=== PATIENT | female | born 1945 | race Caucasian/White ===

== ENCOUNTER → 2022-11-12 12:03 | Outpatient (BNVA) | payer MEDICARE, SELFPAY | PROVIDERS: Family Provider Urology; PCP Family Medicine; Visit Provider Family Medicine | DX: R32 Unspecified urinary incontinence (principal); Z13.6 Encounter for screening for cardiovascular disorders; R41.89 Other symptoms and signs involving cognitive functions and awareness; F41.1 Generalized anxiety disorder | CPT/HCPCS: 80053; 80061; 82607; 84443; 85025 ==

== ENCOUNTER → 2022-11-13 12:03 | Outpatient (BNVA) | payer MEDICARE, SELFPAY | PROVIDERS: Family Provider Urology; PCP Family Medicine; Visit Provider Family Medicine | DX: R32 Unspecified urinary incontinence (principal); Z13.6 Encounter for screening for cardiovascular disorders; R41.89 Other symptoms and signs involving cognitive functions and awareness; F41.1 Generalized anxiety disorder | CPT/HCPCS: 82310; 83970 ==

== ENCOUNTER → 2022-12-18 14:42 | Outpatient (BNVA) | payer MEDICARE, SELFPAY | PROVIDERS: Family Provider Urology; PCP Family Medicine; Referring Provider Family Medicine; Visit Provider Internal Medicine | DX: E21.0 Primary hyperparathyroidism (principal); E55.9 Vitamin D deficiency, unspecified; R41.89 Other symptoms and signs involving cognitive functions and awareness; Z87.442 Personal history of urinary calculi | CPT/HCPCS: 99204 ==

== ENCOUNTER 2022-12-21 10:20 | Outpatient (CLI) | payer MEDICARE, SELFPAY ==
--- NOTE | 2022-12-21 15:00 | XR_ITS ---
WS: [id number] SCREENING DEXA SCAN [employer] CLINICAL INFORMATION: Primary Hyperparathyroidism COMPARISON: None. FINDINGS: The L1-L4 bone mineral density measures 0.953 g/cm2. This corresponds to a T score score of -1.9 and Z score of -1.2. Left femoral neck bone mineral density measures 0.758 g/cm2. This corresponds to a T score of -2.0 an d Z score of -1.5. Right femoral neck bone mineral density measures 0.738 g/cm2. This corresponds to a T score -2.1of an d Z score of -1.6. Mean femoral neck bone mineral density measures 0.748 g/cm2. This corresponds to a T score of -2.1 an d Z score of -1.5. XR/XR DEXA axial skeleton* [id number] IMPRESSION: Osteopenia lumbar spine. Osteopenia femoral necks. Patient's FRAX c alculated 10 year probability for major osteoporotic fracture is 6.0 % and oste oporotic hip fracture is 1.5%.
== END 2022-12-21 10:21 | disposition home or self-care (01) ==
LOC: RAD 10:26
PROVIDERS: PCP Family Medicine; Visit Provider Internal Medicine
DX: E21.3 Hyperparathyroidism, unspecified (principal); M85.88 Other specified disorders of bone density and structure, other site
CPT/HCPCS: 77080

== ENCOUNTER 2023-01-07 08:59 | Outpatient (CLI) | payer MEDICARE, SELFPAY ==
--- NOTE | 2023-01-07 09:08 | NM_ITS ---
WS: [id number] EXAMINATION: NM parathyroid [id number] ORDER DATE: 01/07/2023 9:08 AM HISTORY: hyperparathyroidism TECHNIQUE: Parathyroid scintigraphy with 18.5 of technetium 99m administered. AP and oblique views obtained with and without chin and suprasternal notch markers. Initial and 2 hour delayed imagi ng acquired. FINDINGS: Normal salivary gland uptake. Intense uptake in the thyroid gland bilaterally. Persistent retained ac tivity in a focal nodule adjacent to the LEFT inferior thyroid lobe suspicious for adenoma. 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
== END 2023-01-07 09:00 | disposition home or self-care (01) ==
PROVIDERS: PCP Family Medicine; Visit Provider Internal Medicine
DX: E21.3 Hyperparathyroidism, unspecified (principal)
CPT/HCPCS: 78070; A9500

== ENCOUNTER 2023-01-24 13:21 | Outpatient (CLI) | payer MEDICARE, SELFPAY ==
--- NOTE | 2023-01-24 13:30 | CT_ITS ---
WS: [id number] CT HEAD TECHNIQUE: Noncontrast and contrast-enhanced CT of the head. CLINICAL INFORMATION: R41.89 - Other symptoms and signs involving cognitive fun... COMPARISON: None. DLP: 2059.[address] scans at [facility] use at least one of these dose optimization techniques: automated e xposure control; mA and/or kV adjustment per patient size (includes targeted exams where dose is matc hed to clinical indication); or iterative reconstruction. FINDINGS: No evidence of intracranial hemorrhage or mass effect. Ventricular system and basal cisterns are hamm nt. Vascular calcification. Mastoid air cells well aerated. Normal posterior nasopharynx. Tiny amount of fluid in the RIGHT maxillary sinus. Mild mucosal thickening ethmoid air cells. Normal lyon-white differentiation. No extra-axial fluid collections. Small focus of chronic ischemia LEFT anterior limb internal capsule. No abnormal intracranial enhancement. No other suspicious findin gs. CT/CT head wo/w con [id number] IMPRESSION: 1. No evidence of intracranial hemorrhage or mass effect. 2. No abnormal intracranial enhancement. 3. Mild small vessel changes with moderate parenchymal volume loss. 4. Vascular calcification. 5. Small focus of chronic ischemia along the anterior limb LEFT internal capsu le. 6. No other suspicious findings.
[2023-01-24] MEDS: iohexol 350 mg/mL 500 mL Btl (per mL) IV (13:57)
[2023-01-24 14:17] LABS: Blood Urea Nitrogen 16 mg/dL (8-23)
== END 2023-01-24 13:22 | disposition home or self-care (01) ==
PROVIDERS: PCP Family Medicine; Visit Provider Family Medicine
DX: R41.89 Other symptoms and signs involving cognitive functions and awareness (principal); N28.9 Disorder of kidney and ureter, unspecified; Z87.442 Personal history of urinary calculi
CPT/HCPCS: 70470; 82565; 84520; Q9967

== ENCOUNTER 2023-02-18 15:28 | Outpatient (CLI) | payer MEDICARE, SELFPAY ==
--- NOTE | 2023-02-18 15:40 | CT_ITS ---
WS: [id number] CT NECK TECHNIQUE: Contrast-enhanced CT of the neck with coronal and sagittal reformatted images. CLINICAL INFORMATION: OTHER HYPERPARATHYROIDISM COMPARISON: . There June 11, 2036 23 DLP: 130.[address] scans at [facility] use at least one of these dose optimization techniques: automated e xposure control; mA and/or kV adjustment per patient size (includes targeted exams where dose is matc hed to clinical indication); or iterative reconstruction. FINDINGS: Ovoid shaped elongated nodule adjacent to the inferior pole LEFT thyroid posteriorly measuring 8.2 x 1.5 x 2.1 mm most compatible with parathyroid adenoma given prior parathyroid scintigraphy. Multinodular thyroid with dominant nodules involving the isthmus measuring 1.3 x 2.0 x 1.7 cm and LEF T lower thyroid measuring 1.1 x 1.0 x 1.0 cm AP by transverse by craniocaudal. Smaller subcentimeter nodules in the RIGHT thyroid lobe. Mastoid air cells are well aerated. Mild mucosal thickening in the RIGHT greater than LEFT maxillary sinuses. Mild mucosal thickening in the ethmoid air cells. Normal posterior nasopharynx. Normal parap haryngeal fat. Lung apices are well aerated. Moderate RIGHT and mild LEFT carotid bulb calcification. No cervical lymphadenopathy. Moderate spondylitic changes cervical spine. Mild central canal stenosis C3-C4 C4-C5 C5-C6 C6-C7 CT/CT neck w con* [id number] IMPRESSION: 1. Enhancing ovoid nodule inferior and posterior to the LEFT thyroid lobe desc ribed above compatible with parathyroid adenoma as seen on the prior parathyroi d scintigraphy. 2. A few thyroid nodules described above. This can be followed up with ultraso und. 3. No cervical lymphadenopathy. 4. Normal salivary glands. 5. No evidence of supraglottic or glottic mass. 6. Moderate spondylitic changes cervical spine.
[2023-02-18] MEDS: iohexol 350 mg/mL 500 mL Btl (per mL) IV (15:56)
== END 2023-02-18 15:29 | disposition home or self-care (01) ==
PROVIDERS: PCP Family Medicine; Visit Provider Specialist
DX: E21.2 Other hyperparathyroidism (principal); E04.2 Nontoxic multinodular goiter
CPT/HCPCS: 70491; Q9967

== ENCOUNTER → 2023-02-28 13:11 | Outpatient (BNVA) | payer MEDICARE, SELFPAY | PROVIDERS: PCP Family Medicine; Visit Provider Internal Medicine | DX: E21.0 Primary hyperparathyroidism (principal); E55.9 Vitamin D deficiency, unspecified; R41.89 Other symptoms and signs involving cognitive functions and awareness; D35.1 Benign neoplasm of parathyroid gland; Z87.442 Personal history of urinary calculi | CPT/HCPCS: 36415; 80053; 82306; 82310; 83970; 99214 ==

== ENCOUNTER 2023-04-17 16:49 | Observation (INO) | payer MEDICARE, SELFPAY ==
[2023-04-15 13:11] VITALS: BMI 28.1
[2023-04-15 13:49] LABS: Basophils % 0.6 %; Eosinophils # 0.1 10^3/uL (0.0-0.8); Eosinophils % 1.9 %; Hematocrit 43.1 % (37.0-47.0); Hemoglobin 13.8 g/dL (11.5-15.3); Lymphocytes # 2.1 10^3/uL (0.8-4.8); Lymphocytes % 28.9 %; Mean Corpuscular Hemoglobin 30.2 pg (28.0-34.0); Mean Corpuscular Volume 94.3 fl (81-99); Mean Platelet Volume 10.6 fL (7.4-10.4); Monocytes # 0.6 10^3/uL (0.2-0.9); Monocytes % 7.8 %; Neutrophils # 4.35 10^3/uL (1.8-7.7); Neutrophils % 60.5 %; Nucleated Red Blood Cells % 0 %; Platelet Count 205 10^3/cmm (130-400); Red Blood Count 4.57 10^6/uL (4.1-5.3); Red Cell Distribution Width 12.7 % (12.1-15.1); White Blood Count 7.2 10^3/uL (4.0-10.0)
--- NOTE | 2023-04-15 14:07 | P.ANESASSM_ITS ---
Pre-Anesthetic Assessment Height/Weight: Height 1.7 m Weight 81.647 kg Operation Date: 04/17/23 07:00 Proposed Procedures p Total vaginal hysterectomy 07301,N81.3(Not Applicable) - Ariel Mendes MD s ,bilateral salpingo-oophorectomy 10850(Bilateral) - Ariel Mendes MD s Colporrhaphy Anterior 21280(Not Applicable) - Ariel Mendes MD s Posterior Repair Posterior Colporrhaphy(Not Applicable) - Ariel Mendes MD s Sling Single Incision Sling 13882(Not Applicable) - Ariel Mendes MD s Sacrospinous fixation 27120(Not Applicable) - Ariel Mendes MD Familial anesthetic complications: none Was Beta Pilo taken within 24 hours: N/A Was Clonidine taken within 24 hours: N/A Social No alcohol and No tobacco Exam alert, oriented x 3, clear to auscultation bilaterally and regular rate & rhythm Airway Submandibular: within normal limits Cervical ROM: within normal limits Mallampati: Class II Dentition: partials Musc/skel Osteoarthritis/DJD Neuropsych Anxiety Anesthetic Plan ASA status: 2 Anesthesia: General Medications/Allergies Home Medications Medication Instructions Recorded Confirmed Last Taken Type citalopram 40 mg tablet 40 mg PO DAILY #90 tabs 02/20/23 04/15/23 04/15/23 Rx aspirin 81 mg tablet,delayed 81 mg PO DAILY 03/05/23 04/15/23 04/15/23 History release meloxicam 15 mg tablet 15 mg PO DAILY 04/15/23 04/15/23 04/15/23 History Allergies Allergy/AdvReac Type Severity Reaction Status Date / Time No Known Allergies Allergy Verified 04/15/23 13:09 FOR[facility] Anesthesia Medical History History of kidney stones Urinary incontinence Family History Denies family history of Colon cancer Ovarian cancer Diabetes Heart disease Hypercholesteremia Breast cancer Hypertension Uterine cancer Thyroid disease Stroke Data Anesthesia 04/15/23 13:19 04/15/23 13:19 Short CBC 04/15/23 Range/Units 13:19 WBC 7.2 (4.0-10.0) 10^3/uL Hgb 13.8 (11.5-15.3) g/dL Hct 43.1 (37.0-47.0) % MCV 94.3 (81-99) fl Plt Count 205 (130-400) 10^3/cmm Neut % (Auto) 60.5 % Neut # (Auto) 4.35 (1.8-7.7) 10^3/uL Cardiac Studies: No Data to Display
[2023-04-15 14:08] LABS: Alanine Aminotransferase 20 U/L (0-33); Albumin Level 4.2 g/dL (3.5-5.2); Alkaline Phosphatase 93 U/L (35-105); Anion Gap 9.9 (5-19); Aspartate Amino Transferase 25 U/L (0-32); Blood Urea Nitrogen 15 mg/dL (8-23); Calcium 10.3 mg/dL (8.5-10.5); Carbon Dioxide 25 mmol/L (22-29); Chloride 106 mmol/L (98-107); Glucose 105 mg/dL (65-115); Osmolality Calculated 285 mOsm/kg (285-295); Potassium 3.9 mmol/L (3.5-5.1); Sodium 137 mmol/L (136-145); Total Bilirubin 0.4 mg/dL (0.15-1.2); Total Protein 7.2 g/dL (6.6-8.7)
[2023-04-15 14:12] LABS: Add Urine Culture? Yes; Add Urine Microscopic? YES; Bacteria Urine 4+ /hpf; Bilirubin Urine Neg (Negative); Blood Urine Neg (Negative); Glucose Urine UA Norm (Normal); Ketones Urine Negative (Negative); Leukocyte Esterase Urine 1+ (Negative); Nitrate Urine Positive (Negative); Protein Urine Neg (Negative); RBC Urine 0-4 /hpf (0-2); Squamous Epithelial Cell Urine 0-4 /hpf (0-5); Urine Appearance Cloudy (CLEAR); Urine Color Yellow (Yellow); Urobilinogen Urine Norm (Negative); WBC Urine 40-55 /hpf (0-5); pH Urine 6 (5-7)
[2023-04-17] VITALS (19 sets, daily range): BP systolic 98–157; BP diastolic 62–95; PULSE 64–90; RESP 14–20; TEMP 36.3–36.7; O2SAT 95–100
[2023-04-17] MEDS: enoxaparin 40 mg/0.4 mL Syringe SUBCUT (11:33)
[2023-04-17] MEDS: scopolamine 1.5 Patch 1 PATCH TRANSDERMA (11:33)
[2023-04-17] MEDS: sodium chloride 0.9% 1,000 ML 30 ML IV (11:35)
--- NOTE | 2023-04-17 12:10 | P.HPUD_ITS ---
Surgery/Procedure H&P Update DATE OF PROCEDURE: April 17, 2023 DATE H&P PERFORMED: 04/15/23 H&P UPDATE INFORMATION: I have reviewed H&P completed within last 30 days, I have examined patient prior to procedure and No changes to prior documentation PREOP DIAGNOSIS: cystocele uterine prolapse stage 3 PLANNED PROCEDURE: Operation Date: 04/17/23 12:20 Proposed Procedures p Total vaginal hysterectomy 13625,N81.3(Not Applicable) - Ariel Mendes MD s ,bilateral salpingo-oophorectomy 26738(Bilateral) - MD alysha Guy Colporrhaphy Anterior 77824(Not Applicable) - MD alysha Guy Posterior Repair Posterior Colporrhaphy(Not Applicable) - MD alysha Guy Sling Single Incision Sling 29643(Not Applicable) - MD alysha Guy Sacrospinous fixation 34252(Not Applicable) - Ariel Mendes MD
--- NOTE | 2023-04-17 12:10 | W.PM.OPSUD ---
Surgery/Procedure H&P Update DATE OF PROCEDURE: April 17, 2023 DATE H&P PERFORMED: 04/15/23 H&P UPDATE INFORMATION: I have reviewed H&P completed within last 30 days, I have examined patient prior to procedure and No changes to prior documentation PREOP DIAGNOSIS: cystocele uterine prolapse stage 3 PLANNED PROCEDURE: Operation Date: 04/17/23 12:20 Proposed Procedures p Total vaginal hysterectomy 62837,N81.3(Not Applicable) - Ariel Mendes MD s ,bilateral salpingo-oophorectomy 88735(Bilateral) - MD alysha Guy Colporrhaphy Anterior 11028(Not Applicable) - MD alysha Guy Posterior Repair Posterior Colporrhaphy(Not Applicable) - MD alysha Guy Sling Single Incision Sling 99603(Not Applicable) - MD alysha Guy Sacrospinous fixation 44843(Not Applicable) - Ariel Mendes MD
[2023-04-17] MEDS: ceFOXitin 2,000 MG in sodium chloride 0.9% (plus) 50 ML 100 MG IV (12:42)
--- NOTE | 2023-04-17 13:58 | P.ANESUD_ITS ---
Pre-Anesthetic Update Pre-Anesthetic Assessment: Date of Surgery/Procedure: 04/17/23 Preop Allie gnosis: cystocele uterine prolapse stage 3 Proposed Procedure: Operation Date: 04/17/23 12:20 Proposed Procedures p Total vaginal hysterectomy 37342,N81.3(Not Applicable) - Ariel Mendes MD s ,bilateral salpingo-oophorectomy 47705(Bilateral) - Ariel Mendes MD s Colporrhaphy Anterior 23907(Not Applicable) - Ariel Mendes MD s Posterior Repair Posterior Colporrhaphy(Not Applicable) - Ariel Mendes MD s Sling Single Incision Sling 06482(Not Applicable) - Ariel Mendes MD s Sacrospinous fixation 42390(Not Applicable) - Ariel Mendes MD Any changes to Pre-Anesthetic Assessment?: No Last Intake: Intake Last Liquid Date 04/16/23 Last Liquid Time 19:00 Last Solid Date 04/16/23 Last Solid Time 19:00 Labs Last 48hrs: BMP 04/15/23 13:19 Sodium 137 Potassium 3.9 Chloride 106 Carbon Dioxide 25 BUN 15 Creatinine 0.6 Glucose 105 Calcium 10.3 Liver Function 04/15/23 Range/Units 13:19 Total Bilirubin 0.4 (0.15-1.2) mg/dL AST 25 (0-32) U/L ALT 20 (0-33) U/L Alkaline Phosphata se 93 (35-105) U/L Albumin 4.2 (3.5-5.2) g/dL Urine 04/15/23 Range/Units 13:20 Urine Color Yellow (Yellow) Urine Appearance Cloudy A (CLEAR) Urine pH 6 (5-7) Ur Specific Gravit y 1.020 (1.005-1.030) Urine Protein Neg (Negative) Urine Glucose (UA) Norm (Normal) Urine Ketones Negative (Negative) Urine Nitrate Positive H (Negative) Urine Bilirubin Neg (Negative) Ur Leukocyte Danisha ase 1+ H (Negative) Urine RBC 0-4 H (0-2) /hpf Urine WBC 40-55 H (0-5) /hpf Blood Bank 04/15/23 13:20 Blood Type O Positive Rho(D) Type Positive Antibody Screen Negative Vitals: Temperature 97.4 F L 04/17/23 10:56 Temperature Source Temporal Artery S can 04/17/23 10:56 Pulse Rate 66 04/17/23 10:56 Respiratory Rate 18 04/17/23 10:56 Blood Pressure 157/95 04/17/23 10:56 Blood Pressure Esme n 115 04/17/23 10:56 Pulse Oximetry 100 04/17/23 10:56 Oxygen Delivery Me thod Room Air 04/17/23 11:36 Exam: Pre-Anes Outpt Exam: alert, oriented x 3, clear to auscultation bilaterally and regular rate & rhythm Cardiac Studies: No Data to Display
[2023-04-17] MEDS: estrogens Conjugated Cream 30 gm 1 APPLIC VAGINAL (15:23)
[2023-04-17] MEDS: lidocaine-epi 2% 20 mL INJ 10 ML INJECTION (15:24)
[2023-04-17] MEDS: lidocaine-epi 2% 20 mL INJ INJECTION (15:24)
--- NOTE | 2023-04-17 16:36 | P.OP_ITS ---
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 Anterior colporrhaphy augmented with allograft. Single incision mid urethral sling. Posterior colporrhaphy. Sacrospinous fixation. Cystoscopy Specimens removed/disposition: Uterus Left and right fallopian tube and ovaries Surgeon: Ariel Mendes MD Estimated blood loss (mL): 300 IV fluids (mL): 1,600 Urine output (mL): 400 Complications: Bleeding Findings: Mrs. Dia 78-year-old female with a history of uterine prolapse for years. Complete uterine prolapse. Extensive pelvic reconstruction. Procedure: After informed consent and risks, benefits, indications and alternatives reviewed with the patient was taken to the operating room. The patient was placed in dorsal lithotomy position prepped, and draped in the usual sterile fashion. The pre-procedure timeout verifying the correct patient, procedure, site and side, could not requirements was performed and acknowledge by the OR team. A Wall catheter was placed. A Bookwalter vaginal retractor was placed into the vagina in usual manner visualize the cervix. Cervix was grasped with a single tooth tenaculum and circumferentially infiltrated with 2% lidocaine with epinephrine. Then cervix was circumferentially incised with bovie and the bladder was dissected off the pubovesical cervical fascia anteriorly with a sponge stick and Metzenbaum scissors. The anterior peritoneal reflection was identified and the anterior cul-de-sac was entered sharply with Metzenbaum scissors. The same procedure was performed posteriorly and a posterior colpotomy was made through the posterior cul-de-sac space without difficulty and the posterior blade of the Bookwalter vaginal retractor was advanced posteriorly into the cul-de-sac. At this time, the left and right uterosacral ligaments were isolated and ligated with 0 Vicryl. The Enseal device was placed over the uterosacral ligaments on either side and was then used in a serial fashion up through the cardinal ligaments bilaterally cross-clamped, cut, and sealed with the Enseal device. Finally, the uterine arteries were cross-clamped, cut, sealed and ligated with the Enseal device. Hemostasis was assured. The broad ligaments were then serially clamped, sealed and cut with the Enseal device on both sides. Excellent hemostasis was visualized. Both cornua were clamped, sealed and cut with the Enseal device. Then the pedicles were then suture ligated with excellent hemostasis. The uterus was excised and submitted for pathologic evaluation. No other abnormalities were noted in the pelvic cavity. Then the right side Infundibular ligament was identified. The ureter was confirmed along the pelvic side wall and peristalsis was noted. The Enseal device was then used to clamp, sealed and transcepted at middistance, again being sure to be clear of the ureter and the fallopian tube and ovary were removed. The same process was then repeated on the left side. Good hemostasis was assure on both sides. The peritoneum was then closed in a pursestring fashion with 0 Vicryl suture. The vaginal cuff angles were closed with [id number] #0 Vicryl suture on both sides and transfixed with the ipsilateral cardinal and uterosacral ligaments. The remainder of the vaginal cuff was closed with #0 Vicryl in a running locked fashion. The posterior vaginal mucosa is opened in the routine fashion as described previously in Posterior Repair. A finger is inserted through the incision in the posterior vaginal mucosa, dissecting out the rectovaginal space (RVS). The right rectal pillar (RRP) is identified. The rectal pillar can be bluntly perforated either with the finger and with the tip of a long Thalia clamp. A Verónica- Ankit retractor is used for exposing the rectovaginal space in order to enter the pararectal space with retraction of the cardinal ligament, vagina, and rectum. Displacing the rectum to the left and the cardinal ligament and ureter anteriorly. A sponge dissector is used to bluntly dissect the sacrospinous ligament removing areolar tissue. The ischial spine was palpated directly, and a area approximately 2 cm medial to the spine was selected for insertion of the Anchorsure transvaginal sacrospinous fixation system. One end of the suture of Anchoresure system inserted through the sacrospinous ligament is placed through the muscular layer of the vagina. In a similar manner, the second suture is placed. The opposite end of the suture in the sacrospinous ligament is left free and held on a small hemostat. Then traction on this suture will draw the vaginal vault directly to the ligament, where a square knot affixes it to the sacrospinous ligament. After the skyla stich is tied the second safety stich is tied. Then the colporrhaphy/vaginal repair is carried out in routine fashion. A dilute 2% lidocaine with epinephrine solution was infiltrated under the posterior vaginal mucosa midline and into the perineal body. An transverse incision was cut in the perineum. The posterior vaginal wall was opened vertically and midline up to the apex of the rectocele. The cut edges were held and splayed laterally with a series of Allis clamps. The open vaginal mucosa was then dissected laterally with a combination of sharp and blunt dissection, exposing the perirectal fascia. The perirectal fascia was then reapproximated with interrupted #2-0 Vicryl sutures to draw the lateral folds together and tuck the rectocele back. Deep interrupted sutures of #0 Vicryl were used to reapproximate the fibers of the levator ani muscles. The excess vaginal mucosa was trimmed. The posterior vaginal wall was closed with a running locked #0 Vicryl to the hymenal tags. The superficial perineal muscles were closed with running unlocked #0 Vicryl and the perineal skin was closed with running subcuticular #2-0 Vicryl. The anterior vaginal mucosa beneath the midurethra was infiltrated with 0.5% Marcaine with epinephrine. A vertical midline incision was made beneath the midurethra, nearly 1.5 cm length. Careful submucosal dissection was performed bilaterally up to the interior portion of the inferior pubic ramus. The insertion of adductor longus tendon on the patient?s pubic ramus was identified as reference land sussy. Palpated the notch along the internal edge of ischiopubic ramus where the adductor longus tendon and the inferior pubic ramus meet. The Altis single incision sling (SIS) was selected. Then the needle of the SIS inserted aiming at the location of this notch. One of the integrated self- fixating tips place onto the needle by sliding it over the end of the needle. The needle/sling assembly was inserted toward the location of identified reference notch making sure that the flat of the handle is perpendicular to the desired path. The needle was tracked along the posterior surface of the ischiopubic ramus until the midline sussy on the mesh is approximately at the midline position under the urethra. The needle was removed and the same was repeated on the contralateral side until the appropriate sling tension under the urethra was achieved ensuring that the mesh lays flat. The needle was removed and vaginal incision was closed in a running interlocking fashion with 2-0 Vicryl. At this time, instruments were removed from the vagina at hemostasis assured. The vaginal mucosa was then injected in the midline with normal saline. The vaginal mucosa was scored in the midline with the Bovie approximately 1 cm medial to the urethral meatus to 1 cm distal to the vaginal cuff. This vaginal mucosa was then undermined and then incised in the midline with the Metzenbaum scissors. The lateral aspects of the vaginal mucosa were then grasped with the Allis clamps and the vaginal mucosa was then dissected off the underlying fascia with the Metzenbaum scissors. Again, there was noted to be quite a bit of oozing at the incision, which was controlled with cautery. After adequate dissection was performed, bilaterally. The Coloplast allograft was modified at time of application to fit spacea, 4 x 4 cm piece . The allograft was placed in front of cystocele ready to be implanted facing the vagina mucosa. Suture is placed at distal end of graft and placed towards vaginal cuff. Final suture is placed on proximal portion of the graft to complete the placement overlying the bladder. Then Interrupted vertical mattress sutures of 0 Vicryl were used to elevate the cystocele superiorly. The excessive vaginal mucosa was then trimmed with the Metzenbaum scissors and the vaginal mucosa was then reapproximated in the running interlocking fashion with 2-0 Vicryl. Then the Wall catheter was removed and cystoscope was inserted. The bladder was filled with sterile water. Complete evaluation of the bladder mucosa was performed noting no lacerations, dimpling, tears, bleeding of the mucosa or muscular layers. Both ureteral orifices were identified. Prompt excretion of urine from both ureteral orifices was noted. Cystoscope was withdrawn. Wall catheter was then placed yielding clear nico urine. A vaginal packing with Premarin cream was placed and the patient was taken out of dorsal lithotomy position and awakened from the general anesthesia. The patient tolerated the procedure well and was taken to the PACU recovery room in a stable condition. Sponge, lap, needle and instruments counts were correct x3.
--- NOTE | 2023-04-17 17:19 | ANE.PACU2 ---
Inpatient post-anesthesia follow up: Airway intact: Yes Vital signs: Temperature 97.4 F Pulse Rate 83 Respiratory Rate 20 Blood Pressure 116/83 Pulse Oximetry 97 Oxygen Delivery Me thod Room Air Oxygen Flow Rate 6 Fraction of Inspir ed Oxygen Hydration adequate: Yes Nausea and vomiting: No Pain level: 3 Mental status: Baseline
[2023-04-17] MEDS: docusate sodium 100 mg Capsule PO (18:14)
[2023-04-17] MEDS: ketorolac 30 mg/mL INJ IVP (19:44)
[2023-04-17] MEDS: simethicone 80 mg Chew PO (22:38)
[2023-04-17] MEDS: sodium chloride 0.9% 500 ML 999 ML IV (22:38)
[2023-04-17] MEDS: HYDROcodone-acetaminophen 5-325 mg Tablet PO (23:11)
[2023-04-18] MEDS: ketorolac 30 mg/mL INJ IVP ×2 (02:23→10:03)
[2023-04-18] MEDS: dextrose 5%-lactated ringers 1,000 ML 125 ML IV (02:26)
[2023-04-18 04:00] VITALS: BP 117/76; PULSE 75; RESP 18; TEMP 36.6; O2SAT 98
[2023-04-18] MEDS: sodium chloride 0.9% 500 ML 999 ML IV (04:36)
[2023-04-18] MEDS: simethicone 80 mg Chew PO (04:37)
[2023-04-18 05:18] LABS: Hematocrit 30.8 % (37.0-47.0); Hemoglobin 9.6 g/dL (11.5-15.3); Mean Corpuscular HGB Conc 31.2 g/dL (30.0-36.0); Mean Corpuscular Hemoglobin 30.1 pg (28.0-34.0); Mean Corpuscular Volume 96.6 fl (81-99); Mean Platelet Volume 11.1 fL (7.4-10.4); Platelet Count 146 10^3/cmm (130-400); Red Blood Count 3.19 10^6/uL (4.1-5.3); White Blood Count 11.1 10^3/uL (4.0-10.0)
[2023-04-18] MEDS: aspirin 81 mg EC Tablet PO (10:02)
[2023-04-18] MEDS: docusate sodium 100 mg Capsule PO (10:02)
[2023-04-18] MEDS: citalopram 20 mg Tablet 40 MG PO (10:03)
[2023-04-18] MEDS: donepezil 5 MG Tablet PO (10:03)
[2023-04-18 10:09] VITALS: BP 110/69; PULSE 79; RESP 17; TEMP 36.6
--- NOTE | 2023-04-18 11:02 | PM.OBGYDC ---
Discharge Providers ELECTRICAL APPLIANCE MECHANIC Date of Admission: 04/17/23 16:49 Date of Discharge: 04/18/23 Attending Provider at Admission: Ariel Mendes MD Attending Provider at Discharge: Ariel Mendes MD Primary ELECTRICAL APPLIANCE MECHANIC: Ariel Mendes MD Primary Care Provider: Renata Hyde DO Reason for Visit Reason for Visit: N81.3 Hospital Course Hospital Course Mrs. Cabrera 78-year-old female with a history of complete uterine prolapse for years. Admitted for total vaginal hysterectomy with bilateral salpingo-oophorectomy, anterior colporrhaphy augmented with allograft, single incision mid urethral sling, posterior colporrhaphy and sacrospinous fixation. The procedures were performed without complications, other than bleeding more than usual due to the extensive reconstruction. She is afebrile hemodynamically stable postoperative day 1. Tolerating diet well. Pain under control. Ambulating without difficulty. Patient counseled regarding weight lifting limitations and for restrictions. She was also counseled regarding pelvic rest for 6 weeks (no sex, no tampons, no vaginal douches). Return to the emergency room if any fever, increased bleeding or pain.. Physical Exam Narrative: GA: Alert and oriented ?3. HEENT: WNL. Heart: Regular rate and rhythm. Lungs: Clear to auscultation bilaterally. Abdomen: Bowel sounds present, minimal tenderness. OIL WELL GUN PERFORATOR OPERATOR: Spotting bleeding. Extremities: No edema, no cyanosis, no calves pain. Urinary Catheter Management: Wall: Cath Placed During This Visit: yes Reason for Continuing Indwelling Catheter: Acute Urinary Retention or Obstruction Urinary Catheter Date of Insertion: 04/17/23 Urinary Catheter Time of Insertion: 13:10 History History History 2 Term 2 0 Miscarriages/Ectopic 0 Living Children 2 Discharge Data Studies Completed and Pending Pending at discharge Category Date Time Status Urine Culture Routine Lab 04/15/23 13:20 Results Pathology: Surgical [PTH] Routine Pth 04/17/23 14:32 Received Laboratory Results WBC 11.1 10^3/uL (4.0-10.0) H 04/18/23 04:45 RBC 3.19 10^6/uL (4.1-5.3) L 04/18/23 04:45 Hgb 9.6 g/dL (11.5-15.3) L 04/18/23 04:45 Hct 30.8 % (37.0-47.0) L 04/18/23 04:45 MCV 96.6 fl (81-99) 04/18/23 04:45 MCH 30.1 pg (28.0-34.0) 04/18/23 04:45 MCHC 31.2 g/dL (30.0-36.0) 04/18/23 04:45 RDW 13.0 % (12.1-15.1) 04/18/23 04:45 Plt Count 146 10^3/cmm (130-400) 04/18/23 04:45 MPV 11.1 fL (7.4-10.4) H 04/18/23 04:45 Neut % (Auto) 60.5 % 04/15/23 13:19 Lymph % (Auto) 28.9 % 04/15/23 13:19 Anson % (Auto) 7.8 % 04/15/23 13:19 Eos % (Auto) 1.9 % 04/15/23 13:19 Baso % (Auto) 0.6 % 04/15/23 13:19 Neut # (Auto) 4.35 10^3/uL (1.8-7.7) 04/15/23 13:19 Lymph # (Auto) 2.1 10^3/uL (0.8-4.8) 04/15/23 13:19 Anson # (Auto) 0.6 10^3/uL (0.2-0.9) 04/15/23 13:19 Eos # (Auto) 0.1 10^3/uL (0.0-0.8) 04/15/23 13:19 Baso # (Auto) 0.0 10^3/uL (0.0-0.1) 04/15/23 13:19 Nucleated RBC % (auto) 0 % 04/15/23 13:19 Nucleated RBCs # 0.0 /100WBC 04/15/23 13:19 Sodium 137 mmol/L (136-145) 04/15/23 13:19 Potassium 3.9 mmol/L (3.5-5.1) 04/15/23 13:19 Chloride 106 mmol/L (98-107) 04/15/23 13:19 Carbon Dioxide 25 mmol/L (22-29) 04/15/23 13:19 Anion Gap 9.9 (5-19) 04/15/23 13:19 BUN 15 mg/dL (8-23) 04/15/23 13:19 Creatinine 0.6 mg/dL (0.5-0.9) 04/15/23 13:19 GFR Calculation Not Reportable 04/15/23 13:19 Glucose 105 mg/dL (65-115) 04/15/23 13:19 Calculated Osmolality 285 mOsm/kg (285-295) 04/15/23 13:19 Calcium 10.3 mg/dL (8.5-10.5) 04/15/23 13:19 Total Bilirubin 0.4 mg/dL (0.15-1.2) 04/15/23 13:19 AST 25 U/L (0-32) 04/15/23 13:19 ALT 20 U/L (0-33) 04/15/23 13:19 Alkaline Phosphatase 93 U/L (35-105) 04/15/23 13:19 Total Protein 7.2 g/dL (6.6-8.7) 04/15/23 13:19 Albumin 4.2 g/dL (3.5-5.2) 04/15/23 13:19 Globulin 3.0 g/dL (1.3-4.6) 04/15/23 13:19 Urine Color Yellow (Yellow) 04/15/23 13:20 Urine Appearance Cloudy (CLEAR) A 04/15/23 13:20 Urine pH 6 (5-7) 04/15/23 13:20 Ur Specific Thurman 1.020 (1.005-1.030) 04/15/23 13:20 Urine Protein Neg (Negative) 04/15/23 13:20 Urine Glucose (UA) Norm (Normal) 04/15/23 13:20 Urine Ketones Negative (Negative) 04/15/23 13:20 Urine Blood Neg (Negative) 04/15/23 13:20 Urine Nitrate Positive (Negative) H 04/15/23 13:20 Urine Bilirubin Neg (Negative) 04/15/23 13:20 Urine Urobilinogen Norm mg/dL (Negative) 04/15/23 13:20 Ur Leukocyte Esterase 1+ (Negative) H 04/15/23 13:20 Urine RBC 0-4 /hpf (0-2) H 04/15/23 13:20 Urine WBC 40-55 /hpf (0-5) H 04/15/23 13:20 Ur Squamous Epith Cells 0-4 /hpf (0-5) H 04/15/23 13:20 Amorphous Sediment Not Reportable 04/15/23 13:20 Urine Bacteria 4+ /hpf (NONE) H 04/15/23 13:20 Blood Type O Positive 04/15/23 13:20 Rho(D) Type Positive 04/15/23 13:20 Antibody Screen Negative 04/15/23 13:20 Vitals Last Vital Signs Temp 97.9 F 04/18/23 10:09 Pulse 79 04/18/23 10:09 Resp 17 04/18/23 10:09 BP 110/69 04/18/23 10:09 Pulse Ox 98 04/18/23 04:00 O2 Del Method Room Air 04/18/23 04:00 O2 Flow Rate 6 04/17/23 16:46 Discharge Plan Discharge Patient Disposition: Home Condition: Stable Prescriptions: New hydrocodone-acetaminophen 5-325 mg tablet 1 tab PO Q4H PRN (Reason: pain) Qty: 10 0RF acetaminophen 325 mg capsule 325 mg PO Q4H PRN (Reason: fever or postoperative pain) Qty: 60 0RF docusate sodium [Colace] 100 mg capsule 100 mg PO BID Qty: 60 0RF Continued aspirin 81 mg tablet,delayed release (DR/EC) 81 mg PO DAILY donepezil [Aricept] 5 mg tablet 5 mg PO DAILY Qty: 30 0RF citalopram 40 mg tablet 40 mg PO DAILY Qty: 90 1RF meloxicam 15 mg tablet 15 mg PO DAILY Rx Instructions: TAKE 1 TABLET BY MOUTH EVERY DAY Discharge Orders: Discharge Order (Routine); Ordered 04/18/23 Ordered By: Ariel Mendes Referrals: Ariel Mendes MD [Physician] - 2 weeks Discharge Diet: Usual diet Discharge Activity: Limit activity as instructed Patient Instructions: Opioid Safety, Anterior Vaginal Repair (GEN), Posterior Vaginal Repair (GEN), Bladder Sling for Women (GEN), Vaginal Hysterectomy (GEN), Salpingo-Oophorectomy (GEN), Hysterectomy (GEN) Activity Restrictions/Additional Instructions: 1. Please call [facility] on next working day to make your post-operative appointment in 2 weeks or Saturday if PVR greater than 150 ml. 2. Please stay home until you come back to the clinic on first post-hospatilization check up. 3. Please follow instructions on your medications CAREFULLY. 4. If you have abdominal incision, do not cover it unless dressing is necessary because of drainage. OK to shower, but avoid bath. Leave steri-strips until they fall off. If they are still on one week after surgery, you may remove them. 5. If you had vaginal surgery or vaginal repair, Dr. Mendes may instruct you to take SITZ bath. 6. Yellow, blood tinged odorous vaginal discharge is usually normal after hysterectomy or vaginal surgeries. 7. No SEXUAL INTERCOURSE, tampons, or douches until you are completely released from the post-operative care. 8. Avoid constipation by eating right and maybe using some Metamucil or Milk of Magnesia. 9. All prescription refills are given during the working hours. Please do no wait till it runs out. Call the clinic at [phone] before your medication runs out. The clinic will get in touch with your doctor to prescribe medications if necessary. 10. Please remain within 40 mile radius from our hospital because emergencies do happen now and then during the post-operative period. 11. If you have stairs at home, take one step at a time slowly and minimize the number of trips. It helps to stay in one floor for the next few days. No lifting except what you can lift by one hand until you are released from the post-operative care. 12. Driving is discouraged until you are well healed. It may be 3-4 weeks before you feel strong enough to drive. You should be able to turn and look through the rear window without pain and you should be able to push the brake pedal very hard without pain before you drive. No fast rules, but SAFETY should be your primary concern. DO NOT drive if you are on sedating medications such as narcotics. 13. Call the clinic (during working hours) to make urgent appointment or go to the Emergency room, if any of the following occurs: i. Vaginal bleeding becomes heavy, more than a period. ii. Incision becomes red and sore, or drains pus. iii. Your TEMPERATURE is over 100.4F or you have chill. iv. IV site becomes red and swollen (a little ``knot?? is usually OK) v. Persistent nausea and vomiting vi. Persistent constipation or diarrhea vii. Rash or allergic reaction to medications. Discharge Attestations ELECTRICAL APPLIANCE MECHANIC Time Spent in Discharge Care*: greater than 30 min Coding Level of Care Code Acute Code for Chg Fwd Diagnoses
[2023-04-18 14:48] VITALS: BP 167/93; PULSE 72; RESP 17; TEMP 36.9; O2SAT 99
[2023-04-18 15:00] VITALS: BP 167/93; PULSE 72; RESP 17; TEMP 36.9; O2SAT 99
== END 2023-04-18 15:00 | disposition home or self-care (01) ==
LOC: OBGYN 16:49
PROVIDERS: Admitting Provider Obstetrics & Gynecology; PCP Family Medicine; Visit Provider Obstetrics & Gynecology
PROC: (CPT 57240; principal; 2023-04-17 12:10)
PROC: (CPT 58720; 2023-04-17 12:10)
PROC: 0JQC0ZZ Repair Pelvic Region Subcutaneous Tissue and Fascia, Open Approach (ICD-10-PCS; CPT 57240; 2023-04-17 12:10)
PROC: (CPT 57250; 2023-04-17 12:10)
PROC: (CPT 57288; 2023-04-17 12:10)
PROC: (CPT 57282; 2023-04-17 12:10)
PROC: 0TJB8ZZ Inspection of Bladder, Via Natural or Artificial Opening Endoscopic (ICD-10-PCS; CPT 52000; 2023-04-17 12:10)
DX: N81.3 Complete uterovaginal prolapse (principal); Z79.82 Long term (current) use of aspirin
CPT/HCPCS: 57240; 57282; 57288; 58262; 36415; 51702; 51798; 80053; 81001; 85025; 85027; 86850; 86900; 87077; 87086; 87186; 88305; 88307; 96374; 96376; C1713; C1762; G0378; J0131; J0360; J0694; J1100; J1650; J1885; J2370; J2405; J2704; J2710; J3010; J3490; J7030; J7040; J7121; Q9968

== ENCOUNTER 2023-05-14 13:41 | Outpatient (CLI) | payer MEDICARE, SELFPAY ==
--- NOTE | 2023-05-14 13:53 | XRR_ITS ---
PROCEDURE INFORMATION: Exam: XR Left Knee Exam date and time: 05/14/2023 1:55 PM Age: 78 years old Clinical indication: Pain; Knee; Left; Additional info: Left knee pain TECHNIQUE: Imaging protocol: Radiologic exam of the left knee. Views: 3 views. COMPARISON: No relevant prior studies available. FINDINGS: Bones/joints: Moderate degenerative changes of the medial compartment with hypertrophic spurring and joint space narrowing. Degenerative calcifications in the menisci. Mild degenerative changes in the patellofemoral and lateral knee compartments. No knee effusion. No fracture. Soft tissues: Normal. XR/XR knee LT 3V* [id number] IMPRESSION: 1. No acute findings. 2. 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
--- NOTE | 2023-05-14 13:53 | XRR_ITS ---
PROCEDURE INFORMATION: Exam: XR Right Knee Exam date and time: 05/14/2023 1:55 PM Age: 78 years old Clinical indication: Pain; Knee; Right; Additional info: Right knee pain TECHNIQUE: Imaging protocol: Radiologic exam of the right knee. Views: 3 views. COMPARISON: No relevant prior studies available. FINDINGS: Bones/joints: Moderate degenerative changes of the 3 knee compartments. Degenerative calcification of the menisci. No visible knee effusion. No fracture. Soft tissues: Normal. Vasculature: Arterial calcifications. XR/XR knee RT 3V* [id number] IMPRESSION: 1. No acute findings. 2. Moderate osteoarthritis.
== END 2023-05-14 13:42 | disposition home or self-care (01) ==
PROVIDERS: PCP Family Medicine; Visit Provider Family Medicine
DX: M17.0 Bilateral primary osteoarthritis of knee (principal)
CPT/HCPCS: 73562

== ENCOUNTER → 2023-06-13 10:56 | Outpatient (BNVA) | payer MEDICARE, SELFPAY | PROVIDERS: PCP Family Medicine; Referring Provider Family Medicine; Visit Provider Student in an Organized Health Care Education/Training Program | DX: M17.0 Bilateral primary osteoarthritis of knee | CPT/HCPCS: 20610; 99204; J3301 ==

== ENCOUNTER → 2023-07-01 11:00 | Outpatient (BNVA) | payer MEDICARE, SELFPAY | PROVIDERS: PCP Family Medicine; Visit Provider Internal Medicine | DX: E21.0 Primary hyperparathyroidism (principal); R41.89 Other symptoms and signs involving cognitive functions and awareness; Z87.442 Personal history of urinary calculi | CPT/HCPCS: 36415; 82306; 82310; 83970; 99214 ==

== ENCOUNTER → 2023-08-20 13:38 | Outpatient (BNVA) | payer MEDICARE, SELFPAY | PROVIDERS: PCP Family Medicine; Visit Provider Nurse Practitioner Family | DX: M17.11 Unilateral primary osteoarthritis, right knee (principal); M25.561 Pain in right knee | CPT/HCPCS: 73562 ==

== ENCOUNTER 2023-09-17 14:24 | Inpatient (IN) | payer MEDICARE, SELFPAY ==
--- NOTE | 2023-09-06 10:48 | ECG_ITS ---
[facility] Test Date: 2023-09-06 Pat Name: Tressa Mcgill Department: Room: Gender: Female Cardiograph Operator: : 1945 Requested By: Barbara Rodrigues Order Number: [id number] Steve MD: Percy George M.D. Measurements Intervals [place] Rate: 56 P: 5 NH: 124 QRS: -7 QRSD: 92 T: -6 QT: 397 QTc: 386 Interpretive Statements SINUS BRADYCARDIA MINIMAL VOLTAGE CRITERIA FOR LVH, CONSIDER NORMAL VARIANT [MEETS CRITERIA IN ONE OF: R(aVL), S(V1), R(V5), R(V5/V6)+S(V1)] INFERIOR MYOCARDIAL INFARCTION , PROBABLY OLD [40+ ms Q WAVE AND/OR ST/T ABNORMALITY IN II/aVF] No previous ECG available for comparison Electronically Signed On 09-06-2023 12:31:36 CDT by Percy George M.D. [id number]
--- NOTE | 2023-09-06 10:54 | ANES.PREANE2 ---
Pre-Anesthetic Assessment Height/Weight: Height 1.7 m Operation Date: 09/17/23 09:15 Proposed Procedures p Sacrospinous fixation 67256, N99.3(Not Applicable) - Ariel Mendes MD Familial anesthetic complications: None Social No alcohol and No tobacco Exam alert, oriented x 3, clear to auscultation bilaterally and regular rate & rhythm Airway Mallampati: Class II Dentition: false Pulmonary None reported CV/HEM None reported kidney stones Metabolic primary hyperparathyroidism Neuropsych Dementia Anesthetic Plan ASA status: 3 Anesthesia: General Risk of > 500 ml blood loss (7ml/kg in children): No Medications/Allergies Home Medications Medication Instructions Recorded Confirmed Last Taken Type citalopram 40 mg tablet 40 mg PO DAILY #90 tabs 02/20/23 09/06/23 04/16/23 Rx acetaminophen 325 mg capsule 325 mg PO Q4H PRN fever or 04/18/23 09/06/23 Unknown Rx postoperative pain #60 caps docusate sodium 100 mg capsule 100 mg PO BID Constipation #60 caps 04/18/23 09/06/23 Unknown Rx (Colace) donepezil 10 mg tablet 10 mg PO DAILY #90 tabs 07/19/23 09/06/23 Unknown Rx meloxicam 15 mg tablet 15 mg PO DAILY #90 tabs 09/03/23 09/06/23 Unknown Rx tramadol 50 mg tablet 50 mg PO BID PRN pain #14 tabs 09/03/23 09/06/23 Unknown Rx Allergies Allergy/AdvReac Type Severity Reaction Status Date / Time No Known Allergies Allergy Verified 08/20/23 13:17 PFS Anesthesia Medical History History of kidney stones Urinary incontinence Family History Denies family history of Colon cancer Ovarian cancer Diabetes Heart disease Hypercholesteremia Breast cancer Hypertension Uterine cancer Thyroid disease Stroke Social History Smoking and tobacco/nicotine status: never used tobacco/nicotine Alcohol intake: current Alcohol intake frequency: few times a month Data Anesthesia Cardiac Studies: No Data to Display
[2023-09-17] VITALS (19 sets, daily range): BP systolic 138–198; BP diastolic 77–104; PULSE 53–86; RESP 14–17; TEMP 36.1–36.8; O2SAT 95–100; BMI 27.3
[2023-09-17] MEDS: sodium chloride 0.9% 1,000 ML 30 ML IV (07:35)
[2023-09-17] MEDS: enoxaparin 30 mg/0.3 mL Syringe SUBCUT (07:37)
[2023-09-17] MEDS: scopolamine 1.5 Patch 1 PATCH TRANSDERMA (07:37)
--- NOTE | 2023-09-17 07:41 | P.ANESUD_ITS ---
Pre-Anesthetic Update Pre-Anesthetic Assessment: Date of Surgery/Procedure: 09/17/23 Preop Allie gnosis: Vaginal vault prolapse Proposed Procedure: Operation Date: 09/17/23 08:50 Proposed Procedures p Sacrospinous fixation 24346, N99.3(Not Applicable) - Ariel Mendes MD Any changes to Pre-Anesthetic Assessment?: No Last Intake: Intake Last Liquid Date 09/16/23 Last Liquid Time 19:00 Last Solid Date 09/16/23 Last Solid Time 19:00 Vitals: Temperature 97.7 F 09/17/23 07:25 Temperature Source Temporal Artery S can 09/17/23 07:25 Pulse Rate 67 09/17/23 07:25 Respiratory Rate 16 09/17/23 07:25 Blood Pressure 152/101 09/17/23 07:25 Blood Pressure Esme n 118 09/17/23 07:25 Pulse Oximetry 100 09/17/23 07:25 Oxygen Delivery Me thod Room Air 09/17/23 07:25 Exam: Pre-Anes Outpt Exam: alert, oriented x 3, clear to auscultation bilaterally and regular rate & rhythm Cardiac Studies: No Data to Display
[2023-09-17 08:02] LABS: Basophils % 0.6 %; Eosinophils # 0.2 10^3/uL (0.0-0.8); Eosinophils % 4.2 %; Hematocrit 41.5 % (36-47); Lymphocytes % 39.9 %; Mean Corpuscular Hemoglobin 29.5 pg (27-33); Mean Platelet Volume 10.9 fL (7.4-10.4); Monocytes # 0.6 10^3/uL (0.2-0.9); Monocytes % 12.4 %; Neutrophils # 2.13 10^3/uL (1.8-7.7); Neutrophils % 42.7 %; Nucleated Red Blood Cells % 0 %; Platelet Count 195 10^3/cmm (157-399); Red Blood Count 4.51 10^6/uL (3.85-5.65); White Blood Count 4.99 10^3/uL (3.29-11.43)
[2023-09-17 08:13] LABS: Alanine Aminotransferase 16 U/L (0-33); Alkaline Phosphatase 91 U/L (35-105); Blood Urea Nitrogen 19 mg/dL (8-23); Calcium 10.8 mg/dL (8.5-10.5); Carbon Dioxide 23 mmol/L (22-29); Chloride 109 mmol/L (98-107); Globulin 3.1 g/dL (1.3-4.6); Glucose 104 mg/dL (65-115); Osmolality Calculated 295 mOsm/kg (285-295); Sodium 141 mmol/L (136-145); Total Bilirubin 0.6 mg/dL (0.15-1.2); Total Protein 7.1 g/dL (6.6-8.7)
[2023-09-17 08:17] LABS: Anion Gap 13.2 (5-19); Potassium 4.2 mmol/L (3.5-5.1)
[2023-09-17 08:18] LABS: Aspartate Amino Transferase 25 U/L (0-32)
--- NOTE | 2023-09-17 08:45 | W.PM.OPSUD ---
Surgery/Procedure H&P Update DATE OF PROCEDURE: September 17, 2023 DATE H&P PERFORMED: 09/09/23 H&P UPDATE INFORMATION: I have reviewed H&P completed within last 30 days, I have examined patient prior to procedure and No changes to prior documentation PREOP DIAGNOSIS: Vaginal vault prolapse PLANNED PROCEDURE: Operation Date: 09/17/23 08:50 Proposed Procedures p Sacrospinous fixation 14275, N99.3(Not Applicable) - Ariel Mendes MD
[2023-09-17 09:16] LABS: Bilirubin Urine Neg (Negative); Blood Urine Trace (Negative); Glucose Urine UA Norm (Normal); Ketones Urine Negative (Negative); Nitrate Urine Positive (Negative); Protein Urine Neg (Negative); Specific Gravity, Urine 1.015 (1.005-1.030); Urine Appearance Cloudy (CLEAR); Urine Color Yellow (Yellow); pH Urine 6.5 (5-7)
[2023-09-17 09:17] LABS: Add Urine Microscopic? YES; Leukocyte Esterase Urine 2+ (Negative); Urobilinogen Urine Neg (Negative)
[2023-09-17 09:18] LABS: Add Urine Culture? Yes; Bacteria Urine 3+ /hpf; RBC Urine 0-4 /hpf (0-2); WBC Urine 15-25 /hpf (0-5)
[2023-09-17] MEDS: ceFAZolin 2,000 MG in sodium chloride 0.9% (plus) 50 ML 100 MG IV (09:55)
[2023-09-17] MEDS: lidocaine-epi 1% 20 mL INJ INJECTION (10:37)
[2023-09-17] MEDS: estrogens Conjugated Cream 30 gm 29 APPLIC VAGINAL (12:00)
--- NOTE | 2023-09-17 12:19 | PM.OP ---
Operative Report Date of procedure: September 17, 2023 Pre-op diagnosis: Vaginal vault prolapse Post-op diagnosis: same Procedure done: Anterior colporrhaphy augmentted with allograft. Posterior colporrhaphy Scrospinous fixation Cystoscopy Surgeon: Airel Mendes MD Estimated blood loss (mL): 25 IV fluids (mL): 500 Urine output (mL): 200 Complications: none Procedure: After obtaining informed consent, the patient was taken to the operating room and placed in the supine position, given general anesthesia, and prepped and draped in sterile fashion. The abdomen, vulva and vagina were prepped and draped in a sterile manner. A time out procedure was performed. The vaginal mucosa was then injected in the midline with normal saline. The vaginal mucosa was scored in the midline with the Bovie approximately 1 cm medial to the urethral meatus to 1 cm distal to the vaginal cuff. This vaginal mucosa was then undermined and then incised in the midline with the Metzenbaum scissors. The lateral aspects of the vaginal mucosa were then grasped with the Allis clamps and the vaginal mucosa was then dissected off the underlying fascia with the Metzenbaum scissors. Again, there was noted to be quite a bit of oozing at the incision, which was controlled with cautery. After adequate dissection was performed, bilaterally. A Coloplast dermis allograft was modified at time of application to fit spacea, 3 x 4 cm piece . The Coloplast allograft placed in front of cystocele ready to be implanted facing the vagina mucosa. Suture is placed at distal end of graft and placed towards vaginal cuff. Final suture is placed on proximal portion of the graft to complete the placement overlying the bladder. Then Interrupted vertical mattress sutures of 0 Vicryl were used to elevate the cystocele superiorly. The excessive vaginal mucosa was then trimmed with the Metzenbaum scissors and the vaginal mucosa was then reapproximated in the running interlocking fashion with 2-0 Vicryl. The posterior vaginal mucosa is opened in the routine fashion as described previously in Posterior Repair. A finger is inserted through the incision in the posterior vaginal mucosa, dissecting out the rectovaginal space (RVS). The right rectal pillar (RRP) is identified. The rectal pillar can be bluntly perforated either with the finger and with the tip of a long Thalia clamp. A thin malleable retractor retractor is used for exposing the rectovaginal space in order to enter the pararectal space with retraction of the cardinal ligament, vagina, and rectum. Displacing the rectum to the left and the cardinal ligament and ureter anteriorly. A sponge dissector is used to bluntly dissect the sacrospinous ligament removing areolar tissue. The ischial spine was palpated directly, and a area approximately 2 cm medial to the spine was selected for insertion of the Anchorsure transvaginal sacrospinous fixation system. One end of the suture of Anchoresure system inserted through the sacrospinous ligament is placed through the muscular layer of the vagina. In a similar manner, the second suture is placed. The opposite end of the suture in the sacrospinous ligament is left free and held on a small hemostat. Then traction on this suture will draw the vaginal vault directly to the ligament, where a square knot affixes it to the sacrospinous ligament. After the skyla stich is tied the second safety stich is tied. Then the colporrhaphy/vaginal repair was carried out in routine fashion. At this point, the rectum was from the posterior vaginal mucosa using sharp and blunt dissection, and the rectal bulge imbricated in the midline with interrupted sutures of 2-0 vicryl suture. Levator ani muscles on either side were approximated in the midline with interrupted 0 Vicryl sutures. Excess posterior vaginal mucosa was excised, and the vaginal episiotomy was repaired by approximating the posterior vaginal mucosa with a suture of Vicryl #0. Then the Wall catheter was removed and cystoscope was inserted. The bladder was filled with sterile water. Complete evaluation of the bladder mucosa was performed noting no lacerations, dimpling, tears, bleeding of the mucosa or muscular layers. Both ureteral orifices were identified. Prompt excretion of urine from both ureteral orifices was noted. Cystoscope was withdrawn. The Wall catheter was replaced. Excellent hemostasis was obtained. A vaginal pack is placed overnight as postoperative support for the vaginal tissues after graft placement and closure of vaginal incisions. Sponge, lap, needle, and instrument counts were correct times three. The patient was taken to the recovery room, awake and in stable condition.
[2023-09-17] MEDS: hyDRALAzine 20 mg/mL INJ 1 mL 10 MG IVP ×2 (14:49→18:27)
[2023-09-17] MEDS: dextrose 5%-lactated ringers 1,000 ML 125 ML IV (16:23)
[2023-09-17] MEDS: ketorolac 30 mg/mL INJ IVP ×2 (16:24→21:42)
--- NOTE | 2023-09-17 16:27 | ANE.PACU2 ---
Inpatient post-anesthesia follow up: Airway intact: Yes Vital signs: Temperature 97 F Pulse Rate 53 Respiratory Rate 16 Blood Pressure 166/88 Pulse Oximetry 97 Oxygen Delivery Me thod Room Air Oxygen Flow Rate Fraction of Inspir ed Oxygen Hydration adequate: Yes Nausea and vomiting: No Pain level: 1 Mental status: Baseline
[2023-09-17] MEDS: docusate sodium 100 mg Capsule PO (18:26)
--- NOTE | 2023-09-17 19:19 | PC.NURSE ---
This nurse called Dr. Mendes at 1817 on 09/17/23 to update him that pt had two severe blood pressures in a row. He gave orders to give 10mg IV push of hydralazine.
--- NOTE | 2023-09-17 23:07 | PC.NURSE ---
This nurse assisted patient up to walk in rebollar. Patient tolerated well. Denied any pain with ambulation. Patient up to chair after approximately 2 laps around the unit. Minimal vaginal bleeding noted to dayanara pad when back to patient room.
[2023-09-18] VITALS: BP 159/87; PULSE 60; RESP 14; TEMP 36.1; O2SAT 100
[2023-09-18] MEDS: dextrose 5%-lactated ringers 1,000 ML 125 ML IV (01:10)
[2023-09-18] MEDS: ketorolac 30 mg/mL INJ IVP (03:31)
--- NOTE | 2023-09-18 05:56 | PC.NURSE ---
At this time this nurse removed the patient's little catheter and vaginal packing. Patient tolerated well. Shira care also provided at this time. Hemagram drawn
[2023-09-18 06:00] VITALS: BMI 27.3
[2023-09-18 06:02] LABS: Hematocrit 39.4 % (36-47); Mean Corpuscular Hemoglobin 29.6 pg (27-33); Mean Corpuscular Volume 92.5 fl (85-98); Mean Platelet Volume 11.3 fL (7.4-10.4); Platelet Count 196 10^3/cmm (157-399); Red Blood Count 4.26 10^6/uL (3.85-5.65); Red Cell Distribution Width 13.9 % (12.1-15.1); White Blood Count 10.29 10^3/uL (3.29-11.43)
--- NOTE | 2023-09-18 06:05 | PC.NURSE ---
0544- Dr. Mendes called and notified of patient having elevated blood pressures this morning.This nurse stated that it was observed that the patient was experiencing anxiety from some confusion involving where her may be. Telephone read back orders of Hydralazine 10 mg IVP x1 dose to be given, along with home medication Citalopram 40 mg PO QD to be given now.
[2023-09-18] MEDS: hyDRALAzine 20 mg/mL INJ 1 mL 10 MG IVP (06:32)
[2023-09-18] MEDS: citalopram 20 mg Tablet 40 MG PO (06:32)
--- NOTE | 2023-09-18 08:23 | PM.OBGYDC ---
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 She was admitted for an anterior colporrhaphy, posterior colporrhaphy and sacrospinous fixation. The procedure was performed without complication. Overnight observation on eventful for elevated blood pressure treated with hydralazine. Patient had an anxiety event was also treated with home medication. She is afebrile and hemodynamically stable for opening of the day 1. Ambulating without difficulty. Tolerating diet well. She was counseled regarding weight lifting limitations to nothing greater than 10 pounds, and no bending to do gardening work. She was also counseled regarding pelvic rest for 6 weeks (no sex, no tampons, no vaginal douches). Return to the emergency room if any fever, increased bleeding or pain. Physical Exam Narrative: GA: Alert and oriented ?3. HEENT: WNL. Heart: Regular rate and rhythm. Lungs: Clear to auscultation bilaterally. Abdomen: Bowel sounds present, nontender. SAP BASIS CONSULTANT: Spotting bleeding. Extremities: No edema, no cyanosis, no calves pain. Urinary Catheter Management: Wall: Cath Placed During This Visit: yes, but has since been removed by the nurse Reason for Continuing Indwelling Catheter: Perioperative Use in Selected Surgeries Urinary Catheter Date of Insertion: 09/17/23 Urinary Catheter Time of Insertion: 10:19 Date Urinary Catheter Removed: 09/18/23 Time Urinary Catheter Discontinued: 05:30 History History History 2 Term 2 0 Miscarriages/Ectopic 0 Living Children 2 Discharge Data Studies Completed and Pending Pending at discharge Category Date Time Status Urine Culture Routine Lab 09/17/23 08:40 Received Laboratory Results WBC 10.29 10^3/uL (3.29-11.43) 09/18/23 05:00 RBC 4.26 10^6/uL (3.85-5.65) 09/18/23 05:00 Hgb 12.60 g/dL (11.27-16.99) 09/18/23 05:00 Hct 39.4 % (36-47) 09/18/23 05:00 MCV 92.5 fl (85-98) 09/18/23 05:00 MCH 29.6 pg (27-33) 09/18/23 05:00 MCHC 32.0 g/dL (30-55) 09/18/23 05:00 RDW 13.9 % (12.1-15.1) 09/18/23 05:00 Plt Count 196 10^3/cmm (157-399) 09/18/23 05:00 MPV 11.3 fL (7.4-10.4) H 09/18/23 05:00 Neut % (Auto) 42.7 % 09/17/23 07:32 Lymph % (Auto) 39.9 % 09/17/23 07:32 [place] % (Auto) 12.4 % 09/17/23 07:32 Eos % (Auto) 4.2 % 09/17/23 07:32 Baso % (Auto) 0.6 % 09/17/23 07:32 Neut # (Auto) 2.13 10^3/uL (1.8-7.7) 09/17/23 07:32 Lymph # (Auto) 2.0 10^3/uL (0.8-4.8) 09/17/23 07:32 [place] # (Auto) 0.6 10^3/uL (0.2-0.9) 09/17/23 07:32 Eos # (Auto) 0.2 10^3/uL (0.0-0.8) 09/17/23 07:32 Baso # (Auto) 0.0 10^3/uL (0.0-0.1) 09/17/23 07:32 Nucleated RBC % (auto) 0 % 09/17/23 07:32 Nucleated RBCs # 0.0 /100WBC 09/17/23 07:32 Sodium 141 mmol/L (136-145) 09/17/23 07:32 Potassium 4.2 mmol/L (3.5-5.1) 09/17/23 07:32 Chloride 109 mmol/L (98-107) H 09/17/23 07:32 Carbon Dioxide 23 mmol/L (22-29) 09/17/23 07:32 Anion Gap 13.2 (5-19) 09/17/23 07:32 BUN 19 mg/dL (8-23) 09/17/23 07:32 Creatinine 0.6 mg/dL (0.5-0.9) 09/17/23 07:32 GFR Calculation Not Reportable 09/17/23 07:32 Glucose 104 mg/dL (65-115) 09/17/23 07:32 Calculated Osmolality 295 mOsm/kg (285-295) 09/17/23 07:32 Calcium 10.8 mg/dL (8.5-10.5) H 09/17/23 07:32 Total Bilirubin 0.6 mg/dL (0.15-1.2) 09/17/23 07:32 AST 25 U/L (0-32) 09/17/23 07:32 ALT 16 U/L (0-33) 09/17/23 07:32 Alkaline Phosphatase 91 U/L (35-105) 09/17/23 07:32 Total Protein 7.1 g/dL (6.6-8.7) 09/17/23 07:32 Albumin 4.0 g/dL (3.5-5.2) 09/17/23 07:32 Globulin 3.1 g/dL (1.3-4.6) 09/17/23 07:32 Urine Color Yellow (Yellow) 09/17/23 08:40 Urine Appearance Cloudy (CLEAR) A 09/17/23 08:40 Urine pH 6.5 (5-7) 09/17/23 08:40 Ur Specific [place] 1.015 (1.005-1.030) 09/17/23 08:40 Urine Protein Neg (Negative) 09/17/23 08:40 Urine Glucose (UA) Norm (Normal) 09/17/23 08:40 Urine Ketones Negative (Negative) 09/17/23 08:40 Urine Blood Trace (Negative) H 09/17/23 08:40 Urine Nitrate Positive (Negative) H 09/17/23 08:40 Urine Bilirubin Neg (Negative) 09/17/23 08:40 Urine Urobilinogen Neg mg/dL (Negative) 09/17/23 08:40 Ur Leukocyte Esterase 2+ (Negative) H 09/17/23 08:40 Urine RBC 0-4 /hpf (0-2) H 09/17/23 08:40 Urine WBC 15-25 /hpf (0-5) H 09/17/23 08:40 Ur Squamous Epith Cells 5-10 /hpf (0-5) H 09/17/23 08:40 Amorphous Sediment Not Reportable 09/17/23 08:40 Urine Bacteria 3+ /hpf (NONE) H 09/17/23 08:40 Blood Type O Positive 09/17/23 07:32 Rho(D) Type Rh positive 09/17/23 07:32 Antibody Screen Negative 09/17/23 07:32 Vitals Last Vital Signs Temp 97.0 F L 09/18/23 00:00 Pulse 60 09/18/23 00:00 Resp 14 09/18/23 00:00 BP 159/87 09/18/23 00:00 Pulse Ox 100 09/18/23 00:00 O2 Del Method Room Air 09/18/23 00:00 Results Labs OB ([facility]): Blood Type O Positive 09/17/23 Antibody Screen Negative 09/17/23 Hct 39.4 % (36-47) 09/18/23 Hgb 12.60 g/dL (11.27-16.99) 09/18/23 Rho(D) Type Rh positive 09/17/23 Plt Count 196 10^3/cmm (157-399) 09/18/23 TSH 1.30 uIU/mL (0.27-4.20) 11/12/22 Micro Urine Specimen 09/17/23 Discharge Plan Discharge Patient Disposition: Home Condition: Stable Prescriptions: New hydrocodone-acetaminophen 5-325 mg tablet 1 tab PO Q4H PRN (Reason: pain) Qty: 10 0RF acetaminophen 325 mg capsule 325 mg PO Q4H PRN (Reason: fever or postoperative pain) Qty: 60 0RF Continued citalopram 40 mg tablet 40 mg PO DAILY Qty: 90 1RF donepezil 10 mg tablet 10 mg PO DAILY Qty: 90 0RF meloxicam 15 mg tablet 15 mg PO DAILY Qty: 90 0RF Rx Instructions: TAKE 1 TABLET BY MOUTH EVERY DAY acetaminophen 325 mg capsule 325 mg PO Q4H PRN (Reason: fever or postoperative pain) Qty: 60 0RF docusate sodium [Colace] 100 mg capsule 100 mg PO BID Qty: 60 0RF Discharge Orders: Discharge Order (Routine); Ordered 11/15/23 Ordered By: Ariel Mendes Discharge Diet: Usual diet Discharge Activity: Limit activity as instructed Patient Instructions: Anterior Vaginal Repair (GEN), Posterior Vaginal Repair (GEN), Opioid Safety Activity Restrictions/Additional Instructions: 1. Please call [facility] on next working day to make your post-operative appointment in 2 weeks. 2. Please stay home until you come back to the clinic on first post-hospatilization check up. 3. Please follow instructions on your medications CAREFULLY. 4. If you have abdominal incision, do not cover it unless dressing is necessary because of drainage. OK to shower, but avoid bath. Leave steri-strips until they fall off. If they are still on one week after surgery, you may remove them. 5. If you had vaginal surgery or vaginal repair, Dr. Mendes may instruct you to take SITZ bath. 6. Yellow, blood tinged odorous vaginal discharge is usually normal after hysterectomy or vaginal surgeries. 7. No SEXUAL INTERCOURSE, tampons, or douches until you are completely released from the post-operative care. 8. Avoid constipation by eating right and maybe using some Metamucil or Milk of Magnesia. 9. All prescription refills are given during the working hours. Please do no wait till it runs out. Call the clinic at [phone] before your medication runs out. The clinic will get in touch with your doctor to prescribe medications if necessary. 10. Please remain within 40 mile radius from our hospital because emergencies do happen now and then during the post-operative period. 11. If you have stairs at home, take one step at a time slowly and minimize the number of trips. It helps to stay in one floor for the next few days. No lifting except what you can lift by one hand until you are released from the post-operative care. 12. Driving is discouraged until you are well healed. It may be 3-4 weeks before you feel strong enough to drive. You should be able to turn and look through the rear window without pain and you should be able to push the brake pedal very hard without pain before you drive. No fast rules, but SAFETY should be your primary concern. DO NOT drive if you are on sedating medications such as narcotics. 13. Call the clinic (during working hours) to make urgent appointment or go to the Emergency room, if any of the following occurs: i. Vaginal bleeding becomes heavy, more than a period. ii. Incision becomes red and sore, or drains pus. iii. Your TEMPERATURE is over 100.4F or you have chill. iv. IV site becomes red and swollen (a little ``knot?? is usually OK) v. Persistent nausea and vomiting vi. Persistent constipation or diarrhea vii. Rash or allergic reaction to medications. 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
[2023-09-18 12:15] VITALS: BP 145/82; PULSE 60; RESP 15; TEMP 36.8; O2SAT 97
== END 2023-09-18 12:25 | disposition home or self-care (01) | DRG 748 ==
LOC: OBGYN 21:45
PROVIDERS: Admitting Provider Obstetrics & Gynecology; PCP Family Medicine; Visit Provider Obstetrics & Gynecology
PROC: 0JUC0KZ Supplement of Pelvic Region Subcutaneous Tissue and Fascia with Nonautologous Tissue Substitute, Open Approach (ICD-10-PCS; CPT 57282; principal; 2023-09-17 08:40)
DX: N99.3 Prolapse of vaginal vault after hysterectomy (principal); F41.9 Anxiety disorder, unspecified
CPT/HCPCS: 36415; 80053; 81001; 85025; 85027; 86850; 86900; 87077; 87086; 87186; 96374; 96376; C1762; G0378; J0360; J0690; J1100; J1650; J1885; J2405; J2704; J3010; J3490; J7030; J7121

== ENCOUNTER → 2023-10-08 13:55 | Outpatient (BNVA) | payer MEDICARE, SELFPAY | PROVIDERS: PCP Family Medicine; Visit Provider Student in an Organized Health Care Education/Training Program | DX: M17.0 Bilateral primary osteoarthritis of knee (principal) | CPT/HCPCS: 99214 ==

== ENCOUNTER → 2023-10-11 10:58 | Outpatient (BNVA) | payer MEDICARE, SELFPAY | PROVIDERS: PCP Family Medicine; Visit Provider Internal Medicine | DX: E21.0 Primary hyperparathyroidism (principal); R41.89 Other symptoms and signs involving cognitive functions and awareness; Z87.442 Personal history of urinary calculi | CPT/HCPCS: 99214 ==

== ENCOUNTER 2023-10-17 13:17 | Outpatient (CLI) | payer MEDICARE, SELFPAY ==
--- NOTE | 2023-10-17 13:30 | CT_ITS ---
WS: [id number] CT RIGHT KNEE, NONCONTRAST [place] TECHNIQUE: Noncontrast CT of the RIGHT knee to include the RIGHT hip and ankle. CLINICAL INFORMATION: RIGHT TOTAL KNEE ARTHROPLASTY COMPARISON: None. DLP: 927.[address] scans at [facility] use at least one of these dose optimization techniques: automated e xposure control; mA and/or kV adjustment per patient size (includes targeted exams where dose is matc hed to clinical indication); or iterative reconstruction. FINDINGS: Advanced tricompartmental arthritis RIGHT knee. Chondrocalcinosis. Vascular calcification. Hypertroph ic changes along the joint line. No significant joint effusion. Hypertrophic patella. Vascular calcif ication. Small popliteal cyst. Degenerative arthritis sacroiliac joints. Sigmoid diverticulosis. IMPRESSION: Images obtained for preoperative purposes.
== END 2023-10-17 13:18 | disposition home or self-care (01) ==
LOC: RAD 13:17
PROVIDERS: PCP Family Medicine; Visit Provider Student in an Organized Health Care Education/Training Program
DX: M17.0 Bilateral primary osteoarthritis of knee (principal)
CPT/HCPCS: 73700

== ENCOUNTER → 2023-11-06 12:26 | Outpatient (BNVA) | payer MEDICARE, SELFPAY | PROVIDERS: PCP Family Medicine; Visit Provider Family Medicine | DX: Z01.818 Encounter for other preprocedural examination (principal); K59.00 Constipation, unspecified | CPT/HCPCS: 80053; 81003; 85025 ==

== ENCOUNTER → 2023-11-12 13:10 | Outpatient (BNVA) | payer MEDICARE, SELFPAY | PROVIDERS: PCP Family Medicine; Visit Provider Student in an Organized Health Care Education/Training Program | DX: M17.0 Bilateral primary osteoarthritis of knee | CPT/HCPCS: 99214 ==

== ENCOUNTER → 2023-12-04 11:15 | Outpatient (BNVA) | payer MEDICARE, SELFPAY | PROVIDERS: PCP Family Medicine; Visit Provider Internal Medicine | DX: E21.0 Primary hyperparathyroidism (principal); R41.89 Other symptoms and signs involving cognitive functions and awareness; Z87.442 Personal history of urinary calculi; D35.1 Benign neoplasm of parathyroid gland | CPT/HCPCS: 36415; 80048; 82310; 83970; 99214 ==

== ENCOUNTER 2023-12-09 09:20 | Observation (INO) | payer MEDICARE, SELFPAY ==
[2023-12-09] VITALS (21 sets, daily range): BP systolic 131–185; BP diastolic 78–116; PULSE 48–64; RESP 15–107; TEMP 36.2–36.8; O2SAT 94–99; BMI 25.8
[2023-12-09] MEDS: ketorolac 30 mg/mL INJ IVP (06:27)
[2023-12-09] MEDS: acetaminophen 1,000 MG/100 ML PIGGYBACK 400 MG IV ×3 (06:27→18:29)
[2023-12-09] MEDS: scopolamine 1.5 Patch 1 PATCH TRANSDERMA (06:27)
[2023-12-09] MEDS: sodium chloride 0.9% 1,000 ML 30 ML IV (06:28)
[2023-12-09] MEDS: lactated ringers 500 ML IV (06:28)
[2023-12-09 06:39] LABS: Basophils # 0.1 10^3/uL (0.0-0.1); Basophils % 1.1 %; Eosinophils # 0.2 10^3/uL (0.0-0.8); Eosinophils % 2.5 %; Hematocrit 42.6 % (36-47); Lymphocytes # 2.1 10^3/uL (0.8-4.8); Lymphocytes % 32.8 %; Mean Corpuscular HGB Conc 33.1 g/dL (30-55); Mean Corpuscular Hemoglobin 30.5 pg (27-33); Mean Corpuscular Volume 92.2 fl (85-98); Mean Platelet Volume 10.6 fL (7.4-10.4); Monocytes # 0.6 10^3/uL (0.2-0.9); Monocytes % 9.3 %; Neutrophils # 3.51 10^3/uL (1.8-7.7); Neutrophils % 54.1 %; Nucleated Red Blood Cells % 0 %; Platelet Count 210 10^3/cmm (157-399); Red Blood Count 4.62 10^6/uL (3.85-5.65); Red Cell Distribution Width 13.2 % (12.1-15.1); White Blood Count 6.47 10^3/uL (3.29-11.43)
[2023-12-09 06:46] LABS: Add Urine Microscopic? NO; Charge for UA Resulting for Rev
--- NOTE | 2023-12-09 06:54 | W.PM.OPSUD ---
Surgery/Procedure H&P Update DATE OF PROCEDURE: December 09, 2023 DATE H&P PERFORMED: 11/12/23 H&P UPDATE INFORMATION: I have reviewed H&P completed within last 30 days, I have examined patient prior to procedure and No changes to prior documentation CHANGES TO PREVIOUS DOCUMENTATION: none PREOP DIAGNOSIS: Right KNee DJD PRIMARY INDICATION FOR PROCEDURE: right knee djd PLANNED PROCEDURE: Operation Date: 12/09/23 07:00 Proposed Procedures p Fortunato Robot Total Knee Arthroplasty(Right) - Carrillo Talbert DO
[2023-12-09 06:55] LABS: Anion Gap 12.9 (5-19); Blood Urea Nitrogen 12 mg/dL (8-23); Calcium 10.8 mg/dL (8.5-10.5); Carbon Dioxide 24 mmol/L (22-29); Chloride 108 mmol/L (98-107); Creatinine Clr Calc Pharmacy 65.3408; Glucose 91 mg/dL (65-115); Osmolality Calculated 291 mOsm/kg (285-295); Potassium 3.9 mmol/L (3.5-5.1); Sodium 141 mmol/L (136-145)
--- NOTE | 2023-12-09 07:00 | P.ANESASSM_ITS ---
Pre-Anesthetic Assessment Height/Weight: Height 1.73 m Weight 77.111 kg Temp Pulse Resp BP Pulse Ox O2 Del Method 98.2 F 57 L 16 185/105 99 Room Air 12/09/23 06:03 12/09/23 06:03 12/09/23 06:03 12/09/23 06:03 12/09/23 06:03 12/09/23 06:31 Preop Diagnosis: Right KNee DJD Operation Date: 12/09/23 07:00 Proposed Procedures p Fortunato Robot Total Knee Arthroplasty(Right) - Carrillo Talbert DO Last intake: Intake Last Liquid Date 12/08/23 Last Liquid Time 18:00 Last Solid Date 12/08/23 Last Solid Time 16:00 Social No alcohol and No tobacco Airway Submandibular: within normal limits Cervical ROM: within normal limits Mallampati: Class I GI None reported Metabolic None reported Anesthetic Plan Anesthesia: Eval. for regional block (spinal with adductor canal block) Risk of > 500 ml blood loss (7ml/kg in children): Yes, adequate IV access and fluids planned Medications/Allergies Home Medications Medication Instructions Recorded Confirmed Last Taken Type meloxicam 15 mg tablet 15 mg PO DAILY #90 tabs 09/03/23 12/06/23 12/06/23 Rx acetaminophen 325 mg capsule 325 mg PO Q4H PRN fever or 09/18/23 12/06/23 Unknown Rx postoperative pain #60 caps donepezil 10 mg tablet 10 mg PO DAILY #90 tabs 10/30/23 12/09/23 12/08/23 Rx docusate sodium 100 mg capsule 100 mg PO BID PRN Constipation 11/06/23 12/06/23 Unknown History (Colace) citalopram 40 mg tablet 40 mg PO DAILY 12/06/23 12/09/23 12/08/23 History Allergies Allergy/AdvReac Type Severity Reaction Status Date / Time No Known Allergies Allergy Verified 12/06/23 11:46 Current Medications Generic Name Dose Route Start Last Admin Trade Name Freq PRN Reason Stop Dose Admin Sodium Chloride 1,000 mls @ 30 mls/hr 12/09/23 06:00 12/09/23 06:28 Sodium Chloride 0.9% IV 12/10/23 05:59 30 mls/hr .Q24H SARINA Administration PFSH Anesthesia Medical History History of kidney stones Urinary incontinence Surgical History History of anterior colporrhaphy (~09/17/23) Anterior colporrhapy augmented with allograft, posterior colporrhapy, sacrospinous fixation, cystoscopy performed by Vaughn Family History Denies family history of Colon cancer Ovarian cancer Diabetes Heart disease Hypercholesteremia Breast cancer Hypertension Uterine cancer Thyroid disease Stroke Social History Smoking and tobacco/nicotine status: never used tobacco/nicotine Alcohol intake: current Alcohol intake frequency: few times a month Data Anesthesia 12/09/23 06:18 12/09/23 06:18 Short CBC 12/09/23 Range/Units 06:18 WBC 6.47 (3.29-11.43) 10^3/uL Hgb 14.10 (11.27-16.99) g/dL Hct 42.6 (36-47) % MCV 92.2 (85-98) fl Plt Count 210 (157-399) 10^3/cmm Neut % (Auto) 54.1 % Neut # (Auto) 3.51 (1.8-7.7) 10^3/uL BMP 12/09/23 06:18 Sodium 141 Potassium 3.9 Chloride 108 H Carbon Dioxide 24 BUN 12 Creatinine 0.7 Glucose 91 Calcium 10.8 H Cardiac Studies: 2 No Data to Display
--- NOTE | 2023-12-09 07:02 | P.ANESASSM_ITS ---
Pre-Anesthetic Assessment Height/Weight: Height 1.73 m Weight 77.111 kg Temp Pulse Resp BP Pulse Ox O2 Del Method 98.2 F 57 L 16 185/105 99 Room Air 12/09/23 06:03 12/09/23 06:03 12/09/23 06:03 12/09/23 06:03 12/09/23 06:03 12/09/23 06:31 Preop Diagnosis: Right KNee DJD Operation Date: 12/09/23 07:00 Proposed Procedures p Fortunato Robot Total Knee Arthroplasty(Right) - Carrillo Talbert DO Last intake: Intake Last Liquid Date 12/08/23 Last Liquid Time 18:00 Last Solid Date 12/08/23 Last Solid Time 16:00 Exam alert, oriented x 3, clear to auscultation bilaterally and regular rate & rhythm Airway Submandibular: within normal limits Cervical ROM: within normal limits Mallampati: Class I Pulmonary None reported CV/HEM None reported Anesthetic Plan ASA status: 2 Anesthesia: Eval. for regional block Other: spinal with adductor canal block Medications/Allergies Home Medications Medication Instructions Recorded Confirmed Last Taken Type meloxicam 15 mg tablet 15 mg PO DAILY #90 tabs 09/03/23 12/06/23 12/06/23 Rx acetaminophen 325 mg capsule 325 mg PO Q4H PRN fever or 09/18/23 12/06/23 Unknown Rx postoperative pain #60 caps donepezil 10 mg tablet 10 mg PO DAILY #90 tabs 10/30/23 12/09/23 12/08/23 Rx docusate sodium 100 mg capsule 100 mg PO BID PRN Constipation 11/06/23 12/06/23 Unknown History (Colace) citalopram 40 mg tablet 40 mg PO DAILY 12/06/23 12/09/23 12/08/23 History Allergies Allergy/AdvReac Type Severity Reaction Status Date / Time No Known Allergies Allergy Verified 12/06/23 11:46 Current Medications Generic Name Dose Route Start Last Admin Trade Name Freq PRN Reason Stop Dose Admin Sodium Chloride 1,000 mls @ 30 mls/hr 12/09/23 06:00 12/09/23 06:28 Sodium Chloride 0.9% IV 12/10/23 05:59 30 mls/hr .Q24H SARINA Administration PFSH Anesthesia Medical History History of kidney stones Urinary incontinence Surgical History History of anterior colporrhaphy (~09/17/23) Anterior colporrhapy augmented with allograft, posterior colporrhapy, sacrospinous fixation, cystoscopy performed by Vaughn Family History Denies family history of Colon cancer Ovarian cancer Diabetes Heart disease Hypercholesteremia Breast cancer Hypertension Uterine cancer Thyroid disease Stroke Social History Smoking and tobacco/nicotine status: never used tobacco/nicotine Alcohol intake: current Alcohol intake frequency: few times a month Data Anesthesia 12/09/23 06:18 12/09/23 06:18 Short CBC 12/09/23 Range/Units 06:18 WBC 6.47 (3.29-11.43) 10^3/uL Hgb 14.10 (11.27-16.99) g/dL Hct 42.6 (36-47) % MCV 92.2 (85-98) fl Plt Count 210 (157-399) 10^3/cmm Neut % (Auto) 54.1 % Neut # (Auto) 3.51 (1.8-7.7) 10^3/uL BMP 12/09/23 06:18 Sodium 141 Potassium 3.9 Chloride 108 H Carbon Dioxide 24 BUN 12 Creatinine 0.7 Glucose 91 Calcium 10.8 H Cardiac Studies: 2 No Data to Display
[2023-12-09 07:07] LABS: Bilirubin Urine Neg (Negative); Blood Urine Neg (Negative); Glucose Urine UA Norm (Normal); Ketones Urine Negative (Negative); Leukocyte Esterase Urine Negative (Negative); Nitrate Urine Negative (Negative); Protein Urine Neg (Negative); Urine Appearance Clear (CLEAR); Urine Color Yellow (Yellow); Urobilinogen Urine Neg (Negative); pH Urine 6 (5-7)
[2023-12-09] MEDS: ceFAZolin 2,000 MG in sodium chloride 0.9% (plus) 50 ML 100 MG IV ×3 (07:13→22:48)
[2023-12-09] MEDS: tranexamic acid 1,000 mg/10mL SDV 1000 MG IV (07:50)
[2023-12-09] MEDS: EPINEPHrine 1 mg/mL INJ XX (08:16)
[2023-12-09] MEDS: ROPivacaine 0.2% Premix 100 mL 200 MG INTRA-ARTI (08:16)
[2023-12-09] MEDS: ketorolac 30 mg/mL INJ XX (08:16)
[2023-12-09] MEDS: tranexamic acid 1,000 mg/10mL SDV 1000 MG XX (08:16)
--- NOTE | 2023-12-09 09:24 | P.BOP_ITS ---
Date of Procedure: 12/09/2023 Surgeon: Carrillo Talbert DO [place] Clerk(s): SHAILESH Newton Procedure(s) performed: Right total knee arthroplasty?Fortunato robotic assisted Findings of the procedure(s): Patient found to have severe right knee degenerative joint disease valgus deformity underwent procedure as planned without complications or issues Estimated blood loss: 20 mL Specimen(s) removed: Tibia femur and patellar bone cuts removed Post-operative diagnosis: Right knee degenerative joint disease
--- NOTE | 2023-12-09 09:25 | P.OP_ITS ---
Operative Report Date of procedure: December 09, 2023 Surgeon: Carrillo Talbert DO Home Care Consultant: Nickolas Talbert PA-C: PA was necessary for assistance in this case with leg positioning retraction and protection of neurovascular structures as well as assistance in implantation wound closure and dressing application. Procedure: Preoperative diagnosis: Right knee degenerative joint disease post-op diagnosis: Same Procedure done: Right total knee arthroplasty, cemented?robotic assisted Fortunato Implants: Rodrick triathlon size 4 femur CR cemented?right Rodrick triathlon size? 3 tibia universal baseplate cemented [place] triathlon symmetric patella size 31mm Rodrick triathlon polyethylene 10mm Surgeon: Carrillo Talbert DO Estimated blood loss: 20mL Tourniquet 57minutes IV fluids: 1000 mL Urine output: 500mL Complications: None Condition: stable Disposition: floor Brief History: Patient is a 78-year-old female with with chronic?right knee degenerative joint disease.? Patient has been worked up in the outpatient setting in the orthopedic office at this point time through shared decision making given his [id number] arthritis as well as failed conservative treatment, and pt would like to proceed with a?right total knee arthroplasty.? Through shared decision making elected to proceed with surgical intervention for?right total knee arthroplasty.? We talked about continued conservative treatment and surgical intervention as far as the?risk benefits complications alternatives surgical and nonsurgical treatment options.? At this point time understanding patient?risks with surgery patient agrees to proceed with surgical intervention.? Once again??risk with surgery include but are not limited to make it better make it worse blood clot, heart attack, stroke, on the table, infection, injury to nerves or vessels, persistent pain, arthrofibrosis, implant failure.? Understanding these?risks patient agrees to proceed with surgical intervention consent was obtained in the office.? All questions answered. Procedure: Patient was seen and evaluated in the preoperative holding area.? Consent was?reviewed and signed with patient with plan for?right total knee arthroplasty.? All questions answered.? Correct extremity marked.? Patient seen and evaluated by the anesthesia department and once cleared for surgery was taken back to the operative suite.? Patient was placed into a supine position on the OR table.? All bony prominences were well-padded.? Patient was appropriately secured to the bed.? Patient underwent anesthesia per the anesthesia department.? Patient?received spinal anesthesia and? Wall catheter was placed.? A nonsterile tourniquet was applied to the?right thigh.? At this point in time a final timeout performed.? Patient?received appropriate preoperative antibiotics and TXA. Next the?right lower extremity was then prepped and draped in standard orthopedic fashion. Esmarch tourniquet was used exsanguinate the?right lower extremity.? Tourniquet was insufflated to 300 mmHg. A standard anterior incision was made over midline of the knee.? Sharp scalpel excision through skin and subcutaneous tissue full-thickness skin flaps were made.? Fascia was elevated off of the extensor?retinaculum was stable with medial parapatellar arthrotomy was then made.? The performed standard sequential?releases..? Immediately on entry into the joint patient was found to have severe eburnated bone and tricompartmental arthritic changes noted.? With significant osteophyte formation.? Next the the patella was then stuffed and the knee was then flexed.?? Roger was placed superiorly around the anterior aspect of the femur this was freed of synovium and I subsequently then placed by 2 femur pins to establish my femur arrays for the [employer] [facility]?robot.? These were then placed bicortically and? femur array was then appropriately secured with appropriate visualization.? Next attention was turned towards the tibial?rays.? These were then drilled sequentially bicortically in parallel fashion and intraincisional.? I then placed my guide as well as my tibial array on in place.? This was appropriately secured and had excellent visualization with the Fortunato?robot.? Next the tibial checkpoint as well as femur checkpoint were then placed.? At this point time I then subsequently established my head center as well as my medial lateral malleoli as well as my checkpoints.? Next utilizing standard Fortunato technology I then mapped out the appropriate points and confirmation points around the femur as well as the tibia in standard fashion.? Once this was then done I then?removed all osteophytes in preparation for dynamic testing.? All osteophytes were?removed as well as I?removed the ACL and the PCL was excised due to its significant tearing and degeneration noted.? At this point time the knee was brought into full extension and we performed our standard evaluation of our gap balancing stressing his ligaments and extension as well as flexion appropriate adjustments were made to have appropriate gap balancing in both flexion and extension.? ? We get a preoperative plan evaluating our implants which was a size 4 femur and a size 3 tibia.? Next we brought in the [facility]?robot and sequentially made our femur cuts.? All excess bony cuts were then?removed.? Finally we made our tibial cut.? Once this was done a standard PCL?retractor was then placed into this position I excised the medial and lateral meniscus.? The tibial cut was then subsequently?removed all excess bony debris was?removed.? I then utilized a lamina supervisor drying and softening and?remove the posterior osteophytes.? At this point time sized the tibia and confirmed this was a size 3.? I utilized our blunt probe to establish?rotation of tibial implant.? Once this was done I then placed my tibia size 3 trial in appropriate position and then subsequently placed tibial pins to hold this into place placed a size 10 mm poly as well as a size 4 femur which was appropriately impacted in place knee was then subsequently brought into extension. Trials were then assessed, 10 mm poly and this was stable with varus valgus stress in extension as well as had symmetrical translation when brought into flexion demonstrating symmetrical gaps. I had excellent balance gaps in flexion and extension with varus and valgus stresses.? At this point I was satisfied with these implants these were then verified and opened on the back table size 3 tibia, size4 femur,? size 10 mm polythickness.? We did confirm appropriate gap balancing and stresses as well as alignment utilizing? Fortunato and were satisfied with this plan.? ?At this point time with my trials in place I then towel clip the patella everted this made appropriate measurements subsequently utilizing freehand technique performed by patellar?resurfacing this was confirmed to be appropriate?resection and subsequently sized to be a 31 mm symmetric.? My drill peg guides were then clamped and appropriate position and appropriate position in the patella for appropriate tracking and parallel with the joint.? Pegs were drilled trial implant was placed and the knee was then subsequently?ranged and found to have excellent patellar tracking.? Femur pegs were then drilled.? Satisfied with our tibial placement?rotation I then utilized the keel punch and prepped the tibia.? At this point time all of our trial implants were?removed.? All checkpoints as well as guidepins and arrays were?removed and appropriate counts made.? The wound bed? was thoroughly irrigated and dried and prepped for cementation.? Cement was mixed on the back table.? Once cement was?ready this was then covered onto the tibia and the tibial baseplate was then impacted and all excess cement was?removed.? Next the polyethylene was then impacted into place on the tibial baseplate.? Next cement was placed onto the femur as well as under the femur implants and impacted in to place and all excess cement was extruded and?removed.? Knee was taken into full extension? to clear all excess cement was?removed.? Warm saline was placed over the joint.? I then towel clip patella and dried for cementation. cemented the patella into place.? This was all clamped and the cement was allowed to cure.? Thorough irrigation performed with pulse lavage.? I then placed my periarticular injection while the cement was curing.? Once cured the knee was taken through?range of motion and had excellent stability and gaps were balanced in flexion and extension.? Tourniquet was then deflated. hemostasis satisfactory with electrocautery.? Next I then subsequently closed the capsule with Ethibond suture as well as a?running strata fix suture.? Knee was then taken through?range of motion 30 times.? Next the skin was then closed in layered fashion of?running stratifix sutures of deep and subcutenous tissue and skin.? ?closed in flexion and Prineo glue was then placed over the incision this allowed to cure.? Incision was covered with Silverlon, with ABDs soft?roll and Jc wrap.? Patient was then awakened from anesthesia and taken to PACU in stable condition. Disposition: Patient taken to PACU in stable condition will be admitted to the floor for pain control PT/OT weight-bear as tolerated?right lower extremity dressing changes as needed, DVT prophylaxis. Pain control. Patient will?receive appropriate postoperative antibiotics. patient will be seen today by the [facility] medicine team for medical management.? Patient will follow up with the office in 2 weeks.? Patient understands agrees with current plan.? All questions answered.
--- NOTE | 2023-12-09 09:33 | XR_ITS ---
WS: [id number] XR knee RT 1-2V [id number] REASON FOR EXAM: s/p R TKA FINDINGS: Total right knee arthroplasty. Components of the right knee arthroplasty are intact and in proper position and alignment. No focal bone abnormality. IMPRESSION: Total right knee arthroplasty without abnormality.
--- NOTE | 2023-12-09 09:42 | PM.PACU ---
PACU note Narrative: Patient is a 78-year-old female just underwent a right total knee arthroplasty. Pt transferred to PACU in stable condition. Dressing is dry. pt is awake and alert. Distal pulses are palpable toes are warm and well-perfused. Cap refill is normal and under 2 seconds. unable to perform further motor and sensory assessment due to residual spinal anesthetic. Pain is controlled. Exam: awake Disposition: admitted
--- NOTE | 2023-12-09 10:41 | PC.NURSE ---
Notified , Molina, that pt is alert, awake, and in room via phone call.
--- NOTE | 2023-12-09 11:22 | ANE.PACU2 ---
Inpatient post-anesthesia follow up: Vital signs: Temperature 97.6 F Pulse Rate 53 Respiratory Rate 17 Blood Pressure 131/93 Pulse Oximetry 94 Oxygen Delivery Me thod Room Air Oxygen Flow Rate Fraction of Inspir ed Oxygen Hydration adequate: Yes Nausea and vomiting: No Pain level: 1 Mental status: Baseline Additional Comments: no apparent anesthetic complications noted.
[2023-12-09] MEDS: lactated ringers 1,000 ML 100 ML IV (12:42)
[2023-12-09] MEDS: chlorhexidine gluconate 0.12% Btl 473 mL 30 ML MUCOUS MEM ×3 (12:43→22:48)
[2023-12-09] MEDS: tranexamic acid 1,000 MG/100 ML PREMIX 600 MG IV (12:43)
[2023-12-09] MEDS: oxyCODONE 5 mg IR Tab/Cap PO ×2 (15:11→22:49)
[2023-12-09] MEDS: HYDROmorphone 1 mg/mL INJ 1 mL 0.5 MG IVP (15:12)
[2023-12-09] MEDS: calcium carb-vit d 600mg/400unit 1 Tablet 1 EACH PO (17:39)
[2023-12-09] MEDS: iron polysaccharide complex 150 mg Capsule PO (17:39)
[2023-12-09] MEDS: mupirocin oint 22 gm 1 APPLIC NASAL (17:39)
[2023-12-09] MEDS: docusate sodium 100 mg Capsule PO (17:40)
--- NOTE | 2023-12-09 18:27 | PC.NURSE ---
Pt BP elevated. Notified Dr. Talbert. states that he will consult hospitalist. No other orders at this time.
--- NOTE | 2023-12-09 18:49 | P.CONIM_ITS ---
Providers/Reason For Consult 2 Consulting Physician/Specialty*: Hospitalist Reason for Consult*: Hypertension. Attending Physician: Carrillo Talbert DO Primary Care Provider: Renata Hyde DO History of Present Illness History of Present Illness Tressa Mcgill is a 78 year old female postop day 0 hospital service was consulted for management of hypertension. Patient is stating that she is not in active pain, she is very comfortable at rest Has not taken her medications for her hypertension in quite some time, she has history of hyperparathyroidism status post parathyroidectomy never had any issues with her thyroid gland, no active chest pain or shortness of breath, Review of Systems 2 Const: Denies: fever(s) Eyes: Denies: change in vision ENMT: Denies: throat pain Card: Denies: chest pain Resp: Denies: dyspnea GI: Denies: abdominal pain : Denies: flank pain Medications/Allergies Home Medications Medication Instructions Recorded Confirmed Last Taken Type meloxicam 15 mg tablet 15 mg PO DAILY #90 tabs 09/03/23 12/06/23 12/06/23 Rx acetaminophen 325 mg capsule 325 mg PO Q4H PRN fever or 09/18/23 12/06/23 Unknown Rx postoperative pain #60 caps donepezil 10 mg tablet 10 mg PO DAILY #90 tabs 10/30/23 12/09/23 12/08/23 Rx docusate sodium 100 mg capsule 100 mg PO BID PRN Constipation 11/06/23 12/06/23 Unknown History (Colace) citalopram 40 mg tablet 40 mg PO DAILY 12/06/23 12/09/23 12/08/23 History Allergies Allergy/AdvReac Type Severity Reaction Status Date / Time No Known Allergies Allergy Verified 12/06/23 11:46 Current Medications Generic Name Dose Route Start Last Admin Trade Name Freq PRN Reason Stop Dose Admin Calcium Carbonate 1 each 12/09/23 18:00 12/09/23 17:39 Calcium Carb-Vit D 600mg/400unit 1 Tablet PO 1 each BID SARINA Administration Chlorhexidine Gluconate 30 ml 12/09/23 13:00 12/09/23 17:47 Chlorhexidine Gluconate 0.12% Btl 473 Ml MUCOUS MEM 30 ml QID SARINA Administration Docusate Sodium 100 mg 12/09/23 18:00 12/09/23 17:40 Docusate Sodium 100 Mg Capsule PO 100 mg BID SARINA Administration Hydromorphone HCl 0.5 mg 12/09/23 10:43 12/09/23 15:12 Hydromorphone 1 Mg/Ml Inj 1 Ml IVP 0.5 mg Q4H PRN Administration BREAKTHROUGH PAIN Lactated Ringer's 1,000 mls @ 100 mls/hr 12/09/23 10:43 12/09/23 12:42 Lactated Ringers IV 100 mls/hr .Q10H SARINA Administration Acetaminophen 1,000 mg in 100 mls @ 400 mls/hr 12/09/23 10:43 12/09/23 18:29 Acetaminophen IV 12/10/23 02:57 400 mls/hr Q8H SARINA Administration Cefazolin Sodium 2,000 mg/ 50 mls @ 100 mls/hr 12/09/23 15:00 12/09/23 18:15 Sodium Chloride IV 12/10/23 07:29 Infused Q8H SARINA Infusion Protocol Mupirocin 1 applic 12/09/23 18:00 12/09/23 17:39 Mupirocin Oint 22 Gm NASAL 12/14/23 17:59 1 applic BID SARINA Administration Protocol Oxycodone HCl 5 mg 12/09/23 10:43 12/09/23 15:11 Oxycodone 5 Mg Ir Tab/Cap PO 5 mg Q4H PRN Administration MODERATE PAIN Polysaccharide Iron Complex 150 mg 12/09/23 18:00 12/09/23 17:39 Iron Polysaccharide Complex 150 Mg Capsule PO 150 mg BIDWM SARINA Administration PFSH Acute 2 PFSH: Medical History History of kidney stones Urinary incontinence Surgical History History of anterior colporrhaphy (~09/17/23) Anterior colporrhapy augmented with allograft, posterior colporrhapy, sacrospinous fixation, cystoscopy performed by [facility] Family History Denies family history of Colon cancer Ovarian cancer Diabetes Heart disease Hypercholesteremia Breast cancer Hypertension Uterine cancer Thyroid disease Stroke Social History Smoking and tobacco/nicotine status: never used tobacco/nicotine Alcohol intake: current Alcohol intake frequency: few times a month Vitals/I&O/Wt Last Vital Signs Temp 97.8 F 12/09/23 17:15 Pulse 64 12/09/23 17:15 Resp 18 12/09/23 17:15 BP 181/97 12/09/23 17:15 Pulse Ox 99 12/09/23 17:15 O2 Del Method Room Air 12/09/23 17:15 12/09/23 12/09/23 12/09/23 06:59 14:59 22:59 Intake Total 500 / 500 1880 / 1880 530 / 2410 Output Total 520 / 520 Balance 500 / 500 1360 / 1360 530 / 1890 Weight last 48 hrs Weight 77.111 kg Weight 77.111 kg Physical Exam 2 Narrative: Pleasant cooperative GCS 15 -Maced[place] Laying flat No active chest pain or shortness breath No sign of fluid overload After pain Hemodynamic stable Hypertensive Currently on room air Urinary Catheter Management: Wall: Cath Placed During This Visit: yes Reason for Continuing Indwelling Catheter: Required Immobilization for Trauma or Surgery or Anesthesia Urinary Catheter Date of Insertion: 12/09/23 Urinary Catheter Time of Insertion: 07:45 Data 12/09/23 06:18 12/09/23 06:18 A&P Assessment and plan (1) Primary hyperparathyroidism: (2) SOLOMON (generalized anxiety disorder): (3) Hypercalcemia: (4) Hypertension: (5) Dementia: Qualifiers: Dementia type: Alzheimer's Alzheimer's disease onset: other onset D ementia severity: moderate Dementia behavioral or psychological symptom: with agitation Qualified Code(s): G30.8 - Other Alzheimer's disease; F02.B11 - Dementia in other diseases classified elsewhere, moderate, with agitation Plan As per the they have not taken antihypertensive regimen for quite some time she was taking antihypertensive regimen in the past couple of years ago I will check TSH, start her on amlodipine and lisinopril, TSH is 4.5 will check free T4 Patient has history of hyperparathyroidism status post parathyroidectomy Check free T4 Not in active pain Most likely will add lisinopril along amlodipine at the time of discharge Diagnoses Primary hyperparathyroidism E21.0 SOLOMON (generalized anxiety disorder) F41.1 Hypercalcemia E83.52 Hypertension I10 Moderate Alzheimer's dementia of other onset with agitation G30.8; F02.B11 Dementia type: Alzheimer's Alzheimer's disease onset: other onset Dementia severity: moderate Dementia behavioral or psychological symptom: with agitation
[2023-12-09 19:34] LABS: Thyroid Stimulating Hormone 4.55 uIU/mL (0.27-4.20)
[2023-12-09] MEDS: lisinopril 5 mg Tablet PO (19:48)
[2023-12-09] MEDS: amlodipine 10 mg Tablet PO (19:48)
[2023-12-09 21:11] LABS: Free T4 Free Thyroxine 1.02 ng/dL (0.82-1.77)
--- NOTE | 2023-12-09 21:25 | XRR_ITS ---
PROCEDURE INFORMATION: Exam: XR Right Knee Exam date and time: 12/09/2023 9:39 PM Age: 78 years old Clinical indication: Injury or trauma; Fall; Blunt trauma; Knee; Right; Prior surgery; Surgery date: Post-operative (0-2 days); Surgery type: RT tkr this am; Additional info: Patient fall TECHNIQUE: Imaging protocol: Radiologic exam of the right knee. Views: 3 views. COMPARISON: CR XR knee RT 1-2V [id number] 12/09/2023 9:48 AM FINDINGS: Bones/joints: There is demineralization of the visualized bones. Surgical changes of total knee arthroplasty with anatomic alignment and no hardware complications. There is moderate knee joint effusion. Soft tissues: There is soft tissue emphysema, postop. Vasculature: There are vascular calcifications. XR/XR knee RT 3V* [id number] IMPRESSION: No posttraumatic changes. Post total knee arthroplasty with no complications.
[2023-12-10] VITALS (9 sets, daily range): BP systolic 133–180; BP diastolic 73–113; PULSE 61–81; RESP 16–18; TEMP 36.6–37.1; O2SAT 95–100; BMI 29.5
[2023-12-10] MEDS: ketorolac 30 mg/mL INJ 15 MG IVP ×2 (01:05→15:32)
[2023-12-10] MEDS: hyDRALAzine 20 mg/mL INJ 1 mL 10 MG IVP ×2 (01:29→19:57)
[2023-12-10] MEDS: lactated ringers 1,000 ML 100 ML IV ×3 (01:31→20:01)
[2023-12-10] MEDS: acetaminophen 1,000 MG/100 ML PIGGYBACK 400 MG IV (01:33)
--- NOTE | 2023-12-10 01:54 | PC.NURSE ---
At 2109, patient found on floor. Patient woke up and did not know where she was at and tried to get out of bed and fell. Physician notified and XRay of knee performed. XRay showed no changes.
--- NOTE | 2023-12-10 01:56 | PC.NURSE ---
Patient in constant pain. Crying out in pain, but refusing pain medications. Patient educated on pain sensation after surgery and the need for pain medications following surgery. Patient still refused medications stating they do not work.
[2023-12-10] MEDS: HYDROmorphone 1 mg/mL INJ 1 mL 0.5 MG IVP ×2 (03:05→10:59)
[2023-12-10] MEDS: ceFAZolin 2,000 MG in sodium chloride 0.9% (plus) 50 ML 100 MG IV (06:00)
[2023-12-10 06:16] LABS: Basophils % 0.5 %; Eosinophils % 0.5 %; Hematocrit 34.2 % (36-47); Lymphocytes % 12.8 %; Mean Corpuscular HGB Conc 32.5 g/dL (30-55); Mean Corpuscular Hemoglobin 30.7 pg (27-33); Mean Corpuscular Volume 94.5 fl (85-98); Mean Platelet Volume 11.1 fL (7.4-10.4); Monocytes # 0.8 10^3/uL (0.2-0.9); Monocytes % 9.9 %; Nucleated Red Blood Cells % 0 %; Platelet Count 173 10^3/cmm (157-399); Red Blood Count 3.62 10^6/uL (3.85-5.65); White Blood Count 7.64 10^3/uL (3.29-11.43)
[2023-12-10 06:40] LABS: Anion Gap 12.7 (5-19); Blood Urea Nitrogen 12 mg/dL (8-23); Calcium 10.2 mg/dL (8.5-10.5); Carbon Dioxide 23 mmol/L (22-29); Chloride 104 mmol/L (98-107); Glucose 135 mg/dL (65-115); Osmolality Calculated 284 mOsm/kg (285-295); Potassium 3.7 mmol/L (3.5-5.1); Sodium 136 mmol/L (136-145)
[2023-12-10] MEDS: docusate sodium 100 mg Capsule PO ×2 (08:19→17:19)
[2023-12-10] MEDS: metoprolol tartrate 25 mg Tablet PO ×2 (08:19→20:01)
[2023-12-10] MEDS: iron polysaccharide complex 150 mg Capsule PO ×2 (08:19→17:19)
[2023-12-10] MEDS: amlodipine 10 mg Tablet PO (08:19)
[2023-12-10] MEDS: apixaban 5 mg Tablet 2.5 MG PO ×2 (08:19→17:19)
[2023-12-10] MEDS: lisinopril 10 mg Tablet PO (08:19)
[2023-12-10] MEDS: multivitamin therapeutic Tablet 1 TAB PO (08:19)
[2023-12-10] MEDS: calcium carb-vit d 600mg/400unit 1 Tablet 1 EACH PO ×2 (08:19→17:19)
[2023-12-10] MEDS: chlorhexidine gluconate 0.12% Btl 473 mL 30 ML MUCOUS MEM ×2 (08:21→14:33)
[2023-12-10] MEDS: mupirocin oint 22 gm 1 APPLIC NASAL ×2 (08:21→17:25)
--- NOTE | 2023-12-10 08:27 | P.PN_ITS ---
Subjective 2 Subjective: Patient seen and examined this morning. She had a bout of some confusion last night and got up and allegedly had fallen on her near her right knee. X-rays demonstrate stable prosthesis no evidence of periprosthetic fracture. Today she is complaining of some pain which would be normal postoperatively. Swing over the bedside and she is able to go from 90 degrees and perform knee extension. At this point in time would recommend we see how she progresses with therapy today and we will see her at lunchtime for dressing changes to make sure her incision looks good. Patient understands and agrees with current plan. Questions answered. Vitals/I&O/Wt Last Vital Signs Temp 98.0 F 12/10/23 07:56 Pulse 81 12/10/23 07:56 Resp 17 12/10/23 07:56 BP 143/74 12/10/23 07:56 Pulse Ox 95 12/10/23 07:56 O2 Del Method Room Air 12/10/23 07:56 12/09/23 12/10/23 12/10/23 22:59 06:59 14:59 Intake Total 1696.667 / 3576.667 353.333 / 3930.000 Output Total 1000 / 1520 950 / 2470 Balance 696.667 / 2056.667 -596.667 / 1460.000 Weight last 48 hrs Weight 194 lb Weight 170 lb Weight 170 lb Physical Exam 2 Narrative: Dressing on in place to the right lower extremity. Patient can wiggle toes plantarflex and dorsiflex ankle sensation intact light touch distally. Distal pulses are palpable. Compartment soft compressible. Dressings clean dry and intact. Patient has pain with doing a straight leg raise at bedside she is able to swing her legs over the bedside and go from 80 degrees of knee flexion and perform knee extension against gravity to hold a straight leg raise there is some pain with this. Const: COMMON NORMALS: no acute distress, healthy appearing and alert HENMT: COMMON NORMALS: normocephalic and atraumatic HEAD & SCALP: n ormocephalic and atraumatic Resp: COMMON NORMALS: normal respiratory effort and No retractions Cardio: COMMON NORMALS: Peripheral pulses 2+ throughout PERIPHERAL PULSES: Peripheral pulses 2+ throughout Neuro: SENSORIUM/ORIENTATION: Yes alert Urinary Catheter Management: Wall: Cath Placed During This Visit: yes Reason for Continuing Indwelling Catheter: Required Immobilization for Trauma or Surgery or Anesthesia Urinary Catheter Date of Insertion: 12/09/23 Urinary Catheter Time of Insertion: 07:45 Data 12/10/23 05:26 12/10/23 05:26 Xray Ortho: My impression: X-rays reviewed from PACU as well as overnight and stable right total knee arthroplasty is noted no evidence periprosthetic fracture dislocation or loosening. A&P Assessment and plan (1) S/P total knee arthroplasty: Plan Patient received appropriate pain medication, postoperative antibiotics, DVT prophylaxis starting today. Work with therapy. Will see how she does this morning and will reevaluate patient at lunchtime possible discharge today versus tomorrow given she did have a fall last night. X-rays are stable no evidence of fracture. Will see how she progresses today. We will perform a dressing takedown and evaluation of her incision to make sure there is no wound dehiscence given her fall. Patient understands agrees current plan. Questions answered. Attestations 2 Medical Necessity Statement*: Status post right total knee arthroplasty ongoing care Coding Level of Care Code Acute Code for Chg Fwd Diagnoses S/P total knee arthroplasty Z96.659
--- NOTE | 2023-12-10 09:41 | PC.CHAP ---
Pastoral Care Encounter/Spiritual Assessment Type of Contact [] Declined sketcher visit [] Patient/Family/Request visit [] Outpatient visit [] Follow-up visit [] Physician referral [] Code/Alert [x] Routine visit [] Staff referral [] Actively dying [] Patient sleeping [] Family support [] [] Out of room [] Palliative care [] [] Receiving care in room [] Pre-surgical visit [] Trauma [] Long length of stay [] ICU visit [] Other: Relational/Emotional Strength [] Patient feels connected with others/family/visitors/staff [] Distress [] Loneliness/isolation [] Abandonment Spirituality of Patient [x] Person of [place] [] Attends Voodoo of their [place] [x] Believes in Prayer [] Reads Bible or Rastafarian materials [] There are Spiritual issues to be addressed Clerk General Interventions [x] Prayer [x] Active listening [] Non-anxious presence [x] Spiritual/emotional support [] Crisis/trauma care [] Spiritual counseling [] Bereavement support [] Provided bereavement packet [] Provided Bible/devotional materials [] Provided toy/stuffed animal, coloring book to patient or family member [] Provided Communion [] Anointing/[place] [] Salvation [x] Completed spiritual assessment [] Other: Impact on Illness or Injury [] Angry [] Fearful [] Anxious [] Often cries [] Exhaustion [] Unable to work [] Unable to attend presybeterian [] Unable to walk/stand [] Unable to read [] Unable to drive [] Unable to eat/drink [] Unable to sleep [] Unable to be with family [] Patient intubated [] Other: Summary Time spent with patient 5 min
[2023-12-10] MEDS: oxyCODONE 5 mg IR Tab/Cap PO ×3 (11:26→19:58)
--- NOTE | 2023-12-10 16:18 | PC.NURSE ---
Pt has had a considerable increase in confusion since being admitted p surgery. She does have a dx of Dementia, and is poor at following directions. She is trying to make phonecalls with call light, rambling, and is unaware of surroundings. Pleasantly confused and easily redirected . states that she is not this way at home on a routine, but it does seem to be an exacerbation of her dementia to him. VS stable. MD aware of confusion.
[2023-12-10] MEDS: haloperidol inj 5 mg/mL INJ 1 mL 2 MG IVP (22:09)
[2023-12-11] VITALS (10 sets, daily range): BP systolic 122–178; BP diastolic 75–98; PULSE 70–81; RESP 16–18; TEMP 36.4–37.3; O2SAT 92–98
[2023-12-11] MEDS: HYDROmorphone 1 mg/mL INJ 1 mL 0.5 MG IVP ×3 (00:30→15:43)
[2023-12-11] MEDS: hyDRALAzine 20 mg/mL INJ 1 mL 10 MG IVP (00:36)
[2023-12-11] MEDS: lactated ringers 1,000 ML 100 ML IV ×2 (05:39→15:44)
[2023-12-11 06:11] LABS: Basophils % 0.4 %; Eosinophils % 0.1 %; Hematocrit 34.1 % (36-47); Lymphocytes # 1.3 10^3/uL (0.8-4.8); Lymphocytes % 16.2 %; Mean Corpuscular HGB Conc 32.6 g/dL (30-55); Mean Corpuscular Volume 95.3 fl (85-98); Mean Platelet Volume 11.4 fL (7.4-10.4); Monocytes # 1.1 10^3/uL (0.2-0.9); Monocytes % 13.1 %; Neutrophils # 5.79 10^3/uL (1.8-7.7); Neutrophils % 69.8 %; Nucleated Red Blood Cells % 0 %; Platelet Count 174 10^3/cmm (157-399); Red Blood Count 3.58 10^6/uL (3.85-5.65); Red Cell Distribution Width 13.2 % (12.1-15.1); White Blood Count 8.29 10^3/uL (3.29-11.43)
[2023-12-11 06:27] LABS: Blood Urea Nitrogen 11 mg/dL (8-23); Calcium 10.3 mg/dL (8.5-10.5); Carbon Dioxide 23 mmol/L (22-29); Chloride 99 mmol/L (98-107); Glucose 134 mg/dL (65-115); Osmolality Calculated 279 mOsm/kg (285-295); Sodium 134 mmol/L (136-145)
[2023-12-11] MEDS: docusate sodium 100 mg Capsule PO ×2 (08:48→17:44)
[2023-12-11] MEDS: multivitamin therapeutic Tablet 1 TAB PO (08:49)
[2023-12-11] MEDS: ketorolac 30 mg/mL INJ 15 MG IVP (08:49)
[2023-12-11] MEDS: amlodipine 10 mg Tablet PO (08:49)
[2023-12-11] MEDS: metoprolol tartrate 25 mg Tablet PO ×2 (08:49→20:08)
[2023-12-11] MEDS: iron polysaccharide complex 150 mg Capsule PO ×2 (08:49→17:44)
[2023-12-11] MEDS: calcium carb-vit d 600mg/400unit 1 Tablet 1 EACH PO ×2 (08:49→17:44)
[2023-12-11] MEDS: lisinopril 10 mg Tablet PO (08:49)
[2023-12-11] MEDS: apixaban 5 mg Tablet 2.5 MG PO ×2 (08:50→17:43)
[2023-12-11] MEDS: TRAMadol 50 mg Tablet PO ×3 (08:50→17:44)
[2023-12-11] MEDS: chlorhexidine gluconate 0.12% Btl 473 mL 30 ML MUCOUS MEM ×4 (08:57→20:08)
[2023-12-11] MEDS: mupirocin oint 22 gm 1 APPLIC NASAL ×2 (08:57→17:47)
--- NOTE | 2023-12-11 09:44 | P.CONIM_ITS ---
Providers/Reason For Consult 2 Consulting Physician/Specialty*: Dr. Zak Gilmore Reason for Consult*: hypertension Requesting Physician: Dr. Talbert Attending Physician: Carrillo Talbert DO Primary Care Provider: Renata Hyde DO History of Present Illness History of Present Illness Tressa Mcgill is a 78 year old female POD #1 has been seen by Ortho this AM working with PT pt has overt dementia and is confused on what is going on. She states she is comfortable and in no pain. has taken her medication. BP well controlled Medications/Allergies Home Medications Medication Instructions Recorded Confirmed Last Taken Type meloxicam 15 mg tablet 15 mg PO DAILY #90 tabs 09/03/23 12/06/23 12/06/23 Rx acetaminophen 325 mg capsule 325 mg PO Q4H PRN fever or 09/18/23 12/06/23 Unknown Rx postoperative pain #60 caps donepezil 10 mg tablet 10 mg PO DAILY #90 tabs 10/30/23 12/09/23 12/08/23 Rx docusate sodium 100 mg capsule 100 mg PO BID PRN Constipation 11/06/23 12/06/23 Unknown History (Colace) citalopram 40 mg tablet 40 mg PO DAILY 12/06/23 12/09/23 12/08/23 History Allergies Allergy/AdvReac Type Severity Reaction Status Date / Time No Known Allergies Allergy Verified 12/06/23 11:46 Current Medications Generic Name Dose Route Start Last Admin Trade Name Freq PRN Reason Stop Dose Admin Amlodipine Besylate 10 mg 12/09/23 18:50 12/11/23 08:49 Amlodipine 10 Mg Tablet PO 10 mg DAILY SARINA Administration Apixaban 2.5 mg 12/10/23 09:00 12/11/23 08:50 Apixaban 5 Mg Tablet PO 2.5 mg BID SARINA Administration Calcium Carbonate 1 each 12/09/23 18:00 12/11/23 08:49 Calcium Carb-Vit D 600mg/400unit 1 Tablet PO 1 each BID SARINA Administration Chlorhexidine Gluconate 30 ml 12/09/23 13:00 12/11/23 08:57 Chlorhexidine Gluconate 0.12% Btl 473 Ml MUCOUS MEM 30 ml QID SARINA Administration Docusate Sodium 100 mg 12/09/23 18:00 12/11/23 08:48 Docusate Sodium 100 Mg Capsule PO 100 mg BID SARINA Administration Haloperidol Lactate 2 mg 12/10/23 21:26 12/10/23 22:09 Haloperidol Inj 5 Mg/Ml Inj 1 Ml IVP 2 mg Q4H PRN Administration AGITATION Hydralazine HCl 10 mg 12/09/23 18:49 12/11/23 00:36 Hydralazine 20 Mg/Ml Inj 1 Ml IVP 10 mg Q4H PRN Administration bp>180/90mmhg Hydromorphone HCl 0.5 mg 12/09/23 10:43 12/11/23 05:46 Hydromorphone 1 Mg/Ml Inj 1 Ml IVP 0.5 mg Q4H PRN Administration BREAKTHROUGH PAIN Lactated Ringer's 1,000 mls @ 100 mls/hr 12/09/23 10:43 12/11/23 05:39 Lactated Ringers IV 100 mls/hr .Q10H SARINA Administration Ketorolac Tromethamine 15 mg 12/09/23 10:43 12/11/23 08:49 Ketorolac 30 Mg/Ml Inj IVP 15 mg Q6H PRN Administration MODERATE TO SEVERE PAIN Lisinopril 10 mg 12/10/23 09:00 12/11/23 08:49 Lisinopril 10 Mg Tablet PO 10 mg DAILY [facility] Administration Metoprolol Tartrate 25 mg 12/09/23 21:00 12/11/23 08:49 Metoprolol Tartrate 25 Mg Tablet PO 25 mg BID@0900,2100 [facility] Administration Multivitamins Therapeutic 1 tab 12/10/23 09:00 12/11/23 08:49 Multivitamin Therapeutic Tablet PO 1 tab DAILY [facility] Administration Mupirocin 1 applic 12/09/23 18:00 12/11/23 08:57 Mupirocin Oint 22 Gm NASAL 12/14/23 17:59 1 applic BID [facility] Administration Protocol Oxycodone HCl 5 mg 12/09/23 10:43 12/10/23 19:58 Oxycodone 5 Mg Ir Tab/Cap PO 5 mg Q4H PRN Administration MODERATE PAIN Polysaccharide Iron Complex 150 mg 12/09/23 18:00 12/11/23 08:49 Iron Polysaccharide Complex 150 Mg Capsule PO 150 mg BIDWM [facility] Administration Tramadol HCl 50 mg 12/09/23 10:43 12/11/23 08:50 Tramadol 50 Mg Tablet PO 50 mg Q4H PRN Administration MILD TO MODERATE PAIN PFSH Acute 2 PFSH: Medical History History of kidney stones Urinary incontinence Surgical History History of anterior colporrhaphy (~09/17/23) Anterior colporrhapy augmented with allograft, posterior colporrhapy, sacrospinous fixation, cystoscopy performed by Vaughn Family History Denies family history of Colon cancer Ovarian cancer Diabetes Heart disease Hypercholesteremia Breast cancer Hypertension Uterine cancer Thyroid disease Stroke Social History Smoking and tobacco/nicotine status: never used tobacco/nicotine Alcohol intake: current Alcohol intake frequency: few times a month Vitals/I&O/Wt Last Vital Signs Temp 98.3 F 12/11/23 08:00 Pulse 75 12/11/23 08:00 Resp 16 12/11/23 08:00 BP 122/81 12/11/23 08:00 Pulse Ox 97 12/11/23 08:00 O2 Del Method Room Air 12/10/23 15:44 12/10/23 12/11/23 12/11/23 22:59 06:59 14:59 Intake Total 855 / 2095 963.333 / 3058.333 240 / 240 Balance 855 / 1345 963.333 / 2308.333 240 / 240 Weight last 48 hrs Weight 178 lb 12.8 oz Weight 194 lb Weight 170 lb Physical Exam 2 Narrative: Pleasant cooperative GCS 15 sitting in chair No active chest pain or shortness breath No sign of fluid overload After pain Hemodynamic stable Hypertensive Currently on room air Urinary Catheter Management: Wall: Cath Placed During This Visit: yes, but has since been removed by the nurse Reason for Continuing Indwelling Catheter: Decision to DC Catheter Urinary Catheter Date of Insertion: 12/09/23 Urinary Catheter Time of Insertion: 07:45 Date Urinary Catheter Removed: 12/10/23 Time Urinary Catheter Discontinued: 10:30 Data 12/11/23 05:16 12/11/23 05:16 A&P Assessment and plan (1) Primary hyperparathyroidism: (2) SOLOMON (generalized anxiety disorder): (3) Hypercalcemia: (4) Hypertension: (5) Dementia: Qualifiers: Alzheimer's disease onset: other onset Dementia behavioral or psychological symptom: with agitation Dementia severity: moderate Dementia type: Alzheimer's Qualified Code(s): G30.8 - Other Alzheimer's disease; F02.B11 - Dementia in other diseases classified elsewhere, moderate, with agitation Plan dementia subacute hypothyroidism. will not treat tolerating lisinopril 10mg, norvasc 10mg, and Lopressor 25mg BID very well. BP stable has not used PRN hydralazine Patient has history of hyperparathyroidism status post parathyroidectomy Most likely will add lisinopril along amlodipine at the time of discharge Coding Level of Care Code 72622 Diagnoses Primary hyperparathyroidism E21.0 SOLOMON (generalized anxiety disorder) F41.1 Hypercalcemia E83.52 Hypertension I10 Moderate Alzheimer's dementia of other onset with agitation G30.8; F02.B11 Alzheimer's disease onset: other onset Dementia behavioral or psychological symptom: with agitation Dementia severity: moderate Dementia type: Alzheimer's
--- NOTE | 2023-12-11 16:54 | P.PN_ITS ---
<Statement entered by Carrillo Talbert DO - 12/11/23 17:09> Agree with PAs assessment and plan. Patient has made some minor improvements with some therapy as well as her dementia but at this point in time I think from a safety standpoint as well as closer monitoring she would do it develop and improve postoperatively with closer monitoring in a shelter facility this is been recommended by therapy we will continue to see how she does with therapy we will see her again tomorrow. Patient understands and agrees with current plan. Questions answered. Carrillo Hirsch DO Subjective 2 Subjective: Patient seen and examined this afternoon. No acute event overnight. Pt is alert and answering questions accordingly today. She got up with therapy today. Questions answered. Vitals/I&O/Wt Last Vital Signs Temp 97.7 F 12/11/23 15:49 Pulse 77 12/11/23 15:49 Resp 16 12/11/23 15:49 BP 128/77 12/11/23 15:49 Pulse Ox 95 12/11/23 15:49 O2 Del Method Room Air 12/10/23 15:44 12/11/23 12/11/23 12/11/23 06:59 14:59 22:59 Intake Total 963.333 / 3058.333 240 / 240 1000 / 1240 Balance 963.333 / 2308.333 240 / 240 1000 / 1240 Weight last 48 hrs Weight 178 lb 12.8 oz Weight 194 lb Physical Exam 2 Narrative: Dressing on in place to the right lower extremity. Patient can wiggle toes plantarflex and dorsiflex ankle sensation intact light touch distally. Distal pulses are palpable. Compartment soft compressible. Dressings clean dry and intact. Patient is able to perform straight leg raise. Const: COMMON NORMALS: no acute distress, healthy appearing and alert HENMT: COMMON NORMALS: normocephalic and atraumatic HEAD & SCALP: n ormocephalic and atraumatic Resp: COMMON NORMALS: normal respiratory effort and No retractions Cardio: COMMON NORMALS: Peripheral pulses 2+ throughout PERIPHERAL PULSES: Peripheral pulses 2+ throughout Neuro: SENSORIUM/ORIENTATION: Yes alert Urinary Catheter Management: Wall: Cath Placed During This Visit: yes, but has since been removed by the nurse Reason for Continuing Indwelling Catheter: Decision to DC Catheter Urinary Catheter Date of Insertion: 12/09/23 Urinary Catheter Time of Insertion: 07:45 Date Urinary Catheter Removed: 12/10/23 Time Urinary Catheter Discontinued: 10:30 Data 12/11/23 05:16 12/11/23 05:16 A&P Assessment and plan (1) S/P total knee arthroplasty: Plan Plan: -Hospitalist on board for medical management -Labs and imaging reviewed -PT -Weight-bear as tolerated -DVT prophylaxis -Keep dressing dry and intact Patient seems to be doing better today and her dementia has improved. Orthopedic pink she has been stable and progressing with therapy. We will check on pt tomorrow. she will likely be discharged to [facility] facility tomorrow if labs look good and patient is doing well. Attestations 2 Medical Necessity Statement*: Ongoing care for right total knee arthroplasty Coding Level of Care Code Acute Code for Chg Fwd Diagnoses S/P total knee arthroplasty Z96.659
[2023-12-12] VITALS (10 sets, daily range): BP systolic 117–149; BP diastolic 63–92; PULSE 70–93; RESP 14–18; TEMP 36.7–37.2; O2SAT 93–97
[2023-12-12] MEDS: oxyCODONE 5 mg IR Tab/Cap PO ×3 (04:16→20:08)
[2023-12-12] MEDS: lactated ringers 1,000 ML 100 ML IV ×2 (04:57→15:29)
[2023-12-12 06:16] LABS: Basophils % 0.4 %; Eosinophils % 0.4 %; Hematocrit 30.1 % (36-47); Lymphocytes # 1.3 10^3/uL (0.8-4.8); Lymphocytes % 14.8 %; Mean Corpuscular HGB Conc 32.2 g/dL (30-55); Mean Corpuscular Hemoglobin 30.7 pg (27-33); Mean Corpuscular Volume 95.3 fl (85-98); Mean Platelet Volume 11.5 fL (7.4-10.4); Monocytes # 1.2 10^3/uL (0.2-0.9); Monocytes % 13.5 %; Neutrophils # 6.28 10^3/uL (1.8-7.7); Neutrophils % 70.6 %; Nucleated Red Blood Cells % 0 %; Platelet Count 170 10^3/cmm (157-399); Red Blood Count 3.16 10^6/uL (3.85-5.65); Red Cell Distribution Width 13.1 % (12.1-15.1); White Blood Count 8.91 10^3/uL (3.29-11.43)
[2023-12-12 06:37] LABS: Anion Gap 15.8 (5-19); Blood Urea Nitrogen 10 mg/dL (8-23); Carbon Dioxide 24 mmol/L (22-29); Chloride 102 mmol/L (98-107); Glucose 121 mg/dL (65-115); Osmolality Calculated 286 mOsm/kg (285-295); Potassium 3.8 mmol/L (3.5-5.1); Sodium 138 mmol/L (136-145)
[2023-12-12] MEDS: amlodipine 10 mg Tablet PO (08:40)
[2023-12-12] MEDS: apixaban 5 mg Tablet 2.5 MG PO ×2 (08:41→18:04)
[2023-12-12] MEDS: iron polysaccharide complex 150 mg Capsule PO ×2 (08:41→18:04)
[2023-12-12] MEDS: docusate sodium 100 mg Capsule PO ×2 (08:41→18:04)
[2023-12-12] MEDS: calcium carb-vit d 600mg/400unit 1 Tablet 1 EACH PO ×2 (08:41→18:04)
[2023-12-12] MEDS: lisinopril 10 mg Tablet PO (08:41)
[2023-12-12] MEDS: multivitamin therapeutic Tablet 1 TAB PO (08:41)
[2023-12-12] MEDS: chlorhexidine gluconate 0.12% Btl 473 mL 30 ML MUCOUS MEM ×3 (08:42→20:09)
[2023-12-12] MEDS: metoprolol tartrate 25 mg Tablet PO ×2 (08:43→20:08)
--- NOTE | 2023-12-12 09:58 | P.PN_ITS ---
Subjective 2 Subjective: Patient seen and examined this morning. Patient still has some mild confusion. Given slow to progress with therapy and at this point in time I think to discharge home and talked about this with . Plan will be for rehab facility as she is requiring much more help with therapy and mobilizing. Vitals/I&O/Wt Last Vital Signs Temp 98.0 F 12/12/23 07:57 Pulse 86 12/12/23 07:57 Resp 17 12/12/23 07:57 BP 148/92 12/12/23 07:57 Pulse Ox 97 12/12/23 07:57 O2 Del Method Room Air 12/12/23 04:00 12/11/23 12/12/23 12/12/23 22:59 06:59 14:59 Intake Total 1060 / 1300 1000 / 2300 240 / 240 Output Total 130 / 130 150 / 280 Balance 930 / 1170 850 / 2020 240 / 240 Weight last 48 hrs Weight 185 lb Weight 178 lb 12.8 oz Physical Exam 2 Narrative: Dressing on in place to the right lower extremity. Patient can wiggle toes plantarflex and dorsiflex ankle sensation intact light touch distally. Dressing subsequently taken down and incision is clean dry and intact no signs of infection normal postoperative swelling noted. There is no signs of wound dehiscence Prineo dressing on in place. Distal pulses are palpable. Compartment soft compressible. Dressings clean dry and intact. Patient is able to perform straight leg raise. Const: COMMON NORMALS: no acute distress, healthy appearing and alert HENMT: COMMON NORMALS: normocephalic and atraumatic HEAD & SCALP: n ormocephalic and atraumatic Resp: COMMON NORMALS: normal respiratory effort and No retractions Cardio: COMMON NORMALS: Peripheral pulses 2+ throughout PERIPHERAL PULSES: Peripheral pulses 2+ throughout Neuro: SENSORIUM/ORIENTATION: Yes alert Urinary Catheter Management: Wall: Cath Placed During This Visit: yes, but has since been removed by the nurse Reason for Continuing Indwelling Catheter: Decision to DC Catheter Urinary Catheter Date of Insertion: 12/09/23 Urinary Catheter Time of Insertion: 07:45 Date Urinary Catheter Removed: 12/10/23 Time Urinary Catheter Discontinued: 10:30 Data 12/12/23 05:42 12/12/23 05:42 Xray Ortho: My impression: Postoperative x-rays as well as status post her fall postoperative day 10 once again reviewed and demonstrate no acute fracture dislocation or hardware failure or loosening A&P Assessment and plan (1) S/P total knee arthroplasty: Plan Plan: -Hospitalist on board for medical management -Labs and imaging reviewed -PT -Weight-bear as tolerated -DVT prophylaxis -Keep dressing dry and intact Patient seems to be doing better today and her dementia has improved. Orthopedic pink she has been stable and progressing with therapy, talk with and unfortunately he feels not safe with taking her home and they work with director social and at this point time plan for discharge to [facility] facility. Attestations 2 Medical Necessity Statement*: Ongoing care postoperative right total knee arthroplasty with slow progressing with therapy requiring more assistance and help as well as patient had some aggravation of her dementia postoperatively Coding Level of Care Code Acute Code for Sarah Epps Diagnoses S/P total knee arthroplasty Z96.659
[2023-12-13] MEDS: lactated ringers 1,000 ML 100 ML IV (02:24)
[2023-12-13 02:35] VITALS: RESP 18
[2023-12-13] MEDS: oxyCODONE 5 mg IR Tab/Cap PO (02:35)
[2023-12-13 04:00] VITALS: BP 147/89; PULSE 69; RESP 16; TEMP 36.9; O2SAT 98
[2023-12-13 08:25] VITALS: BP 128/81; PULSE 79; RESP 18; TEMP 36.8; O2SAT 94
[2023-12-13] MEDS: calcium carb-vit d 600mg/400unit 1 Tablet 1 EACH PO (09:42)
[2023-12-13] MEDS: docusate sodium 100 mg Capsule PO (09:42)
[2023-12-13] MEDS: apixaban 5 mg Tablet 2.5 MG PO (09:42)
[2023-12-13] MEDS: multivitamin therapeutic Tablet 1 TAB PO (09:42)
[2023-12-13] MEDS: metoprolol tartrate 25 mg Tablet PO (09:42)
[2023-12-13] MEDS: lisinopril 10 mg Tablet PO (09:42)
[2023-12-13] MEDS: iron polysaccharide complex 150 mg Capsule PO (09:42)
[2023-12-13] MEDS: amlodipine 10 mg Tablet PO (09:42)
[2023-12-13] MEDS: mupirocin oint 22 gm 1 APPLIC NASAL (09:43)
[2023-12-13] MEDS: TRAMadol 50 mg Tablet PO (09:43)
[2023-12-13] MEDS: chlorhexidine gluconate 0.12% Btl 473 mL 30 ML MUCOUS MEM (09:43)
--- NOTE | 2023-12-13 10:16 | PM.DCS ---
Discharge Providers Date of Admission: 12/09/23 09:20 Date of Discharge: December 13, 2023 Attending Provider at Admission: Carrillo Talbert DO Attending Provider at Discharge: Carrillo Talbert DO Consults: Hospitalist Dr. Perea Primary Care Provider: Renata Hyde DO Diagnoses at Discharge Discharge Diagnosis (1) S/P total knee arthroplasty: Status: Inactive Reason for Visit Reason for Visit: M17.0 Brief History: Status post right total knee arthroplasty Hospital Course Hospital Course Patient presented to the preoperative holding area with plan for right total knee arthroplasty after patient has been worked up in the outpatient setting for failed conservative treatment of [ right] knee degenerative joint disease. Once cleared by anesthesia for surgery patient subsequently was taken back to the operative suite underwent anesthesia per anesthesia department and then subsequently underwent a [ right] total knee arthroplasty. Procedure was performed without any complications patient was taken to PACU in stable condition patient recovered well in PACU and then was admitted to the floor postoperatively internal medicine was consulted and on board for medical management and assistance with care. Patient received appropriate PT/OT, postoperative antibiotics, postoperative TXA, pain control, postoperative DVT prophylaxis. Elevation and ice. Patient encouraged for knee range of motion allowed weightbearing as tolerated to the operative lower extremity. Dressing was changed as needed, labs were monitored daily. Patient recovered well postoperatively and worked well and progressed well with therapy. [Patient did have a fall the first night that she had some increase of her dementia from baseline likely secondary to patient's surgery and anesthesia exposure. She subsequent got out of the bed and had a fall she was reexamined as well as x-rays show no injury to perform straight leg raise. At this point time she continue to progress with therapy she unfortunate was slower to progress with therapy and given her dementia and concerns for safety at home with just her to help her they have worked with case management and as well as with therapy and best decision for her postoperatively is to go to a group home facility. She subsequently worked with therapy to have appropriate progression and continue her mobility.]. It was determined on postoperative day [4 ] the patient was stable for discharge from an orthopedic standpoint and medicine. Patient was comfortable with discharge and plan was discharged home. Patient received appropriate discharge instructions as well as pain medication and DVT prophylaxis postoperatively. Given appropriate instructions for dressing management. Patient will follow-up with Dr. Talbert/orthopedics in the office in 2 weeks. All questions answered. Understand if there is any issues questions or concerns and contact the office. Physical Exam Narrative: Dressing on in place to the right lower extremity. Patient can wiggle toes plantarflex and dorsiflex ankle sensation intact light touch distally. Dressing subsequently taken down and incision is clean dry and intact no signs of infection normal postoperative swelling noted. There is no signs of wound dehiscence Prineo dressing on in place. Distal pulses are palpable. Compartment soft compressible. Dressings clean dry and intact. Patient is able to perform straight leg raise. Const: COMMON NORMALS: no acute distress, healthy appearing and alert HENMT: COMMON NORMALS: normocephalic and atraumatic HEAD & SCALP: normocephalic and atraumatic Resp: COMMON NORMALS: normal respiratory effort and No retractions Cardio: COMMON NORMALS: Peripheral pulses 2+ throughout PERIPHERAL PULSES: Peripheral pulses 2+ throughout Neuro: SENSORIUM/ORIENTATION: Yes alert Urinary Catheter Management: Wall: Cath Placed During This Visit: yes, but has since been removed by the nurse Reason for Continuing Indwelling Catheter: Decision to DC Catheter Urinary Catheter Date of Insertion: 12/09/23 Urinary Catheter Time of Insertion: 07:45 Date Urinary Catheter Removed: 12/10/23 Time Urinary Catheter Discontinued: 10:30 Discharge Data Studies Completed and Pending Completed Studies During Hospitalization Category Date Time Status XR knee RT 1-2V 43825 Routine Exams 12/09/23 09:33 Completed XR knee RT 3V* [id number] Stat Exams 12/09/23 21:25 Completed Pending at discharge Category Date Time Status SARS Covid-2 Antigen Stat Lab 12/13/23 08:42 Uncollected Radiology Impressions Knee X-Ray 12/09/23 21:25 IMPRESSION: No posttraumatic changes. Post total knee arthroplasty with no complications. Laboratory Results WBC 8.91 10^3/uL (3.29-11.43) 12/12/23 05:42 RBC 3.16 10^6/uL (3.85-5.65) L 12/12/23 05:42 Hgb 9.70 g/dL (11.27-16.99) L 12/12/23 05:42 Hct 30.1 % (36-47) L 12/12/23 05:42 MCV 95.3 fl (85-98) 12/12/23 05:42 MCH 30.7 pg (27-33) 12/12/23 05:42 MCHC 32.2 g/dL (30-55) 12/12/23 05:42 RDW 13.1 % (12.1-15.1) 12/12/23 05:42 Plt Count 170 10^3/cmm (157-399) 12/12/23 05:42 MPV 11.5 fL (7.4-10.4) H 12/12/23 05:42 Neut % (Auto) 70.6 % 12/12/23 05:42 Lymph % (Auto) 14.8 % 12/12/23 05:42 [place] % (Auto) 13.5 % 12/12/23 05:42 Eos % (Auto) 0.4 % 12/12/23 05:42 Baso % (Auto) 0.4 % 12/12/23 05:42 Neut # (Auto) 6.28 10^3/uL (1.8-7.7) 12/12/23 05:42 Lymph # (Auto) 1.3 10^3/uL (0.8-4.8) 12/12/23 05:42 [place] # (Auto) 1.2 10^3/uL (0.2-0.9) H 12/12/23 05:42 Eos # (Auto) 0.0 10^3/uL (0.0-0.8) 12/12/23 05:42 Baso # (Auto) 0.0 10^3/uL (0.0-0.1) 12/12/23 05:42 Nucleated RBC % (auto) 0 % 12/12/23 05:42 Nucleated RBCs # 0.0 /100WBC 12/12/23 05:42 Sodium 138 mmol/L (136-145) 12/12/23 05:42 Potassium 3.8 mmol/L (3.5-5.1) 12/12/23 05:42 Chloride 102 mmol/L (98-107) 12/12/23 05:42 Carbon Dioxide 24 mmol/L (22-29) 12/12/23 05:42 Anion Gap 15.8 (5-19) 12/12/23 05:42 BUN 10 mg/dL (8-23) 12/12/23 05:42 Creatinine 0.5 mg/dL (0.5-0.9) 12/12/23 05:42 GFR Calculation Not Reportable 12/12/23 05:42 Glucose 121 mg/dL (65-115) H 12/12/23 05:42 Calculated Osmolality 286 mOsm/kg (285-295) 12/12/23 05:42 Calcium 10.0 mg/dL (8.5-10.5) 12/12/23 05:42 TSH 4.55 uIU/mL (0.27-4.20) H 12/09/23 06:18 Free T4 1.02 ng/dL (0.82-1.77) 12/09/23 06:18 Urine Color Yellow (Yellow) 12/09/23 06:40 Urine Appearance Clear (CLEAR) 12/09/23 06:40 Urine pH 6 (5-7) 12/09/23 06:40 Ur Specific [place] 1.020 (1.005-1.030) 12/09/23 06:40 Urine Protein Neg (Negative) 12/09/23 06:40 Urine Glucose (UA) Norm (Normal) 12/09/23 06:40 Urine Ketones Negative (Negative) 12/09/23 06:40 Urine Blood Neg (Negative) 12/09/23 06:40 Urine Nitrate Negative (Negative) 12/09/23 06:40 Urine Bilirubin Neg (Negative) 12/09/23 06:40 Urine Urobilinogen Neg mg/dL (Negative) 12/09/23 06:40 Ur Leukocyte Esterase Negative (Negative) 12/09/23 06:40 Blood Type O Positive 12/09/23 06:18 Rho(D) Type Rh positive 12/09/23 06:18 Antibody Screen Negative 12/09/23 06:18 Imaging Xray Ortho: Radiologist's impression: [address] [place] [address] XRay Report Signed Patient: Tressa Mcgill Unit #: [id number] : 1945 Age/Sex: 78 / F ADM Date: 12/09/23 Loc: [facility] Room/Bed: [facility][note 3] Attending Dr: Carrillo Talbert DO Ordering Provider/Ordering MD: Carrillo Talbert Date of Service: 12/09/23 Procedure(s): XR knee RT 3V* [id number] Accession Number(s): [id number] Report Number: [id number] PROCEDURE INFORMATION: Exam: XR Right Knee Exam date and time: 12/09/2023 9:39 PM Age: 78 years old Clinical indication: Injury or trauma; Fall; Blunt trauma; Knee; Right; Prior surgery; Surgery date: Post-operative (0-2 days); Surgery type: RT tkr this am; Additional info: Patient fall TECHNIQUE: Imaging protocol: Radiologic exam of the right knee. Views: 3 views. COMPARISON: CR XR knee RT 1-2V 02210 12/09/2023 9:48 AM FINDINGS: Bones/joints: There is demineralization of the visualized bones. Surgical changes of total knee arthroplasty with anatomic alignment and no hardware complications. There is moderate knee joint effusion. Soft tissues: There is soft tissue emphysema, postop. Vasculature: There are vascular calcifications. XR/XR knee RT 3V* 19405 IMPRESSION: No posttraumatic changes. Post total knee arthroplasty with no complications. [address] [address] XRay Report Signed Patient: Tressa Mcgill Unit #: [id number] : 1945 Age/Sex: 78 / F ADM Date: 12/09/23 Loc: [facility] Room/Bed: [facility] Attending Dr: Carrillo Talbert DO Ordering Provider/Ordering MD: Carrillo Talbert Date of Service: 12/09/23 Procedure(s): XR knee RT 1-2V 72888 Accession Number(s): [id number] Report Number: [id number] WS: [id number] XR knee RT 1-2V 11357 REASON FOR EXAM: s/p R TKA FINDINGS: Total right knee arthroplasty. Components of the right knee arthroplasty are intact and in proper position and alignment. No focal bone abnormality. IMPRESSION: Total right knee arthroplasty without abnormality. Vitals Last Vital Signs Temp 98.2 F 12/13/23 08:25 Pulse 79 12/13/23 08:25 Resp 18 12/13/23 08:25 BP 128/81 12/13/23 08:25 Pulse Ox 94 12/13/23 08:25 O2 Del Method Room Air 12/13/23 08:25 Discharge Plan Discharge Patient Disposition: Xfer SNF Condition: Stable Prescriptions: New Eliquis 2.5 mg tablet 2.5 mg PO BID 14 Days Qty: 28 0RF amlodipine 10 mg Tablet 10 mg PO DAILY Qty: 60 2RF lisinopril 10 mg Tablet 10 mg PO DAILY Qty: 90 3RF metoprolol tartrate 25 mg Tablet 25 mg PO BID@0900,2100 Qty: 60 3RF tramadol 50 mg tablet 50 mg PO Q6H PRN (Reason: pain) 7 Days Qty: 28 0RF Continued docusate sodium [Colace] 100 mg capsule 100 mg PO BID PRN (Reason: Constipation) donepezil 10 mg tablet 10 mg PO DAILY Qty: 90 0RF acetaminophen 325 mg capsule 325 mg PO Q4H PRN (Reason: fever or postoperative pain) Qty: 60 0RF citalopram 40 mg tablet 40 mg PO DAILY Rx Instructions: TAKE ONE TABLET BY MOUTH DAILY Discontinued meloxicam 15 mg tablet 15 mg PO DAILY Qty: 90 0RF Rx Instructions: TAKE 1 TABLET BY MOUTH EVERY DAY Discharge Orders: Discharge Order (Routine); Ordered 12/13/23 Ordered By: Carrillo Talbert Other Ambulatory Orders: DME: Rigoberto (Order) Location: None Selected Ordered By: Carrillo Talbert Referrals: [facility] [Outside] Renata Hyde DO [Primary Care Provider] - (We have notified your physician's clinic of the need for a follow-up appointment to be scheduled. If you have not heard from them within the next 2 business days, please call them directly. ) Carrillo Talbert DO [Physician] - 12/24/23 9:15 am Discharge Diet: Regular Discharge Activity: Limit activity as instructed Patient Instructions: Opioid Safety Activity Restrictions/Additional Instructions: Orthopedic discharge instructions Keep incisions clean dry and intact, leave Silverlon bandage dressings on in place for 7 days after that may rinse incisions with warm soapy water pat dry and redress with a dry dressing. Patient may weight-bear as tolerate to the operative extremity Utilize crutches as needed Encourage knee range of motion Ice and elevate as needed for pain and swelling Take pain medication as prescribed Take antinausea medication as needed The prescribed Eliquis twice daily for the next 14 days for blood clot prevention May supplement for pain with ibuprofen [id number] as needed No baths or soaks Follow-up in the orthopedic office in 2 weeks Contact the office for any questions or concerns Discharge Attestations Time Spent in Discharge Care*: greater than 30 min Quality Metrics Clinical Quality Measures [ No reported AMI, CVA or VTE this stay] Coding Level of Care Code Acute Code for Chg Fwd Diagnoses S/P total knee arthroplasty Z96.659 Time Spent (min) 35
[2023-12-13 11:13] LABS: SARS Covid-2 Antigen negative (Negative)
--- NOTE | 2023-12-13 12:12 | PC.OT ---
Attempted OT treatment with pt tearful; discussed with nursing and nursing said to hold patient. Will attempt at a later time.
[2023-12-13 12:15] VITALS: BP 145/89; PULSE 87; RESP 18; TEMP 36.6; O2SAT 100
--- NOTE | 2023-12-13 13:39 | PC.NURSE ---
This nurse called and gave report to Kelsey at [facility]. All questions addressed and answered.
[2023-12-13 14:50] VITALS: BP 145/89; PULSE 87; RESP 18; TEMP 36.6; O2SAT 100
== END 2023-12-13 14:51 | disposition skilled nursing facility (03) ==
LOC: MEDSURG 09:22
PROVIDERS: Internal Medicine; Admitting Provider Student in an Organized Health Care Education/Training Program; PCP Family Medicine; Visit Provider Student in an Organized Health Care Education/Training Program
PROC: 8E0Y0CZ Robotic Assisted Procedure of Lower Extremity, Open Approach (ICD-10-PCS; CPT 27447; principal; 2023-12-09 07:00)
DX: M17.11 Unilateral primary osteoarthritis, right knee (principal); F03.90 Unspecified dementia, unspecified severity, without behavioral disturbance, psychotic disturbance, mood disturbance, and anxiety; E21.0 Primary hyperparathyroidism; F41.1 Generalized anxiety disorder; I10 Essential (primary) hypertension; F02.B11 Dementia in other diseases classified elsewhere, moderate, with agitation; Z91.81 History of falling
CPT/HCPCS: 20985; 27447; 36415; 36592; 51702; 73560; 73562; 80048; 81003; 84439; 84443; 85025; 86850; 86900; 87426; 97110; 97116; 97161; 97167; 97530; 97535; C1776; G0378; J0131; J0171; J0360; J0690; J1170; J1630; J1885; J2250; J2704; J2795; J3010; J3490; J7030; J7120

== ENCOUNTER → 2023-12-24 09:20 | Outpatient (BNVA) | payer MEDICARE, SELFPAY | PROVIDERS: PCP Family Medicine; Visit Provider Physician Assistant | DX: Z96.651 Presence of right artificial knee joint | CPT/HCPCS: 73560; 73565; 99024 ==

== ENCOUNTER 2024-01-02 10:10 | Outpatient (RCR) | payer MEDICARE, SELFPAY | END 2024-01-02 23:59 | disposition home or self-care (01) | LOC: SPT 10:10 | PROVIDERS: PCP Family Medicine; Visit Provider Physician Assistant | DX: Z47.1 Aftercare following joint replacement surgery (principal); Z96.651 Presence of right artificial knee joint | CPT/HCPCS: 97161 ==

== ENCOUNTER 2024-01-03 06:00 | Outpatient (RCR) | payer MEDICARE, SELFPAY | END 2024-01-30 23:59 | disposition home or self-care (01) | LOC: SPT 06:00 | PROVIDERS: PCP Family Medicine; Visit Provider Physician Assistant | DX: Z47.1 Aftercare following joint replacement surgery (principal); Z96.651 Presence of right artificial knee joint | CPT/HCPCS: 97110 ==

== ENCOUNTER 2024-02-09 09:43 | Observation (INO) | payer MEDICARE, SELFPAY ==
[2024-02-09] VITALS (10 sets, daily range): BP systolic 114–197; BP diastolic 77–110; PULSE 56–70; RESP 16–20; TEMP 36.6–37.4; O2SAT 98–100; BMI 25.8; BMI 26.2
--- NOTE | 2024-02-09 09:43 | ECG_ITS ---
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 Measurements Intervals [place] Rate: 62 P: 26 MN: 144 QRS: 45 QRSD: 85 T: 48 QT: 418 QTc: 425 Interpretive Statements SINUS RHYTHM WITH OCCASIONAL SUPRAVENTRICULAR PREMATURE COMPLEXES Compared to ECG 09/06/2023 10:48:55 Sinus bradycardia no longer present Myocardial infarct finding no longer present Electronically Signed On 02-09-2024 11:04:57 CDT by Percy George M.D. [id number]
--- NOTE | 2024-02-09 09:45 | XRR_ITS ---
PROCEDURE INFORMATION: Exam: XR Chest Exam date and time: 02/09/2024 9:53 AM Age: 78 years old Clinical indication: Chest wall pain; Additional info: Cp TECHNIQUE: Imaging protocol: Radiologic exam of the chest. Views: 1 view. COMPARISON: CT neck w con* [id number] 02/18/2023 3:50 PM FINDINGS: Lungs: Unremarkable. No consolidation or mass. Pleural spaces: Unremarkable. No pleural effusion. No pneumothorax. Heart/Mediastinum: Mild cardiomegaly is noted. Bones/joints: Unremarkable. XR/XR chest 1V portable [id number] IMPRESSION: Stable cardiomegaly
--- NOTE | 2024-02-09 10:01 | ED_ITS ---
HPI - Chest Pain 2 General: Chief Complaint: Chest Pain Stated Complaint: chest pains Time Seen by Provider: 02/09/24 09:45 Source: family Limitations: altered mental status History of Present Illness: 78-year-old female does have a history o f dementia per family it went to bed at 11 when she woke up this morning she has been more confused than normal she been complaining of chest pain. Patient is gotten increasingly confused patient here able to tell me her name but not really able to answer any questions. She has been having generalized weakness with difficulty walking since this morning as well. Review of Systems 2 General: Reports: ROS unobtainable due to mental status PFSH ED 2 PFSH: Medical History History of CVA (cerebrovascular accident) Small focus of chronic ischemia along the anterior limb LEFT internal capsule Osteopenia Hypertension Dementia Parathyroid adenoma SOLOMON (generalized anxiety disorder) Hypercalcemia Primary hyperparathyroidism History of kidney stones Urinary incontinence Surgical History History of arthroplasty of right knee History of parathyroidectomy History of anterior colporrhaphy (~09/17/23) Anterior colporrhapy augmented with allograft, posterior colporrhapy, sacrospinous fixation, cystoscopy performed by Vaughn Family History Father Dementia Denies family history of Colon cancer Ovarian cancer Diabetes Heart disease Hypercholesteremia Breast cancer Hypertension Uterine cancer Thyroid disease Stroke Social History Smoking and tobacco/nicotine status: never used tobacco/nicotine Alcohol intake: current Alcohol intake frequency: few times a month Household members: spouse Marital status: Current occupational status: retired Special bekah needs: No Agree to transfusion: Yes Physical Exam 2 Const: COMMON NORMALS: negative for patient oriented x3 GENERAL APPEARANCE: ill appearing HENMT: COMMON NORMALS: normocephalic and atraumatic HEAD & SCALP: n ormocephalic and atraumatic Eye: COMMON NORMALS: Equal, round and reactive pupils present and EOMs intact bilaterally PUPIL: Yes Equal, round and reactive pupils present Neck/C-Spine: COMMON NORMALS: full ROM and supple Chest: COMMONS NORMALS: normal inspection of the chest Resp: COMMON NORMALS: normal respiratory effort, No retractions, No use of accessory muscles and clear to auscultation bilaterally AUSCULTATION: clear to auscultation bilaterally Cardio: COMMON NORMALS: regular rate, regular rhythm and No murmurs present (Cardio) RATE: regular rate RHYTHM: regular rhythm GI: COMMON NORMALS: Normal to inspection, nondistended, normoactive bowel sounds present, Soft to palpation, non-tender and no masses PALPATION: Yes Soft to palpation Extremity: COMMON NORMALS: normal to inspection and full ROM Neuro: COMMON NORMALS: negative for patient oriented x3 OTHER: Patient will really follow commands she will move her hands and feet but will not lift her arms or legs bilaterally Psych: COMMON NORMALS: mental status grossly normal, Normal thought process present and cooperative THOUGHT PROCESS: Normal thought process present Skin: COMMON NORMALS: no rashes or lesions noted and no wounds GENERAL SKIN EXAM: no rashes or lesions noted Course 2 Vital Signs: Vital signs: Vital Signs Temperature 98.0 F 02/09/24 09:47 Pulse Rate 63 02/09/24 13:30 Respiratory Rate 20 H 02/09/24 09:47 Blood Pressure 114/84 02/09/24 13:30 Pulse Oximetry 100 02/09/24 13:30 Oxygen Delivery Me thod Room Air 02/09/24 13:30 MDM - Chest Pain Medical Decision Making Patient presents here with chest pain and also some confusion her confusion is improved she is quite anxious still having some chest pain her head CT here is normal tropes are normal at this time will admit for observation. Medical Records I reviewed the patient's medical records. Lab Data I reviewed the patient's lab results. 02/09/24 10:04 02/09/24 10:04 Radiology Impressions Chest X-Ray 02/09/24 09:45 IMPRESSION: Stable cardiomegaly Head/Neck CTA 02/09/24 10:19 IMPRESSION: 1. Right maxillary sinusitis 2. No arterial abnormality noted IMPRESSION: No stenosis or occlusion. REFERENCES: NASCET CRITERIA. The degree of stenosis in the cervical segment of the internal carotid artery is based on NASCET criteria. Normal is no stenosis. Mild is less than 50% stenosis. Moderate is 50-69% stenosis. Severe is 70% to 99% stenosis. Total occlusion is no detectable patent lumen. Laboratory Results WBC 7.84 10^3/uL (3.29-11.43) 02/09/24 10:04 RBC 4.60 10^6/uL (3.85-5.65) 02/09/24 10:04 Hgb 14.00 g/dL (11.27-16.99) 02/09/24 10:04 Hct 41.7 % (36-47) 02/09/24 10:04 MCV 90.7 fl (85-98) 02/09/24 10:04 MCH 30.4 pg (27-33) 02/09/24 10:04 MCHC 33.6 g/dL (30-55) 02/09/24 10:04 RDW 12.7 % (12.1-15.1) 02/09/24 10:04 Plt Count 218 10^3/cmm (157-399) 02/09/24 10:04 MPV 10.6 fL (7.4-10.4) H 02/09/24 10:04 Neut % (Auto) 59.8 % 02/09/24 10:04 Lymph % (Auto) 28.7 % 02/09/24 10:04 [place] % (Auto) 9.1 % 02/09/24 10:04 Eos % (Auto) 1.5 % 02/09/24 10:04 Baso % (Auto) 0.6 % 02/09/24 10:04 Neut # (Auto) 4.69 10^3/uL (1.8-7.7) 02/09/24 10:04 Lymph # (Auto) 2.3 10^3/uL (0.8-4.8) 02/09/24 10:04 [place] # (Auto) 0.7 10^3/uL (0.2-0.9) 02/09/24 10:04 Eos # (Auto) 0.1 10^3/uL (0.0-0.8) 02/09/24 10:04 Baso # (Auto) 0.1 10^3/uL (0.0-0.1) 02/09/24 10:04 Nucleated RBC % (auto) 0 % 02/09/24 10:04 Nucleated RBCs # 0.0 /100WBC 02/09/24 10:04 PT 13.30 SECONDS (12.1-14.9) 02/09/24 10:04 INR 0.98 (0.8-1.2) 02/09/24 10:04 Sodium 140 mmol/L (136-145) 02/09/24 10:04 Potassium 4.0 mmol/L (3.5-5.1) 02/09/24 10:04 Chloride 108 mmol/L (98-107) H 02/09/24 10:04 Carbon Dioxide 17 mmol/L (22-29) L 02/09/24 10:04 Anion Gap 19.0 (5-19) 02/09/24 10:04 BUN 25 mg/dL (8-23) H 02/09/24 10:04 Creatinine 0.7 mg/dL (0.5-0.9) 02/09/24 10:04 GFR Calculation Not Reportable 02/09/24 10:04 Glucose 102 mg/dL (65-115) 02/09/24 10:04 POC Glucose 83 mg/dL (70-110) 02/09/24 10:12 Calculated Osmolality 295 mOsm/kg (285-295) 02/09/24 10:04 Calcium 11.1 mg/dL (8.5-10.5) H 02/09/24 10:04 Total Bilirubin 0.4 mg/dL (0.15-1.2) 02/09/24 10:04 AST 19 U/L (0-32) 02/09/24 10:04 ALT 13 U/L (0-33) 02/09/24 10:04 Alkaline Phosphatase 130 U/L (35-105) H 02/09/24 10:04 Troponin T Baseline 19 ng/L (0-10) H 02/09/24 10:04 Troponin T 120 Minute 16.21 ng/L (0-10) H 02/09/24 12:28 Delta Troponin T -2.79 ABS# (0-10) L 02/09/24 12:28 Total Protein 8.1 g/dL (6.6-8.7) 02/09/24 10:04 Albumin 4.4 g/dL (3.5-5.2) 02/09/24 10:04 Globulin 3.7 g/dL (1.3-4.6) 02/09/24 10:04 Lipase 20 U/L (13-60) 02/09/24 10:04 Urine Color Straw (Yellow) 02/09/24 11:07 Urine Appearance Clear (CLEAR) 02/09/24 11:07 Urine pH 8 (5-7) H 02/09/24 11:07 Ur Specific [place] 1.020 (1.005-1.030) 02/09/24 11:07 Urine Protein Neg (Negative) 02/09/24 11:07 Urine Glucose (UA) Norm (Normal) 02/09/24 11:07 Urine Ketones Negative (Negative) 02/09/24 11:07 Urine Blood Neg (Negative) 02/09/24 11:07 Urine Nitrate Negative (Negative) 02/09/24 11:07 Urine Bilirubin Neg (Negative) 02/09/24 11:07 Prot Sulfosalicylic Acd Negative (Negative) 02/09/24 11:07 Urine Urobilinogen Norm mg/dL (Negative) 02/09/24 11:07 Ur Leukocyte Esterase Negative (Negative) 02/09/24 11:07 All radiology interpretation(s) finalized by discharge EKG Data EKG 1: I personally reviewed and interpreted this EKG as follows: EKG interpretation date: 02/09/24 EKG interpretation time: 09:43 Interpretation: nsr hr [address] or t wave abnormalities qrs 85 qtc 422 EKG 2: I personally reviewed and interpreted this EKG as follows: EKG interpretation date: 02/09/24 EKG interpretation time: 12:08 Interpretation: nsr hr [address] or t wave abnormalities qrs 93 qtc 357 Discharge Plan Discharge Patient Disposition: Placed in Observation Admit Provider: Rizwan Ghotra Clinical Impression: Chest pain, Confusion Discharge Diet: Advance as tolerated Discharge Activity: Resume usual activity Coding Level of Care Code ED Primary Operator for Chg Supriya
[2024-02-09 10:09] LABS: Basophils # 0.1 10^3/uL (0.0-0.1); Basophils % 0.6 %; Eosinophils # 0.1 10^3/uL (0.0-0.8); Eosinophils % 1.5 %; Hematocrit 41.7 % (36-47); Lymphocytes # 2.3 10^3/uL (0.8-4.8); Lymphocytes % 28.7 %; Mean Corpuscular HGB Conc 33.6 g/dL (30-55); Mean Corpuscular Hemoglobin 30.4 pg (27-33); Mean Corpuscular Volume 90.7 fl (85-98); Mean Platelet Volume 10.6 fL (7.4-10.4); Monocytes # 0.7 10^3/uL (0.2-0.9); Monocytes % 9.1 %; Neutrophils # 4.69 10^3/uL (1.8-7.7); Neutrophils % 59.8 %; Nucleated Red Blood Cells % 0 %; Platelet Count 218 10^3/cmm (157-399); Red Cell Distribution Width 12.7 % (12.1-15.1); White Blood Count 7.84 10^3/uL (3.29-11.43)
[2024-02-09 10:15] LABS: Glucose Point of Care 83 mg/dL (70-110)
--- NOTE | 2024-02-09 10:19 | CTR_ITS ---
PROCEDURE INFORMATION: Exam: CTA Head Without And With Contrast, Arteriography Exam date and time: 02/09/2024 11:15 AM Age: 78 years old Clinical indication: Other: AMS TECHNIQUE: Imaging protocol: Computed tomographic angiography of the head without and with contrast. Exam focused on the arteries. 3D rendering (Not supervised by radiologist): MIP and/or 3D reconstructed images were created by the technologist. Radiation optimization: All CT scans at this facility use at least one of these dose optimization techniques: automated exposure control; mA and/or kV adjustment per patient size (includes targeted exams where dose is matched to clinical indication); or iterative reconstruction. Contrast material: OMNI 350; Contrast volume: 100 ml; Contrast route: INTRAVENOUS (IV); COMPARISON: CT head wo/w con [id number] 01/24/2023 2:27 PM RADIATION DOSE METRICS: Total DLP (mGy-cm): 1066.49 FINDINGS: ANTERIOR CIRCULATION: Right internal carotid artery: Intracranial segment is patent with no significant stenosis or occlusion. No aneurysm. Right middle cerebral artery: No occlusion or significant stenosis. No aneurysm. Right anterior cerebral artery: No occlusion or significant stenosis. No aneurysm. Left internal carotid artery: Intracranial segment is patent with no significant stenosis. No aneurysm. Left middle cerebral artery: No occlusion or significant stenosis. No aneurysm. Left anterior cerebral artery: No occlusion or significant stenosis. No aneurysm. POSTERIOR CIRCULATION: Right vertebral artery: No occlusion or significant stenosis. No aneurysm. Left vertebral artery: No occlusion or significant stenosis. No aneurysm. Basilar artery: No occlusion or significant stenosis. No aneurysm. Right posterior cerebral artery: No occlusion or significant stenosis. No aneurysm. Left posterior cerebral artery: No occlusion or significant stenosis. No aneurysm. HEAD: Brain: Normal. No hemorrhage. Unremarkable white matter. No mass effect. Cerebral ventricles: Normal. No ventriculomegaly. Bones/joints: Unremarkable. No acute fracture. Paranasal sinuses: Right maxillary sinusitis is noted. Mastoid air cells: Visualized mastoids are normal. No mastoid effusion. Soft tissues: Unremarkable. PROCEDURE INFORMATION: Exam: CTA Neck With Contrast Exam date and time: 02/09/2024 11:15 AM Age: 78 years old Clinical indication: Other: AMS TECHNIQUE: Imaging protocol: Computed tomographic angiography of the neck with contrast. Exam focused on the cervical segments of the vasculature. 3D rendering (Not supervised by radiologist): MIP and/or 3D reconstructed images were created by the technologist. Radiation optimization: All CT scans at this facility use at least one of these dose optimization techniques: automated exposure control; mA and/or kV adjustment per patient size (includes targeted exams where dose is matched to clinical indication); or iterative reconstruction. Contrast material: OMNI 350; Contrast volume: 100 ml; Contrast route: INTRAVENOUS (IV); COMPARISON: CT neck w con* [id number] 02/18/2023 3:50 PM RADIATION DOSE METRICS: Total DLP (mGy-cm): 1066.49 FINDINGS: Right common carotid artery: No stenosis. No dissection or occlusion. Right internal carotid artery: No stenosis of the extracranial segment. No dissection or occlusion. Right external carotid artery: No occlusion or stenosis of the origin. Left common carotid artery: No stenosis. No dissection or occlusion. Left internal carotid artery: No stenosis of the extracranial segment. No dissection or occlusion. Left external carotid artery: No occlusion or stenosis of the origin. Right vertebral artery: No stenosis. No dissection or occlusion. Left vertebral artery: No stenosis. No dissection or occlusion. Soft tissues: Normal. No significant soft tissue swelling. Bones/joints: No acute fracture. CT/CT angio headneck* [id number] IMPRESSION: 1. Right maxillary sinusitis 2. No arterial abnormality noted IMPRESSION: No stenosis or occlusion. REFERENCES: NASCET CRITERIA. The degree of stenosis in the cervical segment of the internal carotid artery is based on NASCET criteria. Normal is no stenosis. Mild is less than 50% stenosis. Moderate is 50-69% stenosis. Severe is 70% to 99% stenosis. Total occlusion is no detectable patent lumen.
[2024-02-09 10:21] LABS: INR 0.98 (0.8-1.2)
[2024-02-09 10:30] LABS: Troponin(5th) Baseline 19 ng/L (0-10)
[2024-02-09 10:33] LABS: Alanine Aminotransferase 13 U/L (0-33); Albumin Level 4.4 g/dL (3.5-5.2); Alkaline Phosphatase 130 U/L (35-105); Aspartate Amino Transferase 19 U/L (0-32); Blood Urea Nitrogen 25 mg/dL (8-23); Calcium 11.1 mg/dL (8.5-10.5); Carbon Dioxide 17 mmol/L (22-29); Chloride 108 mmol/L (98-107); Creatinine Clr Calc Pharmacy 65.3408; Globulin 3.7 g/dL (1.3-4.6); Glucose 102 mg/dL (65-115); Lipase 20 U/L (13-60); Osmolality Calculated 295 mOsm/kg (285-295); Sodium 140 mmol/L (136-145); Total Bilirubin 0.4 mg/dL (0.15-1.2); Total Protein 8.1 g/dL (6.6-8.7)
[2024-02-09] MEDS: sodium chloride 0.9% 1,000 ML 999 ML IV (11:07)
[2024-02-09 11:10] LABS: Add Urine Microscopic? NO; Charge for UA Resulting for Rev
[2024-02-09 11:12] LABS: Protein Urine Neg (Negative); Urine Appearance Clear (CLEAR); Urine Color Straw (Yellow); pH Urine 8 (5-7)
[2024-02-09 11:14] LABS: Bilirubin Urine Neg (Negative); Blood Urine Neg (Negative); Glucose Urine UA Norm (Normal); Ketones Urine Negative (Negative); Leukocyte Esterase Urine Negative (Negative); Nitrate Urine Negative (Negative); Sulfosalicylic Acid Urine Negative (Negative); Urobilinogen Urine Norm (Negative)
[2024-02-09] MEDS: iohexol 350 mg/mL 500 mL Btl (per mL) IV (11:15)
--- NOTE | 2024-02-09 11:45 | ECG_ITS ---
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 Measurements Intervals [place] Rate: 63 P: 34 ME: 144 QRS: 45 QRSD: 93 T: 54 QT: 349 QTc: 360 Interpretive Statements SINUS RHYTHM NONSPECIFIC ST & T-WAVE ABNORMALITY Compared to ECG 02/09/2024 09:43:51 T-wave abnormality now present Electronically Signed On 02-10-2024 13:23:35 CDT by Percy George M.D. [id number]
[2024-02-09] MEDS: hyDRALAzine 20 mg/mL INJ 1 mL 10 MG IVP (11:53)
[2024-02-09 12:53] LABS: Troponin 5 2HR 16.21 ng/L (0-10); Troponin 5 2HR Delta -2.79 ABS# (0-10)
--- NOTE | 2024-02-09 13:49 | ECG_ITS ---
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 Measurements Intervals [place] Rate: 66 P: -83 MA: 135 QRS: -84 QRSD: 90 T: -70 QT: 453 QTc: 475 Interpretive Statements SUPRAVENTRICULAR RHYHTM Electronically Signed On 02-10-2024 13:23:24 CDT by Percy George M.D. [id number]
--- NOTE | 2024-02-09 15:54 | P.HP_ITS ---
Providers/Chief Complaint 2 Admitting Physician: Rizwan Ghotra DO Primary Care Provider: Justine Cook MD Chief Complaint: chest pains History of Present Illness Tressa Mcgill is a 78 year old female with history of dementia and hypertension was in her usual state of health and ambulatory and interactive with who presented To the ER after waking up suddenly at 5 AM and complaining of chest pain. Then, the reports that she is been acting erratically and upset. He has seen her act like this after her knee surgery and some at the rehabilitation center which is most likely from her underlying dementia. While her baseline troponin was mildly elevated the delta troponin after 2 hours is negative Review of Systems 2 General: Reports: Other (Unable to obtain from patient due to mental status but states she w) Medications/Allergies Home Medications Medication Instructions Recorded Confirmed Last Taken Type acetaminophen 325 mg capsule 325 mg PO Q4H PRN fever or 09/18/23 02/09/24 Unknown Rx postoperative pain #60 caps donepezil 10 mg tablet 10 mg PO DAILY #90 tabs 10/30/23 02/09/24 02/08/24 Rx docusate sodium 100 mg capsule 100 mg PO BID PRN Constipation 11/06/23 02/09/24 Unknown History (Colace) citalopram 40 mg tablet 40 mg PO DAILY 12/06/23 02/09/24 02/08/24 History apixaban 2.5 mg tablet (Eliquis) 2.5 mg PO BID 12/24/23 02/09/24 02/08/24 History clonidine HCl 0.1 mg tablet 0.1 mg PO DAILY #90 tabs 01/06/24 02/09/24 02/08/24 Rx lisinopril 10 mg tablet 10 mg PO DAILY #90 tabs 01/13/24 02/09/24 02/08/24 Rx amlodipine 10 mg tablet 10 mg PO DAILY #90 tabs 01/14/24 02/09/24 02/08/24 Rx meloxicam 15 mg tablet 15 mg PO DAILY #90 tabs 01/17/24 02/09/24 02/08/24 Rx metoprolol tartrate 25 mg tablet 25 mg PO BID@0900,2100 #60 tabs 01/17/24 02/09/24 02/08/24 Rx oxybutynin chloride 5 mg tablet 5 mg PO DAILY #90 tabs 01/23/24 02/09/24 02/08/24 Rx memantine 21 mg capsule 21 mg PO DAILY #30 ea 02/05/24 02/09/24 02/08/24 Rx sprinkle,extended release 24hr (Namenda XR) biotin 10 mg tablet 10 mg PO DAILY 02/09/24 02/09/24 02/08/24 History cholecalciferol (vitamin D3) 25 25 mcg PO DAILY 02/09/24 02/09/24 02/08/24 History mcg (1,000 unit) capsule (Vitamin D3) multivitamin-ferrous 1 tab PO DAILY 02/09/24 02/09/24 02/08/24 History fumarate-folic acid 18 mg-400 mcg tablet Allergies Allergy/AdvReac Type Severity Reaction Status Date / Time No Known Allergies Allergy Verified 02/09/24 10:36 PFSH Acute 2 PFSH: Medical History (Updated 02/09/24 @ 16:01 by Rizwan Ghotra DO) History of CVA (cerebrovascular accident) Small focus of chronic ischemia along the anterior limb LEFT internal capsule Osteopenia Hypertension Dementia Parathyroid adenoma SOLOMON (generalized anxiety disorder) Hypercalcemia Primary hyperparathyroidism History of kidney stones Urinary incontinence Surgical History (Updated 02/09/24 @ 16:03 by Rizwan Ghotra DO) History of arthroplasty of right knee History of parathyroidectomy History of anterior colporrhaphy (~09/17/23) Anterior colporrhapy augmented with allograft, posterior colporrhapy, sacrospinous fixation, cystoscopy performed by Vaughn Family History Father Dementia Denies family history of Colon cancer Ovarian cancer Diabetes Heart disease Hypercholesteremia Breast cancer Hypertension Uterine cancer Thyroid disease Stroke Social History Smoking and tobacco/nicotine status: never used tobacco/nicotine Alcohol intake: current Alcohol intake frequency: few times a month Household members: spouse Marital status: Current occupational status: retired Special bekah needs: No Agree to transfusion: Yes Vitals/I&O/Wt Last Vital Signs Temp 98.0 F 02/09/24 09:47 Pulse 63 02/09/24 13:30 Resp 20 H 02/09/24 09:47 BP 114/84 02/09/24 13:30 Pulse Ox 100 02/09/24 13:30 O2 Del Method Room Air 02/09/24 15:02 02/09/24 02/09/24 02/09/24 06:59 14:59 22:59 Intake Total 1000 / 1000 Balance 1000 / 1000 Weight last 48 hrs Weight 78.063 kg Weight 77.111 kg Physical Exam 2 Narrative: Patient mostly in no acute distress at time of exam. She will yell out with fear at the mention of medications and going to the SNF. Otherwise she is calm and smiling. Neuro she is confused and somewhat agitated that she is nonfocal to exam HEENT head is normocephalic atraumatic pupils are equal round reactive to light and accommodation extraocular muscles are intact there is no scleral icterus neck is supple no JVD carotid bruits lymphadenopathy mucous membranes are moist and pink without lesions or exudates Chest rises symmetrically with inspiration there is mild tenderness at the costal chondral joints I think this is the patient's reaction to exam Heart regular S1-S2 no murmurs clicks gallops or rubs Lungs are clear to auscultation anteriorly and laterally without wheezes or rhonchi Abdomen is soft she says ouch to any palpation in the abdomen there is no rebound rigidity or guarding Extremities no clubbing cyanosis or edema Skin: Right knee incision is clean dry and intact the parathyroid incision on the neck is healing well. No lesions or rashes noted Psychiatric: Confused in the state of delirium Back: No kyphosis no CVA tenderness Data 02/09/24 10:04 02/09/24 10:04 A&P Assessment and plan (1) Confusion: Unknown specific gait etiology however patient behaves like delirium on chronic dementia. Will treat with Depakote 500 mg IV every 8 hours Start Seroquel 25 mg p.o. nightly Maintain on normal Alzheimer's medications that patient takes at home (2) Chest pain: Not complaining of chest pain to me or her at this time Initial troponin slightly out elevated but delta is negative Await 6-hour troponin (3) Dementia: Diagnosed last summer Qualifiers: Dementia type: Alzheimer's Alzheimer's disease onset: other onset D ementia severity: moderate Dementia behavioral or psychological symptom: with agitation Qualified Code(s): G30.8 - Other Alzheimer's disease; F02.B11 - Dementia in other diseases classified elsewhere, moderate, with agitation (4) SOLOMON (generalized anxiety disorder): (5) Hypertension: Continue all medications except clonidine since it is a very low-dose. Qualifiers: Hypertension type: primary hypertension Qualified Code(s): I10 - Essential (primary) hypertension (6) History of arthroplasty of right knee: 12/09/2023 (7) History of parathyroidectomy: July 2024 Attestations 2 Medical Necessity Statement*: Patient requires an patient hospital stay due to delirium with underlying dementia. She will be observed for chest pain rule out MT. Coding Level of Care Code Acute Code for [facility] Fwd Diagnoses Confusion R41.0 Chest pain R07.9 Moderate Alzheimer's dementia of other onset with agitation G30.8; F02.B11 Dementia type: Alzheimer's Alzheimer's disease onset: other onset Dementia severity: moderate Dementia behavioral or psychological symptom: with agitation SOLOMON (generalized anxiety disorder) F41.1 Primary hypertension I10 Hypertension type: primary hypertension History of arthroplasty of right knee Z96.651 History of parathyroidectomy Z98.890; Z90.89
[2024-02-09] MEDS: dextrose 5%-sod chloride 0.45% 1,000 ML 75 ML IV (16:07)
[2024-02-09 16:27] LABS: Troponin 5 6HR 18.97 ng/L (0-10); Troponin 5 6HR Delta -0.03 ng/L (0-12)
[2024-02-09] MEDS: valproic acid inj 500 MG in sodium chloride 0.9% 50 ML 55 MG IV ×2 (16:29→23:25)
[2024-02-09] MEDS: apixaban 5 mg Tablet 2.5 MG PO (17:48)
[2024-02-09] MEDS: metoprolol tartrate 25 mg Tablet PO (20:18)
[2024-02-09] MEDS: quetiapine 25 mg Tablet PO (20:18)
--- NOTE | 2024-02-10 00:20 | USCV_ITS ---
Tressa Mcgill Age: 78 Gender: F : 1945 Exam Date: 02/10/2024 09:25 Ordering Phys: Jermaine Nguyen MD Technologist: Exam Location: [facility] Indication: cp BP: 145 / 91 HR: 55 Rhythm: Sinus Technical Quality: Adequate MEASUREMENTS (Male / Female) Normal Values 2D ECHO LVOT Diameter 2.0 cm LV Ejection Fraction MOD 2C 73.1 % LV Ejection Fraction 2C AL 72.8 % LA Diameter 5.3 cm RA Systolic Volume 4C AL 63.3 ml RA Systolic Volume 4C MOD 60.5 ml LA Sys Volume AL 74.0 cm cubed LA Sys Volume Index AL 37.1 cm cubed/m squared Aorta at Sinotubular Diameter 2.5 cm IVC Diameter 1.3 cm M-MODE LA Ao Ratio MM 1.8 AV Cusp Separation MM 2.2 cm DOPPLER AV Peak Velocity 158.0 cm/s AV Area Cont Eq vti 3.6 cm squared AV Area Cont Eq pk 2.9 cm squared MV Area PHT 3.1 cm squared Mitral E to A Ratio 1.0 TR Peak Velocity 233.0 cm/s TR Peak Gradient 21.7 mmHg TV Peak E Velocity 86.0 cm/s Right Atrial Pressure 3.0 mmHg Pulmonary Artery Systolic Pressu 24.7 mmHg PV Peak Velocity 134.5 cm/s FINDINGS Left Ventricle Normal left ventricular size and systolic function, EF 72%. Mild left ventricular hypertrophy. No regional wall motion abnormalities. Grade II/IV diastolic dysfunction, moderately elevated filling pressures. Right Ventricle The right ventricle is normal in size and function. Right Atrium The right atrium is normal in size. Left Atrium Moderately increased left atrial size. Mitral Valve Moderate mitral valve regurgitation. Aortic Valve Thickened aortic valve. Tricuspid Valve No gross abnormalities noted Pulmonic Valve Mild pulmonary valve regurgitation. Pericardium No pericardial effusion. Aorta Normal aortic annulus size. IVC The inferior vena cava appears normal. CONCLUSIONS Normal left ventricular size and systolic function, EF 72%. Mild left ventricular hypertrophy. No regional wall motion abnormalities. Grade II/IV diastolic dysfunction, moderately elevated filling pressures. Thickened aortic valve. Moderate mitral valve regurgitation. Moderately increased left atrial size. Mild pulmonary valve regurgitation. There is no pericardial effusion. There are no intracardiac masses. No similar previous studies are available for comparison Dr Felicitas Connell MD FACC (Electronically Signed) Final Date: 10 February 2024 13:45 S
[2024-02-10 01:27] LABS: Ionized Calcium 1.4 mmol/L (1.1-1.4)
[2024-02-10 01:41] LABS: Basophils % 0.6 %; Eosinophils # 0.2 10^3/uL (0.0-0.8); Eosinophils % 2.7 %; Hematocrit 35.4 % (36-47); Lymphocytes # 2.2 10^3/uL (0.8-4.8); Lymphocytes % 32.9 %; Mean Corpuscular HGB Conc 32.5 g/dL (30-55); Mean Corpuscular Hemoglobin 30.8 pg (27-33); Mean Corpuscular Volume 94.9 fl (85-98); Mean Platelet Volume 10.9 fL (7.4-10.4); Monocytes # 0.8 10^3/uL (0.2-0.9); Monocytes % 11.7 %; Neutrophils % 51.8 %; Nucleated Red Blood Cells % 0 %; Platelet Count 191 10^3/cmm (157-399); Red Blood Count 3.73 10^6/uL (3.85-5.65); Red Cell Distribution Width 13.1 % (12.1-15.1); White Blood Count 6.75 10^3/uL (3.29-11.43)
--- NOTE | 2024-02-10 02:04 | PC.NURSE ---
Unable to scan valproic acid. This nurse verified medication with two nurses before administering.
[2024-02-10 02:08] LABS: Alanine Aminotransferase 12 U/L (0-33); Albumin Level 3.7 g/dL (3.5-5.2); Alkaline Phosphatase 109 U/L (35-105); Anion Gap 12.3 (5-19); Aspartate Amino Transferase 18 U/L (0-32); Blood Urea Nitrogen 19 mg/dL (8-23); Calcium 10.3 mg/dL (8.5-10.5); Carbon Dioxide 21 mmol/L (22-29); Chloride 113 mmol/L (98-107); Creatinine Clr Calc Pharmacy 65.7005; Globulin 2.9 g/dL (1.3-4.6); Glucose 116 mg/dL (65-115); Osmolality Calculated 297 mOsm/kg (285-295); Potassium 4.3 mmol/L (3.5-5.1); Sodium 142 mmol/L (136-145); Total Bilirubin 0.3 mg/dL (0.15-1.2); Total Protein 6.6 g/dL (6.6-8.7)
[2024-02-10 02:17] LABS: Free T4 Free Thyroxine 1.17 ng/dL (0.82-1.77); Procalcitonin 0.05 ng/mL (0-0.5); T3 Free 2.8 PG/ML (2.0-4.4)
[2024-02-10 02:25] LABS: D Dimer 5.08 ug/mLFEU (0-0.59)
[2024-02-10 03:46] VITALS: BP 148/62; PULSE 58; RESP 18; TEMP 36.4; O2SAT 95
[2024-02-10] MEDS: dextrose 5%-sod chloride 0.45% 1,000 ML 75 ML IV (04:11)
[2024-02-10 07:08] VITALS: BP 137/95; PULSE 64; RESP 16; TEMP 36.9; O2SAT 98
--- NOTE | 2024-02-10 08:08 | MR_ITS ---
WS: [id number] MRI HEAD WITHOUT CONTRAST TECHNIQUE: Sagittal T1, T2 axial, T2 axial FLAIR, axial and coronal T1 images, axial susceptibility w eighted imaging, axial diffusion weighted images, and coronal T2 images were obtained. CLINICAL INFORMATION: confusion COMPARISON: CT 01/24/2023 FINDINGS: No evidence of restricted diffusion to suggest acute ischemia. Ventricular system and basal cisterns are patent. Mild to moderate small vessel changes. Moderate parenchymal volume loss. Normal posterior fossa. Normal vascular flow voids at the skull base. No extra-axial fluid collections. No evidence o f mass or mass effect. RIGHT maxillary sinusitis with air-fluid level. Mastoid air cells are well aerated. Mild disc bulging in the upper cervical spine at C3-C4. Tiny punctate chronic focus of hemosiderin in the RIGHT cerebe llum. Small focus of hemosiderin in the LEFT tentorium. Normal optic chiasm and pituitary infundibulum. Mild symmetric atrophy temporal lobes and hippocampal formations. No other suspicious findings. IMPRESSION: 1. No evidence of restricted diffusion to suggest acute ischemia. 2. Mild to moderate small vessel changes with moderate parenchymal volume loss. Small vessel changes in the nubia. 3. RIGHT maxillary sinusitis with air-fluid level. 4. Mild disc osteophyte protrusion at C3-C4 with mild central canal stenosis. This can be followed u p with cervical spine MRI on an elective basis. 5. No other acute findings.
[2024-02-10] MEDS: donepezil 5 MG Tablet 10 MG PO (08:14)
[2024-02-10] MEDS: meloxicam 7.5 mg tablet 15 MG PO (08:14)
[2024-02-10] MEDS: citalopram 20 mg Tablet 40 MG PO (08:14)
[2024-02-10] MEDS: metoprolol tartrate 25 mg Tablet PO (08:14)
[2024-02-10] MEDS: amlodipine 10 mg Tablet PO (08:14)
[2024-02-10] MEDS: apixaban 5 mg Tablet 2.5 MG PO (08:14)
[2024-02-10] MEDS: cholecalciferol (vitamin D3) 1,000 unit Tablet 1000 UNIT PO (08:14)
[2024-02-10] MEDS: oxybutynin 5 mg Tablet PO (08:15)
[2024-02-10] MEDS: lisinopril 10 mg Tablet PO (08:15)
[2024-02-10] MEDS: valproic acid inj 500 MG in sodium chloride 0.9% 50 ML 55 MG IV (08:17)
--- NOTE | 2024-02-10 08:37 | CT_ITS ---
WS: [id number] CT CHEST ANGIOGRAPHY WITH REFORMATS HISTORY: chest pain, elevated d dimer TECHNIQUE: Contiguous axial images are obtained through the chest during arterial injection of intrav enous contrast. Images are reconstructed to evaluate the pulmonary arteries. MIP imaging also reviewe d. All CT scans at [facility] use at least one of these dose optimization techniques: automat ed exposure control; mA and/or kV adjustment per patient size (includes targeted exams where dose is matched to clinical indication); or iterative reconstruction. CONTRAST: Omnipaque 350; 100 mL IV. DLP: 333.56 mGy.cm COMPARISON: None available. Good opacification of the central and proximal pulmonary arteries. No pulmonary embolism is identifie d. Pulmonary artery is dilated. Mild atherosclerosis aorta with ectasia. Moderate LEFT heart enlargem ent. No mediastinal or hilar adenopathy. Mild hazy attenuation throughout the lungs is probably due to poor inspiration. No dense areas of con solidation. No pneumonia. No pericardial or pleural effusions. There is a small hiatal hernia. High density focus at the GE junction is probably medicinal tablet. Hepatic cysts are reidentified. Cysts were also described on 08/27/[address] Low-attenuation mas s mid to upper LEFT kidney measures 1.3 cm. No adrenal mass. Mild fatty replacement pancreas. Nonobst ructing calcification LEFT renal pelvis. Increase in thoracic kyphosis. IMPRESSION: 1. No pulmonary embolism. 2. Moderately enlarged LEFT heart. 3. Ectatic mildly atherosclerotic thoracic aorta. 4. No pneumonia. 5. Hepatic cyst. 6. Indeterminate low-attenuation mass mid to upper LEFT kidney. Recommend ultrasound evaluation.
[2024-02-10] MEDS: PRENATAL VIT NO.130/IRON/FOLIC 1 EACH TABLET PO (08:38)
[2024-02-10 08:55] VITALS: PULSE 64; O2SAT 98
[2024-02-10] MEDS: LORazepam 2 mg/mL INJ 10 mL MDV 0.5 MG IM (09:01)
[2024-02-10] MEDS: iohexol 350 mg/mL 500 mL Btl (per mL) IV (09:17)
--- NOTE | 2024-02-10 10:18 | PC.CHAP ---
Pastoral Care Encounter/Spiritual Assessment Type of Contact [] Declined emergency department technician visit [] Patient/Family/Request visit [] Outpatient visit [] Follow-up visit [] Physician referral [] Code/Alert [X] Routine visit [] Staff referral [] Actively dying [] Patient sleeping [] Family support [] [] Out of room [] Palliative care [] [X] Receiving care in room [] Pre-surgical visit [] Trauma [] Long length of stay [] ICU visit [] Other: Relational/Emotional Strength [] Patient feels connected with others/family/visitors/staff [] Distress [] Loneliness/isolation [] Abandonment Spirituality of Patient [] Person of [place] [] Attends Sikhism of their [place] [] Believes in Prayer [] Reads Bible or Holiness materials [] There are Spiritual issues to be addressed Head Of Human Resources Interventions [X] Prayer [] Active listening [] Non-anxious presence [] Spiritual/emotional support [] Crisis/trauma care [] Spiritual counseling [] Bereavement support [] Provided bereavement packet [] Provided Bible/devotional materials [] Provided toy/stuffed animal, coloring book to patient or family member [] Provided Communion [] Anointing/[place] [] Salvation [] Completed spiritual assessment [] Other: Impact on Illness or Injury [] Angry [] Fearful [] Anxious [] Often cries [] Exhaustion [] Unable to work [] Unable to attend taoism [] Unable to walk/stand [] Unable to read [] Unable to drive [] Unable to eat/drink [] Unable to sleep [] Unable to be with family [] Patient intubated [] Other: Summary Time spent with patient
--- NOTE | 2024-02-10 10:48 | US_ITS ---
WS: [id number] RENAL ULTRASOUND HISTORY: kidney mass COMPARISON: CT chest 02/10/2024 TECHNIQUE: 2-D and color Doppler imaging of the kidney submitted. Right kidney: 9.5 cm x 5.0 cm x 5.1 cm. Cortex: 0.9 cm Normal echogenicity with no hydronephrosis or mass. Left kidney: 9.9 cm x 5.0 cm x 4.8 cm. Cortex: 1.2 cm Cyst in the upper pole LEFT kidney corresponds to the finding on CT. Cyst measures 1.4 x 1.4 x 1.4 cm . No solid mass. No obstruction. Aorta: Normal. Urinary Bladder: Normal distention. IMPRESSION: LEFT renal cyst. Corresponds to the indeterminate finding on recent CT.
--- NOTE | 2024-02-10 11:07 | PM.DCS ---
Discharge Providers Date of Admission: 02/09/24 13:20 Date of Discharge: February 10, 2024 Attending Provider at Admission: Rizwan Ghotra DO Attending Provider at Discharge: Jermaine Nguyen MD Primary Care Provider: Justine Cook MD Diagnoses at Discharge Discharge Diagnosis (1) Confusion: Status: Acute (2) Chest pain: Status: Acute (3) Dementia: Status: Chronic Qualifiers: Alzheimer's disease onset: other onset Dementia behavioral or psychological symptom: with agitation Dementia severity: moderate Dementia type: Alzheimer's Qualified Code(s): G30.8 - Other Alzheimer's disease; F02.B11 - Dementia in other diseases classified elsewhere, moderate, with agitation (4) SOLOMON (generalized anxiety disorder): Status: Chronic (5) Hypertension: Status: Chronic Qualifiers: Hypertension type: primary hypertension Qualified Code(s): I10 - Essential (primary) hypertension (6) History of arthroplasty of right knee: Status: Acute (7) History of parathyroidectomy: Status: Chronic Reason for Visit Reason for Visit: chest pains Hospital Course Hospital Course Tressa Mcgill is a 78 year old female with history of dementia and hypertension was in her usual state of health and ambulatory and interactive with who presented To the ER after waking up suddenly at 5 AM and complaining of chest pain. Then, the reports that she is been acting erratically and upset. He has seen her act like this after her knee surgery and some at the rehabilitation center which is most likely from her underlying dementia. While her baseline troponin was mildly elevated the delta troponin after 2 hours is negative, no recurrent chest pain during hospitalization, no acute ST-T wave changes, will be discharged on aspirin, statin, nitro as needed, Toprol with close follow-up urology as outpatient For patient's intermittent confusion, underlying dementia, discharge she is alert to person, somewhat to place, not to time she can follow commands, she does have evidence of long-term memory loss, I have ordered an MRI of her brain 1. No evidence of restricted diffusion to suggest acute ischemia. 2. Mild to moderate small vessel changes with moderate parenchymal volume loss. Small vessel changes in the nubia. 3. RIGHT maxillary sinusitis with air-fluid level. 4. Mild disc osteophyte protrusion at C3-C4 with mild central canal stenosis. This can be followed up with cervical spine MRI on an elective basis. 5. No other acute findings. , follow-up with neurology On imaging patient was found to have a left renal mass, follow-up with urology as outpatient, for further evaluation and imaging Physical Exam Const: COMMON NORMALS: no acute distress ORIENTATION/CONSCIOUSNESS: Yes awake, Yes oriented to person and Yes oriented to place; not oriented to time Resp: COMMON NORMALS: normal respiratory effort, No retractions, No use of accessory muscles and clear to auscultation bilaterally AUSCULTATION: clear to auscultation bilaterally Cardio: COMMON NORMALS: regular rate, regular rhythm, S1 normal heart sound present and S2 normal heart sound present RATE: regular rate RHYTHM: regular rhythm HEART SOUNDS: S1 normal heart sound present and S2 normal heart sound present GI: COMMON NORMALS: Normal to inspection, nondistended, normoactive bowel sounds present and non-tender Extremity: COMMON NORMALS: no pedal edema Neuro: SENSORIUM/ORIENTATION: Yes oriented to person, Yes oriented to place and No oriented to time Psych: COMMON NORMALS: denies hallucinations and denies suicidal ideation Discharge Data Studies Completed and Pending Completed Studies During Hospitalization Category Date Time Status CT angio chest PE protcl [id number] Stat Cat Scan 02/10/24 08:37 Completed CTA head neck [CT angio headneck* [id number]] Stat Cat Scan 02/09/24 10:19 Completed XR chest 1V portable [id number] Stat Exams 02/09/24 09:45 Completed Pending at discharge Category Date Time Status Basic Metabolic Panel AM LABS Lab 02/11/24 04:00 Ordered Basic Metabolic Panel AM LABS Lab 02/12/24 04:00 Ordered Complete Blood Count w/Auto AM LABS Lab 02/11/24 04:00 Ordered Complete Blood Count w/Auto AM LABS Lab 02/12/24 04:00 Ordered Comprehensive Metabolic Panel AM LABS Lab 02/11/24 04:00 Ordered Comprehensive Metabolic Panel AM LABS Lab 02/12/24 04:00 Ordered Magnesium AM LABS Lab 02/11/24 04:00 Ordered Magnesium AM LABS Lab 02/12/24 04:00 Ordered Phosphorus AM LABS Lab 02/11/24 04:00 Ordered Phosphorus AM LABS Lab 02/12/24 04:00 Ordered MR head wo con* [id number] Routine MRI 02/10/24 08:08 Ordered CV. echo complete* [id number] Routine Ultrasound 02/10/24 00:20 Taken US kidney bilateral [US renal BI* [id number]] Routine Ultrasound 02/10/24 10:48 Ordered Radiology Impressions Chest X-Ray 02/09/24 09:45 IMPRESSION: Stable cardiomegaly Head/Neck CTA 02/09/24 10:19 IMPRESSION: 1. Right maxillary sinusitis 2. No arterial abnormality noted IMPRESSION: No stenosis or occlusion. REFERENCES: NASCET CRITERIA. The degree of stenosis in the cervical segment of the internal carotid artery is based on NASCET criteria. Normal is no stenosis. Mild is less than 50% stenosis. Moderate is 50-69% stenosis. Severe is 70% to 99% stenosis. Total occlusion is no detectable patent lumen. Laboratory Results WBC 6.75 10^3/uL (3.29-11.43) 02/10/24 01:00 RBC 3.73 10^6/uL (3.85-5.65) L 02/10/24 01:00 Hgb 11.50 g/dL (11.27-16.99) 02/10/24 01:00 Hct 35.4 % (36-47) L 02/10/24 01:00 MCV 94.9 fl (85-98) 02/10/24 01:00 MCH 30.8 pg (27-33) 02/10/24 01:00 MCHC 32.5 g/dL (30-55) 02/10/24 01:00 RDW 13.1 % (12.1-15.1) 02/10/24 01:00 Plt Count 191 10^3/cmm (157-399) 02/10/24 01:00 MPV 10.9 fL (7.4-10.4) H 02/10/24 01:00 Neut % (Auto) 51.8 % 02/10/24 01:00 Lymph % (Auto) 32.9 % 02/10/24 01:00 [place] % (Auto) 11.7 % 02/10/24 01:00 Eos % (Auto) 2.7 % 02/10/24 01:00 Baso % (Auto) 0.6 % 02/10/24 01:00 Neut # (Auto) 3.50 10^3/uL (1.8-7.7) 02/10/24 01:00 Lymph # (Auto) 2.2 10^3/uL (0.8-4.8) 02/10/24 01:00 [place] # (Auto) 0.8 10^3/uL (0.2-0.9) 02/10/24 01:00 Eos # (Auto) 0.2 10^3/uL (0.0-0.8) 02/10/24 01:00 Baso # (Auto) 0.0 10^3/uL (0.0-0.1) 02/10/24 01:00 Nucleated RBC % (auto) 0 % 02/10/24 01:00 Nucleated RBCs # 0.0 /100WBC 02/10/24 01:00 PT 13.30 SECONDS (12.1-14.9) 02/09/24 10:04 INR 0.98 (0.8-1.2) 02/09/24 10:04 D-Dimer 5.08 ug/mLFEU (0-0.59) H 02/10/24 01:00 Sodium 142 mmol/L (136-145) 02/10/24 01:00 Potassium 4.3 mmol/L (3.5-5.1) 02/10/24 01:00 Chloride 113 mmol/L (98-107) H 02/10/24 01:00 Carbon Dioxide 21 mmol/L (22-29) L 02/10/24 01:00 Anion Gap 12.3 (5-19) 02/10/24 01:00 BUN 19 mg/dL (8-23) 02/10/24 01:00 Creatinine 0.7 mg/dL (0.5-0.9) 02/10/24 01:00 GFR Calculation Not Reportable 02/10/24 01:00 Glucose 116 mg/dL (65-115) H 02/10/24 01:00 POC Glucose 83 mg/dL (70-110) 02/09/24 10:12 Calculated Osmolality 297 mOsm/kg (285-295) H 02/10/24 01:00 Calcium 10.3 mg/dL (8.5-10.5) 02/10/24 01:00 Ionized Calcium [place] 1.4 mmol/L (1.1-1.4) 02/10/24 01:00 Phosphorus 3.0 mg/dL (2.5-4.5) 02/10/24 01:00 Magnesium 2.0 mg/dL (1.7-2.3) 02/10/24 01:00 Total Bilirubin 0.3 mg/dL (0.15-1.2) 02/10/24 01:00 AST 18 U/L (0-32) 02/10/24 01:00 ALT 12 U/L (0-33) 02/10/24 01:00 Alkaline Phosphatase 109 U/L (35-105) H 02/10/24 01:00 Troponin T Baseline 19 ng/L (0-10) H 02/09/24 10:04 Troponin T 120 Minute 16.21 ng/L (0-10) H 02/09/24 12:28 Delta Troponin T -2.79 ABS# (0-10) L 02/09/24 12:28 Troponin T Hi Sens 6Hr 18.97 ng/L (0-10) H 02/09/24 16:03 Troponin T Hi Sens 6Hr Delta -0.03 ng/L (0-12) L 02/09/24 16:03 C-Reactive Protein 3.0 mg/L (0.0-4.9) 02/10/24 01:00 Total Protein 6.6 g/dL (6.6-8.7) 02/10/24 01:00 Albumin 3.7 g/dL (3.5-5.2) 02/10/24 01:00 Globulin 2.9 g/dL (1.3-4.6) 02/10/24 01:00 Lipase 20 U/L (13-60) 02/09/24 10:04 Procalcitonin 0.05 ng/mL (0-0.5) 02/10/24 01:00 TSH 4.60 uIU/mL (0.27-4.20) H 02/10/24 01:00 Free T4 1.17 ng/dL (0.82-1.77) 02/10/24 01:00 Free T3 2.8 PG/ML (2.0-4.4) 02/10/24 01:00 Urine Color Straw (Yellow) 02/09/24 11:07 Urine Appearance Clear (CLEAR) 02/09/24 11:07 Urine pH 8 (5-7) H 02/09/24 11:07 Ur Specific [place] 1.020 (1.005-1.030) 02/09/24 11:07 Urine Protein Neg (Negative) 02/09/24 11:07 Urine Glucose (UA) Norm (Normal) 02/09/24 11:07 Urine Ketones Negative (Negative) 02/09/24 11:07 Urine Blood Neg (Negative) 02/09/24 11:07 Urine Nitrate Negative (Negative) 02/09/24 11:07 Urine Bilirubin Neg (Negative) 02/09/24 11:07 Prot Sulfosalicylic Acd Negative (Negative) 02/09/24 11:07 Urine Urobilinogen Norm mg/dL (Negative) 02/09/24 11:07 Ur Leukocyte Esterase Negative (Negative) 02/09/24 11:07 Vitals Last Vital Signs Temp 98.4 F 02/10/24 07:08 Pulse 64 02/10/24 08:55 Resp 16 02/10/24 07:08 BP 137/95 02/10/24 07:08 Pulse Ox 98 02/10/24 08:55 O2 Del Method Room Air 02/10/24 08:55 Discharge Plan Discharge Patient Disposition: Home Condition: Stable Prescriptions: New quetiapine 25 mg Tablet 25 mg PO BEDTIME 30 Days Qty: 30 0RF aspirin 81 mg capsule 81 mg PO DAILY 30 Days Qty: 30 0RF atorvastatin 40 mg tablet 40 mg PO DAILY 30 Days Qty: 30 0RF nitroglycerin 0.4 mg tablet, sublingual 0.4 mg sublingual Q5M 30 Days Qty: 30 0RF Rx Instructions: do not exceed 3 doses per episode Continued oxybutynin chloride 5 mg tablet 5 mg PO DAILY Qty: 90 3RF docusate sodium [Colace] 100 mg capsule 100 mg PO BID PRN (Reason: Constipation) donepezil 10 mg tablet 10 mg PO DAILY Qty: 90 0RF clonidine HCl 0.1 mg tablet 0.1 mg PO DAILY Qty: 90 1RF lisinopril 10 mg tablet 10 mg PO DAILY Qty: 90 3RF amlodipine 10 mg tablet 10 mg PO DAILY Qty: 90 1RF metoprolol tartrate 25 mg tablet 25 mg PO BID@0900,2100 Qty: 60 3RF memantine [Namenda XR] 21 mg capsule,sprinkle,ER 24hr 21 mg PO DAILY Qty: 30 0RF acetaminophen 325 mg capsule 325 mg PO Q4H PRN (Reason: fever or postoperative pain) Qty: 60 0RF citalopram 40 mg tablet 40 mg PO DAILY biotin 10 mg Tablet 10 mg PO DAILY Vitamin D3 25 mcg (1,000 unit) Capsule 25 mcg PO DAILY dlitytmgfbpa-ajdw-uxfyp acid 18-400 mg-mcg Tablet 1 tab PO DAILY Discontinued Eliquis 2.5 mg tablet 2.5 mg PO BID meloxicam 15 mg tablet 15 mg PO DAILY Qty: 90 0RF Discharge Orders: Discharge Order (Routine); Ordered 02/10/24 Ordered By: Jermaine Nguyen Referrals: Percy George M.D [Physician] - 2 weeks Alejandro Freitas MD [Referring] - 2 weeks (left renal mass) Justine Cook MD [Primary Care Provider] - 02/12/24 11:40 am Discharge Diet: Advance as tolerated Discharge Activity: Resume usual activity Patient Instructions: Nitroglycerin (By mouth), Aspirin (By mouth), Quetiapine (By mouth), Chest Pain (ED), Opioid Safety Activity Restrictions/Additional Instructions: - If you have recurrent chest pain please go to emergency room Discharge Attestations Time Spent in Discharge Care*: greater than 30 min Quality Metrics Clinical Quality Measures [ No reported AMI, CVA or VTE this stay] Coding Level of Care Code 70035 Total time (in minutes) for Discharge: 45 Diagnoses Confusion R41.0 Chest pain R07.9 Moderate Alzheimer's dementia of other onset with agitation G30.8; F02.B11 Alzheimer's disease onset: other onset Dementia behavioral or psychological symptom: with agitation Dementia severity: moderate Dementia type: Alzheimer's SOLOMON (generalized anxiety disorder) F41.1 Primary hypertension I10 Hypertension type: primary hypertension History of arthroplasty of right knee Z96.651 History of parathyroidectomy Z98.890; Z90.89
--- NOTE | 2024-02-10 11:31 | PC.OT ---
due to scheduled d/c today; OT evaluation held at this time
[2024-02-10 12:00] VITALS: BP 136/83; PULSE 50; RESP 16; TEMP 36.8; O2SAT 98
[2024-02-10 15:09] VITALS: BP 136/83; PULSE 50; RESP 16; TEMP 36.8; O2SAT 98
== END 2024-02-10 15:00 | disposition home or self-care (01) ==
LOC: ER 13:21 → MEDSURG 13:49
PROVIDERS: Admitting Provider Internal Medicine; Emergency Provider Emergency Medicine; PCP Family Medicine; Visit Provider Family Medicine
DX: R07.9 Chest pain, unspecified (principal); R41.0 Disorientation, unspecified; G30.8 Other Alzheimer's disease; F02.B11 Dementia in other diseases classified elsewhere, moderate, with agitation; F41.1 Generalized anxiety disorder; I10 Essential (primary) hypertension; Z96.651 Presence of right artificial knee joint; Z98.890 Other specified postprocedural states; Z90.89 Acquired absence of other organs; I65.23 Occlusion and stenosis of bilateral carotid arteries; Z86.73 Personal history of transient ischemic attack (TIA), and cerebral infarction without residual deficits
CPT/HCPCS: 36415; 36416; 70496; 70498; 70551; 71045; 71275; 76770; 80053; 81003; 82330; 82962; 83690; 83735; 84100; 84145; 84439; 84443; 84481; 84484; 85025; 85378; 85610; 86140; 93005; 93306; 96365; 96372; 96375; 97161; 99285; G0378; J0360; J2060; J3490; J7030; J7799; Q9967

== ENCOUNTER → 2024-02-25 09:09 | Outpatient (BNVA) | payer MEDICARE, SELFPAY | PROVIDERS: PCP Family Medicine; Visit Provider Physician Assistant | DX: Z96.651 Presence of right artificial knee joint (principal) | CPT/HCPCS: 73560; 73565; 99024 ==

== ENCOUNTER 2024-02-29 10:05 | Emergency (ER) | payer MEDICARE, SELFPAY ==
[2024-02-29] VITALS (8 sets, daily range): BP systolic 115–132; BP diastolic 82–86; PULSE 42–59; RESP 11–18; TEMP 36.7; O2SAT 98–100
--- NOTE | 2024-02-29 10:55 | XRR_ITS ---
PROCEDURE INFORMATION: Exam: XR Chest Exam date and time: 02/29/2024 10:57 AM Age: 79 years old Clinical indication: Pain; Angina pectoris; Additional info: Cxp TECHNIQUE: Imaging protocol: Radiologic exam of the chest. Views: 1 view. COMPARISON: CT angio chest PE protcl [id number] 02/10/2024 9:11 AM FINDINGS: Lungs: Unremarkable. No consolidation. Pleural spaces: Unremarkable. No pleural effusion. No pneumothorax. Heart/Mediastinum: Small hiatal hernia. Vasculature: Unfolding of the thoracic aorta. Bones/joints: Mild degenerative disease of bilateral acromioclavicular joints. Other findings: Right carotid calcifications. XR/XR chest 1V portable [id number] IMPRESSION: No acute cardiopulmonary process.
--- NOTE | 2024-02-29 10:55 | ECG_ITS ---
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 Measurements Intervals [place] Rate: 47 P: 39 IA: 154 QRS: 58 QRSD: 86 T: 67 QT: 417 QTc: 371 Interpretive Statements SINUS BRADYCARDIA WITH SINUS ARRHYTHMIA MINIMAL ST DEPRESSION [0.025+ mV ST DEPRESSION] INTERPRETATION BASED ON A DEFAULT AGE OF [address] elevation in the inferolateral leads, suggestive of early repolarization Compared to ECG 02/09/2024 13:49:58 ST (T wave) deviation now present Electronically Signed On 02-29-2024 19:35:48 CDT by Felicitas Connell M.D. [email or web address]
[2024-02-29] MEDS: aspirin 81 mg Chew Tablet 324 MG PO (11:28)
[2024-02-29 11:39] LABS: Basophils # 0.1 10^3/uL (0.0-0.1); Basophils % 0.6 %; Eosinophils # 0.2 10^3/uL (0.0-0.8); Eosinophils % 2.6 %; Hematocrit 38.5 % (36-47); Lymphocytes # 1.6 10^3/uL (0.8-4.8); Lymphocytes % 19.6 %; Mean Corpuscular HGB Conc 31.7 g/dL (30-55); Mean Corpuscular Hemoglobin 30.1 pg (27-33); Mean Corpuscular Volume 95.1 fl (85-98); Mean Platelet Volume 10.7 fL (7.4-10.4); Monocytes # 0.7 10^3/uL (0.2-0.9); Monocytes % 8.1 %; Neutrophils # 5.55 10^3/uL (1.8-7.7); Neutrophils % 68.9 %; Nucleated Red Blood Cells % 0 %; Platelet Count 227 10^3/cmm (157-399); Red Blood Count 4.05 10^6/uL (3.85-5.65); Red Cell Distribution Width 12.8 % (12.1-15.1); White Blood Count 8.06 10^3/uL (3.29-11.43)
[2024-02-29 11:49] LABS: INR 1.04 (0.8-1.2)
--- NOTE | 2024-02-29 12:32 | ED_ITS ---
HPI - Chest Pain 2 General: Chief Complaint: Chest Pain Stated Complaint: chest pain Time Seen by Provider: 02/29/24 10:54 History of Present Illness: 79-year-old female presents emerged part with complaints of intermittent chest discomfort/pain that started this morning at approximately 930. She states her chest pain is a 8 out of 10 when it occurred but she is chest pain-free at present. She states she did take 2 nitroglycerin without relief this morning before coming to the emergency department. Patient states she also had pain in her epigastric region that radiated to her abdomen and left leg. She states that pain is completely resolved. She does not appear to be in any acute distress. She states she does have appointments already in place to have her chest pain evaluated. She denies nausea vomiting fevers chills or night sweats. She denies diaphoresis dizziness or lightheaded feeling. Review of Systems 2 General: Reports: 10 or more systems reviewed and unremarkable except in HPI and below Card: Reports: chest pain [facility] ED 2 PFSH: Medical History (Updated 02/29/24 @ 15:49 by Oscar Sanchez MD) Cyst of left kidney Cyst measures 1.4 x 1.4 x 1.4 cm. History of CVA (cerebrovascular accident) Small focus of chronic ischemia along the anterior limb LEFT internal capsule Osteopenia Hypertension Dementia Parathyroid adenoma SOLOMON (generalized anxiety disorder) Hypercalcemia Primary hyperparathyroidism History of kidney stones Urinary incontinence Surgical History History of arthroplasty of right knee History of parathyroidectomy History of anterior colporrhaphy (~09/17/23) Anterior colporrhapy augmented with allograft, posterior colporrhapy, sacrospinous fixation, cystoscopy performed by Vaughn Family History Father Dementia Denies family history of Colon cancer Ovarian cancer Diabetes Heart disease Hypercholesteremia Breast cancer Hypertension Uterine cancer Thyroid disease Stroke Social History Smoking and tobacco/nicotine status: never used tobacco/nicotine Alcohol intake: current Alcohol intake frequency: few times a month Household members: spouse Marital status: Current occupational status: retired Special bekah needs: No Agree to transfusion: Yes Physical Exam 2 Narrative: EXAM NARRATIVE: Constitutional: the patient appears well nourished and of normal development. Vital signs as documented. No acute distress at present. Alert and oriented-to person, place, time and situation. Head, eyes, ears, nose, mouth, throat: Normocephalic, atraumatic. Pupils-equal, round, reactive to light. No scleral icterus. Normal-appearing external ears. Normal appearing nasal turbinates, no drainage. No obvious oral lesions, posterior oropharynx without erythema or exudates. Neck: Supple, trachea is midline, no lymphadenopathy, no jugular venous distension, thyromegaly, or carotid bruits. Carotid upstrokes are brisk bilaterally. Lungs: clear to auscultation to all lung martinez. Symmetrical rise and fall of chest, no obvious signs of increased work of breathing at present. Cardiac: Sinus bradycardia, positive S1, S2. No murmurs, rubs or gallops that I can appreciate Abdomen: Soft, non-tender to palpation, normal active bowel sounds to all quadrants. No palpable masses, no organomegaly and abdominal bruits. Extremities: 2+ pulses in the upper extremities that are equal bilaterally, 2+ pulses in the lower extremities that are equal bilaterally. Non-edematous. Moves all extremities well, sensation to all extremities are noted. Skin: Warm, dry, intact. Course 2 Vital Signs: Vital signs: Vital Signs Temperature 98.0 F 02/29/24 10:52 Pulse Rate 53 L 02/29/24 15:00 Respiratory Rate 18 02/29/24 15:00 Blood Pressure 128/83 02/29/24 14:00 Pulse Oximetry 100 02/29/24 15:00 Oxygen Delivery Me thod Room Air 02/29/24 15:00 MDM - Chest Pain Medical Decision Making Physical exam completed and documented, I will obtain serial cardiac enzymes, serial twelve-lead EKGs, chest x-ray, CBC, CMP, urinalysis, B-type natriuretic peptide, PT/PTT/INR, and a chest x-ray. I will provide cardiac dose aspirin and nitroglycerin administration. I have reviewed previous and pertinent medical records for assist in obtaining beneficial medical information to improved the care and treatment of the patient. Medical Records I reviewed the patient's medical records. Lab Data I reviewed the patient's lab results. 02/29/24 11:30 02/29/24 12:01 Radiology Impressions Chest X-Ray 02/29/24 10:55 IMPRESSION: No acute cardiopulmonary process. Laboratory Results WBC 8.06 10^3/uL (3.29-11.43) 02/29/24 11:30 RBC 4.05 10^6/uL (3.85-5.65) 02/29/24 11:30 Hgb 12.20 g/dL (11.27-16.99) 02/29/24 11:30 Hct 38.5 % (36-47) 02/29/24 11:30 MCV 95.1 fl (85-98) 02/29/24 11:30 MCH 30.1 pg (27-33) 02/29/24 11: MCHC 31.7 g/dL (30-55) 02/29/24 11:30 RDW 12.8 % (12.1-15.1) 02/29/24 11:30 Plt Count 227 10^3/cmm (157-399) 02/29/24 11:30 MPV 10.7 fL (7.4-10.4) H 02/29/24 11:30 Neut % (Auto) 68.9 % 02/29/24 11:30 Lymph % (Auto) 19.6 % 02/29/24 11:30 [place] % (Auto) 8.1 % 02/29/24 11:30 Eos % (Auto) 2.6 % 02/29/24 11:30 Baso % (Auto) 0.6 % 02/29/24 11:30 Neut # (Auto) 5.55 10^3/uL (1.8-7.7) 02/29/24 11:30 Lymph # (Auto) 1.6 10^3/uL (0.8-4.8) 02/29/24 11:30 [place] # (Auto) 0.7 10^3/uL (0.2-0.9) 02/29/24 11:30 Eos # (Auto) 0.2 10^3/uL (0.0-0.8) 02/29/24 11:30 Baso # (Auto) 0.1 10^3/uL (0.0-0.1) 02/29/24 11:30 Nucleated RBC % (auto) 0 % 02/29/24 11:30 Nucleated RBCs # 0.0 /100WBC 02/29/24 11:30 PT 13.90 SECONDS (12.1-14.9) 02/29/24 11:30 INR 1.04 (0.8-1.2) 02/29/24 11:30 Sodium 139 mmol/L (136-145) 02/29/24 12:01 Potassium 4.7 mmol/L (3.5-5.1) 02/29/24 12:01 Chloride 107 mmol/L (98-107) 02/29/24 12:01 Carbon Dioxide 23 mmol/L (22-29) 02/29/24 12:01 Anion Gap 13.7 (5-19) 02/29/24 12:01 BUN 14 mg/dL (8-23) 02/29/24 12:01 Creatinine 0.7 mg/dL (0.5-0.9) 02/29/24 12:01 GFR Calculation Not Reportable 02/29/24 12:01 Glucose 101 mg/dL (65-115) 02/29/24 12:01 Calculated Osmolality 289 mOsm/kg (285-295) 02/29/24 12:01 Calcium 11.1 mg/dL (8.5-10.5) H 02/29/24 12:01 Total Bilirubin 0.3 mg/dL (0.15-1.2) 02/29/24 12:01 AST 21 U/L (0-32) 02/29/24 12:01 ALT 15 U/L (0-33) 02/29/24 12:01 Alkaline Phosphatase 114 U/L (35-105) H 02/29/24 12:01 Troponin T Baseline 14 ng/L (0-10) H 02/29/24 12:01 Troponin T 120 Minute 11.91 ng/L (0-10) H 02/29/24 14:21 Delta Troponin T -2.09 ABS# (0-10) L 02/29/24 14:21 NT-Pro-B Natriuret Pep 285 pg/mL (0-450) 02/29/24 12:01 Total Protein 7.1 g/dL (6.6-8.7) 02/29/24 12:01 Albumin 3.8 g/dL (3.5-5.2) 02/29/24 12:01 Globulin 3.3 g/dL (1.3-4.6) 02/29/24 12:01 Urine Color Yellow (Yellow) 02/29/24 12:44 Urine Appearance Clear (CLEAR) 02/29/24 12:44 Urine pH 5 (5-7) 02/29/24 12:44 Ur Specific [place] 1.020 (1.005-1.030) 02/29/24 12:44 Urine Protein Neg (Negative) 02/29/24 12:44 Urine Glucose (UA) Norm (Normal) 02/29/24 12:44 Urine Ketones Negative (Negative) 02/29/24 12:44 Urine Blood Neg (Negative) 02/29/24 12:44 Urine Nitrate Negative (Negative) 02/29/24 12:44 Urine Bilirubin Neg (Negative) 02/29/24 12:44 Urine Urobilinogen Norm mg/dL (Negative) 02/29/24 12:44 Ur Leukocyte Esterase Negative (Negative) 02/29/24 12:44 All radiology interpretation(s) finalized by discharge EKG Data EKG 1: Interpretation: Twelve-lead EKG obtained at 1010 demonstrates sinus bradycardia with a ventricular rate of 47 bpm, WA interval 154, QRS duration 86, QT 417 QTc [address] elevation or depression to demonstrate acute ischemia or infarction at present. EKG 2: Interpretation: Twelve-lead EKG obtained at 1248 reviewed at 1250 demonstrates sinus bradycardia with a ventricular rate of 44 bpm, WA interval 144, QRS duration 101, QT 445, QTc 395 at present there is no ST elevation or depression to demonstrate acute ischemia or infarction. Discharge Plan Discharge Patient Disposition: Home Clinical Impression: Atypical chest pain Condition: Stable Prescriptions: No Action oxybutynin chloride 5 mg tablet 5 mg PO DAILY Qty: 90 3RF docusate sodium [Colace] 100 mg capsule 100 mg PO BID PRN (Reason: Constipation) clonidine HCl 0.1 mg tablet 0.1 mg PO DAILY Qty: 90 1RF lisinopril 10 mg tablet 10 mg PO DAILY Qty: 90 3RF Hold Instructions: Doctor's Order amlodipine 10 mg tablet 10 mg PO DAILY Qty: 90 1RF metoprolol tartrate 25 mg tablet 25 mg PO BID@0900,2100 Qty: 60 3RF memantine [Namenda XR] 21 mg capsule,sprinkle,ER 24hr 21 mg PO DAILY Qty: 30 0RF benzonatate 100 mg capsule 100 mg PO TID PRN (Reason: cough) Qty: 30 0RF acetaminophen 325 mg capsule 325 mg PO Q4H PRN (Reason: fever or postoperative pain) Qty: 60 0RF citalopram 40 mg tablet 40 mg PO DAILY biotin 10 mg Tablet 10 mg PO DAILY Vitamin D3 25 mcg (1,000 unit) Capsule 25 mcg PO DAILY hasicjewtcnp-kzpn-bbaoe acid 18-400 mg-mcg Tablet 1 tab PO DAILY quetiapine 25 mg Tablet 25 mg PO BEDTIME 30 Days Qty: 30 0RF aspirin 81 mg capsule 81 mg PO DAILY 30 Days Qty: 30 0RF atorvastatin 40 mg tablet 40 mg PO DAILY 30 Days Qty: 30 0RF nitroglycerin 0.4 mg tablet, sublingual 0.4 mg sublingual Q5M 30 Days Qty: 30 0RF Rx Instructions: do not exceed 3 doses per episode Discharge Orders: Discharge ED (Routine); Ordered 02/29/24 Ordered By: Oscar Sanchez Referrals: Justine Cook MD [Primary Care Provider] - Discharge Diet: Usual diet Discharge Activity: Resume usual activity Patient Instructions: Opioid Safety, Pain Management Activity Restrictions/Additional Instructions: Activity Restrictions/Additional Instructions: Thank you for choosing [facility] for your healthcare needs today. Please realize that you were seen in the Emergency Department and that we are providing you with an emergency medical screening exam and this may not be a complete and all inclusive of all the testing and or medical work-up that you may need to determine your ailment or severity of your illness. It is very important that you follow-up as instructed with your Primary care provider or Specialist for additional evaluation and to discuss your medical treatment plan. Coding Level of Care Code ED Manager Air for Sarah Epps
[2024-02-29 12:43] LABS: Troponin(5th) Baseline 14 ng/L (0-10)
[2024-02-29 12:53] LABS: Alanine Aminotransferase 15 U/L (0-33); Albumin Level 3.8 g/dL (3.5-5.2); Alkaline Phosphatase 114 U/L (35-105); Anion Gap 13.7 (5-19); Aspartate Amino Transferase 21 U/L (0-32); Blood Urea Nitrogen 14 mg/dL (8-23); Calcium 11.1 mg/dL (8.5-10.5); Carbon Dioxide 23 mmol/L (22-29); Chloride 107 mmol/L (98-107); Creatinine Clr Calc Pharmacy 64.8256; Globulin 3.3 g/dL (1.3-4.6); Glucose 101 mg/dL (65-115); NT Pro B Type Natriuretic Pept 285 pg/mL (0-450); Osmolality Calculated 289 mOsm/kg (285-295); Potassium 4.7 mmol/L (3.5-5.1); Sodium 139 mmol/L (136-145); Total Bilirubin 0.3 mg/dL (0.15-1.2); Total Protein 7.1 g/dL (6.6-8.7)
[2024-02-29 12:55] LABS: Add Urine Microscopic? NO; Charge for UA Resulting for Rev
--- NOTE | 2024-02-29 12:55 | ECG_ITS ---
[facility] Test Date: 2024-02-29 Pat Name: Tressa Mcgill Department: Room: Gender: Female Physician/Ophthalmologist: : 1945 Requested By: Oscar Sanchez Order Number: [id number] Steve MD: Felicitas Connell M.D. Measurements Intervals [place] Rate: 44 P: 52 IN: 144 QRS: 56 QRSD: 101 T: 66 QT: 445 QTc: 382 Interpretive Statements SINUS BRADYCARDIA MODERATE ST DEPRESSION [0.05+ mV ST DEPRESSION] Compared to ECG 02/29/2024 10:10:58 Sinus arrhythmia no longer present ST (T wave) deviation still present Electronically Signed On 02-29-2024 20:01:32 CDT by Felicitas Connell M.D. [id number]
[2024-02-29 13:18] LABS: Urine Appearance Clear (CLEAR); Urine Color Yellow (Yellow); pH Urine 5 (5-7)
[2024-02-29 13:19] LABS: Bilirubin Urine Neg (Negative); Blood Urine Neg (Negative); Glucose Urine UA Norm (Normal); Ketones Urine Negative (Negative); Leukocyte Esterase Urine Negative (Negative); Nitrate Urine Negative (Negative); Protein Urine Neg (Negative); Urobilinogen Urine Norm (Negative)
[2024-02-29 15:38] LABS: Troponin 5 2HR 11.91 ng/L (0-10)
[2024-02-29 15:43] LABS: Troponin 5 2HR Delta -2.09 ABS# (0-10)
== END 2024-02-29 16:19 | disposition home or self-care (01) ==
PROVIDERS: Emergency Provider Internal Medicine; PCP Family Medicine
DX: R07.89 Other chest pain (principal); Z79.82 Long term (current) use of aspirin; Z86.73 Personal history of transient ischemic attack (TIA), and cerebral infarction without residual deficits; I10 Essential (primary) hypertension; F03.90 Unspecified dementia, unspecified severity, without behavioral disturbance, psychotic disturbance, mood disturbance, and anxiety
CPT/HCPCS: 71045; 80053; 81003; 83880; 84484; 85025; 85610; 93005; 99285

== ENCOUNTER → 2024-04-28 10:13 | Outpatient (BNVA) | payer MEDICARE, SELFPAY | PROVIDERS: PCP Family Medicine; Visit Provider Physician Assistant | DX: Z96.651 Presence of right artificial knee joint (principal); M17.12 Unilateral primary osteoarthritis, left knee | CPT/HCPCS: 20610; 73560; 73565; 99213; J3301 ==

== ENCOUNTER → 2024-05-21 12:33 | Outpatient (BNVA) | payer MEDICARE, SELFPAY | PROVIDERS: PCP Family Medicine; Referring Provider Family Medicine; Visit Provider Internal Medicine | DX: R07.9 Chest pain, unspecified (principal); I10 Essential (primary) hypertension; R00.1 Bradycardia, unspecified | CPT/HCPCS: 93005; 99204 ==

== ENCOUNTER 2024-05-25 15:34 | Outpatient (CLI) | payer MEDICARE, SELFPAY ==
[2024-05-25 17:08] LABS: Anion Gap 14.1 (5-19); Blood Urea Nitrogen 14 mg/dL (8-23); Calcium 11.1 mg/dL (8.5-10.5); Calcium 11.2 mg/dL (8.5-10.5); Carbon Dioxide 23 mmol/L (22-29); Chloride 107 mmol/L (98-107); Glucose 101 mg/dL (65-115); Osmolality Calculated 291 mOsm/kg (285-295); Parathyroid Hormone 80.7 pg/mL (15-65); Potassium 4.1 mmol/L (3.5-5.1); Sodium 140 mmol/L (136-145)
== END 2024-05-25 15:35 | disposition home or self-care (01) ==
LOC: LAB 15:36
PROVIDERS: PCP Family Medicine; Visit Provider Internal Medicine
DX: E21.0 Primary hyperparathyroidism (principal); D35.1 Benign neoplasm of parathyroid gland
CPT/HCPCS: 36415; 80048; 82310; 83970

== ENCOUNTER → 2024-06-02 11:23 | Outpatient (BNVA) | payer MEDICARE, SELFPAY | PROVIDERS: PCP Family Medicine; Visit Provider Internal Medicine | DX: M85.80 Other specified disorders of bone density and structure, unspecified site (principal); E21.0 Primary hyperparathyroidism; R79.89 Other specified abnormal findings of blood chemistry; R41.89 Other symptoms and signs involving cognitive functions and awareness; Z87.442 Personal history of urinary calculi | CPT/HCPCS: 99214 ==

== ENCOUNTER 2024-06-24 08:11 | Outpatient (CLI) | payer MEDICARE, SELFPAY ==
[2024-06-24 08:38] VITALS: BMI 28.4
--- NOTE | 2024-06-24 08:51 | NMCV_ITS ---
NM earl perf SPECT r/s* [id number] Tressa Mcgill Age: 79 Gender: F : 1945 Exam Date: 06/24/2024 08:51 Ordering Phys: Percy George M.D ([email or web address]) Technologist: CORNELIO Minaya Exam Location: [facility] Indications: CP, SOB STRESS TEST Please see separate stress test report in Ephiphany for full findings IMAGE PROTOCOL Rest/Stress 1 Lexiscan Day Radiopharmaceutical Dose (mCi) Administration Site Administered by Rest: Tc-99m 10.9 IV CORNELIO Minaya Sestamibi Stress:Tc-99m 32.9 IV CORNELIO Minaya Sestamibi Rest: 24-Jun-2024 60 Discovery 630 Stress: 24-Jun-2024 30 Discovery 630 0.4mg Lexiscan. Supine position only as patient was unable to lay prone. SPECT RESULTS Technical Quality: Good Raw Data Analysis: Subdiaphragmatic activity Image Corrections: No attenuation or motion correction applied Summed Stress Score: 0 Summed Rest Score: 0 Summed Difference Score: 0 PERFUSION FINDINGS SPECT images demonstrate homogeneous tracer distribution throughout the myocardium. FUNCTIONAL RESULTS (calculated via Gated SPECT) Stress Image LV EF (%): 82 Stress EDV (mL):72 TID: 0.69 Stress ESV (mL):13 FUNCTIONAL FINDINGS: There is normal left ventricular systolic function. IMPRESSIONS 1. Normal myocardial perfusion imaging with no evidence of ischemia. 2. LV systolic function is normal Percy George MD (Electronically Signed) Final Date: 25 June 2024 18:42 S
--- NOTE | 2024-06-24 08:51 | ECG_ITS ---
[facility] Test Date: 2024-06-24 Pat Name: Tressa Mcgill Department: Room: Gender: Female Shield Cleaner: : 1945 Requested By: Percy George Order Number: [id number] Steve MD: Percy George M.D. Interpretive Statements LEXISCAN Procedure: At the baseline, the blood pressure was 123/85 mmHg with a heart rate of 61 bpm. The electrocardiogram showed normal sinus rhythm, normal axis with normal ST and T's. The Lexiscan was infused over a period of 20 seconds. A total of 0.4 mg of Lexiscan was infused. The stress phase was continued for a total of 5 minutes. Heart rate was at the end of stress phase was 71 bpm and a blood pressure of 122/73 mmHg. The EKG at the peak infusion revealed normal sinus rhythm with no significant ST-T wave changes. Sestamibi was injected 20 seconds after the Lexiscan infusion. Blood pressure at the end of recovery phase was 132/91 mmHg with a heart rate of 73 bpm. Conclusion: 1. Normal EKG response to Lexiscan infusion 2. No Lexiscan induced chest pain or cardiac arrhythmia. 3. Normal blood pressure and heart rate response. 4. Sestamibi/sestamibi perfusion scan pending; see separate report. Electronically Signed On 06-27-2024 9:37:36 CDT by Percy George M.D. [id number]
[2024-06-24] MEDS: regadenoson 0.4 Mg/5 ml Syringe IVP (09:25)
[2024-06-24 10:39] VITALS: BP 149/74; PULSE 72
--- NOTE | 2024-06-24 13:30 | USCV_ITS ---
Tressa Mcgill Age: 79 Gender: F : 1945 Exam Date: 06/24/2024 08:52 Ordering Phys: Percy George M.D ([email or web address]) Technologist: Exam Location: [facility] [place] Indication: cp BP: 130 / 70 HR: 62 Rhythm: Sinus Technical Quality: Adequate MEASUREMENTS (Male / Female) Normal Values 2D ECHO LV Diastolic Diameter PLAX 4.6 cm 4.2 - 5.9 / 3.9 - 5.3 cm IVS Diastolic Thickness 1.3 cm 0.6 - 1.0 / 0.6 - 0.9 cm IVS Systolic Thickness 1.6 cm LVPW Diastolic Thickness 1.2 cm 0.6 - 1.0 / 0.6 - 0.9 cm LVPW Systolic Thickness 2.0 cm LVOT Diameter 2.0 cm LV Ejection Fraction 2D Teich 67.5 % LV Ejection Fraction MOD 4C 77.9 % LV Ejection Fraction MOD 2C 71.9 % LV Ejection Fraction 2C AL 72.4 % LA Diameter 3.7 cm RA Systolic Volume 4C AL 47.8 ml RA Systolic Volume 4C MOD 48.5 ml Aorta at Sinotubular Diameter 2.7 cm IVC Diameter 1.8 cm M-MODE LA Ao Ratio MM 1.7 MV E Point Septal Separation 1.5 cm AV Cusp Separation MM 2.6 cm DOPPLER AV Peak Velocity 144.7 cm/s LVOT Peak Velocity 102.0 cm/s AV Area Cont Eq vti 2.4 cm squared AV Area Cont Eq pk 2.2 cm squared MV Area PHT 4.7 cm squared Mitral E to A Ratio 1.8 TV Peak Velocity 264.5 cm/s TR Peak Velocity 320.0 cm/s TR Peak Gradient 41.0 mmHg TV Peak E Velocity 105.0 cm/s Right Atrial Pressure 3.0 mmHg Pulmonary Artery Systolic Pressu 44.0 mmHg PV Peak Velocity 75.0 cm/s FINDINGS Left Ventricle Left ventricle is normal in size. LV systolic function is normal with EF of 60-65%. No regional wall motion abnormalities are seen. Right Ventricle Normal in size and function Right Atrium Normal in size Left Atrium Severe dilation Mitral Valve Structurally normal mitral valve. Moderate mitral regurgitation. Aortic Valve Structurally normal aortic valve. No significant stenosis or regurgitation. Tricuspid Valve Mild tricuspid regurgitation. RVSP is 40-45mmHg. Mild pulmonary hypertension. Pulmonic Valve Trace pulmonic regurgitation. Pericardium Normal Aorta Normal in size IVC Appears to be normal CONCLUSIONS LV systolic function is normal with EF of 60-65% Severe left atrial dilation Moderate mitral regurgitation Mild tricuspid regurgitation Mild pulmonary hypertension Trace pulmonic regurgitation. Compared to prior echocardiogram from 02/2024, no significant changes are seen. Percy George MD (Electronically Signed) Final Date: 27 June 2024 12:58 S
== END 2024-06-24 08:12 | disposition home or self-care (01) ==
PROVIDERS: PCP Family Medicine; Visit Provider Internal Medicine
DX: I34.0 Nonrheumatic mitral (valve) insufficiency (principal); R07.9 Chest pain, unspecified; R06.02 Shortness of breath
CPT/HCPCS: 36415; 78452; 93017; 93306; 96374; A9500; J2785

== ENCOUNTER → 2024-07-30 14:37 | Outpatient (BNVA) | payer MEDICARE, SELFPAY | PROVIDERS: PCP Family Medicine; Visit Provider Physician Assistant | DX: M17.12 Unilateral primary osteoarthritis, left knee (principal) | CPT/HCPCS: 73560; 73565; 99214 ==

== ENCOUNTER → 2024-08-25 14:26 | Outpatient (BNVA) | payer MEDICARE, SELFPAY | PROVIDERS: PCP Family Medicine; Visit Provider Physician Assistant | DX: Z01.818 Encounter for other preprocedural examination (principal); M17.12 Unilateral primary osteoarthritis, left knee | CPT/HCPCS: 36415; 80053; 85025; 99213 ==

== ENCOUNTER 2024-08-28 13:52 | Outpatient (CLI) | payer MEDICARE, SELFPAY ==
[2024-08-28 14:06] LABS: Bilirubin Urine Negative (Negative); Blood Urine Negative (Negative); Glucose Urine UA Negative (Normal); Ketones Urine Negative (Negative); Leukocyte Esterase Urine 2+ (Negative); Nitrate Urine Negative (Negative); Protein Urine Negative (Negative); Specific Gravity, Urine 1.018 (1.005-1.030); Urine Appearance Cloudy (CLEAR); Urine Color Yellow (Yellow); pH Urine 5.5 (5-7)
[2024-08-28 14:08] LABS: Add Urine Microscopic? YES
[2024-08-28 14:18] LABS: UA Slide Review UA Slide Review Perf
[2024-08-28 14:21] LABS: UA Manual Slide Review YES
[2024-08-28 14:22] LABS: Calcium Oxalate Crystals Urine >100 /hpf; RBC Urine 0-4 /hpf (0-2); Squamous Epithelial Cell Urine 0-4 /hpf (0-5); WBC Urine 0-4 /hpf (0-5)
[2024-08-28 14:23] LABS: Bacteria Urine 1+ /hpf; Hyaline Casts Urine 0-4 /lpf
[2024-08-28 14:24] LABS: Add Urine Culture? No
== END 2024-08-28 13:53 | disposition home or self-care (01) ==
LOC: LAB 13:52
PROVIDERS: PCP Family Medicine; Visit Provider Physician Assistant
DX: Z01.818 Encounter for other preprocedural examination (principal)
CPT/HCPCS: 81001

== ENCOUNTER 2024-08-31 08:39 | Outpatient (CLI) | payer MEDICARE, SELFPAY ==
--- NOTE | 2024-08-31 09:00 | CT_ITS ---
WS: [id number] CT LEFT knee, noncontrast HISTORY: LEFT TOTAL KNEE ARTHROPLASTY TECHNIQUE: Protocol for [employer] total knee replacement has been obtained. This includes axial imaging th rough the LEFT hip, LEFT knee and LEFT ankle. DLP: 883.09 mGy.cm COMPARISON: None. Prior RIGHT knee arthroplasty. Symmetric appearance of the hip joints with mild joint space narrowing. No destructive bone lesions. LEFT knee: Slight lateral subluxation of the patella. Moderate tricompartment joint space narrowing w ith marginal osteophytes. No destructive bone lesions. Mild diffuse muscle atrophy. Soft tissue calci fications posterior to the medial femoral condyle may be calcified loose bodies in a popliteal cyst. LEFT ankle: Negative. CT/CT knee [facility] [id number] IMPRESSION: CT imaging provided for [employer] robotic total knee replacement.
== END 2024-08-31 08:40 | disposition home or self-care (01) ==
LOC: RAD 08:41
PROVIDERS: PCP Family Medicine; Visit Provider Physician Assistant
DX: Z01.818 Encounter for other preprocedural examination (principal); M17.12 Unilateral primary osteoarthritis, left knee; M25.762 Osteophyte, left knee; M71.22 Synovial cyst of popliteal space [Baker], left knee
CPT/HCPCS: 73700; 81003

== ENCOUNTER → 2024-09-02 15:10 | Outpatient (BNVA) | payer MEDICARE, SELFPAY | PROVIDERS: PCP Family Medicine; Visit Provider Family Medicine | DX: Z01.818 Encounter for other preprocedural examination (principal) | CPT/HCPCS: 81003; 87086 ==

== ENCOUNTER 2024-09-14 11:16 | Observation (INO) | payer MEDICARE, SELFPAY ==
--- OUTSIDE RECORDS SUMMARY | 2024-08-18 15:18 | XMS_ITS ---
Author Name Unknown Organization [facility] Address [address] [place] [address] Care Team Providers Care Wet End Supervisor Name Role Phone Alejandro Freitas Unavailable [phone] REASON FOR VISIT f/u w CT abd w and without contrast per Dr. Freitas Encounters Encounter Location Date Provider Diagnosis Count Includes [facility] [address] [facility] [address] [place] [address] 07/29/2024 Alejandro Freitas Plan Of Treatment Next Appt Details Provider Name:Alejandro barnett, 09/29/2024 10:00:00 AM, [address] , [address], [place], [address], Progress Notes * GREY GRIFFIN ADOB:1944 (79 yo F)Acc No.[id number]:07/29/2024 Progress Notes Patient:?GREY GRIFFIN Provider:?Alejandro Freitas MD :1945???Age:79 Y???Sex:Female D ate:07/29/2024 Address:[address] [address] Subjective: * Chief Complaints: * ???1. f/u w CT abd w and wit hout contrast per Dr. Freitas. * Medical History:? Objective: * Vitals:? Assessment: Plan: * Treatment: * Billing Information: * Visit Code:? * Procedure Codes:? * Electronic signature of Fatou Freitas MD on 08/18/2024 at 03:18 PM CDT Sign off status: Pending * Provider:?Alejandro Freitas MD Date:?07/06 Generated for Manuel garrison/Armida/Yaya on:?08/18/2024 03:18 PM CDT
--- OUTSIDE RECORDS SUMMARY | 2024-08-18 15:19 | XMS_ITS | Patient Health Record ---
Author Name Unknown Organization [facility] Address [address] [place] [address] Care Team Providers Care Middle School Professional Name Role Phone Zena Alejandro Unavailable [phone] Reason For Referral No Information Problems Problem Type SNOMED Code ICD Code Onset Dates Problem Status W/U Status Risk Notes Problem 27723628 Calculus of kidney (N20.0) Active confirmed Encounters Encounter Location Date Provider Diagnosis [facility] [address]ar [address] [place] [address] 05/08/2024 Alejandro [facility] [address] [place] [address] Dr [address]ar [address] [place] [address] 05/25/2024 Alejandro Freitas Calculus of kidney N20.0 [facility] [address] [place] [address] Dr [address]ar [address] [place] [address] 05/25/2024 [facility] [address] [place] [address] Dr [address] [place] [address] 05/25/2024 Alejandro Freitas [facility] [address] [place] [address] Dr [address]ankar [address] [place] [address] 05/28/2024 Alejandro Solomonsay [facility] [address] [place] [address] Dr [address]ankar [address] [place] [address] 06/09/2024 Alejandro Freitas Assessments Encounter Date Diagnosis (ICD Code) Assessment Notes Treatment Notes Treatment Clinical Notes 05/25/2024 Calculus of kidney (ICD-10 - N20.0) Plan Of Treatment Pending Test Test Name Order Date Blood Urea Nitrogen (BUN) 88776 05/25/20 24 Creatinine (B) 57985 05/25/2024 CT Abdomen w/ + w/o Contrast-69564 05/25 Next Appt Details Provider Name:Alejandro barnett, 09/29/2024 10:00:00 AM, [address] , [address], [place], [address],
--- OUTSIDE RECORDS SUMMARY | 2024-08-18 15:19 | XMS_ITS ---
Author Name Unknown Organization Unknown ALLERGIES AND ADVERSE REACTIONS No information ASSESSMENT No information CHIEF COMPLAINT No information Vital Signs Bpsitting Date Temperature Spo2 Respiration Timerecorded P ulse 140/95 12/17/2023 00:00:00 97.3 92 20 00:00 84 OBJECTIVE DATA No information PHYSICAL EXAMINATION No information TREATMENT PLAN No information PROBLEMS No information RESULTS No information REVIEW OF SYSTEMS No information SUBJECTIVE DATA No information MEDICATIONS No information
--- OUTSIDE RECORDS SUMMARY | 2024-08-18 15:19 | XMS_ITS ---
Author Name Unknown Organization [facility] Address [address] [place] [address] Care Team Providers Care Geodetic Advisor Name Role Phone Alejandro Freitas Unavailable [phone] Encounters Encounter Location Date Provider Diagnosis [facility] [address] [facility] [address] [place] [address] 06/09/2024 Alejandro Freitas Plan Of Treatment Next Appt Details Provider Name:Alejandro barnett, 09/29/2024 10:00:00 AM, [address] , [address], [place], [address], Progress Notes * GREY GRIFFIN ADOB:1944 (79 yo F)Acc No.[id number]:06/09/2024 Patient:?GREY GRIFFIN :1945???Age:79 Y???Sex:Female Address:[address], [place], [address] * true * Date:? Generated for Manuel garrison/Armida/eTransmitting on:?08/18/2024 03:18 PM CDT
--- OUTSIDE RECORDS SUMMARY | 2024-08-18 15:19 | XMS_ITS ---
Author Name Unknown Organization [facility] Address [address] [place] [address] Care Team Providers Care Logistics Vice President Name Role Phone Alejandro Freitas Unavailable [phone] Encounters Encounter Location Date Provider Diagnosis [facility] [address] [facility] 100 [place] [address] 05/28/2024 Alejandro Freitas Plan Of Treatment Next Appt Details Provider Name:Alejandro barnett, 09/29/2024 10:00:00 AM, [address] , [address], [place], [address], Progress Notes * GREY GRIFFIN ADOB:1944 (79 yo F)Acc No.[id number]:05/28/2024 Patient:?GREY GRIFFIN :1945???Age:79 Y???Sex:Female Address:[address], [place], [address] * true * Date:? Generated for Manuel garrison/Armida/eTransmitting on:?08/18/2024 03:18 PM CDT
[2024-09-14] VITALS (18 sets, daily range): BP systolic 113–155; BP diastolic 67–98; PULSE 53–73; RESP 16–21; TEMP 36.4–36.9; O2SAT 91–100; BMI 28.8
--- OUTSIDE RECORDS SUMMARY | 2024-09-14 06:23 | XMS_ITS ---
Author Name Unknown Organization [facility] Address [address] [facility] [place] [address] Care Team Providers Care Off Premise Service Representative Name Role Phone Zena, Alejandro Unavailable [phone] REASON FOR VISIT f/u w CT abd w and without contrast per Dr. Freitas Encounters Encounter Location Date Provider Diagnosis [facility] [address] [place] [address] [address] [place] [address] 07/29/2024 Alejandro Freitas Plan Of Treatment No Information Progress Notes * GREY GRIFFIN ADOB:1944 (79 yo F)Acc No.[id number]:07/29/2024 Progress Notes Patient:?GREY GRIFFIN Provider:?Alejandro Freitas MD :1945???Age:79 Y???Sex:Female D ate:07/29/2024 Address:[address] [place] [address] [id number] Subjective: * Chief Complaints: * ???1. f/u w CT abd w and wit hout contrast per Dr. Freitas. * Medical History:? Objective: * Vitals:? Assessment: Plan: * Treatment: * Billing Information: * Visit Code:? * Procedure Codes:? * Electronic signature of Fatou Freitas MD on 09/14/2024 at 06:23 AM PCI SECURITY CONSULTANT Sign off status: Pending * Provider:?Alejandro Freitas MD Date:?07/06 Generated for Printi ng/Fagwyng/eTransmitting on:?09/14/2024 06:23 AM PCI SECURITY CONSULTANT
--- OUTSIDE RECORDS SUMMARY | 2024-09-14 06:23 | XMS_ITS ---
Author Name Unknown Organization [facility] Address [address] [facility] [place] [address] Care Team Providers Care Drilling Machine Runner Name Role Phone Alejandro Freitas Unavailable [phone] Encounters Encounter Location Date Provider Diagnosis [facility] [address] [place] [address] Dr [address] [place] [address] 08/19/2024 Alejandro Freitas Plan Of Treatment No Information Progress Notes * GREY GRIFFIN ADOB:1944 (79 yo F)Acc No.[id number]:08/19/2024 Patient:?GREY GRIFFIN :1945???Age:79 Y???Sex:Female Address:[address], [facility] [address] * true * Date:? Generated for Manuel garrison/Armdia/eTransmitting on:?09/14/2024 06:23 AM POT RUNNER
--- OUTSIDE RECORDS SUMMARY | 2024-09-14 06:24 | XMS_ITS | Patient Health Record ---
Author Name Unknown Organization [facility] Address [address] [place] [address] Care Team Providers Care Orthodontic Technician Name Role Phone Zena Alejandro Unavailable [phone] Reason For Referral No Information Problems Problem Type SNOMED Code ICD Code Onset Dates Problem Status W/U Status Risk Notes Problem 51399837 Calculus of kidney (N20.0) Active confirmed Encounters Encounter Location Date Provider Diagnosis [facility] [address] [place] [address] 05/08/2024 Alejandro [facility] [address] [place] [address] Dr [address]ar [address] [place] [address] 05/25/2024 Alejandro Freitas Calculus of kidney N20.0 [facility] [address] [place] [address] Dr [address] [place] [address] 05/25/2024 [facility] [address] [place] [address] Dr [address] [place] [address] 05/25/2024 Alejandro Solomonsay [facility] [address] [place] [address] Dr [address] [place] [address] 05/28/2024 Alejandro Solomonsay [facility] [address] [place] [address] Dr [address] [place] [address] 06/09/2024 Alejandro [facility] [address] [place] [address] Dr [address] [place] [address] 08/19/2024 Alejandro Freitas Assessments Encounter Date Diagnosis (ICD Code) Assessment Notes Treatment Notes Treatment Clinical Notes 05/25/2024 Calculus of kidney (ICD-10 - N20.0) Plan Of Treatment Pending Test Test Name Order Date Blood Urea Nitrogen (BUN) 15505 05/25/20 24 Creatinine (B) 69469 05/25/2024 CT Abdomen w/ + w/o Contrast-38874 05/25
--- OUTSIDE RECORDS SUMMARY | 2024-09-14 06:24 | XMS_ITS ---
Author Name Unknown Organization [facility] Address [address] [place] [address] Care Team Providers Care Angio Technologist Name Role Phone Alejandro Freitas Unavailable [phone] Encounters Encounter Location Date Provider Diagnosis [facility] [address] [place] [address] [address] [place] [address] 06/09/2024 Alejandro Freitas Plan Of Treatment No Information Progress Notes * GREY GRIFFIN ADOB:1944 (79 yo F)Acc No.[id number]:06/09/2024 Patient:?GREY GRIFFIN :1945???Age:79 Y???Sex:Female Address:[address], [facility] [address] * true * Date:? Generated for Manuel garrison/Armida/eTransmitting on:?09/14/2024 06:23 AM CS ASSOCIATE
[2024-09-14] MEDS: lactated ringers 500 ML IV (07:04)
[2024-09-14] MEDS: ketorolac 30 mg/mL INJ IVP (07:04)
--- NOTE | 2024-09-14 07:09 | ECG_ITS ---
[facility]: 2024-09[facility]14 Pat Name: Tressa Mcgill Department: Room: Gender: Female Flower Buncher Or Picker: : 1945 Requested By: Carlito Padilla Order Number: [id number] Steve MD: Felicitas Connell M.D. Measurements Intervals [place]o Rate: 47 P: 19 OK: 158 QRS: 15 QRSD: 135 T: 35 QT: 465 QTc: 413 Interpretive Statements SINUS BRADYCARDIA RIGHT BUNDLE BRANCH BLOCK [120+ ms QRS DURATION, UPRIGHT V1, 40+ ms S IN I/aVL/V4/V5/V6] Compared to ECG 05/21/2024 12:42:25 Right bundle-branch block now present Electronically Signed On 09-20-2024 20:59:57 CHEMISTRY INSTRUCTOR by Felicitas Connell M.D. [id number]
[2024-09-14] MEDS: acetaminophen 1,000 MG/100 ML PIGGYBACK 400 MG IV ×3 (07:10→20:25)
--- NOTE | 2024-09-14 07:15 | W.PM.OPSUD ---
Surgery/Procedure H&P Update DATE OF PROCEDURE: September 14, 2024 DATE H&P PERFORMED: 08/25/24 H&P UPDATE INFORMATION: I have reviewed H&P completed within last 30 days, I have examined patient prior to procedure and No changes to prior documentation CHANGES TO PREVIOUS DOCUMENTATION: Patient is clear the preoperative clearance process. No change in health since last visit she seen Dr. Cook and has been medically optimized here her UA is nonpathologic and no indications for antibiotics at this time. Patient and agree to proceed with surgical intervention today she has done well with her right total knee arthroplasty she is optimized and ready proceed with the left side today. All questions answered. PREOP DIAGNOSIS: Left knee degenerative joint disease PRIMARY INDICATION FOR PROCEDURE: Left knee degenerative joint disease PLANNED PROCEDURE: Operation Date: 09/14/24 09:10 Proposed Procedures p Fortunato Robot Total Knee Arthroplasty(Left) - Carrillo Talbert DO
[2024-09-14] MEDS: sodium chloride 0.9% 1,000 ML 30 ML IV (07:16)
[2024-09-14 07:17] LABS: Basophils # 0.1 10^3/uL (0.0-0.1); Basophils % 1.1 %; Eosinophils # 0.3 10^3/uL (0.0-0.8); Eosinophils % 5.3 %; Hematocrit 39.8 % (36-47); Lymphocytes # 2.4 10^3/uL (0.8-4.8); Mean Corpuscular HGB Conc 31.4 g/dL (30-55); Mean Corpuscular Hemoglobin 29.7 pg (27-33); Mean Corpuscular Volume 94.5 fl (85-98); Mean Platelet Volume 10.5 fL (7.4-10.4); Monocytes # 0.6 10^3/uL (0.2-0.9); Monocytes % 11.2 %; Neutrophils # 2.09 10^3/uL (1.8-7.7); Neutrophils % 38.2 %; Nucleated Red Blood Cells % 0 %; Platelet Count 217 10^3/cmm (157-399); Red Blood Count 4.21 10^6/uL (3.85-5.65); Red Cell Distribution Width 13.4 % (12.1-15.1); White Blood Count 5.46 10^3/uL (3.29-11.43)
[2024-09-14 07:37] LABS: Anion Gap 15.5 (5-19); Blood Urea Nitrogen 14 mg/dL (8-23); Calcium 10.1 mg/dL (8.5-10.5); Carbon Dioxide 22 mmol/L (22-29); Chloride 109 mmol/L (98-107); Creatinine Clr Calc Pharmacy 67.6935; Glucose 99 mg/dL (65-115); Osmolality Calculated 295 mOsm/kg (285-295); Potassium 4.5 mmol/L (3.5-5.1); Sodium 142 mmol/L (136-145)
--- NOTE | 2024-09-14 09:00 | ANES.PREANE2 ---
Pre-Anesthetic Assessment Height/Weight: Height 5 ft 8 in Weight 190 lb Temp Pulse Resp BP Pulse Ox O2 Del Method 97.6 F 53 L 18 124/92 99 Room Air 09/14/24 06:50 09/14/24 06:50 09/14/24 06:50 09/14/24 06:50 09/14/24 06:50 09/14/24 06:53 Preop Diagnosis: Left knee degenerative joint disease Operation Date: 09/14/24 09:10 Proposed Procedures p Fortunato Robot Total Knee Arthroplasty(Left) - Carrillo Talbert, DO Was Beta Pilo taken within 24 hours: N/A Was Clonidine taken within 24 hours: Yes Last intake: Intake Last Liquid Date 09/13/24 Last Liquid Time 17:30 Last Solid Date 09/13/24 Last Solid Time 17:30 Social No alcohol and No tobacco Exam alert, oriented x 3, clear to auscultation bilaterally and regular rate & rhythm Airway Submandibular: within normal limits Cervical ROM: within normal limits Mallampati: Class III Dentition: partials Anesthetic Plan ASA status: 3 Anesthesia: MAC and Regional (specify below) Other: Patient had a previous total knee replacement earlier this year and had significant difficulty awakening from anesthesia with prolonged confusion for days. Patient does have dementia at baseline, states that they believe it is Alzheimer's disease. NPO since yesterday Takes clonidine, amlodipine and metoprolol for BP. Preop BP 124/92 They deny any pulmonary issues Labs reviewed and acceptable for procedure Plan will be to perform spinal anesthetic as last time without any benzodiazepines. Will work in pain medication postop if needed. Plan for adductor canal block as well Medications/Allergies Home Medications Medication Instructions Recorded Confirmed Last Taken Type acetaminophen 325 mg capsule 325 mg PO Q4H PRN fever or 09/18/23 09/14/24 Unknown Rx postoperative pain #60 caps docusate sodium 100 mg capsule 100 mg PO BID PRN Constipation 11/06/23 09/14/24 09/13/24 History (Colace) biotin 10 mg tablet 10 mg PO DAILY 02/09/24 09/14/24 09/13/24 History cholecalciferol (vitamin D3) 25 25 mcg PO DAILY 02/09/24 09/14/24 09/13/24 History mcg (1,000 unit) capsule (Vitamin D3) multivitamin-ferrous 1 tab PO DAILY 02/09/24 09/14/24 09/13/24 History fumarate-folic acid 18 mg-400 mcg tablet benzonatate 100 mg capsule 100 mg PO TID PRN cough #30 caps 02/13/24 09/14/24 09/13/24 Rx aspirin 81 mg tablet,delayed 81 mg PO DAILY 05/21/24 09/14/24 09/08/24 History release mirabegron 25 mg tablet,extended 25 mg PO DAILY Stop oxybutynin #90 05/25/24 09/14/24 09/13/24 Rx release 24 hr tabs clonidine HCl 0.1 mg tablet 0.1 mg PO DAILY #90 tabs 06/30/24 09/14/24 09/13/24 Rx amlodipine 10 mg tablet 10 mg PO DAILY #90 tabs 07/07/24 09/14/24 09/13/24 Rx atorvastatin 40 mg tablet 40 mg PO DAILY #90 tabs 07/07/24 09/14/24 09/13/24 Rx citalopram 40 mg tablet 40 mg PO DAILY #30 tabs 07/07/24 09/14/24 09/13/24 Rx quetiapine 25 mg tablet 25 mg PO BEDTIME #90 tabs 07/07/24 09/14/24 09/13/24 Rx meloxicam 7.5 mg tablet 7.5 mg PO DAILY PRN pain #30 tabs 07/20/24 09/14/24 09/08/24 Rx metoprolol tartrate 25 mg tablet See Rx Instructions .Route 09/14/24 Unknown Rx .COMPLEX #60 tabs Allergies Allergy/AdvReac Type Severity Reaction Status Date / Time No Known Allergies Allergy Verified 09/10/24 13:47 Current Medications Generic Name Dose Route Start Last Admin Trade Name Freq PRN Reason Stop Dose Admin Sodium Chloride 1,000 mls @ 30 mls/hr 09/14/24 06:30 09/14/24 07:16 Sodium Chloride 0.9% IV 09/15/24 06:29 30 mls/hr .Q24H SARINA Administration PFSH Anesthesia Medical History Primary hyperparathyroidism Cyst of left kidney Cyst measures 1.4 x 1.4 x 1.4 cm. History of CVA (cerebrovascular accident) Small focus of chronic ischemia along the anterior limb LEFT internal capsule Osteopenia Hypertension Dementia Parathyroid adenoma SOLOMON (generalized anxiety disorder) Hypercalcemia History of kidney stones Urinary incontinence Surgical History History of arthroplasty of right knee History of parathyroidectomy History of anterior colporrhaphy (~09/17/23) Anterior colporrhapy augmented with allograft, posterior colporrhapy, sacrospinous fixation, cystoscopy performed by Vaughn Family History Father Dementia Denies family history of Colon cancer Ovarian cancer Diabetes Heart disease Hypercholesteremia Breast cancer Hypertension Uterine cancer Thyroid disease Stroke Social History Smoking and tobacco/nicotine status: never used tobacco/nicotine Alcohol intake: current Alcohol intake frequency: few times a month Household members: spouse Marital status: Current occupational status: retired Special bekah needs: No Agree to transfusion: Yes Data Anesthesia 09/14/24 06:50 09/14/24 06:50 Short CBC 09/14/24 Range/Units 06:50 WBC 5.46 (3.29-11.43) 10^3/uL Hgb 12.50 (11.27-16.99) g/dL Hct 39.8 (36-47) % MCV 94.5 (85-98) fl Plt Count 217 (157-399) 10^3/cmm Neut % (Auto) 38.2 % Neut # (Auto) 2.09 (1.8-7.7) 10^3/uL BMP 09/14/24 06:50 Sodium 142 Potassium 4.5 Chloride 109 H Carbon Dioxide 22 BUN 14 Creatinine 0.6 Glucose 99 Calcium 10.1 Blood Bank 09/14/24 06:50 Blood Type O Positive Rho(D) Type Rh positive Antibody Screen Negative Cardiac Studies: Echocardiogram 06/24/24 Sestamibi Stress Test (Cardiology) 06/24/24
[2024-09-14] MEDS: ceFAZolin 2,000 MG in sodium chloride 0.9% (plus) 50 ML 100 MG IV ×2 (09:27→19:34)
--- NOTE | 2024-09-14 09:28 | XRR_ITS ---
PROCEDURE INFORMATION: Exam: XR Left Knee Exam date and time: 09/14/2024 12:08 PM Age: 79 years old Clinical indication: Device placement; Joint replacement hardware; Prior surgery; Surgery date: Post-operative (0-2 days); Surgery type: Left tka; Additional info: Post L tka, do in pacu TECHNIQUE: Imaging protocol: Radiologic exam of the left knee. Views: 3 views. COMPARISON: CT knee LT [place] [id number] 08/31/2024 8:53 AM FINDINGS: Bones/joints: Total-knee replacement. Anatomic alignment. Bone and metal are intact. Periarticular gas. Soft tissues: Normal. XR/XR knee LT 3V* [id number] IMPRESSION: No acute findings.
[2024-09-14] MEDS: tranexamic acid 1,000 mg/10mL SDV 1000 MG IV (10:00)
[2024-09-14] MEDS: tranexamic acid 1,000 mg/10mL SDV 1000 MG XX (10:47)
[2024-09-14] MEDS: ROPivacaine 0.2% Premix 100 mL 200 MG INTRA-ARTI (10:47)
[2024-09-14] MEDS: EPINEPHrine 1 mg/mL INJ XX (10:47)
[2024-09-14] MEDS: ketorolac 30 mg/mL INJ XX (10:47)
--- NOTE | 2024-09-14 11:44 | W.PM.BPON ---
Date of Procedure: 09/14/2024 Surgeon: Carrillo Talbert DO Flying Instructor(s): Nickolas Talbert PA-C Procedure(s) performed: Left total knee arthroplasty?Fortunato robotic assisted Findings of the procedure(s): Patient underwent procedure as planned without issues or complications taken PACU in stable condition. Estimated blood loss: 25 mL Specimen(s) removed: Tibia femur and patellar bone cuts removed Post-operative diagnosis: Left knee severe degenerative joint disease
--- NOTE | 2024-09-14 11:45 | P.OP_ITS ---
Operative Report Date of procedure: September 14, 2024 Surgeon: Carrillo Talbert DO Ground Water Technician: Nickolas Talbert PA-C: PA was necessary for assistance in this case with leg positioning retraction and protection of neurovascular structures as well as assistance in implantation wound closure and dressing application. Procedure: Preoperative diagnosis: Left knee degenerative joint disease Post-op diagnosis: Same Procedure done: Left total knee arthroplasty, cemented?robotic assisted Fortunato Implants: [place] triathlon size 4 femur CR cemented?left [place] triathlon size? 3 tibia universal baseplate cemented [place] triathlon symmetric patella size 31 mm Rodrick triathlon polyethylene 10mm Surgeon: Carrillo Talbert DO Estimated blood?loss: 25 mL Tourniquet 60minutes IV fluids: 800 mL Urine output: 600 mL Complications: None Condition: stable Disposition: floor Brief History: Patient is a 79-year-old female with with chronic?left knee degenerative joint disease.? Patient has been worked up in the outpatient setting in the orthopedic office at this point time through shared decision making given? [id number] arthritis as well as failed conservative treatment, and pt would?like to proceed with a?left total knee arthroplasty.? Through shared decision making elected to proceed with surgical intervention for?left total knee arthroplasty.? We talked about continued conservative treatment and surgical intervention as far as the risk benefits complications alternatives surgical and nonsurgical treatment options.? At this point time understanding patient risks with surgery patient agrees to proceed with surgical intervention.? Once again? risk with surgery include but are not?limited to make it better make it worse blood clot, heart attack, stroke, on the table, infection, injury to nerves or vessels, persistent pain, arthrofibrosis, implant failure.? Understanding these risks patient agrees to proceed with surgical intervention consent was obtained in the office.? All questions answered. Procedure: Patient was seen and evaluated in the preoperative holding area.? Consent was reviewed and signed with patient with plan for?left total knee arthroplasty.? All questions answered.? Correct extremity marked.? Patient seen and evaluated by the anesthesia department and once cleared for surgery was taken back to the operative suite.? Patient was placed into a supine position on the OR table.? All bony prominences were well-padded.? Patient was appropriately secured to the bed.? Patient underwent anesthesia per the anesthesia department.? Patient received spinal anesthesia and? Wall catheter was placed.? A nonsterile tourniquet was applied to the?left thigh.? At this point in time a final timeout performed.? Patient received appropriate preoperative antibiotics and TXA. Next the?left?lower extremity was then prepped and draped in standard orthopedic fashion. Esmarch tourniquet was used exsanguinate the?left?lower extremity.? Tourniquet was insufflated to 250 mmHg. A standard anterior incision was made over midline of the knee.? Sharp scalpel excision through skin and subcutaneous tissue full-thickness skin flaps were made.? Fascia was elevated off of the extensor retinaculum was stable with medial parapatellar arthrotomy was then made.? The performed standard sequential releases..? Immediately on entry into the joint patient was found to have severe eburnated bone and tricompartmental arthritic changes noted.? With significant osteophyte formation.? Next the the patella was then stuffed and the knee was t hen flexed.?? Roger was placed superiorly around the anterior aspect of the femur this was freed of synovium and I subsequently then placed by 2 femur pins to establish my femur arrays for the Fortunato robot.? These were then placed bicortically and? femur array was then appropriately secured with appropriate visualization.? Next attention was turned towards the tibial rays.? These were then drilled sequentially bicortically in parallel fashion and intraincisional.? I then placed my guide as well as my tibial array on in place.? This was appropriately secured and had excellent visualization with the Fortunato robot.? Next the tibial checkpoint as well as femur checkpoint were then placed.? At this point time I then subsequently established my head center as well as my medial?lateral malleoli as well as my checkpoints.? Next utilizing standard Fortunato technology I then mapped out the appropriate points and confirmation points around the femur as well as the tibia in standard fashion.? Once this was then done I then removed all osteophytes in preparation for dynamic testing.? All osteophytes were removed as well as I removed the ACL and the PCL was excised due to its significant tearing and degeneration noted.? At this point time the knee was brought into full extension and we performed our standard evaluation of our gap balancing stressing his?ligaments and extension as well as flexion appropriate adjustments were made to have appropriate gap balancing in both flexion and extension.? This plan for final counts.? We get a preoperative plan evaluating our implants which was a size 4 femur and a size 3 tibia.? Next we brought in the Fortunato robot and sequentially made our femur cuts.? All excess bony cuts were then removed.? Finally we made our tibial cut.? Once this was done a standard PCL retractor was then placed into this position I excised the medial and?lateral meniscus.? The tibial cut was then subsequently removed all excess bony debris was removed.? I then utilized a?lamina nocturnist and remove the posterior osteophytes.? At this point time sized the tibia and confirmed this was a size 3.? I utilized our blunt probe to establish rotation of tibial implant.? Once this was done I then placed my tibia size 3 trial in appropriate position and then subsequently placed tibial pins to hold this into place placed a size 10 mm poly as well as a size 4 femur which was appropriately impacted in place knee was then subsequently brought into extension. Trials were then assessed,? this was stable with varus valgus stress in extension as well as had symmetrical translation when brought into flexion demonstrating symmetrical gaps. I had excellent balance gaps in flexion and extension with varus and valgus stresses.? At this point I was satisfied with these implants these were then verified and opened on the back table size 3 tibia, size 4 femur,? size 10 mm polythickness.? We did confirm appropriate gap balancing and stresses as well as alignment utilizing? Fortunato and were satisfied with this plan.? ?At this point time with my trials in place I then towel clip the patella everted this made appropriate measurements subsequently utilizing freehand technique performed by patellar resurfacing this was confirmed to be appropriate resection and subsequently sized to be a 31 mm symmetric.? My drill peg guides were then clamped and appropriate position and appropriate position in the patella for appropriate tracking and parallel with the joint.? Pegs were drilled trial implant was placed and the knee was then subsequently ranged and found to have excellent patellar tracking.? Femur pegs were then drilled.? All checkpoints as well as guidepins and arrays were removed and appropriate counts made. Satisfied with our tibial placement rotation I then utilized the keel punch and prepped the tibia.? At this point time all of our trial implants were removed.? The wound bed? was thoroughly irrigated and dried and prepped for cementation.? Cement was mixed on the back table.? Once cement was ready this was then covered onto the tibia and the tibial baseplate was then impacted and all excess cement was removed.? Next the polyethylene was then impacted into place on the tibial baseplate.? Next cement was placed onto the femur as well as under the femur implants and impacted in to place and all excess cement was extruded and removed.? Knee was taken into full extension? to clear all excess cement was removed.? Warm saline was placed over the joint.? I then towel clip patella and dried for cementation. cemented the patella into place.? This was all clamped and the cement was allowed to cure.? Thorough irrigation performed with pulse?lavage.? I then placed my periarticular injection while the cement was curing.? Once cured the knee was taken through range of motion and had excellent stability and gaps were balanced in flexion and extension.? Tourniquet was then deflated. hemostasis satisfactory with electrocautery.? Next I then subsequently closed the capsule with Ethibond suture as well as a running strata fix suture.? Knee was then taken through range of motion 30 times.? Next the skin was then closed in?layered fashion of running stratifix sutures of deep and subcutenous tissue and skin.? ?closed in flexion and Prineo glue was then placed over the incision this allowed to cure.? Incision was covered with Silverlon, with ABDs soft roll and Jc wrap.? Patient was then awakened from anesthesia and taken to PACU in stable condition. Disposition: Patient taken to PACU in stable condition will be admitted to the floor for pain control PT/OT weight-bear as tolerated?left?lower extremity dressing changes as needed, DVT prophylaxis. Pain control. Patient will receive appropriate postoperative antibiotics. patient will be seen today by the internal medicine team for medical management.? Patient will follow up with the office in 2 weeks.? Patient understands agrees with current plan.? All questions answered.
--- NOTE | 2024-09-14 12:27 | ANE.PACU2 ---
Inpatient post-anesthesia follow up: Airway intact: Yes Vital signs: Temperature 98.5 F Pulse Rate 62 Respiratory Rate 17 Blood Pressure 138/82 Pulse Oximetry 99 Oxygen Delivery Me thod Room Air Oxygen Flow Rate Fraction of Inspir ed Oxygen Hydration adequate: Yes Nausea and vomiting: No Pain level: 1 Mental status: Baseline
--- NOTE | 2024-09-14 12:38 | PC.NURSE ---
1231 - documentation in this chart completed in phase 1 entirely by BETI Silverio - pt taken to room 267 with awaiting - remains in no distress and alert and orientated - v/s BP 147-67 - pulse 62 - RR 20 temp 98.2 - knee dressing remains c/d/i with little draining - accepted on floor by BETI Vásquez
--- NOTE | 2024-09-14 13:01 | P.CONIM_ITS ---
Providers/Reason For Consult 2 Consulting Physician/Specialty*: Benjamín Fontanez MD, Hospitalist. Reason for Consult*: Medical management Requesting Physician: Dr. Talbert Attending Physician: Carrillo Talbert DO Primary Care Provider: Justine Cook MD History of Present Illness History of Present Illness Tressa Mcgill is a 79 year old female who underwent a left total knee arthroplasty today for degenerative joint disease. I have been asked to follow her under medical management. There was some concern with her operation in the past, in February with encephalopathy. She currently is in the postoperative recovery area, reporting no significant pain, is alert and oriented. She denies any chest discomfort. Review of Systems 2 General: Reports: 10 or more systems reviewed and unremarkable except in HPI and below Card: Denies: chest pain Resp: Denies: dyspnea GI: Denies: abdominal pain Medications/Allergies Home Medications Medication Instructions Recorded Confirmed Last Taken Type acetaminophen 325 mg capsule 325 mg PO Q4H PRN fever or 09/18/23 09/14/24 Unknown Rx postoperative pain #60 caps docusate sodium 100 mg capsule 100 mg PO BID PRN Constipation 11/06/23 09/14/24 09/13/24 History (Colace) biotin 10 mg tablet 10 mg PO DAILY 02/09/24 09/14/24 09/13/24 History cholecalciferol (vitamin D3) 25 25 mcg PO DAILY 02/09/24 09/14/24 09/13/24 History mcg (1,000 unit) capsule (Vitamin D3) multivitamin-ferrous 1 tab PO DAILY 02/09/24 09/14/24 09/13/24 History fumarate-folic acid 18 mg-400 mcg tablet benzonatate 100 mg capsule 100 mg PO TID PRN cough #30 caps 02/13/24 09/14/24 09/13/24 Rx aspirin 81 mg tablet,delayed 81 mg PO DAILY 05/21/24 09/14/24 09/08/24 History release mirabegron 25 mg tablet,extended 25 mg PO DAILY Stop oxybutynin #90 05/25/24 09/14/24 09/13/24 Rx release 24 hr tabs clonidine HCl 0.1 mg tablet 0.1 mg PO DAILY #90 tabs 06/30/24 09/14/24 09/13/24 Rx amlodipine 10 mg tablet 10 mg PO DAILY #90 tabs 07/07/24 09/14/24 09/13/24 Rx atorvastatin 40 mg tablet 40 mg PO DAILY #90 tabs 07/07/24 09/14/24 09/13/24 Rx citalopram 40 mg tablet 40 mg PO DAILY #30 tabs 07/07/24 09/14/24 09/13/24 Rx quetiapine 25 mg tablet 25 mg PO BEDTIME #90 tabs 07/07/24 09/14/24 09/13/24 Rx meloxicam 7.5 mg tablet 7.5 mg PO DAILY PRN pain #30 tabs 07/20/24 09/14/24 09/08/24 Rx metoprolol tartrate 25 mg tablet See Rx Instructions .Route 09/14/24 Unknown Rx .COMPLEX #60 tabs Allergies Allergy/AdvReac Type Severity Reaction Status Date / Time No Known Allergies Allergy Verified 09/10/24 13:47 PFSH Acute 2 PFSH: Medical History Primary hyperparathyroidism Cyst of left kidney Cyst measures 1.4 x 1.4 x 1.4 cm. History of CVA (cerebrovascular accident) Small focus of chronic ischemia along the anterior limb LEFT internal capsule Osteopenia Hypertension Dementia Parathyroid adenoma SOLOMON (generalized anxiety disorder) Hypercalcemia History of kidney stones Urinary incontinence Surgical History History of arthroplasty of right knee History of parathyroidectomy History of anterior colporrhaphy (~09/17/23) Anterior colporrhapy augmented with allograft, posterior colporrhapy, sacrospinous fixation, cystoscopy performed by Vaughn Family History Father Dementia Denies family history of Colon cancer Ovarian cancer Diabetes Heart disease Hypercholesteremia Breast cancer Hypertension Uterine cancer Thyroid disease Stroke Social History Smoking and tobacco/nicotine status: never used tobacco/nicotine Alcohol intake: current Alcohol intake frequency: few times a month Household members: spouse Marital status: Current occupational status: retired Special bekah needs: No Agree to transfusion: Yes Vitals/I&O/Wt Last Vital Signs Temp 98.5 F 09/14/24 12:23 Pulse 62 09/14/24 12:23 Resp 17 09/14/24 12:23 BP 138/82 09/14/24 12:23 Pulse Ox 99 09/14/24 12:23 O2 Del Method Room Air 09/14/24 12:23 09/13/24 09/14/24 09/14/24 22:59 06:59 14:59 Intake Total 700 / 700 Output Total 625 / 625 Balance 75 / 75 Weight last 48 hrs Weight 86.183 kg Physical Exam 2 Narrative: General exam is a black female, no distress, pleasant and conversive. HEENT: Atraumatic normocephalic. Oropharynx clear Neck is supple Cardiovascular regular rate and rhythm, no murmur Lungs clear Abdomen is soft Extremities no cyanosis clubbing or edema, left knee with dressing. Right knee scar is well-healed Skin no rash Neuro no focal deficits Urinary Catheter Management: Wall: Cath Placed During This Visit: yes Urinary Catheter Date of Insertion: 09/14/24 Urinary Catheter Time of Insertion: 09:45 Data 09/14/24 06:50 09/14/24 06:50 Other Labs: EKG demonstrated sinus bradycardia at a rate of around 50, normal axis, right bundle branch block. Bundle branch block appears new. A&P Assessment and plan (1) Left knee DJD: Patient is directly postoperative left knee operation, total arthroplasty Therapy consultation Laboratory in the morning Eliquis for DVT prophylaxis (2) Hypertension: Resume her home medicines of clonidine and amlodipine monitoring her blood pressure closely. She is also on metoprolol. Will reevaluate use of this in the morning. Note that her EKG demonstrated a heart rate around 48 with a new right bundle. Qualifiers: Hypertension type: primary hypertension Qualified Code(s): I10 - Essential (primary) hypertension (3) Dementia: Patient with history of some memory loss, and some encephalopathy with last in the operation Continue home medications Limit narcotics is much as possible Qualifiers: Dementia type: Alzheimer's Alzheimer's disease onset: other onset D ementia severity: moderate Dementia behavioral or psychological symptom: with agitation Qualified Code(s): G30.8 - Other Alzheimer's disease; F02.B11 - Dementia in other diseases classified elsewhere, moderate, with agitation Plan Other medical problems as outlined in past medical history Thank you for this consultation, we will continue to follow with you Consult Attestations 2 Medical Necessity Statement: As per primary Diagnoses Left knee DJD M17.12 Primary hypertension I10 Hypertension type: primary hypertension Moderate Alzheimer's dementia of other onset with agitation G30.8; F02.B11 Dementia type: Alzheimer's Alzheimer's disease onset: other onset Dementia severity: moderate Dementia behavioral or psychological symptom: with agitation Time Spent (min) 38
[2024-09-14] MEDS: chlorhexidine gluconate 0.12% Btl 473 mL 30 ML MUCOUS MEM ×3 (13:24→20:27)
[2024-09-14] MEDS: lactated ringers 1,000 ML 83 ML IV (13:25)
--- NOTE | 2024-09-14 14:27 | PM.PACU ---
PACU note Narrative: Patient is a 79-year-old female who just underwent a left total knee arthroplasty. Pt transferred to PACU in stable condition. Dressing is dry. pt is awake and alert. pt can wiggle toes and plantarflex and dorsiflex foot. pt able to perform straight leg raise, Femoral nerve intact. Distal pulses are palpable toes are warm and well-perfused. Cap refill is normal and under 2 seconds. Sensation to foot is intact. Pain is controlled. Exam: awake Disposition: admitted
[2024-09-14] MEDS: oxyCODONE 5 mg IR Tab/Cap PO ×2 (15:45→20:24)
[2024-09-14] MEDS: tranexamic acid 1,000 MG/100 ML PREMIX 600 MG IV (17:38)
[2024-09-14] MEDS: calcium carb-vit d 600mg/400unit 1 Tablet 1 EACH PO (17:45)
[2024-09-14] MEDS: docusate sodium 100 mg Capsule PO (17:45)
[2024-09-14] MEDS: iron polysaccharide complex 150 mg Capsule PO (17:45)
[2024-09-14] MEDS: quetiapine 25 mg Tablet PO (20:24)
[2024-09-14] MEDS: ketorolac 30 mg/mL INJ 15 MG IVP (20:25)
[2024-09-15 00:08] VITALS: BP 156/84; PULSE 66; RESP 16; TEMP 36.9; O2SAT 98
[2024-09-15] MEDS: ceFAZolin 2,000 MG in sodium chloride 0.9% (plus) 50 ML 100 MG IV ×2 (02:14→08:09)
[2024-09-15] MEDS: lactated ringers 1,000 ML 83 ML IV (02:14)
[2024-09-15] MEDS: acetaminophen 1,000 MG/100 ML PIGGYBACK 400 MG IV (03:48)
[2024-09-15 04:51] VITALS: BP 148/76; PULSE 71; RESP 18; TEMP 36.6; O2SAT 97
[2024-09-15 05:05] LABS: Basophils % 0.6 %; Eosinophils # 0.2 10^3/uL (0.0-0.8); Eosinophils % 2.7 %; Hematocrit 38.3 % (36-47); Lymphocytes % 14.7 %; Mean Corpuscular HGB Conc 32.1 g/dL (30-55); Mean Corpuscular Hemoglobin 30.1 pg (27-33); Mean Corpuscular Volume 93.6 fl (85-98); Mean Platelet Volume 10.2 fL (7.4-10.4); Monocytes # 0.7 10^3/uL (0.2-0.9); Monocytes % 9.7 %; Neutrophils # 5.11 10^3/uL (1.8-7.7); Nucleated Red Blood Cells % 0 %; Platelet Count 199 10^3/cmm (157-399); Red Blood Count 4.09 10^6/uL (3.85-5.65); Red Cell Distribution Width 13.4 % (12.1-15.1); White Blood Count 7.09 10^3/uL (3.29-11.43)
[2024-09-15 05:33] LABS: Anion Gap 11.1 (5-19); Blood Urea Nitrogen 8 mg/dL (8-23); Calcium 9.9 mg/dL (8.5-10.5); Carbon Dioxide 24 mmol/L (22-29); Chloride 106 mmol/L (98-107); Creatinine Clr Calc Pharmacy 67.6935; Glucose 136 mg/dL (65-115); Osmolality Calculated 284 mOsm/kg (285-295); Potassium 4.1 mmol/L (3.5-5.1); Sodium 137 mmol/L (136-145)
[2024-09-15] MEDS: ketorolac 30 mg/mL INJ 15 MG IVP (06:33)
[2024-09-15 06:34] VITALS: RESP 18; O2SAT 97
[2024-09-15] MEDS: oxyCODONE 5 mg IR Tab/Cap PO (06:34)
[2024-09-15 07:39] VITALS: BP 159/97; PULSE 79; RESP 17; TEMP 37; O2SAT 96
[2024-09-15] MEDS: calcium carb-vit d 600mg/400unit 1 Tablet 1 EACH PO (08:07)
[2024-09-15] MEDS: apixaban 5 mg Tablet 2.5 MG PO (08:07)
[2024-09-15] MEDS: multivitamin therapeutic Tablet 1 TAB PO (08:07)
[2024-09-15 08:08] VITALS: BP 159/97
[2024-09-15] MEDS: docusate sodium 100 mg Capsule PO (08:08)
[2024-09-15] MEDS: cloNIDine 0.1 mg Tablet PO (08:08)
[2024-09-15] MEDS: atorvastatin 40 mg Tablet PO (08:08)
[2024-09-15] MEDS: amlodipine 10 mg Tablet PO (08:08)
[2024-09-15] MEDS: aspirin 81 mg EC Tablet PO (08:08)
[2024-09-15] MEDS: iron polysaccharide complex 150 mg Capsule PO (08:08)
--- NOTE | 2024-09-15 08:08 | P.PN_ITS ---
Subjective 2 Subjective: Tressa reports she is little nauseous this morning. She has been up with therapy. No other complaints. Medications: Reviewed: Yes Vitals/I&O/Wt Last Vital Signs Temp 98.6 F 09/15/24 07:39 Pulse 79 09/15/24 07:39 Resp 17 09/15/24 07:39 BP 159/97 09/15/24 07:39 Pulse Ox 96 09/15/24 07:39 O2 Del Method Room Air 09/15/24 07:39 09/14/24 09/15/24 09/15/24 22:59 06:59 14:59 Intake Total 810 / 1610 1390 / 3000 Output Total 950 / 1575 700 / 2275 Balance -140 / 35 690 / 725 Weight last 48 hrs Weight 86.5 kg Weight 86.183 kg Weight 86.183 kg Physical Exam 2 Narrative: General exam is a black female, no distress, pleasant and conversive. Neck is supple Cardiovascular regular rate and rhythm, no murmur Lungs clear Abdomen is soft Extremities no cyanosis clubbing or edema, left knee with dressing. Right knee scar is well-healed Urinary Catheter Management: Wall: Cath Placed During This Visit: yes, but has since been removed by the nurse Reason for Continuing Indwelling Catheter: Decision to DC Catheter Urinary Catheter Date of Insertion: 09/14/24 Urinary Catheter Time of Insertion: 09:45 Date Urinary Catheter Removed: 09/15/24 Time Urinary Catheter Discontinued: 06:42 Data 09/15/24 04:49 09/15/24 04:49 A&P Assessment and plan (1) Left knee DJD: Patient is directly postoperative day #1 left knee operation, total arthroplasty Therapy consultation appreciated Laboratory reviewed, no concerns Eliquis for DVT prophylaxis Discussed with nursing to try tramadol instead of oxycodone secondary to nausea, give Zofran. (2) Hypertension: Resume her home medicines of clonidine and amlodipine monitoring her blood pressure closely. She is also on metoprolol. Can restart her metoprolol today, reduced dose from admission at 12.5 mg twice daily Qualifiers: Hypertension type: primary hypertension Qualified Code(s): I10 - Essential (primary) hypertension (3) Dementia: Patient with history of some memory loss, and some encephalopathy with last in the operation Continue home medications Limit narcotics is much as possible Qualifiers: Dementia type: Alzheimer's Alzheimer's disease onset: other onset D ementia severity: moderate Dementia behavioral or psychological symptom: with agitation Qualified Code(s): G30.8 - Other Alzheimer's disease; F02.B11 - Dementia in other diseases classified elsewhere, moderate, with agitation Plan Other medical problems as outlined in past medical history Thank you for this consultation, we will continue to follow with you Medically stable at this time Attestations 2 Medical Necessity Statement*: As per primary Diagnoses Left knee DJD M17.12 Primary hypertension I10 Hypertension type: primary hypertension 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
[2024-09-15] MEDS: citalopram 20 mg Tablet 40 MG PO (08:09)
[2024-09-15] MEDS: chlorhexidine gluconate 0.12% Btl 473 mL 30 ML MUCOUS MEM ×2 (08:10→12:35)
[2024-09-15] MEDS: TRAMadol 50 mg Tablet PO (09:42)
[2024-09-15] MEDS: metoprolol tartrate 25 mg Tablet 12.5 MG PO (09:42)
--- NOTE | 2024-09-15 10:02 | PC.CHAP ---
Pastoral Care Encounter/Spiritual Assessment Type of Contact [] Declined ct scan special procedures technologist visit [] Patient/Family/Request visit [] Outpatient visit [] Follow-up visit [] Physician referral [] Code/Alert [x] Routine visit [] Staff referral [] Actively dying [] Patient sleeping [x] Family support [] [] Out of room [] Palliative care [] [] Receiving care in room [] Pre-surgical visit [] Trauma [] Long length of stay [] ICU visit [] Other: Relational/Emotional Strength [x] Patient feels connected with others/family/visitors/staff [] Distress [] Loneliness/isolation [] Abandonment Spirituality of Patient [x] Person of [place] [] Attends Congregation of their [place] [x] Believes in Prayer [] Reads Bible or Christian materials [] There are Spiritual issues to be addressed Returned Telephone Equipment Appraiser Interventions [x] Prayer [x] Active listening [] Non-anxious presence [x] Spiritual/emotional support [] Crisis/trauma care [] Spiritual counseling [] Bereavement support [] Provided bereavement packet [] Provided Bible/devotional materials [] Provided toy/stuffed animal, coloring book to patient or family member [] Provided Communion [] Anointing/[place] [] Salvation [x] Completed spiritual assessment [] Other: Impact on Illness or Injury [] Angry [] Fearful [] Anxious [] Often cries [] Exhaustion [] Unable to work [] Unable to attend restorationist [] Unable to walk/stand [] Unable to read [] Unable to drive [] Unable to eat/drink [] Unable to sleep [] Unable to be with family [] Patient intubated [] Other: Summary Time spent with patient 5 min
[2024-09-15 11:17] VITALS: BP 110/69; PULSE 66; RESP 16; TEMP 36.6; O2SAT 96
--- NOTE | 2024-09-15 12:38 | P.DS_ITS ---
Discharge Providers Date of Admission: 09/14/24 11:16 Date of Discharge: September 15, 2024 Attending Provider at Admission: Carrillo Talbert DO Attending Provider at Discharge: Carrillo Talbert DO Consults: Hospitalist?Dr. Fontanez Primary Care Provider: Justine Cook MD Diagnoses at Discharge Discharge Diagnosis (1) Left knee DJD: Status: Resolved (2) Hypertension: Status: Chronic Qualifiers: Hypertension type: primary hypertension Qualified Code(s): I10 - Essential (primary) hypertension (3) Dementia: Status: Chronic Qualifiers: Alzheimer's disease onset: other onset Dementia behavioral or psychological symptom: with agitation Dementia severity: moderate Dementia type: Alzheimer's Qualified Code(s): G30.8 - Other Alzheimer's disease; F02.B11 - Dementia in other diseases classified elsewhere, moderate, with agitation Reason for Visit Reason for Visit: M17.12 Brief History: Status post left TKA Hospital Course Hospital Course Patient presented to the preoperative holding area with plan for left total knee arthroplasty after patient has been worked up in the outpatient setting for failed conservative treatment of left knee degenerative joint disease. Once cleared by anesthesia for surgery patient subsequently was taken back to the operative suite underwent anesthesia per anesthesia department and then subsequently underwent a left total knee arthroplasty. Procedure was performed without any complications patient was taken to PACU in stable condition patient recovered well in PACU and then was admitted to the floor postoperatively internal medicine was consulted and on board for medical management and assistance with care. Patient received appropriate PT/OT, postoperative antibiotics, postoperative TXA, pain control, postoperative DVT prophylaxis. Elevation and ice. Patient encouraged for knee range of motion allowed weightbearing as tolerated to the operative lower extremity. Dressing was changed as needed, labs were monitored daily. Patient recovered well postoperatively and worked well and progressed well with therapy. Patient had done well during this hospitalization it was much better pertaining to her dementia. She is accompanied by her at discharge and they are ready for discharge postoperative day wound.. It was determined on postoperative day 1 the patient was stable for discharge from an orthopedic standpoint and medicine. Patient was comfortable with discharge and plan was discharged home. Patient received appropriate discharge instructions as well as pain medication and DVT prophylaxis postoperatively. Given appropriate instructions for dressing management. Patient will follow-up with Dr. Talbert/orthopedics in the office in 2 weeks. All questions answered. Understand if there is any issues questions or concerns and contact the office. Physical Exam Narrative: Left knee examination demonstrates dressings on in place are clean dry and intact compartments are soft compressible normal postoperative swelling and tenderness palpation about the left knee. Patient's calf soft nontender. Patient is able to wiggle the toes plantarflex and dorsiflex ankle, sensations intact light touch distally distal pulses are palpable Urinary Catheter Management: Wall: Cath Placed During This Visit: yes, but has since been removed by the nurse Reason for Continuing Indwelling Catheter: Decision to DC Catheter Urinary Catheter Date of Insertion: 09/14/24 Urinary Catheter Time of Insertion: 09:45 Date Urinary Catheter Removed: 09/15/24 Time Urinary Catheter Discontinued: 06:42 Discharge Data Studies Completed and Pending Completed Studies During Hospitalization Category Date Time Status XR knee LT 3V* [id number] Routine Exams 09/14/24 09:28 Completed Pending at discharge Category Date Time Status Basic Metabolic Panel AM LABS Lab 09/16/24 04:00 Ordered Basic Metabolic Panel AM LABS Lab 09/17/24 04:00 Ordered Complete Blood Count w/Auto AM LABS Lab 09/16/24 04:00 Ordered Complete Blood Count w/Auto AM LABS Lab 09/17/24 04:00 Ordered Radiology Impressions Knee X-Ray 09/14/24 09:28 IMPRESSION: No acute findings. Laboratory Results WBC 7.09 10^3/uL (3.29-11.43) 09/15/24 04:49 RBC 4.09 10^6/uL (3.85-5.65) 09/15/24 04:49 Hgb 12.30 g/dL (11.27-16.99) 09/15/24 04:49 Hct 38.3 % (36-47) 09/15/24 04:49 MCV 93.6 fl (85-98) 09/15/24 04:49 MCH 30.1 pg (27-33) 09/15/24 04:49 MCHC 32.1 g/dL (30-55) 09/15/24 04:49 RDW 13.4 % (12.1-15.1) 09/15/24 04:49 Plt Count 199 10^3/cmm (157-399) 09/15/24 04:49 MPV 10.2 fL (7.4-10.4) 09/15/24 04:49 Neut % (Auto) 72.0 % 09/15/24 04:49 Lymph % (Auto) 14.7 % 09/15/24 04:49 [place] % (Auto) 9.7 % 09/15/24 04:49 Eos % (Auto) 2.7 % 09/15/24 04:49 Baso % (Auto) 0.6 % 09/15/24 04:49 Neut # (Auto) 5.11 10^3/uL (1.8-7.7) 09/15/24 04:49 Lymph # (Auto) 1.0 10^3/uL (0.8-4.8) 09/15/24 04:49 [place] # (Auto) 0.7 10^3/uL (0.2-0.9) 09/15/24 04:49 Eos # (Auto) 0.2 10^3/uL (0.0-0.8) 09/15/24 04:49 Baso # (Auto) 0.0 10^3/uL (0.0-0.1) 09/15/24 04:49 Nucleated RBC % (auto) 0 % 09/15/24 04:49 Nucleated RBCs # 0.0 /100WBC 09/15/24 04:49 Sodium 137 mmol/L (136-145) 09/15/24 04:49 Potassium 4.1 mmol/L (3.5-5.1) 09/15/24 04:49 Chloride 106 mmol/L (98-107) 09/15/24 04:49 Carbon Dioxide 24 mmol/L (22-29) 09/15/24 04:49 Anion Gap 11.1 (5-19) 09/15/24 04:49 BUN 8 mg/dL (8-23) 09/15/24 04:49 Creatinine 0.6 mg/dL (0.5-0.9) 09/15/24 04:49 GFR Calculation Not Reportable 09/15/24 04:49 Glucose 136 mg/dL (65-115) H 09/15/24 04:49 Calculated Osmolality 284 mOsm/kg (285-295) L 09/15/24 04:49 Calcium 9.9 mg/dL (8.5-10.5) 09/15/24 04:49 Blood Type O Positive 09/14/24 06:50 Rho(D) Type Rh positive 09/14/24 06:50 Antibody Screen Negative 09/14/24 06:50 Vitals Last Vital Signs Temp 97.9 F 09/15/24 11:17 Pulse 66 09/15/24 11:17 Resp 16 09/15/24 11:17 BP 110/69 09/15/24 11:17 Pulse Ox 96 09/15/24 11:17 O2 Del Method Room Air 09/15/24 11:17 Discharge Plan Discharge Patient Disposition: Home Health Service Condition: Stable Prescriptions: New calcium carbonate-vitamin D3 [Calcium 600 + D(3)] 600 mg-10 mcg (400 unit) tablet 1 tab PO DAILY 30 Days Qty: 30 0RF Continued aspirin 81 mg tablet,delayed release (DR/EC) 81 mg PO DAILY mirabegron 25 mg tablet extended release 24 hr 25 mg PO DAILY Qty: 90 3RF Rx Instructions: primary care provider stopped oxybutynin due to side affects. Trial with Myrbetriq recommended docusate sodium [Colace] 100 mg capsule 100 mg PO BID PRN (Reason: Constipation) benzonatate 100 mg capsule 100 mg PO TID PRN (Reason: cough) Qty: 30 0RF clonidine HCl 0.1 mg tablet 0.1 mg PO DAILY Qty: 90 1RF amlodipine 10 mg tablet 10 mg PO DAILY Qty: 90 1RF quetiapine 25 mg tablet 25 mg PO BEDTIME Qty: 90 0RF citalopram 40 mg tablet 40 mg PO DAILY Qty: 30 6RF atorvastatin 40 mg tablet 40 mg PO DAILY Qty: 90 0RF metoprolol tartrate 25 mg tablet See Rx Instructions .ROUTE .COMPLEX Qty: 60 1RF Dose Instruction: TAKE 1 TABLET BY MOUTH TWICE DAILY at 9am and 9pm Rx Instructions: TAKE 1 TABLET BY MOUTH TWICE DAILY at 9am and 9pm acetaminophen 325 mg capsule 325 mg PO Q4H PRN (Reason: fever or postoperative pain) Qty: 60 0RF biotin 10 mg Tablet 10 mg PO DAILY cholecalciferol (vitamin D3) [Vitamin D3] 25 mcg (1,000 unit) Capsule 25 mcg PO DAILY hkaloiczxutf-clkk-krdwp acid 18-400 mg-mcg Tablet 1 tab PO DAILY Held meloxicam 7.5 mg tablet 7.5 mg PO DAILY PRN (Reason: pain) Qty: 30 0RF Hold Instructions: Resume on 09/29/24. Rx Instructions: take with food or milk Discharge Orders: Discharge Order (Routine); Ordered 09/15/24 Ordered By: Carrillo Talbert Referrals: [facility] ([facility]) [Outside] Carrillo Talbert DO [Physician] - 09/29/24 8:00 am Discharge Diet: Regular Discharge Activity: Limit activity as instructed and Use walker/crutches as instructed Patient Instructions: Tramadol (By mouth), Ondansetron (By mouth), Apixaban (By mouth), Acute Wound Care (DC), Total Knee Replacement (GEN), Opioid Safety, Post Anesthesia Care Activity Restrictions/Additional Instructions: Discharge instructions Keep incisions clean dry and intact, leave Silverlon bandage dressings on in place for 7 days after that may rinse incisions with warm soapy water pat dry and redress with a dry dressing. Patient may weight-bear as tolerate to the operative extremity Utilize walker as needed Encourage knee range of motion Ice and elevate as needed for pain and swelling Take pain medication as prescribed Take antinausea medication as needed Supplement with calcium vitamin D for bone health and healing Pain medication can cause constipation. take sela-coy-dvuabqa stool softeners and or MiraLAX. Take prescribed Eliquis twice daily for the next 14 days for blood clot prevention May supplement for pain with Tylenol [id number]-[id number] as needed No baths or soaks Follow-up in the orthopedic office in 2 weeks Contact the office for any questions or concerns Discharge Attestations Time Spent in Discharge Care*: less than 30 min Quality Metrics Clinical Quality Measures [ No reported AMI, CVA or VTE this stay] Coding Level of Care Code Acute Code for Chg Fwd Diagnoses Left knee DJD M17.12 Primary hypertension I10 Hypertension type: primary hypertension Moderate Alzheimer's dementia of other onset with agitation G30.8; F02.B11 Alzheimer's disease onset: other onset Dementia behavioral or psychological symptom: with agitation Dementia severity: moderate Dementia type: Alzheimer's Time Spent (min) 25
== END 2024-09-15 13:40 | disposition home health service (06) ==
LOC: MEDSURG 11:20
PROVIDERS: Physician Assistant; Admitting Provider Student in an Organized Health Care Education/Training Program; PCP Family Medicine; Visit Provider Student in an Organized Health Care Education/Training Program
PROC: 8E0Y0CZ Robotic Assisted Procedure of Lower Extremity, Open Approach (ICD-10-PCS; CPT 27447; principal; 2024-09-14 09:10)
DX: M17.12 Unilateral primary osteoarthritis, left knee (principal); I10 Essential (primary) hypertension; G30.8 Other Alzheimer's disease; F02.B11 Dementia in other diseases classified elsewhere, moderate, with agitation; Z86.73 Personal history of transient ischemic attack (TIA), and cerebral infarction without residual deficits; M81.0 Age-related osteoporosis without current pathological fracture; F41.1 Generalized anxiety disorder
CPT/HCPCS: 27447; 20985; 36415; 51702; 73562; 80048; 85025; 86850; 86900; 93005; 97116; 97161; 97165; 97530; C1776; G0378; J0131; J0171; J0690; J1885; J2704; J2795; J3490; J7030; J7120

== ENCOUNTER 2024-09-16 20:22 | Emergency (ER) | payer MEDICARE, SELFPAY ==
--- NOTE | 2024-09-16 20:28 | XRR_ITS ---
PROCEDURE INFORMATION: Exam: XR Left Knee Exam date and time: 09/16/2024 8:48 PM Age: 79 years old Clinical indication: Pain; Left; Prior surgery; Surgery date: 3-7 days post-operative; Surgery type: Total knee replacement; Additional info: Injury TECHNIQUE: Imaging protocol: Radiologic exam of the left knee. Views: 3 views. COMPARISON: CR XR knee LT 3V* [id number] 09/14/2024 12:08 PM FINDINGS: Bones/joints: Total knee arthroplasty and patellar resurfacing. Hardware appears intact without complication. No periprosthetic fracture. No dislocation. Small joint effusion. Soft tissues: Improving subcutaneous gas. XR/XR knee LT 3V* [id number] IMPRESSION: Total knee arthroplasty without apparent complication.
[2024-09-16 20:33] VITALS: BP 152/95; PULSE 73; RESP 18; TEMP 36.9; O2SAT 99; BMI 29.7
--- NOTE | 2024-09-16 20:51 | ED_ITS ---
HPI - Extremity Problem 2 General: Chief complaint: Extremity Problem,Nontraumatic Stated complaint: left knee pain Time Seen by Provider: 09/16/24 20:33 Source: family Mode of arrival: EMS Limitations: altered mental status (hx of dementia) History of Present Illness: Patient is a 79-year-old female with past medical history of dementia who is presenting to the emergency department by ambulance due to left knee pain 2 days status post total knee arthroplasty. She had this procedure with Dr. Talbert, history of right knee replacement as well back in December. Per family in the room, patient had no real issues after her right knee replacement, this time around has had much more pain, swelling, warmth, and redness through left knee. Has not been ambulatory since the incident, has been in a wheelchair. Family also notes her dementia has gotten much worse and this tends to happen with severe increases in pain. Review of systems unobtainable due to her altered mental status. Vital stable at this time, noted to be afebrile she is on 2 L of oxygen. EMS did give morphine and antiemetics on the way to the emergency department. Patient has been taking tramadol for pain otherwise. MD Complaint: joint swelling and joint pain Onset (ago): day(s) Pain Consistency: constant Location: left and knee Related Data Home Medications Medication Instructions Recorded Confirmed docusate sodium 100 mg capsule 100 mg PO BID PRN Constipation 11/06/23 09/14/24 (Colace) biotin 10 mg tablet 10 mg PO DAILY 02/09/24 09/14/24 cholecalciferol (vitamin D3) 25 25 mcg PO DAILY 02/09/24 09/14/24 mcg (1,000 unit) capsule (Vitamin D3) multivitamin-ferrous 1 tab PO DAILY 02/09/24 09/14/24 fumarate-folic acid 18 mg-400 mcg tablet aspirin 81 mg tablet,delayed 81 mg PO DAILY 05/21/24 09/14/24 release Previous Rx's Medication Instructions Recorded acetaminophen 325 mg capsule 325 mg PO Q4H PRN fever or 09/18/23 postoperative pain #60 caps benzonatate 100 mg capsule 100 mg PO TID PRN cough #30 caps 02/13/24 mirabegron 25 mg tablet,extended 25 mg PO DAILY Stop oxybutynin #90 05/25/24 release 24 hr tabs clonidine HCl 0.1 mg tablet 0.1 mg PO DAILY #90 tabs 06/30/24 amlodipine 10 mg tablet 10 mg PO DAILY #90 tabs 07/07/24 atorvastatin 40 mg tablet 40 mg PO DAILY #90 tabs 07/07/24 citalopram 40 mg tablet 40 mg PO DAILY #30 tabs 07/07/24 quetiapine 25 mg tablet 25 mg PO BEDTIME #90 tabs 07/07/24 meloxicam 7.5 mg tablet 7.5 mg PO DAILY PRN pain #30 tabs 07/20/24 apixaban 2.5 mg tablet (Eliquis) 2.5 mg PO BID 2 weeks #28 tabs 09/14/24 metoprolol tartrate 25 mg tablet See Rx Instructions .Route 09/14/24 .COMPLEX #60 tabs ondansetron 4 mg disintegrating 4 mg PO Q8H PRN nausea and 09/14/24 tablet vomiting 3 days #9 tabs calcium 600 mg (as 1 tab PO DAILY Bone health and 09/15/24 carbonate)-vitamin D3 10 mcg (400 healing 30 days #30 tabs unit) tablet (Calcium 600 + D(3)) tramadol 50 mg tablet 50 mg PO Q6H PRN pain 7 days #28 09/15/24 tabs Allergies Allergy/AdvReac Type Severity Reaction Status Date / Time No Known Allergies Allergy Verified 09/10/24 13:47 Review of Systems 2 General: Reports: ROS unobtainable due to mental status PFSH ED 2 PFSH: Medical History Primary hyperparathyroidism Cyst of left kidney Cyst measures 1.4 x 1.4 x 1.4 cm. History of CVA (cerebrovascular accident) Small focus of chronic ischemia along the anterior limb LEFT internal capsule Osteopenia Hypertension Dementia Parathyroid adenoma SOLOMON (generalized anxiety disorder) Hypercalcemia History of kidney stones Urinary incontinence Surgical History History of arthroplasty of right knee History of parathyroidectomy History of anterior colporrhaphy (~09/17/23) Anterior colporrhapy augmented with allograft, posterior colporrhapy, sacrospinous fixation, cystoscopy performed by Vaughn Family History Father Dementia Denies family history of Colon cancer Ovarian cancer Diabetes Heart disease Hypercholesteremia Breast cancer Hypertension Uterine cancer Thyroid disease Stroke Social History Smoking and tobacco/nicotine status: never used tobacco/nicotine Alcohol intake: current Alcohol intake frequency: few times a month Household members: spouse Marital status: Current occupational status: retired Special bekah needs: No Agree to transfusion: Yes Physical Exam 2 Const: COMMON NORMALS: no acute distress, healthy appearing, alert and well nourished EXAM LIMITATIONS: altered mental status HENMT: COMMON NORMALS: normocephalic and atraumatic HEAD & SCALP: n ormocephalic and atraumatic Eye: COMMON NORMALS: EOMs intact bilaterally and conjunctivae normal C ONJUNCTIVA: Yes conjunctivae normal Neck/C-Spine: COMMON NORMALS: full ROM and no meningeal signs Resp: COMMON NORMALS: normal respiratory effort, No use of accessory muscles and clear to auscultation bilaterally AUSCULTATION: clear to auscultation bilaterally Cardio: COMMON NORMALS: regular rate, regular rhythm, S1 normal heart sound present and S2 normal heart sound present RATE: regular rate RHYTHM: r egular rhythm HEART SOUNDS: S1 normal heart sound present and S2 normal heart sound present Extremity: NARRATIVE EXTREMITY EXAM: The left knee is swollen compared to the right, and does appear mildly erythematous when taking into account her ethnicity/skin tone. Does not appear overtly tender to the touch, the incision overall appears well-healing with no active bleeding or drainage. Edema seems to extend distally, no overt calf tenderness and her DP/PT pulses are 2+. Neuro: COMMON NORMALS: moves all extremities, no focal motor deficits and no sensory deficits noted SENSORIUM/ORIENTATION: Yes alert MENINGEAL SIGNS: Y es no meningeal signs OTHER: Chronic disorientation Skin: COMMON NORMALS: no rashes or lesions noted GENERAL SKIN EXAM: no rashes or lesions noted Course 2 Vital Signs: Vital signs: Vital Signs Temperature 98.4 F 09/16/24 20:33 Pulse Rate 80 09/16/24 22:54 Respiratory Rate 20 H 09/16/24 22:54 Blood Pressure 114/71 09/16/24 22:54 Pulse Oximetry 92 09/16/24 22:54 Oxygen Delivery Me thod Nasal Cannula 09/16/24 21:29 Oxygen Flow Rate 4 09/16/24 21:29 MDM - Extremity (Nontraumatic) Medical Decision Making Patient had left total knee arthroplasty on Saturday, complaints of pain here tonight and family stating this was causing worsening dementia. Gave her tramadol that she was prescribed, and EMS give morphine. She appears comfortable when I examined her, is reportedly at baseline mentation. Her left knee did appear somewhat more swollen and warm compared to the right, however the actual incision appeared normal and she had no distal neurovascular issues. Her lab work revealed elevation in CRP, however no white count and lactic were normal. Her x-ray did appear normal as well. Spoke with orthopedics to make sure that this elevated CRP was normal, she had stated that this is not unexpected and can follow-up outpatient as normal. Patient will be road tested prior to discharge, is given 0.5 mg Dilaudid through IV prior to discharge for help with pain control. Did discuss strict return precautions such as worsening of pain or swelling, issues with the wound itself, fevers or nausea and vomiting. Family and patient endorsed understanding and all the questions and concerns addressed at this time. Lab Data 09/16/24 21:20 09/16/24 21:20 Radiology Impressions Knee X-Ray 09/16/24 20:28 IMPRESSION: Total knee arthroplasty without apparent complication. Laboratory Results WBC 8.24 10^3/uL (3.29-11.43) 09/16/24 21:20 RBC 3.51 10^6/uL (3.85-5.65) L 09/16/24 21:20 Hgb 10.40 g/dL (11.27-16.99) L 09/16/24 21:20 Hct 33.2 % (36-47) L 09/16/24 21:20 MCV 94.6 fl (85-98) 09/16/24 21:20 MCH 29.6 pg (27-33) 09/16/24 21:20 MCHC 31.3 g/dL (30-55) 09/16/24 21:20 RDW 13.2 % (12.1-15.1) 09/16/24 21:20 Plt Count 179 10^3/cmm (157-399) 09/16/24 21:20 MPV 10.3 fL (7.4-10.4) 09/16/24 21:20 Neut % (Auto) 63.6 % 09/16/24 21:20 Lymph % (Auto) 21.2 % 09/16/24 21:20 Casey % (Auto) 12.1 % 09/16/24 21:20 Eos % (Auto) 2.4 % 09/16/24 21:20 Baso % (Auto) 0.5 % 09/16/24 21:20 Neut # (Auto) 5.23 10^3/uL (1.8-7.7) 09/16/24 21:20 Lymph # (Auto) 1.8 10^3/uL (0.8-4.8) 09/16/24 21:20 Casey # (Auto) 1.0 10^3/uL (0.2-0.9) H 09/16/24 21:20 Eos # (Auto) 0.2 10^3/uL (0.0-0.8) 09/16/24 21:20 Baso # (Auto) 0.0 10^3/uL (0.0-0.1) 09/16/24 21:20 Nucleated RBC % (auto) 0 % 09/16/24 21:20 Nucleated RBCs # 0.0 /100WBC 09/16/24 21:20 Sodium 139 mmol/L (136-145) 09/16/24 21:20 Potassium 3.7 mmol/L (3.5-5.1) 09/16/24 21:20 Chloride 105 mmol/L (98-107) 09/16/24 21:20 Carbon Dioxide 22 mmol/L (22-29) 09/16/24 21:20 Anion Gap 15.7 (5-19) 09/16/24 21:20 BUN 14 mg/dL (8-23) 09/16/24 21:20 Creatinine 0.6 mg/dL (0.5-0.9) 09/16/24 21:20 GFR Calculation Not Reportable 09/16/24 21:20 Glucose 96 mg/dL (65-115) 09/16/24 21:20 Calculated Osmolality 288 mOsm/kg (285-295) 09/16/24 21:20 Lactic Acid 1.4 mmol/L (0.5-2.2) 09/16/24 21:20 Calcium 9.7 mg/dL (8.5-10.5) 09/16/24 21:20 Total Bilirubin 0.8 mg/dL (0.15-1.2) 09/16/24 21:20 AST 23 U/L (0-32) 09/16/24 21:20 ALT 9 U/L (0-33) 09/16/24 21:20 Alkaline Phosphatase 120 U/L (35-105) H 09/16/24 21:20 C-Reactive Protein 127.6 mg/L (0.0-4.9) H 09/16/24 21:20 Total Protein 6.6 g/dL (6.6-8.7) 09/16/24 21:20 Albumin 3.9 g/dL (3.5-5.2) 09/16/24 21:20 Globulin 2.7 g/dL (1.3-4.6) 09/16/24 21:20 All radiology interpretation(s) finalized by discharge Discharge Plan Discharge Patient Disposition: Home Clinical Impression: Postoperative pain of left knee Condition: Stable Prescriptions: No Action aspirin 81 mg tablet,delayed release (DR/EC) 81 mg PO DAILY mirabegron 25 mg tablet extended release 24 hr 25 mg PO DAILY Qty: 90 3RF Rx Instructions: primary care provider stopped oxybutynin due to side affects. Trial with Myrbetriq recommended docusate sodium [Colace] 100 mg capsule 100 mg PO BID PRN (Reason: Constipation) benzonatate 100 mg capsule 100 mg PO TID PRN (Reason: cough) Qty: 30 0RF clonidine HCl 0.1 mg tablet 0.1 mg PO DAILY Qty: 90 1RF amlodipine 10 mg tablet 10 mg PO DAILY Qty: 90 1RF quetiapine 25 mg tablet 25 mg PO BEDTIME Qty: 90 0RF citalopram 40 mg tablet 40 mg PO DAILY Qty: 30 6RF atorvastatin 40 mg tablet 40 mg PO DAILY Qty: 90 0RF meloxicam 7.5 mg tablet 7.5 mg PO DAILY PRN (Reason: pain) Qty: 30 0RF Hold Instructions: Resume on 09/29/24. Rx Instructions: take with food or milk metoprolol tartrate 25 mg tablet See Rx Instructions .ROUTE .COMPLEX Qty: 60 1RF Dose Instruction: TAKE 1 TABLET BY MOUTH TWICE DAILY at 9am and 9pm Rx Instructions: TAKE 1 TABLET BY MOUTH TWICE DAILY at 9am and 9pm acetaminophen 325 mg capsule 325 mg PO Q4H PRN (Reason: fever or postoperative pain) Qty: 60 0RF Eliquis 2.5 mg tablet 2.5 mg PO BID 14 Days Qty: 28 0RF ondansetron 4 mg tablet,disintegrating 4 mg PO Q8H PRN (Reason: nausea and vomiting) 3 Days Qty: 9 0RF calcium carbonate-vitamin D3 [Calcium 600 + D(3)] 600 mg-10 mcg (400 unit) tablet 1 tab PO DAILY 30 Days Qty: 30 0RF tramadol 50 mg tablet 50 mg PO Q6H PRN (Reason: pain) 7 Days Qty: 28 0RF biotin 10 mg Tablet 10 mg PO DAILY cholecalciferol (vitamin D3) [Vitamin D3] 25 mcg (1,000 unit) Capsule 25 mcg PO DAILY ywaezazbvzev-hgms-hjwkj acid 18-400 mg-mcg Tablet 1 tab PO DAILY Discharge Orders: Discharge ED (Routine); Ordered 09/16/24 Ordered By: Landry Bird Referrals: Justine Cook MD [Primary Care Provider] - Activity Restrictions/Additional Instructions: Please follow-up with your orthopedist. Continue taking your pain medications. Please monitor for any new or worsening of symptoms, onset of fever, severe worsening of swelling or wound drainage, and return to the emergency department. Coding Level of Care Code ED Corporate Director Talent Assessment for Sarah Epps
[2024-09-16 21:29] VITALS: BP 152/95; PULSE 114; RESP 18; O2SAT 92
[2024-09-16 21:32] LABS: Basophils % 0.5 %; Eosinophils # 0.2 10^3/uL (0.0-0.8); Eosinophils % 2.4 %; Hematocrit 33.2 % (36-47); Lymphocytes # 1.8 10^3/uL (0.8-4.8); Lymphocytes % 21.2 %; Mean Corpuscular HGB Conc 31.3 g/dL (30-55); Mean Corpuscular Hemoglobin 29.6 pg (27-33); Mean Corpuscular Volume 94.6 fl (85-98); Mean Platelet Volume 10.3 fL (7.4-10.4); Monocytes % 12.1 %; Neutrophils # 5.23 10^3/uL (1.8-7.7); Neutrophils % 63.6 %; Nucleated Red Blood Cells % 0 %; Platelet Count 179 10^3/cmm (157-399); Red Blood Count 3.51 10^6/uL (3.85-5.65); Red Cell Distribution Width 13.2 % (12.1-15.1); White Blood Count 8.24 10^3/uL (3.29-11.43)
[2024-09-16 22:08] LABS: Alanine Aminotransferase 9 U/L (0-33); Albumin Level 3.9 g/dL (3.5-5.2); Alkaline Phosphatase 120 U/L (35-105); Anion Gap 15.7 (5-19); Aspartate Amino Transferase 23 U/L (0-32); Blood Urea Nitrogen 14 mg/dL (8-23); C Reactive Protein 127.6 mg/L (0.0-4.9); Calcium 9.7 mg/dL (8.5-10.5); Carbon Dioxide 22 mmol/L (22-29); Chloride 105 mmol/L (98-107); Creatinine Clr Calc Pharmacy 68.7054; Globulin 2.7 g/dL (1.3-4.6); Glucose 96 mg/dL (65-115); Osmolality Calculated 288 mOsm/kg (285-295); Potassium 3.7 mmol/L (3.5-5.1); Sodium 139 mmol/L (136-145); Total Bilirubin 0.8 mg/dL (0.15-1.2); Total Protein 6.6 g/dL (6.6-8.7)
[2024-09-16 22:09] LABS: Lactic Sepsis W/Reflex 1.4 mmol/L (0.5-2.2)
[2024-09-16 22:52] VITALS: RESP 18; O2SAT 95
[2024-09-16] MEDS: HYDROmorphone 1 mg/mL INJ 1 mL 0.5 MG IVP (22:52)
[2024-09-16 22:54] VITALS: BP 114/71; PULSE 80; RESP 20; O2SAT 92
== END 2024-09-16 23:06 | disposition home or self-care (01) ==
PROVIDERS: Emergency Provider Physician Assistant; PCP Family Medicine
DX: M25.562 Pain in left knee (principal); Z96.652 Presence of left artificial knee joint; Z79.01 Long term (current) use of anticoagulants; Z79.82 Long term (current) use of aspirin; Z86.73 Personal history of transient ischemic attack (TIA), and cerebral infarction without residual deficits; I10 Essential (primary) hypertension
CPT/HCPCS: 36415; 73562; 80053; 83605; 85025; 86140; 87040; 96374; 99284; J1171

== ENCOUNTER → 2024-09-29 07:49 | Outpatient (BNVA) | payer MEDICARE, SELFPAY | PROVIDERS: PCP Family Medicine; Visit Provider Physician Assistant | DX: M17.0 Bilateral primary osteoarthritis of knee (principal); Z96.652 Presence of left artificial knee joint | CPT/HCPCS: 73560; 73565; 99024 ==

== ENCOUNTER 2024-10-13 14:34 | Outpatient (RCR) | payer MEDICARE, SELFPAY | END 2024-11-03 23:59 | disposition home or self-care (01) | LOC: SPT 14:34 | PROVIDERS: Visit Provider Student in an Organized Health Care Education/Training Program | DX: Z47.1 Aftercare following joint replacement surgery (principal); Z96.652 Presence of left artificial knee joint | CPT/HCPCS: 97110; 97161 ==

== ENCOUNTER 2024-11-04 06:00 | Outpatient (RCR) | payer MEDICARE, SELFPAY | END 2024-11-05 23:59 | disposition home or self-care (01) | LOC: SPT 06:00 | PROVIDERS: Visit Provider Student in an Organized Health Care Education/Training Program | DX: Z47.1 Aftercare following joint replacement surgery (principal); Z96.652 Presence of left artificial knee joint | CPT/HCPCS: 97110 ==

== ENCOUNTER → 2024-11-10 10:58 | Outpatient (BNVA) | payer MEDICARE, SELFPAY | PROVIDERS: PCP Family Medicine; Visit Provider Physician Assistant | DX: Z96.652 Presence of left artificial knee joint (principal) | CPT/HCPCS: 73560; 73565; 99024 ==

== ENCOUNTER → 2024-11-18 10:49 | Outpatient (BNVA) | payer MEDICARE, SELFPAY | PROVIDERS: PCP Family Medicine; Referring Provider Family Medicine; Visit Provider Specialist | DX: G30.9 Alzheimer's disease, unspecified (principal); F02.80 Dementia in other diseases classified elsewhere, unspecified severity, without behavioral disturbance, psychotic disturbance, mood disturbance, and anxiety | CPT/HCPCS: 99204 ==

== ENCOUNTER 2024-11-26 08:59 | Outpatient (CLI) | payer MEDICARE, SELFPAY ==
[2024-11-26 09:58] LABS: Blood Urea Nitrogen 16 mg/dL (8-23); Calcium 10.9 mg/dL (8.5-10.5); Carbon Dioxide 25 mmol/L (22-29); Chloride 107 mmol/L (98-107); Glucose 99 mg/dL (65-115); Osmolality Calculated 293 mOsm/kg (285-295); Sodium 141 mmol/L (136-145)
[2024-11-26 10:03] LABS: Calcium 11.1 mg/dL (8.5-10.5)
[2024-11-26 10:11] LABS: Parathyroid Hormone 122.7 pg/mL (15-65)
[2024-11-26 10:14] LABS: 25 Hydroxy Vitamin D 21 ng/mL (30-100); Vitamin B12 1403 pg/mL (232-1245)
== END 2024-11-26 09:00 | disposition home or self-care (01) ==
LOC: LAB 09:01
PROVIDERS: Specialist; PCP Family Medicine; Visit Provider Internal Medicine
DX: M85.80 Other specified disorders of bone density and structure, unspecified site (principal); E21.0 Primary hyperparathyroidism; R79.89 Other specified abnormal findings of blood chemistry; G30.9 Alzheimer's disease, unspecified; F02.80 Dementia in other diseases classified elsewhere, unspecified severity, without behavioral disturbance, psychotic disturbance, mood disturbance, and anxiety
CPT/HCPCS: 36415; 80048; 82306; 82310; 82607; 83520; 83970

== ENCOUNTER → 2024-12-01 11:30 | Outpatient (BNVA) | payer MEDICARE, SELFPAY | PROVIDERS: PCP Family Medicine; Visit Provider Internal Medicine | DX: R41.89 Other symptoms and signs involving cognitive functions and awareness (principal); Z87.442 Personal history of urinary calculi; R79.89 Other specified abnormal findings of blood chemistry; E21.0 Primary hyperparathyroidism | CPT/HCPCS: 99214 ==

== ENCOUNTER → 2024-12-08 11:12 | Outpatient (BNVA) | payer MEDICARE, SELFPAY | PROVIDERS: PCP Family Medicine; Visit Provider Physician Assistant | DX: Z96.652 Presence of left artificial knee joint (principal) | CPT/HCPCS: 99213 ==

== ENCOUNTER 2025-01-01 14:00 | Outpatient (CLI) | payer MEDICARE, SELFPAY ==
--- NOTE | 2025-01-01 14:00 | XR_ITS ---
WS: [id number] SCREENING DEXA SCAN [employer] CLINICAL INFORMATION: osteopenia COMPARISON: 2022 FINDINGS: The L1-L4 bone mineral density measures 0.916 g/cm2. This corresponds to a T score score of -2.2 and Z score of -1.2. Left femoral neck bone mineral density measures 0.699 g/cm2. This corresponds to a T score of -2.4 and Z score of -1.2. Right femoral neck bone mineral density measures 0.701 g/cm2. This corresponds to a T score -2.4of and Z score of -1.1. Mean femoral neck bone mineral density measures 0.700 g/cm2. This corresponds to a T score of -2.4 and Z score of -1.1. XR/XR DEXA axial skeleton* [id number] IMPRESSION: Osteopenia lumbar spine. Osteopenia femoral necks approaching osteoporosis. Patient's FRAX calculated 10 year probability for major osteoporotic fracture i s 22.2% and osteoporotic hip fracture is 7.9%. Bone mineral density lumbar spine decreased -3.9% Bone mineral density femoral necks decreased -6.4%
--- NOTE | 2025-01-01 14:40 | MM_ITS ---
WS: [id number] BILATERAL 3D TOMOSYNTHESIS DIGITAL SCREENING MAMMOGRAPHY WITH CAD CLINICAL INFORMATION: Z12.39 - Encounter for other screening for malignant neop... HISTORY: Screening mammogram. No current complaints. COMPARISON: None available TECHNIQUE: Bilateral CC and MLO views. FINDINGS: The breasts are composed of heterogeneous fibroglandular density tissue, which can limit the detection of small underlying mass lesions. Biopsy clip RIGHT breast. Incidental punctate calcifications. Clustered coarse calcifications RIGHT breast. Several clusters of heterogeneous calcifications in the RIGHT breast. These are probably benign but aconsidering no comparisons recommend 6-month follow-up RIGHT breast diagnostic mammography to confirm stability MM/MM [facility] tomosynthesis [id number] IMPRESSION: DENSITY: The breasts are heterogeneously dense, which may obscure small masses. BI-RADS: 3 - Probably Benign FOLLOW UP: 6 Month Follow-up Recommend 6-month follow-up RIGHT breast diagnostic mammography with attention to the clustered calcifications RIGHT breast.
== END 2025-01-01 14:01 | disposition home or self-care (01) ==
PROVIDERS: Family Provider Specialist; PCP Family Medicine; Visit Provider Internal Medicine
DX: Z12.31 Encounter for screening mammogram for malignant neoplasm of breast (principal); E21.0 Primary hyperparathyroidism; R92.333 Mammographic heterogeneous density, bilateral breasts; R92.1 Mammographic calcification found on diagnostic imaging of breast; M85.89 Other specified disorders of bone density and structure, multiple sites
CPT/HCPCS: 77063; 77067; 77080

== ENCOUNTER → 2025-03-09 11:18 | Outpatient (BNVA) | payer MEDICARE, SELFPAY | PROVIDERS: Family Provider Specialist; PCP Family Medicine; Visit Provider Student in an Organized Health Care Education/Training Program | DX: Z96.653 Presence of artificial knee joint, bilateral (principal) | CPT/HCPCS: 73560; 73565; 99213 ==

== ENCOUNTER → 2025-03-17 15:24 | Outpatient (BNVA) | payer MEDICARE, SELFPAY | PROVIDERS: Family Provider Specialist; PCP Family Medicine; Visit Provider Specialist | DX: G30.9 Alzheimer's disease, unspecified (principal); F02.80 Dementia in other diseases classified elsewhere, unspecified severity, without behavioral disturbance, psychotic disturbance, mood disturbance, and anxiety | CPT/HCPCS: 99214 ==

== ENCOUNTER 2025-03-22 11:19 | Outpatient (CLI) | payer MEDICARE, SELFPAY ==
--- NOTE | 2025-03-22 11:25 | XRR_ITS ---
PROCEDURE INFORMATION: Exam: XR Lumbosacral Spine Exam date and time: 03/22/2025 11:30 AM Age: 80 years old Clinical indication: Low back pain; Back pain for one month. No trauma; Additional info: Lumbar vertebral tenderness TECHNIQUE: Imaging protocol: Radiologic exam of the lumbosacral spine. Views: 2 or 3 views. COMPARISON: No relevant prior studies available. FINDINGS: Bones/joints: Age indeterminate mild compression deformity of the L2 vertebral body. Multilevel degenerative facet changes. Degenerative disc changes of the lower thoracic spine and lower lumbar spine. Mild dextroconvex curvature of the upper lumbar spine. Soft tissues: Unremarkable. XR/XR lumbar spine 2-3V* [id number] IMPRESSION: As above.
== END 2025-03-22 11:20 | disposition home or self-care (01) ==
LOC: RAD 11:21
PROVIDERS: Family Provider Specialist; PCP Family Medicine; Visit Provider Family Medicine
DX: M47.896 Other spondylosis, lumbar region (principal); M48.56XA Collapsed vertebra, not elsewhere classified, lumbar region, initial encounter for fracture; M51.34 Other intervertebral disc degeneration, thoracic region; M51.369 Other intervertebral disc degeneration, lumbar region without mention of lumbar back pain or lower extremity pain; M43.8X6 Other specified deforming dorsopathies, lumbar region
CPT/HCPCS: 72100

== ENCOUNTER → 2025-04-01 13:09 | Outpatient (BNVA) | payer MEDICARE, SELFPAY | PROVIDERS: Family Provider Specialist; PCP Family Medicine; Referring Provider Family Medicine; Visit Provider Orthopaedic Surgery | DX: S32.020A Wedge compression fracture of second lumbar vertebra, initial encounter for closed fracture (principal); X58.XXXA Exposure to other specified factors, initial encounter; M54.9 Dorsalgia, unspecified | CPT/HCPCS: 72110; 99203 ==

== ENCOUNTER 2025-04-06 13:35 | Outpatient (CLI) | payer MEDICARE, SELFPAY ==
--- NOTE | 2025-04-06 13:45 | MR_ITS ---
WS: [id number] MRI LUMBAR SPINE NONCONTRAST HISTORY: Severe back pain for months. COMPARISON: Lumbar radiograph 04/01/2025 TECHNIQUE: Sagittal and axial multisequence imaging is submitted. Cervical and thoracic disc osteophyte disease. No high-grade stenosis. Increase in thoracic kyphosis. Heterogeneous marrow signal throughout the lumbar vertebral bodies from osteopenia. Schmorl's node defect superior endplate of L2. L4 anterolisthesis by 4 mm. Disc spaces are narrowed and desiccated. Conus terminates normally at L1-2 disc level. L1-L2: Diffuse disc bulging with a central disc protrusion. Mild ligamentum flavum and facet arthritis. Mild bilateral subarticular recess and foraminal stenosis. L2-L3: Mild annular disc bulging with moderate ligamentum flavum and facet arthritis, LEFT greater than RIGHT. Moderate RIGHT and mild LEFT foraminal stenosis. L3-L4: Marked annular disc bulging with severe bilateral ligamentum flavum and facet arthritis. Mild encroachment upon the traversing L4 nerve roots. Mild disc contact also on the RIGHT exiting L3 nerve root. Moderate central, subarticular recess and RIGHT foraminal stenosis. L4-L5: Diffuse annular disc bulge with a broad-based central disc protrusion. Severe bilateral ligamentum flavum disease and facet arthritis. Disc contacts the ventral thecal sac and traversing L5 nerve roots. Moderate central, subarticular recess and mild foraminal stenosis. L5-S1: Diffuse disc bulging with a RIGHT paracentral disc protrusion contacting the RIGHT S1 nerve root. There is lesser contact on the LEFT S1 nerve root. Moderate facet and ligamentum flavum hypertrophy. Small bilateral disc protrusions. LEFT renal cyst 1.8 cm. Smaller RIGHT renal cysts. Hepatic cysts. Marked paraspinal muscle atrophy. MR/MR lumbar spine wo con* [id number] IMPRESSION: 1. Marked increase in lumbar lordosis with osteopenia. 2. Schmorl's node defect L2. 3. No acute fractures or marrow edema. 4. L3-4: Moderate central, subarticular recess and RIGHT foraminal stenosis. M ild disc encroachment upon the traversing L4 nerve roots and RIGHT exiting L3 n erve root. 5. L4-5: Moderate central, subarticular recess and mild foraminal stenosis. Di sc contacts the traversing L5 nerve roots. 6. L5-S1: RIGHT paracentral disc protrusion contacts the RIGHT S1 nerve root. Lesser contact on the LEFT S1 nerve root. Additional small bilateral foraminal disc protrusions. 7. L2-3: Moderate RIGHT and mild LEFT foraminal stenosis. 8. L1-2: Mild bilateral subarticular recess and foraminal stenosis. 9. Multilevel facet joint arthritis and ligamentum flavum hypertrophy. Most si gnificant at L3-4 and L4-5. 10. L4 anterolisthesis by 4 mm.
== END 2025-04-06 13:36 | disposition home or self-care (01) ==
PROVIDERS: Family Provider Specialist; PCP Family Medicine; Visit Provider Orthopaedic Surgery
DX: M48.061 Spinal stenosis, lumbar region without neurogenic claudication (principal); R93.7 Abnormal findings on diagnostic imaging of other parts of musculoskeletal system; M85.88 Other specified disorders of bone density and structure, other site; M51.27 Other intervertebral disc displacement, lumbosacral region; M47.896 Other spondylosis, lumbar region; M24.28 Disorder of ligament, vertebrae; M43.16 Spondylolisthesis, lumbar region; M25.78 Osteophyte, vertebrae; M40.294 Other kyphosis, thoracic region; M51.46 Schmorl's nodes, lumbar region; M51.369 Other intervertebral disc degeneration, lumbar region without mention of lumbar back pain or lower extremity pain; M51.26 Other intervertebral disc displacement, lumbar region; M51.379 Other intervertebral disc degeneration, lumbosacral region without mention of lumbar back pain or lower extremity pain; M47.897 Other spondylosis, lumbosacral region; N28.1 Cyst of kidney, acquired; K76.89 Other specified diseases of liver; G00-G99 Diseases of the nervous system
CPT/HCPCS: 72148

== ENCOUNTER → 2025-05-10 10:09 | Outpatient (BNVA) | payer MEDICARE, SELFPAY | PROVIDERS: Family Provider Specialist; PCP Family Medicine; Visit Provider Orthopaedic Surgery | DX: M48.062 Spinal stenosis, lumbar region with neurogenic claudication (principal); M43.16 Spondylolisthesis, lumbar region | CPT/HCPCS: 99213 ==

== ENCOUNTER → 2025-05-17 13:16 | Outpatient (BNVA) | payer MEDICARE, SELFPAY | PROVIDERS: Family Provider Specialist; PCP Family Medicine; Visit Provider Anesthesiology Pain Medicine | DX: M48.062 Spinal stenosis, lumbar region with neurogenic claudication (principal); M47.816 Spondylosis without myelopathy or radiculopathy, lumbar region | CPT/HCPCS: 99204 ==

== ENCOUNTER 2025-05-31 16:06 | Outpatient (CLI) | payer MEDICARE, SELFPAY ==
[2025-05-31 17:20] LABS: Anion Gap 14.1 (5-19); Blood Urea Nitrogen 14 mg/dL (8-23); Calcium 10.2 mg/dL (8.5-10.5); Calcium 10.4 mg/dL (8.5-10.5); Carbon Dioxide 23 mmol/L (22-29); Chloride 107 mmol/L (98-107); Glucose 100 mg/dL (65-115); Osmolality Calculated 291 mOsm/kg (285-295); Potassium 4.1 mmol/L (3.5-5.1); Sodium 140 mmol/L (136-145)
== END 2025-05-31 16:07 | disposition home or self-care (01) ==
PROVIDERS: Family Provider Specialist; PCP Family Medicine; Visit Provider Internal Medicine
DX: M85.80 Other specified disorders of bone density and structure, unspecified site (principal); R79.89 Other specified abnormal findings of blood chemistry; E21.0 Primary hyperparathyroidism
CPT/HCPCS: 36415; 80048; 82306; 82310; 83970

== ENCOUNTER → 2025-06-02 11:24 | Outpatient (BNVA) | payer MEDICARE, SELFPAY | PROVIDERS: Family Provider Specialist; PCP Family Medicine; Visit Provider Internal Medicine | DX: E21.0 Primary hyperparathyroidism (principal); M85.80 Other specified disorders of bone density and structure, unspecified site; R79.89 Other specified abnormal findings of blood chemistry | CPT/HCPCS: 99214 ==

== ENCOUNTER 2025-06-14 12:55 | Outpatient (CLI) | payer MEDICARE, SELFPAY ==
--- NOTE | 2025-06-14 13:06 | MM_ITS ---
WS: [id number] RIGHT 3D TOMOSYNTHESIS DIGITAL MAMMOGRAPHY WITH CAD CLINICAL INFORMATION: ABNORMAL MAMMO HISTORY: 6-month follow-up calcifications. COMPARISON: 01/01/2025 TECHNIQUE: 3 views of the right breast were obtained. FINDINGS: The right breast is composed of heterogeneous fibroglandular density tissue, which can limit the detection of small underlying mass lesions. Again seen are several clusters of heterogeneous calcifications in the RIGHT breast. These are stable in appearance compared to previous. Recommend additional 6-month follow- up to assess stability No other suspicious findings. MM/MM diag RT tomosynthesis [id number] IMPRESSION: DENSITY: The breasts are heterogeneously dense, which may obscure small masses. BI-RADS: 3 - Probably Benign FOLLOW UP: 6 Month Follow-up Recommend additional 6-month follow-up diagnostic mammography RIGHT breast calc ifications
== END 2025-06-14 12:56 | disposition home or self-care (01) ==
LOC: RAD 12:57
PROVIDERS: Family Provider Specialist; PCP Family Medicine; Visit Provider Obstetrics & Gynecology
DX: R92.8 Other abnormal and inconclusive findings on diagnostic imaging of breast (principal); R92.333 Mammographic heterogeneous density, bilateral breasts
CPT/HCPCS: 77061; G0279

== ENCOUNTER 2025-07-16 12:00 | Outpatient (RCR) | payer MEDICARE, SELFPAY | END 2025-08-03 23:59 | disposition home or self-care (01) | LOC: SPT 12:00 | PROVIDERS: PCP Family Medicine; Visit Provider Orthopaedic Surgery | DX: M54.50 Low back pain, unspecified (principal); G89.29 Other chronic pain | CPT/HCPCS: 97110; 97162 ==

== ENCOUNTER 2025-07-20 10:58 | Inpatient (IN) | payer MEDICARE, SELFPAY ==
--- OUTSIDE RECORDS SUMMARY | 2024-07-29 08:10 | XMS_ITS ---
Author Organization [facility] Address [address] [place] [address] Care Team Providers Care Surgeon Chief Name Role Phone Alejandro Freitas Unavailable [phone] REASON FOR VISIT f/u w CT abd w and without contrast per Dr. Freitas Encounters Encounter Location Date Provider Diagnosis [facility] [address] [place] [address] Dr [address] [place] [address] 07/29/2024 Alejandro Freitas Plan Of Treatment No Information Progress Notes * GREY GRIFFIN ADOB:1944 (80 yo F)Acc No.[id number]:07/29/2024 Progress Notes Patient: GREY GANNON Provider: Tan Freitas MD :1945 A ge:79 Y S ex:Female Date:07/29/2024 Address:[facility] [address] [address] Subjective: * Chief Complaints: * f /u w CT abd w and without contrast per Dr. Freitas * Electronic signature of Fatou Freitas MD on 07/20/2025 at 12:12 PM CDT Sign off status: Pending * Provider: Tan Freitas MD Date: 07/29/2024 Generated for Printi ng/Fagwyng/eTransmitting on: 0 07/20/2025 12:12 PM CDT
--- OUTSIDE RECORDS SUMMARY | 2024-07-29 08:10 | XMS_ITS ---
Author Organization [facility] Address [address] [place] [address] Care Team Providers Care Computer Repairer Name Role Phone Alejandro Freitas Unavailable [phone] REASON FOR VISIT f/u w CT abd w and without contrast per Dr. Freitas Encounters Encounter Location Date Provider Diagnosis [facility] [address] [place] [address] Dr [address] [place] [address] 07/29/2024 Alejandro Freitas Plan Of Treatment No Information Progress Notes * GREY GRIFFIN ADOB:1944 (80 yo F)Acc No.[id number]:07/29/2024 Progress Notes Patient: GREY GANNON Provider: Tan Freitas MD :1945 A ge:79 Y S ex:Female Date:07/29/2024 Address:[facility] [address] Subjective: * Chief Complaints: * f /u w CT abd w and without contrast per Dr. Freitas * Electronic signature of Fatou Freitas MD on 07/21/2025 at 07:39 AM CDT Sign off status: Pending * Provider: Tan Freitas MD Date: 0 07/29/2024 Generated for Elysiai ng/Fagwyng/eTransmitting on: 0 07/21/2025 07:39 AM CDT
--- OUTSIDE RECORDS SUMMARY | 2024-09-29 05:00 | XMS_ITS ---
Author Organization [facility] Address [address] [place] [address] Care Team Providers Care Production Quality Analyst Name Role Phone Alejandro Freitas Unavailable [phone] REASON FOR VISIT f/u w CT abd w and without contrast per Dr. Freitas Encounters Encounter Location Date Provider Diagnosis [facility] [address] [place] [address] [address] [place] [address] 09/29/2024 Alejandro Freitas Plan Of Treatment No Information Progress Notes * GREY GRIFFIN ADOB:1944 (80 yo F)Acc No.[id number]:09/29/2024 Progress Notes Patient: GREY GANNON Provider: Tan Freitas MD :1945 A ge:79 Y S ex:Female Date:09/29/2024 Address:[facility] [place] [address] [id number] Subjective: * Chief Complaints: * f /u w CT abd w and without contrast per Dr. Freitas * Electronic signature of Fatou Freitas MD on 07/21/2025 at 07:40 AM CDT Sign off status: Pending * Provider: Tan Freitas MD Date: 11/29/2023 Generated for Elysiai ng/Fagwyng/eTransmitting on: 0 07/21/2025 07:40 AM CDT
--- OUTSIDE RECORDS SUMMARY | 2024-09-29 05:00 | XMS_ITS ---
Author Organization [facility] Address [address] [place] [address] Care Team Providers Care Wooden Fence Erector Name Role Phone Alejandro Freitas Unavailable [phone] REASON FOR VISIT f/u w CT abd w and without contrast per Dr. Freitas Encounters Encounter Location Date Provider Diagnosis [facility] [address] [place] [address] [address] [place] [address] 09/29/2024 Alejandro Freitas Plan Of Treatment No Information Progress Notes * GREY GRIFFIN ADOB:1944 (80 yo F)Acc No.[id number]:09/29/2024 Progress Notes Patient: GREY GANNON Provider: Tan Freitas MD :1945 A ge:79 Y S ex:Female Date:09/29/2024 Address:[facility] [place] [address] [address] Subjective: * Chief Complaints: * f /u w CT abd w and without contrast per Dr. Freitas * Electronic signature of Fatou Freitas MD on 07/20/2025 at 12:12 PM CDT Sign off status: Pending * Provider: Tan Freitas MD Date: 11/29/2023 Generated for Printi ng/Fagwyng/eTransmitting on: 0 07/20/2025 12:12 PM CDT
[2025-07-20] VITALS (14 sets, daily range): BP systolic 142–182; BP diastolic 86–117; PULSE 88–107; RESP 16–23; TEMP 36.5–37.1; O2SAT 95–98; BMI 27.8
--- NOTE | 2025-07-20 11:12 | XR_ITS ---
WS: [id number] XR chest 1V portable [id number] REASON FOR EXAM: abd, L arm pain, demented, unable to provide hx FINDINGS: The chest is unchanged compared to 02/29/2024. Moderate tortuosity and ectasia of the thoracic aorta. Mild cardiomegaly. Mild central pulmonary venous congestion. No acute pulmonary parenchymal or pleural abnormality. Moderate degenerative spondylosis in the mid and lower thoracic spine. XR/XR chest 1V portable [id number] IMPRESSION: Stable chest with mild cardiomegaly and mild pulmonary venous hypertension. No acute abnormality.
--- NOTE | 2025-07-20 11:14 | ECG_ITS ---
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 Measurements Intervals [place] Rate: 98 P: 0 DE: 0 QRS: 50 QRSD: 122 T: 18 QT: 371 QTc: 475 Interpretive Statements UNCERTAIN REGULAR RHYTHM RIGHT BUNDLE BRANCH BLOCK [120+ ms QRS DURATION, UPRIGHT V1, 40+ ms S IN I/aVL/V4/V5/V6] Compared to ECG 09/14/2024 07:09:02 Sinus bradycardia no longer present Electronically Signed On 07-20-2025 17:43:47 CDT by Felicitas Connell M.D. [email or web address]
[2025-07-20] MEDS: morphine 4 mg/mL SDV 1 mL IVP (11:27)
--- NOTE | 2025-07-20 11:29 | CT_ITS ---
WS: [id number] CT ABDOMEN AND PELVIS WITH CONTRAST HISTORY: generalized pain x2 days, markedly altered, ttp abd TECHNIQUE: Imaging performed of the abdomen and pelvis with IV contrast. Single phase imaging of the abdomen. Coronal and sagittal reformats are submitted. All CT scans at [facility] use at least one of these dose optimization techniques: automated exposure control; mA and/or kV adjustment per patient size (includes targeted exams where dose is matched to clinical indication); or iterative reconstruction. IV CONTRAST: Omnipaque 350; 100 mL IV. Oral contrast: No DLP: 903.86 mGy.cm COMPARISON: 08/27/2015. Significant motion artifact limiting evaluation of the abdominal organs. Lower thorax: Motion artifact. No obvious pneumonia. Large hiatal hernia. Heart is normal size. Liver/biliary system: Normal size liver. Multiple low-attenuation masses within the liver. Some of these were present on prior studies. Liver is distorted by breathing motion. Gallbladder: Normal. No gallstones or wall thickening. No pericholecystic fluid. Pancreas: Atrophic pancreas. Pancreatic head and the duodenum poorly visualized due to motion. No duct dilatation. Spleen: Normal size spleen. No mass or infarct. Adrenal glands: Normal. Right kidney: Normal size kidney. Cortical hypodensities most consistent with cysts. No solid mass or obstruction. Left kidney: No obstruction. No solid mass. Cysts cortical cysts. Aorta: Mild atherosclerosis with no aneurysm. Lymphadenopathy: None. Free fluid: None. GI tract: Poorly visualized stomach and proximal small bowel. No obstruction is evident. Mild sigmoid diverticulosis without acute diverticulitis. Normal appendix. Abdominal wall: Fat containing umbilical hernia. Pelvis: Prior hysterectomy. No free fluid or adenopathy. Negative urinary bladder. Bones: Marked increase in lumbar lordosis. Anterolisthesis by 5 mm of L3 and L4. Schmorl's node defect L3. CT/CT abdomen pelvis w con* [id number] IMPRESSION: 1. Study is compromised by breathing motion artifact. 2. No GI tract obstruction. 3. Sigmoid diverticulosis without acute diverticulitis. 4. No ascites or adenopathy. 5. Liver, duodenum and pancreatic head are obscured and poorly visualized seco ndary to motion. 6. Large hiatal hernia. 7. Small umbilical hernia contains fat.
--- NOTE | 2025-07-20 11:29 | CT_ITS ---
WS: [id number] CT HEAD NONCONTRAST HISTORY: AMS x2 days, generalized pain, hx dementia TECHNIQUE: Contiguous axial imaging performed through the brain. Bone and soft tissue windows. Sagittal and coronal reformats reviewed. All CT scans at [facility] use at least one of these dose optimization techniques: automated exposure control; mA and/or kV adjustment per patient size (includes targeted exams where dose is matched to clinical indication); or iterative reconstruction. DLP: 1072.88 mGy.cm COMPARISON: 01/24/2023 No acute intracranial hemorrhage, midline shift or mass effect. Mild atrophy and small vessel disease. Prior lacunar infarct anterior limb of the LEFT internal capsule. Mild cerebellar atrophy. Ventricles: Normal size with no hydrocephalus. Paranasal sinuses: Mucoperiosteal thickening and mucous retention cyst in the RIGHT maxillary sinus. No air-fluid levels. Mastoid air cells: Well pneumatized. Calvarium and scalp: Skull is intact with no soft tissue edema or swelling. CT/CT head wo con* [id number] IMPRESSION: 1. No acute intracranial hemorrhage or edema. 2. Mild cerebral and cerebellar atrophy with small vessel changes. 3. RIGHT maxillary sinus mucoperiosteal thickening and mucous retention cyst.
--- NOTE | 2025-07-20 11:29 | W.ED.AMS ---
HPI - Altered Mental Status General: Chief Complaint: Altered Mental Status Stated Complaint: AMS, N/V Time Seen by Provider: 07/20/25 11:05 History of Present Illness: 80-year-old female history of dementia, generalized anxiety disorder, hypertension, overactive bladder with urinary incontinence, chronic back pain with chronic compression fracture to L2 noted and being evaluated by outpatient orthopedic spine, presenting to the emergency department for approximately 2-day history of altered mental status with nausea and vomiting, per who is at the bedside mental status is generally conversational, however patient has been unable to make her needs known over the last 2 days, has been moaning in pain with varied complaints, has complained of mostly back pain to him, at the time of evaluation patient is complaining of left arm pain (this is after left arm had IV placed and left arm blood pressure cuff placed) she denies chest pain, she denies headache, however she is markedly altered and appears to be an unreliable historian. reports patient has refused to take her blood pressure medication since Saturday and has 3 episodes of vomiting, no diarrhea reported, no fevers reported, no cough noted Related Data Home Medications ?Medication ?Instructions ?Recorded ?Confirmed docusate sodium 100 mg capsule 100 mg PO BID PRN Constipation 11/06/23 07/20/25 (Colace) multivitamin-ferrous 1 tab PO DAILY 02/09/24 07/20/25 fumarate-folic acid 18 mg-400 mcg tablet aspirin 81 mg tablet,delayed 81 mg PO DAILY 05/21/24 07/20/25 release acetaminophen 325 mg tablet 325 mg PO Q4H PRN panin 07/20/25 07/20/25 amlodipine 10 mg tablet 10 mg PO DAILY 07/20/25 07/20/25 atorvastatin 40 mg tablet 40 mg PO QPM 07/20/25 07/20/25 citalopram 40 mg tablet 40 mg PO QPM 07/20/25 07/20/25 clonidine HCl 0.1 mg tablet 0.1 mg PO QAM 07/20/25 07/20/25 galantamine 4 mg tablet 8 mg PO QAM 07/20/25 07/20/25 meloxicam 7.5 mg tablet 7.5 mg PO QPM PRN Pain 07/20/25 07/20/25 Previous Rx's ?Medication ?Instructions ?Recorded quetiapine 200 mg tablet 200 mg PO BEDTIME #90 tabs 05/21/25 mirabegron 25 mg tablet,extended 25 mg PO DAILY Stop oxybutynin #90 06/01/25 release 24 hr tabs metoprolol tartrate 25 mg tablet 12.5 mg (1/2 x 25 mg) PO BID #90 07/14/25 tabs Allergies Allergy/AdvReac Type Severity Reaction Status Date / Time No Known Allergies Allergy Verified 07/14/25 08:49 PFSH ED PFSH: Medical History Primary hyperparathyroidism Cyst of left kidney Cyst measures 1.4 x 1.4 x 1.4 cm. History of CVA (cerebrovascular accident) Small focus of chronic ischemia along the anterior limb LEFT internal capsule Osteopenia Hypertension Dementia Parathyroid adenoma SOLOMON (generalized anxiety disorder) Hypercalcemia History of kidney stones Urinary incontinence Surgical History History of arthroplasty of right knee History of parathyroidectomy History of anterior colporrhaphy (~09/17/23) Anterior colporrhapy augmented with allograft, posterior colporrhapy, sacrospinous fixation, cystoscopy performed by Vaughn Family History Father Dementia Denies family history of Colon cancer Ovarian cancer Diabetes Heart disease Hypercholesteremia Breast cancer Hypertension Uterine cancer Thyroid disease Stroke Social History Smoking and tobacco/nicotine status: unknown if used tobacco/nicotine Alcohol intake: current Alcohol intake frequency: few times a month Household members: spouse Marital status: Current occupational status: retired Special bekah needs: No Agree to transfusion: Yes Physical Exam Const: EXAM LIMITATIONS: altered mental status GENERAL APPEARANCE: in distress and ill appearing ORIENTATION/CONSCIOUSNESS: Yes confused HENMT: COMMON NORMALS: normocephalic and atraumatic HEAD & SCALP: normocephalic and atraumatic Eye: COMMON NORMALS: Equal, round and reactive pupils present and EOMs intact bilaterally PUPIL: Yes Equal, round and reactive pupils present Neck/C-Spine: COMMON NORMALS: full ROM and supple Chest: COMMONS NORMALS: normal inspection of the chest and normal palpation of entire chest wall Resp: COMMON NORMALS: normal respiratory effort, No retractions, No use of accessory muscles and clear to auscultation bilaterally AUSCULTATION: clear to auscultation bilaterally Cardio: COMMON NORMALS: regular rhythm, S1 normal heart sound present, S2 normal heart sound present and No murmurs present (Cardio) RATE: tachycardic RHYTHM: regular rhythm HEART SOUNDS: S1 normal heart sound present, S2 normal heart sound present and no murmurs GI: COMMON NORMALS: Normal to inspection, nondistended, normoactive bowel sounds present, Soft to palpation and no masses PALPATION: Yes Soft to palpation and Yes Tenderness to palpation present (GI) Extremity: COMMON NORMALS: normal to inspection and full ROM Neuro: COMMON NORMALS: moves all extremities and no focal motor deficits Psych: ATTITUDE: Yes uncooperative ACTIVITY/MOTOR BEHAVIOR: Yes fidgeting SPEECH: Yes incoherent, No Pressured speech present and No slurred MEMORY/COGNITION: Yes cognition grossly impaired OTHER: aaox1 to person only Skin: COMMON NORMALS: no rashes or lesions noted and no wounds GENERAL SKIN EXAM: no rashes or lesions noted Course Reevaluation(s): Reevaluation #1: Patient reevaluated at this time, her mental status appears to be slowly improving after fluids, her workup shows a markedly elevated CK level consistent with rhabdomyolysis, minimally elevated troponin level with no ischemia on EKG or placido chest pain, do not think this is primary cardiac, plan to admit for hydration and monitoring. Time: 15:44 Consultations: Consultation #1: Spoke with Dr. Velazco of [facility] medicine who will see the patient and place admission orders Time: 15:45 Vital Signs: Vital signs: Vital Signs Temperature 98.7 F 07/20/25 10:59 Pulse Rate 97 07/20/25 15:30 Respiratory Rate 17 07/20/25 15:30 Blood Pressure 158/113 07/20/25 15:30 Pulse Oximetry 96 07/20/25 15:30 Oxygen Delivery Me thod Room Air 07/20/25 15:30 MDM - Altered Mental Status Medical Decision Making 80-year-old female history hypertension, urinary incontinence, dementia, chronic back pain, presenting with 2-day history of recurrent vomiting and marked altered mental status, baseline is apparently ANO x 1-2 but able to have full conversations and able to bathe and clean herself, currently patient is moaning in the bed, she is an unreliable historian with a wandering history, she does not appear to have focal sensory or motor neurologic deficits and her pupils are equal and reactive, she is hypertensive and tachycardic, I am concerned for possible brain bleed, alternative possibilities include occult infection/UTI, intra-abdominal infection, acute urinary retention, electrolyte abnormality hyponatremia hyperammonemia undiagnosed liver disease, plan for toxic metabolic infectious workup, cardiac workup given hypertension, CT brain and abdomen, pain control, IV fluids, reassess for disposition Lab Data 07/20/25 13:48 07/20/25 13:48 Radiology Impressions Chest X-Ray 07/20/25 11:12 IMPRESSION: Stable chest with mild cardiomegaly and mild pulmonary venous hypertension. No acute abnormality. Abdomen/Pelvis CT 07/20/25 11:29 IMPRESSION: 1. Study is compromised by breathing motion artifact. 2. No GI tract obstruction. 3. Sigmoid diverticulosis without acute diverticulitis. 4. No ascites or adenopathy. 5. Liver, duodenum and pancreatic head are obscured and poorly visualized secondary to motion. 6. Large hiatal hernia. 7. Small umbilical hernia contains fat. Head CT 07/20/25 11:29 IMPRESSION: 1. No acute intracranial hemorrhage or edema. 2. Mild cerebral and cerebellar atrophy with small vessel changes. 3. RIGHT maxillary sinus mucoperiosteal thickening and mucous retention cyst. Laboratory Results WBC 14.61 10^3/uL (3.29-11.43) H 07/20/25 13:48 RBC 4.04 10^6/uL (3.85-5.65) 07/20/25 13:48 Hgb 11.10 g/dL (11.27-16.99) L 07/20/25 13:48 Hct 36.3 % (36-47) 07/20/25 13:48 MCV 89.9 fl (85-98) 07/20/25 13:48 MCH 27.5 pg (27-33) 07/20/25 13:48 MCHC 30.6 g/dL (30-55) 07/20/25 13:48 RDW 14.1 % (12.1-15.1) 07/20/25 13:48 Plt Count 262 10^3/cmm (157-399) 07/20/25 13:48 MPV 10.4 fL (7.4-10.4) 07/20/25 13:48 Neut % (Auto) 82.5 % 07/20/25 13:48 Lymph % (Auto) 9.5 % 07/20/25 13:48 [place] % (Auto) 7.5 % 07/20/25 13:48 Eos % (Auto) 0.0 % 07/20/25 13:48 Baso % (Auto) 0.1 % 07/20/25 13:48 Neut # (Auto) 12.04 10^3/uL (1.8-7.7) H 07/20/25 13:48 Lymph # (Auto) 1.4 10^3/uL (0.8-4.8) 07/20/25 13:48 [place] # (Auto) 1.1 10^3/uL (0.2-0.9) H 07/20/25 13:48 Eos # (Auto) 0.0 10^3/uL (0.0-0.8) 07/20/25 13:48 Baso # (Auto) 0.0 10^3/uL (0.0-0.1) 07/20/25 13:48 Nucleated RBC % (auto) 0 % 07/20/25 13:48 Nucleated RBCs # 0.0 /100WBC 07/20/25 13:48 PT 14.20 SECONDS (12.1-14.9) 07/20/25 13:48 INR 1.03 (0.8-1.2) 07/20/25 13:48 APTT 23.2 SECONDS (23.9-36.7) L 07/20/25 13:48 Sodium 143 mmol/L (136-145) 07/20/25 13:48 Potassium 4.0 mmol/L (3.5-5.1) 07/20/25 13:48 Chloride 113 mmol/L (98-107) H 07/20/25 13:48 Carbon Dioxide 19 mmol/L (22-29) L 07/20/25 13:48 Anion Gap 15.0 (5-19) 07/20/25 13:48 BUN 25 mg/dL (8-23) H 07/20/25 13:48 Creatinine 0.8 mg/dL (0.5-0.9) 07/20/25 13:48 GFR Calculation Not Reportable 07/20/25 13:48 Glucose 126 mg/dL (65-115) H 07/20/25 13:48 Calculated Osmolality 302 mOsm/kg (285-295) H 07/20/25 13:48 Lactic Acid 1.4 mmol/L (0.5-2.2) 07/20/25 13:48 Calcium 10.5 mg/dL (8.5-10.5) 07/20/25 13:48 Magnesium 2.1 mg/dL (1.7-2.3) 07/20/25 13:48 Total Bilirubin 0.5 mg/dL (0.15-1.2) 07/20/25 13:48 AST 89 U/L (0-32) H 07/20/25 13:48 ALT 29 U/L (0-33) 07/20/25 13:48 Alkaline Phosphatase 106 U/L (35-105) H 07/20/25 13:48 Ammonia 27 umol/L (11-51) 07/20/25 13:48 Creatine Kinase 5628 U/L (26-192) H* 07/20/25 13:48 Troponin T Baseline 27 ng/L (0-10) H 07/20/25 13:48 NT-Pro-B Natriuret Pep 421 pg/mL (0-450) 07/20/25 13:48 Total Protein 7.6 g/dL (6.6-8.7) 07/20/25 13:48 Albumin 3.9 g/dL (3.5-5.2) 07/20/25 13:48 Globulin 3.7 g/dL (1.3-4.6) 07/20/25 13:48 Lipase 33 U/L (13-60) 07/20/25 13:48 Amorphous Sediment Not Reportable 07/20/25 15:30 All radiology interpretation(s) finalized by discharge ED provider radiology interpretation(s): Chest x-ray no significant pulmonary edema pleural effusions or consolidations EKG Data EKG 1: I personally reviewed and interpreted this EKG as follows: EKG interpretation date: 07/20/25 EKG interpretation time: 11:50 Interpretation: Regular rhythm without clear visible P waves, sinus rhythm versus junctional at 98 bpm, right bundle branch block, no STEMI, no ectopy, QTc 426 ms EKG 2: I personally reviewed and interpreted this EKG as follows: EKG interpretation date: 07/20/25 EKG interpretation time: 15:34 Interpretation: Sinus rhythm at 91 bpm, right bundle branch block, no STEMI, no ectopy, QTc 430 ms, normal axis, no significant dynamic interval change from prior EKG Discharge Plan Discharge Patient Disposition: Admitted As Inpatient Clinical Impression: Acute dehydration, Encephalopathy acute Rhabdomyolysis Qualifiers: Rhabdomyolysis type: non-traumatic Qualified Code(s): M62.82 - Rhabdomyolysis Condition: Stable Coding Level of Care Code ED Transformer Shop Supervisor for Sarah Epps
--- OUTSIDE RECORDS SUMMARY | 2025-07-20 12:12 | XMS_ITS | Clinical Summary ---
[facility] Address [address] [place] [address] Care Team Providers Care Analytics Lead Name Role Phone Renata Hyde DO Primary Care Provider [phone] Allergies No known active allergies Medications citalopram (CeleXA) 40 mg tablet Take 40 mg by mouth daily. 02/20/2023 Active donepeziL (ARICEPT) 10 mg tablet Take 10 mg by mouth daily. 07/19/2023 Active docusate sodium (COLACE) 50 mg capsule Take 1 Capsule (50 mg) by mouth 2 times daily. 60 Capsule 3 10/14/2023 Active HYDROcodone-steff taminophen (NORCO) 5-325 mg tabletIndicatio ns:Postoperativ e pain Take 1 Tablet by mouth every 4 hours as needed for Pain, Moderate. Max Daily Amount: 6 Tablets 30 Tablet 10/14/2023 Active calcium as carbonate (CALCI-CHEW) 1,250 mg (500 mg elemental) Tablet, Chewable Take 2 Tablets (1,000 mg) by mouth 3 times daily. 180 Tablet 3 10/14/2023 Active Active Problems Problem Noted Date Diagnosed Date Hyperparathyroidism 07/10/2023 Hypovitaminosis D 07/10/2023 Osteopenia 07/10/2023 Encounters Date Type Department Care Team Description 04/21/2025 External Device Data STL ABSTRACTION Provider, Abstract 04/20/2025 External Device Data STL ABSTRACTION Provider, Abstract from Last 3 Months Family History Medical History Relation Name Comments No Known Problems Father No Known Problems Mother Relation Name Status Comments Father Mother Social History Tobacco Use Types Packs/Day Years Used Date Smoking Tobacco: Never Smokeless Tobacco: Never Alcohol Use Standard Drinks/Week Comments Never 0 (1 standard drink = 0.6 oz pur e alcohol) Feeling Safe Answer Date Recorded Are you in a relationship wi th someone who hurts you emotionally and/or physically? No 10/14/2023 Food Insecurity Answer Date Recorded Patient needs follow up regarding: Not on file 01/07/2024 Transportation Needs Answer Date Record ed Patient needs follow up regarding: Not on file 01/07/2024 Housing Stability Answer Date Recorded Patient needs follow up regarding: Not on file 01/07/2024 Utility Needs Answer Date Recorded Patient needs follow up regarding: Not on file 01/07/2024 Comments No Sex and Gender Information Value Date Recorded Sex Assigned at Not on file Legal Sex Female 9:14 AM CDT Gender Identity Not on file Sexual Orientation Not on file Last Filed Vital Signs Vital Sign Reading Time Taken Comments Blood Pressure 134/84 10/31/2023 1:28 PM MANAGER CUSTOM Pulse 70 10/24/2023 10:57 AM MANAGER CUSTOM Temperature 37.1 C (98.7 F) 10/24/2023 10:57 AM MANAGER CUSTOM Respiratory Rate 18 10/24/2023 10:57 AM MANAGER CUSTOM Oxygen Saturation 97% 10/24/2023 10:57 AM MANAGER CUSTOM Inhaled Oxygen Concentration - - Weight 77.6 kg (171 lb) 10/31/2023 1:28 PM MANAGER CUSTOM Height 172.7 cm (5' 8 ) 10/31/2023 1:28 PM MANAGER CUSTOM Body Mass Index 26 10/31/2023 1:28 PM MANAGER CUSTOM Plan of Treatment Health Maintenance Due Date Last Done Comments DTAP/TDAP/TD VACCINES (1 - Tdap) 1966 PNEUMOCOCCAL VACCINE 50+ YEARS (1 of 1 - PCV) 02/23/19 97 ZOSTER VACCINE (1 of 2) 1997 OSTEOPOROSIS SCREENING 02/24/2012 RSV VACCINE (60+ or ) (1 - 1-dose 75+ series) 2022 INFLUENZA VACCINE (#1) 2025 Medical Devices Implanted Type Area Handle And Vent Machine Operator Device Identifier Shelf Expiration Date Model / Serial / Lot Clip Ligating Horizon Red [id number] - [facility] - [id number] Implanted:Qty: 1 on 10/14/2023 by Saurabh Azul MD at [facility] Clip N/A: Neck [employer] [id number] 06/10/2028 [id number] / / [id number] Clip Ligating Horizon Med Ti [id number] - [place]sc - [id number] Implanted:Qty: 1 on 10/14/2023 by Saurabh Azul MD at [facility] Clip N/A: Neck [employer]LE[employer]- [employer]ECK [employer] [id number] 07/16/2028 [id number] / / [id number] Hemostatic Surgifoam Sz12-7 1971 [id number] Implanted:Qty: 1 on 10/14/2023 by Saurabh Azul MD at [facility] Hemostatic N/A: Neck [employer] [id number] 06/20/20271971 Explanted Type Area Handle And Vent Machine Operator Device Identifier Shelf Expiration Date Model / Serial / Lot Hemostatic Surgifoam Sz12-7 1971 [id number] Explanted:Qty: 1 on 10/14/2023 by Saurabh Azul MD at [facility] Hemostatic N/A: Neck [employer] [id number] 06/20/20271971 [id number] [place] [address] Advance Directives For more information, please contact: [phone] * Full Code (Latest Code Status on File) Date Activated Date Inactivated Comments 10/14/2023 10:55 AM 10/14/2023 8:21 PM Care Teams Analytics Lead Relationship Specialty Start Date End Date Renata Hyde DO PCP - General Family Practice 07/23/23
--- OUTSIDE RECORDS SUMMARY | 2025-07-20 12:12 | XMS_ITS | Patient Health Record ---
Author Organization [facility] Address [address] [place] [address] Care Team Providers Care Digital Coordinator Name Role Phone Alejandro Freitas Unavailable [phone] Reason For Referral No Information Problems Problem Type SNOMED Code ICD Code Onset Dates Problem Status W/U Status Risk Notes Problem Calculus of kidney (26492565) Calculus of kidney (N20.0) Active confirmed Encounters Encounter Location Date Provider Diagnosis [facility] [address] [place] [address] [address] [place] [address] 08/19/2024 Alejandro Freitas Plan Of Treatment Pending Test Test Name Order Date Blood Urea Nitrogen (BUN) 22840 05/25/20 24 Creatinine (B) 76541 05/25/2024 CT Abdomen w/ + w/o Contrast-[id number] 05/25
--- NOTE | 2025-07-20 13:24 | PC.PHAR ---
Spouse states pt last took her medications on Saturday and has not taken anything since that time.
[2025-07-20 13:58] LABS: Hematocrit 36.3 % (36-47); Hemoglobin 11.10 g/dL (11.27-16.99); Mean Corpuscular HGB Conc 30.6 g/dL (30-55); Mean Corpuscular Hemoglobin 27.5 pg (27-33); Mean Corpuscular Volume 89.9 fl (85-98); Nucleated Red Blood Cells % 0 %; Platelet Count 262 10^3/cmm (157-399); Red Blood Count 4.04 10^6/uL (3.85-5.65); White Blood Count 14.61 10^3/uL (3.29-11.43)
[2025-07-20 14:11] LABS: INR 1.03 (0.8-1.2); Partial Thromboplastin Time 23.2 SECONDS (23.9-36.7); Prothrombin Time 14.20 SECONDS (12.1-14.9)
[2025-07-20 14:16] LABS: Ammonia 27 umol/L (11-51); Lactic Sepsis W/Reflex 1.4 mmol/L (0.5-2.2)
[2025-07-20 14:26] LABS: Alanine Aminotransferase 29 U/L (0-33); Albumin Level 3.9 g/dL (3.5-5.2); Alkaline Phosphatase 106 U/L (35-105); Anion Gap 15.0 (5-19); Aspartate Amino Transferase 89 U/L (0-32); Blood Urea Nitrogen 25 mg/dL (8-23); Calcium 10.5 mg/dL (8.5-10.5); Carbon Dioxide 19 mmol/L (22-29); Chloride 113 mmol/L (98-107); Creatinine Clr Calc Pharmacy 66.4529; Globulin 3.7 g/dL (1.3-4.6); Glucose 126 mg/dL (65-115); Lipase 33 U/L (13-60); Magnesium 2.1 mg/dL (1.7-2.3); NT Pro B Type Natriuretic Pept 421 pg/mL (0-450); Osmolality Calculated 302 mOsm/kg (285-295); Potassium 4.0 mmol/L (3.5-5.1); Sodium 143 mmol/L (136-145); Total Protein 7.6 g/dL (6.6-8.7)
--- NOTE | 2025-07-20 14:52 | ECG_ITS ---
[facility] Pat Name: Tressa Mcgill Department: Room: Gender: Female Home Worker: : 1945 Requested By: Stalin Mendes Order Number: [id number] Steve MD: Felicitas Connell M.D. Measurements Intervals [place] Rate: 91 P: 23 [place]: 140 QRS: -7 QRSD: 124 T: -17 QT: 381 QTc: 471 Interpretive Statements SINUS RHYTHM RIGHT BUNDLE BRANCH BLOCK [120+ ms QRS DURATION, UPRIGHT V1, 40+ ms S IN I/aVL/V4/V5/V6] Compared to ECG 07/20/2025 11:50:47 No significant changes Electronically Signed On 07-20-2025 17:41:34 CDT by Felicitas Connell M.D. [email or web address]
[2025-07-20 15:22] LABS: Troponin(5th) Baseline 27 ng/L (0-10)
[2025-07-20 15:47] LABS: Glucose Urine UA Negative (Normal); Nitrate Urine Negative (Negative)
[2025-07-20 16:03] LABS: Specific Gravity, Urine 1.069 (1.005-1.030)
[2025-07-20 17:53] LABS: Coronavirus 229E,HKU1,NL63,OC4 Not Detected (NOT DETECT); Parainfluenza Virus Type 1 Not Detected (NOT DETECT); Parainfluenza Virus Type 2 Not Detected (NOT DETECT); Parainfluenza Virus Type 3 Not Detected (NOT DETECT); Parainfluenza Virus Type 4 Not Detected (NOT DETECT); SARS-COV-2 Not Detected (NOT DETECT)
--- NOTE | 2025-07-20 19:19 | PM.HP ---
Providers/Chief Complaint Admitting Physician: Leti Velazco MD Primary Care Provider: Justine Cook MD Chief Complaint: AMS, N/V History of Present Illness Ellen Mcgill is a 80 year old female with a past medical history of dementia, followed by Dr. Neal as outpatient, at the baseline patient is able to ambulate, self feed, carry out her ADLs independently. She has some memory disturbances and some nighttime hallucinations however is able to carry on a conversation. Over the past 3-4 days,her has noticed that she is more confused than usual. She is currently unable to state her name beyond ellen , does not recall her age or . Only realizes she is in a hosputal after much prompting. She follows commands to move extremeties after much prompting. No recent illness. She had a few episodes of vomiting the past 2 days . No diarrhea No abdominal pain Denies cough, chest pain, dyspnea Review of Systems General: Reports: 10 or more systems reviewed and unremarkable except in HPI and below Const: Denies: fever(s), chills or body aches Eyes: Denies: change in vision, blurry vision or photophobia ENMT: Reports: hoarseness; Denies: throat pain, enlarged tonsils, odynophagia or nasal congestion Card: Denies: chest pain, palpitations, irregular heart rhythm, edema, swelling of feet/ankles, lightheadedness, pre-syncope, dyspnea on exertion or orthopnea Resp: Denies: dyspnea, productive cough, non-productive cough, wheezing, stridor, pain on inspiration, change in phlegm color, hemoptysis or chest congestion GI: Denies: abdominal pain, nausea, vomiting, hematemesis, coffee ground emesis, dysphagia, heartburn, diarrhea, constipation, GI cramping, change in stool character, hematochezia or melena : Denies: flank pain, difficulty voiding, dysuria, urinary frequency, urinary urgency, urinary hesitancy or hematuria Musc: Denies: neck pain, back pain, extremity pain, joint swelling, joint warmth or deformity Neuro: Denies: headache(s), numbness in extremities, weakness in extremities, sensory changes, difficulty walking, frequent falls, dizziness, vertigo, behavioral changes, Slurred speech present or seizure-like activity Psych: Denies: anxiety, depression, suicidal ideation or homicidal ideation Endo: Denies: polyuria, polydipsia, tired all the time, cold intolerance or hot flashes Allen/Lymph: Denies: easy bruising or easy bleeding Medications/Allergies Home Medications ?Medication ?Instructions ?Recorded ?Confirmed ?Last Taken ?Type docusate sodium 100 mg capsule 100 mg PO BID PRN Constipation 11/06/23 07/20/25 09/13/24 History (Colace) multivitamin-ferrous 1 tab PO DAILY 02/09/24 07/20/25 09/13/24 History fumarate-folic acid 18 mg-400 mcg tablet aspirin 81 mg tablet,delayed 81 mg PO DAILY 05/21/24 07/20/25 07/17/25 History release quetiapine 200 mg tablet 200 mg PO BEDTIME #90 tabs 03/24/25 07/20/25 07/17/25 Rx mirabegron 25 mg tablet,extended 25 mg PO DAILY Stop oxybutynin #90 06/01/25 07/20/25 07/17/25 Rx release 24 hr tabs metoprolol tartrate 25 mg tablet 12.5 mg (1/2 x 25 mg) PO BID #90 07/14/25 07/20/25 07/17/25 Rx tabs acetaminophen 325 mg tablet 325 mg PO Q4H PRN panin 07/20/25 07/20/25 Unknown History amlodipine 10 mg tablet 10 mg PO DAILY 07/20/25 07/20/25 07/17/25 History atorvastatin 40 mg tablet 40 mg PO QPM 07/20/25 07/20/25 07/17/25 History citalopram 40 mg tablet 40 mg PO QPM 07/20/25 07/20/25 07/17/25 History clonidine HCl 0.1 mg tablet 0.1 mg PO QAM 07/20/25 07/20/25 07/17/25 History galantamine 4 mg tablet 8 mg PO QAM 07/20/25 07/20/25 07/17/25 History meloxicam 7.5 mg tablet 7.5 mg PO QPM PRN Pain 07/20/25 07/20/25 07/17/25 History Allergies Allergy/AdvReac Type Severity Reaction Status Date / Time No Known Allergies Allergy Verified 07/14/25 08:49 PFSH Acute PFSH: Medical History Primary hyperparathyroidism Cyst of left kidney Cyst measures 1.4 x 1.4 x 1.4 cm. History of CVA (cerebrovascular accident) Small focus of chronic ischemia along the anterior limb LEFT internal capsule Osteopenia Hypertension Dementia Parathyroid adenoma SOLOMON (generalized anxiety disorder) Hypercalcemia History of kidney stones Urinary incontinence Surgical History History of arthroplasty of right knee History of parathyroidectomy History of anterior colporrhaphy (~09/17/23) Anterior colporrhapy augmented with allograft, posterior colporrhapy, sacrospinous fixation, cystoscopy performed by Vaughn Family History Father Dementia Denies family history of Colon cancer Ovarian cancer Diabetes Heart disease Hypercholesteremia Breast cancer Hypertension Uterine cancer Thyroid disease Stroke Social History Smoking and tobacco/nicotine status: unknown if used tobacco/nicotine Alcohol intake: current Alcohol intake frequency: few times a month Household members: spouse Marital status: Current occupational status: retired Special bekah needs: No Agree to transfusion: Yes Vitals/I&O/Wt Last Vital Signs Temp 98.5 F 07/20/25 17:23 Pulse 99 07/20/25 17:23 Resp 18 07/20/25 17:23 BP 150/100 07/20/25 17:23 Pulse Ox 98 07/20/25 17:23 O2 Del Method Room Air 07/20/25 17:23 07/20/25 07/20/25 07/20/25 06:59 14:59 22:59 Output Total 475 / 475 Balance -475 / -475 Weight last 48 hrs Weight 83.206 kg Weight 85.729 kg Physical Exam Narrative: General: No acute distress, AO x1 HEENT: PERRLA, pupils bilaterally equal and reactive, pallors not present Chest: Normal vesicular breath sounds, no added sounds, equal good air entry bilaterally CVS: S1-S2 regular, no murmurs, no tachycardia, no gallops, no rubs Abdomen: Soft, nontender, no organomegaly, bowel sounds present Neuro: moves all extremities while laying in bed, confused, disoriented Data 07/21/25 04:45 07/21/25 04:45 Micro: Microbiology 07/20/25 13:50 Blood Culture - Preliminary Blood SPECIMEN COLLECTED 07/20/25 13:48 Blood Culture - Preliminary Blood SPECIMEN COLLECTED Other data: [facility] [address] [place] [address] [place] Scan Report Signed Patient: Ellen Mcgill Unit #: [id number] : 1945 Age/Sex: 80 / F ADM Date: 07/20/25 Loc: ER Room/Bed: Attending Dr: Ordering Provider/Ordering MD: Stalin Mendes MD Date of Service: 07/20/25 Procedure(s): CT head wo con* [id number] Accession Number(s): [id number] Report Number: [id number] WS: [id number] CT HEAD NONCONTRAST HISTORY: AMS x2 days, generalized pain, hx dementia TECHNIQUE: Contiguous axial imaging performed through the brain. Bone and soft tissue windows. Sagittal and coronal reformats reviewed. All CT scans at [facility] use at least one of these dose optimization techniques: automated exposure control; mA and/or kV adjustment per patient size (includes targeted exams where dose is matched to clinical indication); or iterative reconstruction. DLP: 1072.88 mGy.cm COMPARISON: 01/24/2023 No acute intracranial hemorrhage, midline shift or mass effect. Mild atrophy and small vessel disease. Prior lacunar infarct anterior limb of the LEFT internal capsule. Mild cerebellar atrophy. Ventricles: Normal size with no hydrocephalus. Paranasal sinuses: Mucoperiosteal thickening and mucous retention cyst in the RIGHT maxillary sinus. No air-fluid levels. Mastoid air cells: Well pneumatized. Calvarium and scalp: Skull is intact with no soft tissue edema or swelling. CT/CT head wo con* [id number] IMPRESSION: 1. No acute intracranial hemorrhage or edema. 2. Mild cerebral and cerebellar atrophy with small vessel changes. 3. RIGHT maxillary sinus mucoperiosteal thickening and mucous retention cyst. A&P Assessment and plan 1. Altered mental status: 2. Rhabdomyolysis: 3. Alzheimer's disease: Plan: 80-year-old lady with a past medical history of dementia, typically able to manage ADLs on her own, presenting today with altered mental status which has been over the past 3 to 4 weeks. Currently patient is awake, confused, only able to answer her first name does not provide much further information. She has a few words in conversation such as thank you, okay, however unable to have a conversation. This appears to be new per history obtained by and review of recent outpatient notes. Labs are notable for mild leukocytosis. She does not have any localizing signs or symptoms of infection currently. Chest x-ray is without consolidation. CT of the abdomen and pelvis is without any acute abdominal events. CT of the head without any acute stroke. Denies any fever. Patient reports she had 2-3 episodes of vomiting however this appears to have subsided. States that the vomitus was black in color. Hemoglobin is currently stable. Check TSH, ammonia, vitamin B12, serum RPR screen to further assess for any reversible causes. Additionally check vitamin B1 to no reported history of malnutrition. Patient does not consume any alcohol. She has not traveled anywhere recently however with mildly elevated liver enzymes, leukocytosis, concern for potentially tick mediated illness. Labs notable for rhabdomyolysis with elevated CK, unclear etiology at this time. Patient has not been outdoors. She tends to stay at home most of the time. No recent change in her medications. Hold atorvastatin. Start normal saline at 100 cc an hour and monitor CK serially. Further orders to be placed on results of above testing. PDMP PDMP Reviewed: Not Reviewed Attestations Medical Necessity Statement*: Less than 2 midnight stay is currently anticipated Coding Level of Care Code Acute Code for [facility] Diagnoses Altered mental status R41.82 Rhabdomyolysis M62.82 Alzheimer's disease G30.9; F02.80
[2025-07-20 20:00] LABS: Troponin 5 6HR 28.15 ng/L (0-10); Troponin 5 6HR Delta 1.15 ng/L (0-12)
[2025-07-20 21:48] LABS: Ammonia 34 umol/L (11-51)
[2025-07-20] MEDS: FUROsemide 10 mg/mL SDV 2mL 20 MG IVP (23:37)
[2025-07-21] VITALS (8 sets, daily range): BP systolic 126–159; BP diastolic 79–96; PULSE 63–95; RESP 16–20; TEMP 36.6–37.1; O2SAT 96–98
[2025-07-21 00:13] LABS: Thyroid Stimulating Hormone 2.49 uIU/mL (0.27-4.20); Vitamin B12 1179 pg/mL (232-1245)
[2025-07-21 05:07] LABS: Hematocrit 39.2 % (36-47); Hemoglobin 11.80 g/dL (11.27-16.99); Mean Corpuscular HGB Conc 30.1 g/dL (30-55); Mean Corpuscular Hemoglobin 27.6 pg (27-33); Mean Corpuscular Volume 91.6 fl (85-98); Nucleated Red Blood Cells % 0 %; Platelet Count 293 10^3/cmm (157-399); Red Blood Count 4.28 10^6/uL (3.85-5.65); White Blood Count 13.99 10^3/uL (3.29-11.43)
[2025-07-21 06:05] LABS: Alanine Aminotransferase 36 U/L (0-33); Albumin Level 4.1 g/dL (3.5-5.2); Alkaline Phosphatase 109 U/L (35-105); Aspartate Amino Transferase 92 U/L (0-32); Blood Urea Nitrogen 20 mg/dL (8-23); Calcium 10.5 mg/dL (8.5-10.5); Carbon Dioxide 19 mmol/L (22-29); Chloride 115 mmol/L (98-107); Creatinine Clr Calc Pharmacy 68.2955; Globulin 3.5 g/dL (1.3-4.6); Glucose 139 mg/dL (65-115); Magnesium 2.3 mg/dL (1.7-2.3); Osmolality Calculated 313 mOsm/kg (285-295); Sodium 149 mmol/L (136-145); Total Protein 7.6 g/dL (6.6-8.7)
[2025-07-21 06:06] LABS: Anion Gap 19.5 (5-19); Potassium 4.5 mmol/L (3.5-5.1)
--- NOTE | 2025-07-21 10:12 | PC.CHAP ---
Pastoral Care Encounter/Spiritual Assessment Type of Contact [] Declined microbiology professor visit [] Patient/Family/Request visit [] Outpatient visit [] Follow-up visit [] Physician referral [] Code/Alert [x] Routine visit [] Staff referral [] Actively dying [] Patient sleeping [] Family support [] [] Out of room [] Palliative care [] [] Receiving care in room [] Pre-surgical visit [] Trauma [] Long length of stay [] ICU visit [] Other: Relational/Emotional Strength [x] Patient feels connected with others/family/visitors/staff [] Distress [] Loneliness/isolation [] Abandonment Spirituality of Patient [x] Person of [place] [] Attends Episcopal of their [place] [x] Believes in Prayer [] Reads Bible or Samaritan materials [] There are Spiritual issues to be addressed Bulk Plant Operator Interventions [x] Prayer [x] Active listening [x] Non-anxious presence [x] Spiritual/emotional support [] Crisis/trauma care [] Spiritual counseling [] Bereavement support [] Provided bereavement packet [] Provided Bible/devotional materials [] Provided toy/stuffed animal, coloring book to patient or family member [] Provided Communion [] Anointing/[place] [] Salvation [x] Completed spiritual assessment [] Other: Impact on Illness or Injury [] Angry [] Fearful [] Anxious [] Often cries [] Exhaustion [] Unable to work [] Unable to attend hindu [] Unable to walk/stand [] Unable to read [] Unable to drive [] Unable to eat/drink [] Unable to sleep [] Unable to be with family [] Patient intubated [] Other: Summary Time spent with patient 5 min
--- NOTE | 2025-07-21 11:23 | P.PN_ITS ---
Subjective 2 Subjective: CK trending down. Patient appears more confused compared to last evening today. She is unable to coordinate bringing a fork to her mouth. Attempted to drink from a straw but then pushes her pills back into the stroke. States a few words such as thank you however does not participate in conversation. She is moaning when I walk in the room. Unable to localize any pain. However has tenderness to palpation over bilateral calves. reports that her daughter has a history of lupus Medications: Reviewed: Yes Vitals/I&O/Wt Last Vital Signs Temp 97.8 F 07/21/25 11:14 Pulse 63 07/21/25 11:14 Resp 20 H 07/21/25 11:14 BP 149/86 07/21/25 11:14 Pulse Ox 96 07/21/25 11:14 O2 Del Method Room Air 07/21/25 11:14 07/20/25 07/21/25 07/21/25 22:59 06:59 14:59 Intake Total 2002.333 / 2002.333 1000 / 1000 Output Total 475 / 475 550 / 1025 Balance 1528.333 / 1528.333 -550 / 855.764 9271 / 1000 Weight last 48 hrs Weight 90.764 kg Weight 83.206 kg Weight 85.729 kg Physical Exam 2 Narrative: General: No acute distress, AO x1 HEENT: PERRLA, pupils bilaterally equal and reactive, pallors not present Chest: Normal vesicular breath sounds, no added sounds, equal good air entry bilaterally CVS: S1-S2 regular, no murmurs, no tachycardia, no gallops, no rubs Abdomen: Soft, nontender, no organomegaly, bowel sounds present Neuro: moves all extremities while laying in bed, confused, disoriented Data 07/21/25 04:45 07/21/25 04:45 Micro: Microbiology 07/20/25 13:50 Blood Culture - Preliminary Blood SPECIMEN COLLECTED 07/20/25 13:48 Blood Culture - Preliminary Blood SPECIMEN COLLECTED A&P Assessment and plan 1. Altered mental status: 2. Rhabdomyolysis: 3. Alzheimer's disease: Plan: 80-year-old lady with a past medical history of dementia, typically able to manage ADLs on her own, presenting today with altered mental status which has been over the past 3 to 4 weeks. Currently patient is awake, confused, only able to answer her first name does not provide much further information. She has a few words in conversation such as thank you, okay, however unable to have a conversation. This appears to be new per history obtained by and review of recent outpatient notes. Labs are notable for mild leukocytosis. She does not have any localizing signs or symptoms of infection currently. Chest x-ray is without consolidation. CT of the abdomen and pelvis is without any acute abdominal events. CT of the head without any acute stroke. Denies any fever. Patient reports she had 2-3 episodes of vomiting however this appears to have subsided. States that the vomitus was black in color. Hemoglobin is currently stable. Check TSH, ammonia, vitamin B12, serum RPR screen to further assess for any reversible causes. Additionally check vitamin B1 to no reported history of malnutrition. Patient does not consume any alcohol. She has not traveled anywhere recently however with mildly elevated liver enzymes, leukocytosis, concern for potentially tick mediated illness. Labs notable for rhabdomyolysis with elevated CK, unclear etiology at this time. Patient has not been outdoors. She tends to stay at home most of the time. No recent change in her medications. Hold atorvastatin. Start normal saline at 100 cc an hour and monitor CK serially. Further orders to be placed on results of above testing. July 21, 2024 Patient appears to be more confused today. Will obtain MRI of the headAnd lumbar puncture. Leukocytosis is persisting. AST ALT alk phos trending up. Check tick panel. Start empiric treatment with doxycycline 100 mg p.o. twice daily while awaiting serologies. Tenderness to palpation over bilateral calfs. Obtain lower extremity duplex. Continue to hold atorvastatin. Resume galantamine and other medications for Alzheimer's monitor.. PDMP PDMP Reviewed: Not Reviewed Attestations 2 Medical Necessity Statement*: Changed to inpatient admission Coding Level of Care Code Acute Code for [facility] Diagnoses Altered mental status R41.82 Rhabdomyolysis M62.82 Rhabdomyolysis type: non-traumatic Alzheimer's disease G30.9; F02.80
[2025-07-21] MEDS: cefTRIAXone 1,000 mg SDV 1000 MG IVP (11:38)
--- NOTE | 2025-07-21 15:47 | MRR_ITS ---
PROCEDURE INFORMATION: Exam: MR Head Without Contrast Exam date and time: 07/21/2025 5:17 PM Age: 80 years old Clinical indication: Altered mental status/memory loss; Confusion or disorientation; Dementia, AMS, not eating or drinking at time of er admit. ; Additional info: Assess for stroke TECHNIQUE: Imaging protocol: Magnetic resonance imaging of the head without contrast. COMPARISON: CT head wo con* [id number] 07/20/2025 2:44 PM FINDINGS: Brain: Mild to moderate atrophic changes. FLAIR images and T2 weighted images show areas of increased signal intensity periventricular white matter and subcortical white matter. This consistent with chronic ischemic change. No restricted diffusion to indicate acute infarct. No evidence mass or acute intracranial hemorrhage. Size of the ventricles proportional to the appearance of the cortical sulci Bones: Unremarkable. Paranasal sinuses: Mucosal thickening and retention cyst again seen right maxillary sinus. Some hypertrophy left inferior nasal turbinate. Mastoid air cells: Normal as visualized. No mastoid effusion. Orbital cavities: Unremarkable. Soft tissues: Unremarkable. MR/MR head wo con* [id number] IMPRESSION: 1. Ehyz-cm-svqtliqi atrophic changes and chronic ischemic changes. 2. No evidence of acute infarct or other acute intracranial abnormality. 3. Retention cyst and mucosal thickening right maxillary sinuses as seen previously.
[2025-07-21 18:46] LABS: Alanine Aminotransferase 37 U/L (0-33); Albumin Level 3.9 g/dL (3.5-5.2); Alkaline Phosphatase 101 U/L (35-105); Anion Gap 15.9 (5-19); Aspartate Amino Transferase 72 U/L (0-32); Blood Urea Nitrogen 19 mg/dL (8-23); Calcium 10.7 mg/dL (8.5-10.5); Carbon Dioxide 20 mmol/L (22-29); Chloride 112 mmol/L (98-107); Creatinine Clr Calc Pharmacy 68.2955; Globulin 3.7 g/dL (1.3-4.6); Glucose 141 mg/dL (65-115); Osmolality Calculated 303 mOsm/kg (285-295); Potassium 3.9 mmol/L (3.5-5.1); Sodium 144 mmol/L (136-145); Total Protein 7.6 g/dL (6.6-8.7)
--- NOTE | 2025-07-21 18:51 | PC.NURSE ---
Patient had approximately 50 mls of emesis at dinner. Patient has a hard time expressing how she feels or what she needs. Staff needs to ask patient Q2H to Q4H if she needs to potty.
[2025-07-22] VITALS (7 sets, daily range): BP systolic 107–144; BP diastolic 72–88; PULSE 76–89; RESP 16–18; TEMP 36.4–36.8; O2SAT 91–99; BMI 29.7
[2025-07-22 05:12] LABS: Hematocrit 34.9 % (36-47); Hemoglobin 11.00 g/dL (11.27-16.99); Mean Corpuscular HGB Conc 31.5 g/dL (30-55); Mean Corpuscular Hemoglobin 28.4 pg (27-33); Mean Corpuscular Volume 89.9 fl (85-98); Nucleated Red Blood Cells % 0 %; Platelet Count 243 10^3/cmm (157-399); Red Blood Count 3.88 10^6/uL (3.85-5.65); White Blood Count 8.98 10^3/uL (3.29-11.43)
[2025-07-22 05:33] LABS: Alanine Aminotransferase 33 U/L (0-33); Albumin Level 3.7 g/dL (3.5-5.2); Alkaline Phosphatase 92 U/L (35-105); Anion Gap 14.5 (5-19); Aspartate Amino Transferase 53 U/L (0-32); Blood Urea Nitrogen 17 mg/dL (8-23); Calcium 10.2 mg/dL (8.5-10.5); Carbon Dioxide 24 mmol/L (22-29); Chloride 110 mmol/L (98-107); Creatinine Clr Calc Pharmacy 68.2955; Globulin 3.1 g/dL (1.3-4.6); Glucose 161 mg/dL (65-115); Osmolality Calculated 305 mOsm/kg (285-295); Potassium 3.5 mmol/L (3.5-5.1); Sodium 145 mmol/L (136-145); Total Protein 6.8 g/dL (6.6-8.7)
--- NOTE | 2025-07-22 08:00 | FL_ITS ---
WS: [id number] LUMBAR PUNCTURE CLINICAL INFORMATION: AMS TECHNIQUE: Informed consent: The procedure and its potential risk and complications were discussed with the patient. Verbal and written consent was obtained. Timeout: A timeout was performed to confirm correct patient, procedure, and site. Patient was prepped and draped in the usual sterile fashion. Lidocaine 1% was used for local anesthesia. Utilizing fluoroscopic guidance, a 3.5 inch 22-gauge spinal needle was advanced into the subarachnoid space at L3-L4 via left oblique sublaminar approach. Free flow of clear CSF was obtained. 13 cc of clear CSF was collected and sent the lab for further analysis. FLUOROSCOPIC TIME: 3min [id number] # of spot films: 1 FL/FL guided lumbarpunc dx* [id number] IMPRESSION: Fluoroscopically guided lumbar puncture. No immediate complications
[2025-07-22] MEDS: cefTRIAXone 1,000 mg SDV 1000 MG IVP (12:35)
--- NOTE | 2025-07-22 13:23 | P.PN_ITS ---
Subjective 2 Subjective: Patient is slightly more conversant today. She tells me her name is Tressa. Disoriented as to place and time. However replies thank you, that would be nice , I am not in pain , I have not had a bowel movement appropriately in response to questions. Her responses do take an extended time. Wall catheter was placed last night as bladder scan revealed 385 cc. I do not feel patient has urinary retention as on prior bladder scans, patient has been found to have 400 to 500 cc which she is easily able to void when moved to the bedside commode. Uncertain at this time if a bedside commode was attempted overnight. Medications: Reviewed: Yes Vitals/I&O/Wt Last Vital Signs Temp 98.3 F 07/22/25 12:00 Pulse 89 07/22/25 12:00 Resp 18 07/22/25 12:00 BP 132/88 07/22/25 12:00 Pulse Ox 98 07/22/25 12:00 O2 Del Method Room Air 07/22/25 12:00 07/21/25 07/22/25 07/22/25 22:59 06:59 14:59 Intake Total 1240 / 2480 1000 / 3480 120 / 120 Output Total 0 / 0 350 / 350 Balance 1240 / 2480 650 / 3130 120 / 120 Weight last 48 hrs Weight 88.541 kg Weight 90.764 kg Weight 83.206 kg Physical Exam 2 Narrative: General: No acute distress, AO x1 HEENT: PERRLA, pupils bilaterally equal and reactive, pallors not present Chest: Normal vesicular breath sounds, no added sounds, equal good air entry bilaterally CVS: S1-S2 regular, no murmurs, no tachycardia, no gallops, no rubs Abdomen: Soft, nontender, no organomegaly, bowel sounds present Urinary Catheter Management: Wall: Cath Placed During This Visit: yes Urinary Catheter Date of Insertion: 07/22/25 Urinary Catheter Time of Insertion: 05:33 Data 07/22/25 04:59 07/22/25 04:59 Micro: Microbiology 07/20/25 13:50 Blood Culture - Preliminary Blood NEGATIVE TO DATE 07/20/25 13:48 Blood Culture - Preliminary Blood NEGATIVE TO DATE A&P Assessment and plan 1. Altered mental status: 2. Rhabdomyolysis: 3. Alzheimer's disease: Plan: 80-year-old lady with a past medical history of dementia, typically able to manage ADLs on her own, presenting today with altered mental status which has been over the past 3 to 4 weeks. Currently patient is awake, confused, only able to answer her first name does not provide much further information. She has a few words in conversation such as thank you, okay, however unable to have a conversation. This appears to be new per history obtained by and review of recent outpatient notes. Labs are notable for mild leukocytosis. She does not have any localizing signs or symptoms of infection currently. Chest x-ray is without consolidation. CT of the abdomen and pelvis is without any acute abdominal events. CT of the head without any acute stroke. Denies any fever. Patient reports she had 2-3 episodes of vomiting however this appears to have subsided. States that the vomitus was black in color. Hemoglobin is currently stable. Check TSH, ammonia, vitamin B12, serum RPR screen to further assess for any reversible causes. Additionally check vitamin B1 to no reported history of malnutrition. Patient does not consume any alcohol. She has not traveled anywhere recently however with mildly elevated liver enzymes, leukocytosis, concern for potentially tick mediated illness. Labs notable for rhabdomyolysis with elevated CK, unclear etiology at this time. Patient has not been outdoors. She tends to stay at home most of the time. No recent change in her medications. Hold atorvastatin. Start normal saline at 100 cc an hour and monitor CK serially. Further orders to be placed on results of above testing. July 21, 2025 Patient appears to be more confused today. Will obtain MRI of the headAnd lumbar puncture. Leukocytosis is persisting. AST ALT alk phos trending up. Check tick panel. Start empiric treatment with doxycycline 100 mg p.o. twice daily while awaiting serologies. Tenderness to palpation over bilateral calfs. Obtain lower extremity duplex. Continue to hold atorvastatin. Resume galantamine and other medications for Alzheimer's monitor.. July 22, 2025 Patient is able to respond better in conversation today though her responses are slow and take a lot of time. Sodium improving at 145 from 149 yesterday. LFTs improving today with AST down to 53, ALT at 33. Leukocytosis is resolved today. MRI brain with mild to moderate atrophic changes and chronic ischemic changes. There was no evidence of acute infarct or other abnormality. Lumbar puncture pending today. Will follow-up with results of pending studies PDMP PDMP Reviewed: Not Reviewed Attestations 2 Medical Necessity Statement*: Lumbar puncture planned today. Coding Level of Care Code Acute Code for [facility] Fwd Diagnoses Altered mental status R41.82 Rhabdomyolysis M62.82 Rhabdomyolysis type: non-traumatic Alzheimer's disease G30.9; F02.80
[2025-07-22 14:58] LABS: CSF Mononuclear # 0.002 10^3/uL (50-90); Mononuclear WBC CSF % 67 % (50-90); Polynuclear Cells ,CSF # 0.001 10^3/uL (0-10); Polynuclear WBC CSF % 33 % (0-10); Red Blood Cell CSF 0 10^3/uL (0-0); White Blood Cell CSF 3 /uL (0-5)
[2025-07-22 14:59] LABS: Pathology Referral Yes
[2025-07-22 15:06] LABS: Cyto Order Verification No Order
--- NOTE | 2025-07-22 18:28 | USCV_ITS ---
Tressa Mcgill Age: 80 Gender: F : 1945 Exam Date: 07/22/2025 13:30 Ordering Phys: Leti Velazco MD Technologist: Exam Location: [facility] [place] Indication: leg pain and swelling PROCEDURES: The venous duplex Doppler examination of both lower extremities was performed in the standard fashion. The following venous structures were evaluated: common femoral vein, profunda vein, proximal portion of the greater saphenous vein, superficial femoral vein, and the popliteal vein. In addition, the posterior tibial and peroneal trunk were evaluated. FINDINGS: Normal 2-D Doppler and augmentation and compressibility throughout the lower extremity venous structures. Additional imaging through the proximal calf veins also reveals no thrombus. Limited evaluation of the greater saphenous vein is patent with no thrombus. CONCLUSIONS No DVT bilateral lower extremities. Dr. Jasmin Montiel DO (Electronically Signed) Final Date: 22 July 2025 15:21 S
--- NOTE | 2025-07-22 22:33 | P.PN_ITS ---
Subjective 2 Subjective: 80-year-old female with rapid re sponse called. She was wandering out of bed climbed over the rail despite history of rhabdomyolysis and dementia. She dislodged her IV. Patient was found sitting on bedside commode not next to her bed but next to the adjoining bed. She was sitting on the lid with the lid down. Patient was helped up to walk back to her bed and had episode of sweatiness. Rapid response was called blood pressure 88 heart rate 88 I was called to evaluate Vitals/I&O/Wt Last Vital Signs Temp 98.2 F 07/22/25 20:00 Pulse 76 07/22/25 20:00 Resp 16 07/22/25 20:00 BP 107/72 07/22/25 20:00 Pulse Ox 91 07/22/25 20:00 O2 Del Method Room Air 07/22/25 20:00 07/22/25 07/22/25 07/22/25 06:59 14:59 22:59 Intake Total 1000 / 3480 120 / 120 1412.5 / 1532.5 Output Total 350 / 350 300 / 300 Balance 650 / 3130 120 / 120 1112.5 / 1232.5 Weight last 48 hrs Weight 88.541 kg Weight 90.764 kg Physical Exam 2 Narrative: General well-developed female lying in bed eyes closed she is cooperative tells me she knows where she is at but does not give a good answer regarding where that actually is. She was able to repeat that I am Dr. Quiroz after the nurse told her that I was Dr. Quiroz but could not tell me who the nurse who just told her that was. CV regular rate and rhythm Lungs clear to auscultation bilaterally Skin warm and dry Calves dry skin trace nonpitting edema Urinary Catheter Management: Wall: Cath Placed During This Visit: yes Reason for Continuing Indwelling Catheter: Other Urinary Catheter Date of Insertion: 07/22/25 Urinary Catheter Time of Insertion: 05:33 Data 07/22/25 04:59 07/22/25 04:59 Micro: Microbiology 07/22/25 14:16 Gram Stain - Final Cerebrospinal Fluid Cryptococcal Antigen (CSF) - Final 07/22/25 14:16 Bacterial Antigens - Final Cerebrospinal Fluid 07/22/25 14:16 Cryptococcal Antigen (Serum) - Final Blood A&P Assessment and plan 1. Near syncope: Orthostatics checked supine 81/58 pulse 71 sitting 70/55 pulse 90. Fluid bolus 1 L LR then D5 half NS with 20 mg KCl per liter at 100 cc an hour 2. Rhabdomyolysis: As above renal function is normalized PDMP PDMP Reviewed: Not Reviewed Attestations 2 Medical Necessity Statement*: Patient roslyn in hospital for rhabdomyolysis and syncope and will require greater than 2 midnights Coding Level of Care Code 79433 Diagnoses Near syncope R55 Rhabdomyolysis M62.82 Time Spent (min) 25
--- NOTE | 2025-07-22 22:38 | ECG_ITS ---
[facility] Date: 2025-07-22 Pat Name: Tressa Mcgill Department: Room: 259 Gender: Female Business Support Manager: : 1945 Requested By: Fabio Rooney Order Number: [id number] Steve MD: Percy George M.D. Measurements Intervals [place] Rate: 78 P: 20 RI: 141 QRS: 7 QRSD: 131 T: 39 QT: 427 QTc: 489 Interpretive Statements SINUS RHYTHM RIGHT BUNDLE BRANCH BLOCK [120+ ms QRS DURATION, UPRIGHT V1, 40+ ms S IN I/aVL/V4/V5/V6] Compared to ECG 07/20/2025 15:34:52 No significant changes Electronically Signed On 07-24-2025 13:09:04 CDT by Percy George M.D. [email or web address] [id number]
[2025-07-22] MEDS: D5-NS 0.45% + KCL 20 mEq 20 MEQ/1,000 ML BAG 100 MEQ IV (23:09)
[2025-07-23] VITALS (10 sets, daily range): BP systolic 93–151; BP diastolic 65–99; PULSE 68–104; RESP 16–19; TEMP 36.4–36.9; O2SAT 92–98
[2025-07-23 04:43] LABS: Hematocrit 33.9 % (36-47); Hemoglobin 10.50 g/dL (11.27-16.99); Mean Corpuscular HGB Conc 31.0 g/dL (30-55); Mean Corpuscular Hemoglobin 27.4 pg (27-33); Mean Corpuscular Volume 88.5 fl (85-98); Nucleated Red Blood Cells % 0 %; Platelet Count 227 10^3/cmm (157-399); Red Blood Count 3.83 10^6/uL (3.85-5.65); White Blood Count 7.60 10^3/uL (3.29-11.43)
[2025-07-23 05:15] LABS: Alanine Aminotransferase 25 U/L (0-33); Albumin Level 3.5 g/dL (3.5-5.2); Alkaline Phosphatase 86 U/L (35-105); Anion Gap 14.6 (5-19); Aspartate Amino Transferase 35 U/L (0-32); Blood Urea Nitrogen 15 mg/dL (8-23); Calcium 9.8 mg/dL (8.5-10.5); Carbon Dioxide 23 mmol/L (22-29); Chloride 107 mmol/L (98-107); Creatinine Clr Calc Pharmacy 67.4820; Globulin 2.9 g/dL (1.3-4.6); Glucose 138 mg/dL (65-115); Osmolality Calculated 295 mOsm/kg (285-295); Potassium 3.6 mmol/L (3.5-5.1); Sodium 141 mmol/L (136-145); Total Protein 6.4 g/dL (6.6-8.7)
--- NOTE | 2025-07-23 09:07 | PC.SOCIAL ---
IMM Update pg 2 of IMM Updated and reviewed w/ patients . Copy provided and copy dated, initialed and placed in chart.
[2025-07-23] MEDS: D5-NS 0.45% + KCL 20 mEq 20 MEQ/1,000 ML BAG 100 MEQ IV (09:10)
--- NOTE | 2025-07-23 11:17 | ECG_ITS ---
[facility] Test Date: 2025-07-23 Pat Name: Tressa Mcgill Department: Room: 259 Gender: Female College Director: : 1945 Requested By: Leti Velazco Order Number: [id number] Steve MD: Percy George M.D. Measurements Intervals [place] Rate: 74 P: 4 RI: 145 QRS: -14 QRSD: 136 T: 0 QT: 405 QTc: 450 Interpretive Statements SINUS RHYTHM RIGHT BUNDLE BRANCH BLOCK [120+ ms QRS DURATION, UPRIGHT V1, 40+ ms S IN I/aVL/V4/V5/V6] LEFT VENTRICULAR HYPERTROPHY AND ST-T CHANGE [VOLTAGE CRITERIA PLUS ST/T ABNORMALITY] Compared to ECG 07/22/2025 22:38:50 Left ventricular hypertrophy now present ST (T wave) deviation now present Electronically Signed On 07-24-2025 13:17:19 CDT by Percy George M.D. [email or web address]
[2025-07-23 11:42] LABS: Troponin(5th) Baseline 19 ng/L (0-10)
[2025-07-23 13:36] LABS: Troponin 5 2HR 19.09 ng/L (0-10); Troponin 5 2HR Delta 0.09 ABS# (0-10)
--- NOTE | 2025-07-23 14:46 | P.PN_ITS ---
Subjective 2 Subjective: mental status is better today, states she is very close to baseline today. She denies any pain. States her name to be ellen nicole which is her correct maiden name, knows her date of , she recognizes her at bedside. She had an episode of syncope last night when her SBP dropped to 88mhg and she had profuse sweating. Medications: Reviewed: Yes Vitals/I&O/Wt Last Vital Signs Temp 97.9 F 07/23/25 21:00 Pulse 80 07/23/25 21:00 Resp 16 07/23/25 21:00 BP 147/80 07/23/25 21:00 Pulse Ox 97 07/23/25 21:00 O2 Del Method Room Air 07/23/25 16:00 07/23/25 07/23/25 07/23/25 06:59 14:59 22:59 Intake Total 1000 / 2532.5 1100 / 1100 1000 / 2100 Output Total 750 / 1200 Balance 250 / 1332.5 1100 / 1100 1000 / 2100 Weight last 48 hrs Weight 88.133 kg Weight 88.541 kg Physical Exam 2 Narrative: General: No acute distress, AO x2-3 HEENT: PERRLA, pupils bilaterally equal and reactive, pallors not present Chest: Normal vesicular breath sounds, no added sounds, equal good air entry bilaterally CVS: S1-S2 regular, no murmurs, no tachycardia, no gallops, no rubs Abdomen: Soft, nontender, no organomegaly, bowel sounds present Urinary Catheter Management: Wall: Cath Placed During This Visit: yes, but has since been removed by the nurse Reason for Continuing Indwelling Catheter: Acute Urinary Retention or Obstruction Urinary Catheter Date of Insertion: 07/22/25 Urinary Catheter Time of Insertion: 05:33 Date Urinary Catheter Removed: 07/23/25 Time Urinary Catheter Discontinued: 13:34 Data 07/23/25 04:32 07/23/25 04:32 Micro: Microbiology 07/22/25 14:16 Gram Stain - Final Cerebrospinal Fluid CSF Culture - Preliminary Cryptococcal Antigen (CSF) - Final A&P Assessment and plan 1. Altered mental status: 2. Rhabdomyolysis: 3. Alzheimer's disease: Plan: 80-year-old lady with a past medical history of dementia, typically able to manage ADLs on her own, presenting today with altered mental status which has been over the past 3 to 4 weeks. Currently patient is awake, confused, only able to answer her first name does not provide much further information. She has a few words in conversation such as thank you, okay, however unable to have a conversation. This appears to be new per history obtained by and review of recent outpatient notes. Labs are notable for mild leukocytosis. She does not have any localizing signs or symptoms of infection currently. Chest x-ray is without consolidation. CT of the abdomen and pelvis is without any acute abdominal events. CT of the head without any acute stroke. Denies any fever. Patient reports she had 2-3 episodes of vomiting however this appears to have subsided. States that the vomitus was black in color. Hemoglobin is currently stable. Check TSH, ammonia, vitamin B12, serum RPR screen to further assess for any reversible causes. Additionally check vitamin B1 to no reported history of malnutrition. Patient does not consume any alcohol. She has not traveled anywhere recently however with mildly elevated liver enzymes, leukocytosis, concern for potentially tick mediated illness. Labs notable for rhabdomyolysis with elevated CK, unclear etiology at this time. Patient has not been outdoors. She tends to stay at home most of the time. No recent change in her medications. Hold atorvastatin. Start normal saline at 100 cc an hour and monitor CK serially. Further orders to be placed on results of above testing. July 21, 2024 Patient appears to be more confused today. Will obtain MRI of the headAnd lumbar puncture. Leukocytosis is persisting. AST ALT alk phos trending up. Check tick panel. Start empiric treatment with doxycycline 100 mg p.o. twice daily while awaiting serologies. Tenderness to palpation over bilateral calfs. Obtain lower extremity duplex. Continue to hold atorvastatin. Resume galantamine and other medications for Alzheimer's monitor.. July 23, 2025 Patient is close to her baseline mentation today per , more conversant. She is suprised to learn she has been in the hospital. Pre syncope last night with orthostatic drop to 88mmhg. States she has some epigastric discomfort. Hb 10.5. 1 episode of vomiting overnight. Check trop and EKG series. LP with mildly elevated protein at 50, normal cell count, normal glucose, unlikely meningitis. Prior D dimer noted to be elevated at 4, will recjeck today. If elevated proceed with CTA PDMP PDMP Reviewed: Not Reviewed Attestations 2 Medical Necessity Statement*: anticipate discharge in upcoming 24 hrs of EKG, trop series and D dimer return normal Coding Level of Care Code Acute Code for Chg Fwd Diagnoses Altered mental status R41.82 Rhabdomyolysis M62.82 Rhabdomyolysis type: non-traumatic Alzheimer's disease G30.9; F02.80
[2025-07-23] MEDS: cefTRIAXone 1,000 mg SDV 1000 MG IVP (15:17)
--- NOTE | 2025-07-23 15:17 | ECG_ITS ---
[facility] Date: 2025-07[facility]23 Pat Name: Tressa Mcgill Department: Room: 259 Gender: Female Crisis Therapist: : 1945 Requested By: Leti Velazco Order Number: [id number] Steve MD: Percy George M.D. Measurements Intervals [place] Rate: 80 P: -12 NE: 133 QRS: -8 QRSD: 132 T: 20 QT: 397 QTc: 459 Interpretive Statements SINUS RHYTHM RIGHT BUNDLE BRANCH BLOCK [120+ ms QRS DURATION, UPRIGHT V1, 40+ ms S IN I/aVL/V4/V5/V6] LEFT VENTRICULAR HYPERTROPHY AND ST-T CHANGE [VOLTAGE CRITERIA PLUS ST/T ABNORMALITY] Compared to ECG 07/23/2025 11:01:23 No significant changes Electronically Signed On 07-24-2025 13:17:03 CDT by Percy George M.D. [email or web address] [email or web address]
[2025-07-23 17:36] LABS: Troponin 5 6HR 15.97 ng/L (0-10)
[2025-07-23 17:44] LABS: Troponin 5 6HR Delta -3.03 ng/L (0-12)
--- NOTE | 2025-07-23 21:44 | CTR_ITS ---
PROCEDURE INFORMATION: Exam: CTA Chest With Contrast Exam date and time: 07/23/2025 10:53 PM Age: 80 years old Clinical indication: Abnormal findings; Abnormal diagnostic tests; Elevated d-dimer; Other: Syncope; Prior surgery; Surgery date: 6+ months; Surgery type: Parathyroid; Syncopal episode. Dimer of 6.38; Additional info: Elevated d dimer, syncope TECHNIQUE: Imaging protocol: Computed tomographic angiography of the chest with contrast. Exam focused on the arteries. 3D rendering (Not supervised by radiologist): MIP and/or 3D reconstructed images were created by the technologist. Radiation optimization: All CT scans at this facility use at least one of these dose optimization techniques: automated exposure control; mA and/or kV adjustment per patient size (includes targeted exams where dose is matched to clinical indication); or iterative reconstruction. Contrast material: OMNI 350; Contrast volume: 70 ml; Contrast route: INTRAVENOUS (IV); COMPARISON: CT angio chest PE protcl [id number] 02/10/2024 9:11 AM RADIATION DOSE METRICS: Total DLP (mGy-cm): 411.99 FINDINGS: Pulmonary arteries: 3.2 cm dilated main pulmonary artery. No acute pulmonary embolus is identified. Aorta: Mild atherosclerotic changes of the thoracic aorta and its major branch vessels is noted. Lungs: See Pleural spaces finding. Pleural spaces: Small bilateral pleural effusions with associated atelectasis are present. Heart: The heart is enlarged. No pericardial effusion. No acute right heart strain is noted. Coronary arteries: Mild three-vessel coronary atherosclerosis present. Esophagus: Esophageal reflux is noted. Lymph nodes: Calcified mediastinal/hilar lymph nodes consistent with prior granulomatous disease. No axillary, supraclavicular, mediastinal, or hilar lymphadenopathy is noted. Diaphragm: A medium-sized hiatal hernia is present. Liver: Scattered simple cysts are seen throughout the liver, better delineated on prior CT chest dated 02/10/2024 and measuring simple fluid attenuation. Stable size and distribution Kidneys: A 4 mm nonobstructing right renal stone is present. Bones/joints: Degenerative joint and disc disease is seen in the imaged spine. Soft tissues: Unremarkable. CT/CT angio chest PE protcl [id number] IMPRESSION: 1. No acute pulmonary embolus or evidence of acute right heart strain. 2. Findings consistent with sequela of pulmonary hypertension. 3. Cardiomegaly. 4. Small bilateral pleural effusions. 5. Nonobstructive right nephrolithiasis. 6. Medium sized hiatal hernia. 7. Esophageal reflux, which can place the patient at risk for aspiration.
[2025-07-23] MEDS: iohexol 350 mg/mL 500 mL Btl (per mL) IV (22:59)
[2025-07-24] VITALS: BP 92/63; PULSE 81; RESP 19; TEMP 36.6; O2SAT 91
[2025-07-24] MEDS: D5-NS 0.45% + KCL 20 mEq 20 MEQ/1,000 ML BAG 100 MEQ IV (03:55)
[2025-07-24 04:19] LABS: CENTROMERE B ANTIBODY <1.0 NEG AI (<1.0 NEG); JO-1 ANTIBODY <1.0 NEG AI (<1.0 NEG); RNP ANTIBODY <1.0 NEG AI (<1.0 NEG); SCL-70 ANTIBODY <1.0 NEG AI (<1.0 NEG); SS-B <1.0 NEG AI (<1.0 NEG)
[2025-07-24 04:30] LABS: Hematocrit 33.2 % (36-47); Hemoglobin 10.10 g/dL (11.27-16.99); Mean Corpuscular HGB Conc 30.4 g/dL (30-55); Mean Corpuscular Hemoglobin 27.7 pg (27-33); Mean Corpuscular Volume 91.2 fl (85-98); Nucleated Red Blood Cells % 0 %; Platelet Count 212 10^3/cmm (157-399); Red Blood Count 3.64 10^6/uL (3.85-5.65); White Blood Count 7.23 10^3/uL (3.29-11.43)
[2025-07-24 05:01] LABS: Albumin Level 3.3 g/dL (3.5-5.2); Alkaline Phosphatase 84 U/L (35-105); Blood Urea Nitrogen 11 mg/dL (8-23); Calcium 9.6 mg/dL (8.5-10.5); Carbon Dioxide 23 mmol/L (22-29); Chloride 107 mmol/L (98-107); Creatinine Clr Calc Pharmacy 67.3327; Globulin 2.6 g/dL (1.3-4.6); Glucose 216 mg/dL (65-115); Osmolality Calculated 296 mOsm/kg (285-295); Sodium 140 mmol/L (136-145); Total Protein 5.9 g/dL (6.6-8.7)
[2025-07-24 05:20] LABS: Anion Gap 14.6 (5-19); Aspartate Amino Transferase 28 U/L (0-32); Potassium 4.6 mmol/L (3.5-5.1)
[2025-07-24 05:21] LABS: Alanine Aminotransferase 22 U/L (0-33)
[2025-07-24 05:40] VITALS: BP 155/84; PULSE 89; RESP 17; TEMP 36.4; O2SAT 99
[2025-07-24 06:00] VITALS: PULSE 85
[2025-07-24 07:55] VITALS: BP 177/89; PULSE 68; RESP 16; TEMP 36.8; O2SAT 95
[2025-07-24 11:15] VITALS: BP 116/83; PULSE 83; RESP 15; TEMP 36.6; O2SAT 94
[2025-07-24 13:20] VITALS: BP 116/83; PULSE 83; RESP 15; TEMP 36.6; O2SAT 94
[2025-07-24 16:35] LABS: HSV 1 DNA Not Detected (Not Detected); HSV 2 DNA Not Detected (Not Detected)
--- NOTE | 2025-07-24 17:27 | PM.DCS ---
Discharge Providers Date of Admission: 07/21/25 11:29 Date of Discharge: July 24, 2025 Attending Provider at Admission: Leti Velazco MD Attending Provider at Discharge: Leti Velazco MD Primary Care Provider: Justine Cook MD Diagnoses at Discharge Discharge Diagnosis 1. Altered mental status: 2. Rhabdomyolysis: Reason for Visit Reason for Visit: AMS, N/V Hospital Course Hospital Course 80-year-old lady with a past medical history of dementia, typically able to manage ADLs on her own, presenting today with altered mental status which worsened in the 3-4 days leading to admission. There was no preceeding signs or symptom sof infection. MRI head, LP with CSF analysis, blood culture., serum TSH, RPR screen ammonia were WNL. Other labs were noted for elevated CK with rhabdomyolysis which improved with IV hydration. Atorvastatin was discontinued due to this reason at discharge. She was noted to have elevated liver enzymes, leukocytosis upon admission which raised concern for potential tick mediated illness. She received an empiric course of ceftriaxone and doxycycline for this reason. Ceftriaxone was discontinued at discharge. Doxycycline continued 100 mg p.o. twice daily for total 5 days while a tick panel remains pending. Overall because of her acute deterioration remained unclear. On July 23 and July 24, she did have improvement in her mental status, was able to participate with physical therapy and was discharged back to home with her on July 24, 2025. She is recommended to follow-up with neurology closely. Overall suspect that patient may have Lewy body dementia as also noted on prior neurologic assessments and this current decline may be related to worsening dementia since no other apparent cause has been found. Patient had an episode of syncope on the night of July 22, 2025. She had orthostatic hypotension. Troponins were mildly elevated between - trending down at 2 hours and 6 hours. EKG did not show any acute changes. D-dimer was noted to be elevated at 6. CTA of the chest was negative for PE. Lower extremity Doppler was negative for DVT. At the time of discharge LOUIE panel, RPR, B! remains pending. Physical Exam Narrative: General: No acute distress, AO x1-2 HEENT: PERRLA, pupils bilaterally equal and reactive, pallors not present Chest: Normal vesicular breath sounds, no added sounds, equal good air entry bilaterally CVS: S1-S2 regular, no murmurs, no tachycardia, no gallops, no rubs Abdomen: Soft, nontender, no organomegaly, bowel sounds present Neuro: No focal deficits, no facial deformity, AO x1-2, power 5/5 in all limbs Urinary Catheter Management: Wall: Cath Placed During This Visit: yes, but has since been removed by the nurse Reason for Continuing Indwelling Catheter: Acute Urinary Retention or Obstruction Urinary Catheter Date of Insertion: 07/22/25 Urinary Catheter Time of Insertion: 05:33 Date Urinary Catheter Removed: 07/23/25 Time Urinary Catheter Discontinued: 13:34 Discharge Data Studies Completed and Pending Completed Studies During Hospitalization Category Date Time Status CT abdomen pelvis w con* [id number] Stat Cat Scan 07/20/25 11:[address] head wo con* [id number] Stat Cat Scan 07/20/25 11:29 Completed CTA PE [CT angio chest PE protcl [id number]] Routine Cat Scan 07/23/25 21:44 Completed FL guided lumbarpunc dx* [id number] Routine Exams 07/22/25 08:00 Completed XR chest 1V portable [id number] Stat Exams 07/20/25 11:12 Completed MR head wo con* [id number] Routine MRI 07/21/25 15:47 [place] [id number] Routine Ultrasound 07/22/25 18:28 Completed Pending at discharge Category Date Time Status LOUIE Profile Rheumatology AM LABS Lab 07/22/25 04:59 Results Blood Culture Stat Lab 07/20/25 13:50 Results CSF Culture & Gram Stain Routine Lab 07/21/25 15:47 Results Cryptococcal Antigen (CSF) Routine Lab 07/21/25 15:47 Results Lymes Disease Antibodies CSF Routine Lab 07/21/25 15:47 Received RPR with Reflex to Titer Routine Lab 07/20/25 18:16 Received Tick Panel Routine Lab 07/21/25 18:16 Results VDRL on CSF Routine Lab 07/21/25 15:47 Ordered Vitamin B1 (Thiamine),Blood Routine Lab 07/20/25 18:16 Received Radiology Impressions Chest X-Ray 07/20/25 11:12 IMPRESSION: Stable chest with mild cardiomegaly and mild pulmonary venous hypertension. No acute abnormality. Abdomen/Pelvis CT 07/20/25 11:29 IMPRESSION: 1. Study is compromised by breathing motion artifact. 2. No GI tract obstruction. 3. Sigmoid diverticulosis without acute diverticulitis. 4. No ascites or adenopathy. 5. Liver, duodenum and pancreatic head are obscured and poorly visualized secondary to motion. 6. Large hiatal hernia. 7. Small umbilical hernia contains fat. Head CT 07/20/25 11:29 IMPRESSION: 1. No acute intracranial hemorrhage or edema. 2. Mild cerebral and cerebellar atrophy with small vessel changes. 3. RIGHT maxillary sinus mucoperiosteal thickening and mucous retention cyst. Head MRI 07/21/25 15:47 IMPRESSION: 1. Kfoy-qe-vqyjxidb atrophic changes and chronic ischemic changes. 2. No evidence of acute infarct or other acute intracranial abnormality. 3. Retention cyst and mucosal thickening right maxillary sinuses as seen previously. Lumbar Puncture Fluoroscopy 07/22/25 08:00 IMPRESSION: Fluoroscopically guided lumbar puncture. No immediate complications Chest CTA 07/23/25 21:44 IMPRESSION: 1. No acute pulmonary embolus or evidence of acute right heart strain. 2. Findings consistent with sequela of pulmonary hypertension. 3. Cardiomegaly. 4. Small bilateral pleural effusions. 5. Nonobstructive right nephrolithiasis. 6. Medium sized hiatal hernia. 7. Esophageal reflux, which can place the patient at risk for aspiration. Laboratory Results WBC 7.23 10^3/uL (3.29-11.43) 07/24/25 03:49 RBC 3.64 10^6/uL (3.85-5.65) L 07/24/25 03:49 Hgb 10.10 g/dL (11.27-16.99) L 07/24/25 03:49 Hct 33.2 % (36-47) L 07/24/25 03:49 MCV 91.2 fl (85-98) 07/24/25 03:49 MCH 27.7 pg (27-33) 07/24/25 03:49 MCHC 30.4 g/dL (30-55) 07/24/25 03:49 RDW 14.3 % (12.1-15.1) 07/24/25 03:49 Plt Count 212 10^3/cmm (157-399) 07/24/25 03:49 MPV 11.0 fL (7.4-10.4) H 07/24/25 03:49 Neut % (Auto) 60.3 % 07/24/25 03:49 Lymph % (Auto) 25.3 % 07/24/25 03:49 [place] % (Auto) 11.9 % 07/24/25 03:49 Eos % (Auto) 1.7 % 07/24/25 03:49 Baso % (Auto) 0.4 % 07/24/25 03:49 Neut # (Auto) 4.36 10^3/uL (1.8-7.7) 07/24/25 03:49 Lymph # (Auto) 1.8 10^3/uL (0.8-4.8) 07/24/25 03:49 [place] # (Auto) 0.9 10^3/uL (0.2-0.9) 07/24/25 03:49 Eos # (Auto) 0.1 10^3/uL (0.0-0.8) 07/24/25 03:49 Baso # (Auto) 0.0 10^3/uL (0.0-0.1) 07/24/25 03:49 Nucleated RBC % (auto) 0 % 07/24/25 03:49 Nucleated RBCs # 0.0 /100WBC 07/24/25 03:49 ESR 9 mm/hr (0-15) 07/22/25 04:59 PT 14.20 SECONDS (12.1-14.9) 07/20/25 13:48 INR 1.03 (0.8-1.2) 07/20/25 13:48 APTT 23.2 SECONDS (23.9-36.7) L 07/20/25 13:48 D-Dimer 6.38 ug/mLFEU (0-0.59) H 07/23/25 11:15 Sodium 140 mmol/L (136-145) 07/24/25 03:49 Potassium 4.6 mmol/L (3.5-5.1) 07/24/25 03:49 Chloride 107 mmol/L (98-107) 07/24/25 03:49 Carbon Dioxide 23 mmol/L (22-29) 07/24/25 03:49 Anion Gap 14.6 (5-19) 07/24/25 03:49 BUN 11 mg/dL (8-23) 07/24/25 03:49 Creatinine 0.8 mg/dL (0.5-0.9) 07/24/25 03:49 GFR Calculation Not Reportable 07/24/25 03:49 Glucose 216 mg/dL (65-115) H 07/24/25 03:49 POC Glucose 263 mg/dL (70-110) H 07/22/25 22:17 Calculated Osmolality 296 mOsm/kg (285-295) H 07/24/25 03:49 Lactic Acid 1.4 mmol/L (0.5-2.2) 07/20/25 13:48 Calcium 9.6 mg/dL (8.5-10.5) 07/24/25 03:49 Phosphorus 1.9 mg/dL (2.5-4.5) L 07/21/25 04:45 Magnesium 2.3 mg/dL (1.7-2.3) 07/21/25 04:45 Total Bilirubin 0.4 mg/dL (0.15-1.2) 07/24/25 03:49 AST 28 U/L (0-32) 07/24/25 03:49 ALT 22 U/L (0-33) 07/24/25 03:49 Alkaline Phosphatase 84 U/L (35-105) 07/24/25 03:49 Ammonia 34 umol/L (11-51) 07/20/25 21:17 Creatine Kinase 181 U/L (26-192) 07/24/25 03:49 Troponin T Baseline 19 ng/L (0-10) H 07/23/25 11:15 Troponin T 120 Minute 19.09 ng/L (0-10) H 07/23/25 13:11 Delta Troponin T 0.09 ABS# (0-10) 07/23/25 13:11 Troponin T Hi Sens 6Hr 15.97 ng/L (0-10) H 07/23/25 17:05 Troponin T Hi Sens 6Hr Delta -3.03 ng/L (0-12) L 07/23/25 17:05 C-Reactive Protein 3.0 mg/L (0.0-4.9) 07/22/25 04:59 NT-Pro-B Natriuret Pep 421 pg/mL (0-450) 07/20/25 13:48 Total Protein 5.9 g/dL (6.6-8.7) L 07/24/25 03:49 Albumin 3.3 g/dL (3.5-5.2) L 07/24/25 03:49 Globulin 2.6 g/dL (1.3-4.6) 07/24/25 03:49 Lipase 33 U/L (13-60) 07/20/25 13:48 Vitamin B12 1179 pg/mL (232-1245) 07/20/25 19:31 TSH 2.49 uIU/mL (0.27-4.20) 07/20/25 19:31 Urine Color Yellow (Yellow) 07/20/25 15:30 Urine Appearance Clear (CLEAR) 07/20/25 15:30 Urine pH 5.0 (5-7) 07/20/25 15:30 Ur Specific [place] 1.069 (1.005-1.030) H 07/20/25 15:30 Urine Protein 1+ (Negative) A 07/20/25 15:30 Urine Glucose (UA) Negative (Normal) 07/20/25 15:30 Urine Ketones Negative (Negative) 07/20/25 15:30 Urine Blood Trace (Negative) A 07/20/25 15:30 Urine Nitrate Negative (Negative) 07/20/25 15:30 Urine Bilirubin Negative (Negative) 07/20/25 15:30 Urine Urobilinogen 0.2 mg/dL (Negative) 07/20/25 15:30 Ur Leukocyte Esterase Negative (Negative) 07/20/25 15:30 Urine RBC 0-2 /hpf (0-2) 07/20/25 15:30 Urine WBC 0-5 /hpf (0-5) 07/20/25 15:30 Ur Squamous Epith Cells 0-5 /hpf (0-5) 07/20/25 15:30 Amorphous Sediment Not Reportable 07/20/25 15:30 Urine Bacteria None seen /hpf (NONE) 07/20/25 15:30 Hyaline Casts 4.95 /lpf 07/20/25 15:30 CSF Appearance Clear (CLEAR) 07/22/25 14:16 CSF Color Colorless (COLORLESS) 07/22/25 14:16 CSF WBC 3 /uL (0-5) 07/22/25 14:16 CSF RBC 0 10^3/uL (0-0) 07/22/25 14:16 CSF Mononuclear # Auto 0.002 10^3/uL (50-90) L 07/22/25 14:16 CSF Mononuclear WBCs % 67 % (50-90) 07/22/25 14:16 CSF Polynuclear WBCs # 0.001 10^3/uL (0-10) 07/22/25 14:16 CSF Polynuclear WBCs % 33 % (0-10) H 07/22/25 14:16 CSF Diff Comment Yes 07/22/25 14:16 CSF Glucose 84 mg/dL (40-70) H 07/22/25 14:16 CSF Total Protein 50 mg/dL (15-45) H 07/22/25 14:16 JOLENE-1 Antibody <1.0 neg AI (<1.0 NEG) 07/22/25 04:59 SS-A Antibody <1.0 neg AI (<1.0 NEG) 07/22/25 04:59 SS-B Antibody <1.0 neg AI (<1.0 NEG) 07/22/25 04:59 Sm ([place]) Antibody <1.0 neg AI (<1.0 NEG) 07/22/25 04:59 INFORMATION SYSTEMS DIRECTOR Antibody <1.0 neg AI (<1.0 NEG) 07/22/25 04:59 Scl-70 Antibody <1.0 neg AI (<1.0 NEG) 07/22/25 04:59 Centromere B Antibody <1.0 neg AI (<1.0 NEG) 07/22/25 04:59 Adenovirus (PCR) Not detected (NOT DETECT) 07/20/25 15:44 Lyme Ab (Western Blot) <0.90 index 07/21/25 18:16 C. pneumoniae DNA (PCR) Not detected (NOT DETECT) 07/20/25 15:44 Coronavirus 229E (PCR) Not detected (NOT DETECT) 07/20/25 15:44 Herpes Simplex Source Results below 07/22/25 14:16 Human Metapneumovir PCR Not detected (NOT DETECT) 07/20/25 15:44 Influenza A (H1) PCR Not detected (NOT DETECT) 07/20/25 15:44 Influ A (H1/09) PCR Not detected (NOT DETECT) 07/20/25 15:44 Influenza A (H3) PCR Not detected (NOT DETECT) 07/20/25 15:44 Influenza Type A (PCR) Not detected (NOT DETECT) 07/20/25 15:44 Influenza Type B (PCR) Not detected (NOT DETECT) 07/20/25 15:44 M. pneumoniae (PCR) Not detected (NOT DETECT) 07/20/25 15:44 Parainfluenza 1 (PCR) Not detected (NOT DETECT) 07/20/25 15:44 Parainfluenza 2 (PCR) Not detected (NOT DETECT) 07/20/25 15:44 Parainfluenza 3 (PCR) Not detected (NOT DETECT) 07/20/25 15:44 Parainfluenza 4 (PCR) Not detected (NOT DETECT) 07/20/25 15:44 RSV Type A (PCR) Not detected (NOT DETECT) 07/20/25 15:44 RSV Type B (PCR) Not detected (NOT DETECT) 07/20/25 15:44 Entero/Rhino (PCR) Not detected (NOT DETECT) 07/20/25 15:44 SARS-CoV-2 (PCR) Not detected (NOT DETECT) 07/20/25 15:44 HSV 1 DNA Not detected (Not Detected) 07/22/25 14:16 HSV 2 DNA Not detected (Not Detected) 07/22/25 14:16 Vitals Last Vital Signs Temp 97.8 F 07/24/25 13:20 Pulse 83 07/24/25 13:20 Resp 15 07/24/25 13:20 BP 116/83 07/24/25 13:20 Pulse Ox 94 07/24/25 13:20 O2 Del Method Room Air 07/24/25 11:15 O2 Flow Rate 2 07/24/25 05:40 Discharge Plan Discharge Patient Disposition: Home Condition: Stable Prescriptions: New doxycycline monohydrate 100 mg Tablet 100 mg PO BID 5 Days Qty: 10 0RF pantoprazole 40 mg Tablet,Delayed Release (Dr/Ec) 40 mg PO DAILY 30 Days Qty: 30 0RF Continued aspirin 81 mg tablet,delayed release (DR/EC) 81 mg PO DAILY docusate sodium [Colace] 100 mg capsule 100 mg PO BID PRN (Reason: Constipation) metoprolol tartrate 25 mg tablet 12.5 mg PO BID Qty: 90 0RF quetiapine 200 mg tablet 200 mg PO BEDTIME Qty: 90 3RF mirabegron 25 mg tablet extended release 24 hr 25 mg PO DAILY Qty: 90 3RF acetaminophen 325 mg Tablet 325 mg PO Q4H PRN (Reason: panin) amlodipine 10 mg tablet 10 mg PO DAILY clonidine HCl 0.1 mg tablet 0.1 mg PO QAM citalopram 40 mg tablet 40 mg PO QPM galantamine 4 mg tablet 8 mg PO QAM meloxicam 7.5 mg tablet 7.5 mg PO QPM PRN (Reason: Pain) exrdjhbrcwxy-ptpq-frmgb acid 18-400 mg-mcg Tablet 1 tab PO DAILY Discontinued atorvastatin 40 mg tablet 40 mg PO QPM Discharge Order = DC NOW: Discharge Order (Routine); Ordered 07/24/25 Ordered By: Leti Velazco Referrals: [facility] Outpatient Therapy [Outside] - 07/27/25 4:30 pm Justine Cook MD [Primary Care Provider, Family Practice] - 4-7 days Referral Note: We have notified your physician's clinic of the need for a follow-up appointment to be scheduled. If you have not heard from them within the next 2 business days, please call them directly. 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
[2025-07-24 20:09] LABS: Lyme Disease AB (IGG),IBL NO BANDS DETECTED; Lyme Disease AB (IGM), IBL NO BANDS DETECTED
[2025-07-25 01:10] LABS: VDRL on CSF NON-REACTIVE
[2025-07-25 05:49] LABS: COMPLEMENT COMPONENT C3C 150 mg/dL (83-193); COMPLEMENT COMPONENT C4C 22 mg/dL (15-57)
[2025-07-26 10:55] LABS: RPR w(Moniotor) w/REFL Titer NON-REACTIVE (NON-REACTIVE)
[2025-07-26 14:55] LABS: COMPLEMENT, TOTAL (CH50) 53 U/mL (31-60)
[2025-07-26 15:36] LABS: THYROID PEROXIDASE ANTIBODIES <1 IU/mL (<9)
[2025-07-27 20:40] LABS: RMSF IGG NOT DETECTED; RMSF IGM NOT DETECTED
== END 2025-07-24 12:00 | disposition home or self-care (01) | DRG 558 ==
LOC: ER 15:43 → MEDSURG 16:04
PROVIDERS: Internal Medicine; Admitting Provider Student in an Organized Health Care Education/Training Program; Emergency Provider Student in an Organized Health Care Education/Training Program; PCP Family Medicine; Visit Provider Student in an Organized Health Care Education/Training Program
DX: M62.82 Rhabdomyolysis (principal); F41.1 Generalized anxiety disorder; I95.1 Orthostatic hypotension; G31.83 Neurocognitive disorder with Lewy bodies; F02.80 Dementia in other diseases classified elsewhere, unspecified severity, without behavioral disturbance, psychotic disturbance, mood disturbance, and anxiety; I10 Essential (primary) hypertension; Z86.73 Personal history of transient ischemic attack (TIA), and cerebral infarction without residual deficits; Z79.82 Long term (current) use of aspirin
CPT/HCPCS: 36415; 36416; 51701; 51798; 62328; 70450; 70551; 71045; 71275; 74177; 80053; 80503; 81001; 82140; 82550; 82607; 82945; 82962; 83605; 83690; 83735; 83880; 84100; 84157; 84425; 84443; 84484; 85025; 85378; 85610; 85651; 85730; 86140; 86160; 86162; 86235; 86255; 86376; 86403; 86592; 86617; 86618; 86666; 86757; 87040; 87070; 87075; 87205; 87327; 87486; 87530; 87581; 87633; 89050; 93005; 93970; 96372; 96374; 97110; 97161; 97165; 99285; G0378; J0696; J1650; J1938; J2270; J7030; J7070; J7120; J9999

== ENCOUNTER 2025-08-03 12:32 | Emergency (ER) | payer MEDICARE, SELFPAY ==
--- OUTSIDE RECORDS SUMMARY | 2025-08-03 12:35 | XMS_ITS | Clinical Summary ---
[facility] Address [address] [place] [address] Care Team Providers Care Mirror Machine Feeder Name Role Phone Renata Hyde DO Primary Care Provider [phone] Allergies No known active allergies Medications citalopram [...] Hyperparathyroidism 07/10/2023 Hypovitaminosis D 07/10/2023 Osteopenia 07/10/2023 Family History Medical History Relation Name Comments [...] Comments Blood Pressure 134/84 10/31/2023 1:28 PM ARCHITECTURAL TECHNICIAN Pulse 70 10/24/2023 10:57 AM ARCHITECTURAL TECHNICIAN Temperature 37.1 C (98.7 F) 10/24/2023 10:57 AM ARCHITECTURAL TECHNICIAN Respiratory Rate 18 10/24/2023 10:57 AM ARCHITECTURAL TECHNICIAN Oxygen Saturation 97% 10/24/2023 10:57 AM ARCHITECTURAL TECHNICIAN Inhaled Oxygen Concentration - - Weight 77.6 kg (171 lb) 10/31/2023 1:28 PM ARCHITECTURAL TECHNICIAN Height 172.7 cm (5' 8 ) 10/31/2023 1:28 PM ARCHITECTURAL TECHNICIAN Body Mass Index 26 10/31/2023 1:28 PM ARCHITECTURAL TECHNICIAN Plan of Treatment Health Maintenance Due Date Last Done Comments DTAP/TDAP/TD VACCINES (1 - Tdap) 1966 PNEUMOCOCCAL VACCINE 50+ YEARS (1 of 1 - PCV) 02/23/19 97 ZOSTER VACCINE (1 of 2) 1997 OSTEOPOROSIS SCREENING 02/24/2012 RSV VACCINE (60+ or ) (1 - 1-dose 75+ series) 2022 INFLUENZA VACCINE (#1) 2025 Medical Devices Implanted Type Area Weaving Machine Operator Device Identifier Shelf Expiration Date Model / Serial / Lot Clip Ligating Horizon Red [id number] - [facility] [place] - [id number] Implanted:Qty: 1 on 10/14/2023 by Saurabh Azul MD at [facility] Clip N/A: [employer]ck [employer] [id number] 06/10/2028 [id number] / / [id number] Clip Ligating Horizon Med Ti [id number] - [facility] [place] - [id number] Implanted:Qty: 1 on 10/14/2023 by Saurabh Azul MD at [facility] Clip N/A: Neck [employer]- [employer] [id number] 07/16/2028 [id number] / / [id number] Hemostatic Surgifoam Sz12-7 1971 - [id number] Implanted:Qty: 1 on 10/14/2023 by Saurabh Azul MD at [facility] Hemostatic N/A: Neck [employer] [id number] 06/20/20271971 Explanted Type Area Weaving Machine Operator Device Identifier Shelf Expiration Date Model / Serial / Lot Hemostatic Surgifoam Sz12-7 1969 [id number] Explanted:Qty: 1 on 10/14/2023 by Saurabh Azul MD at [facility] Hemostatic N/A: Neck [employer] [id number] 06/20/20271971403 Insurance Advance Directives For more information, please contact: [phone] * Full Code (Latest Code Status on File) Date Activated Date Inactivated Comments 10/14/2023 10:55 AM 10/14/2023 8:21 PM Care Teams Mirror Machine Feeder Relationship Specialty Start Date End Date Renata Hyde DO PCP - General Family Practice 07/23/23
[2025-08-03 12:51] VITALS: BP 111/71; PULSE 51; RESP 18; TEMP 36.7; O2SAT 100; BMI 31.1
--- NOTE | 2025-08-03 14:38 | ECG_ITS ---
[facility] Test Date: 2025-08-03 Pat Name: Tressa Mcgill Department: Room: Gender: Female Topographical Drafter: : 1945 Requested By: Catherine Rooney Order Number: [id number] Steve MD: Percy George M.D. Measurements Intervals [place] Rate: 48 P: 2 SC: 134 QRS: 36 QRSD: 132 T: 25 QT: 451 QTc: 405 Interpretive Statements SINUS BRADYCARDIA RIGHT BUNDLE BRANCH BLOCK [120+ ms QRS DURATION, UPRIGHT V1, 40+ ms S IN I/aVL/V4/V5/V6] Compared to ECG 07/23/2025 15:09:08 Sinus rhythm no longer present Left ventricular hypertrophy no longer present ST (T wave) deviation no longer present Electronically Signed On 08-05-2025 08:39:52 CDT by Percy George M.D. [email or web address]
--- NOTE | 2025-08-03 14:38 | XRR_ITS ---
PROCEDURE INFORMATION: Exam: XR Chest Exam date and time: 08/03/2025 2:47 PM Age: 80 years old Clinical indication: Pain; Angina pectoris; Additional info: Chest pain TECHNIQUE: Imaging protocol: Radiologic exam of the chest. Views: 1 view. COMPARISON: CT angio chest PE protcl [id number] 07/23/2025 10:53 PM FINDINGS: Lungs: No infiltrate/edema or consolidation. Pleural spaces: No pleural effusion or pneumothorax. Heart/Mediastinum: Mildly prominent cardiac size. Hiatal hernia when correlated with recent CTA chest. Vasculature: Tortuosity and ectasia thoracic aorta. Bones/joints: Patient rotation and/or mild thoracic levoscoliosis in relation to prior exam. Degenerative change thoracic spine. XR/XR chest 1V portable [id number] IMPRESSION: No acute findings in the chest.
--- NOTE | 2025-08-03 14:38 | W.ED.CHESTPA ---
HPI - Chest Pain General: Chief Complaint: Chest Pain Stated Complaint: chest pain Time Seen by Provider: 08/03/25 14:35 History of Present Illness: 80-year-old female with a history of primary hyperparathyroidism, dementia, stroke, anxiety, and hypertension who presents to the emergency room with chest pain. Started about an hour prior to arrival. She also had some generalized abdominal pain earlier. Currently she is chest pain-free. Abdominal pain-free. No nausea or vomiting. Related Data Home Medications ?Medication ?Instructions ?Recorded ?Confirmed docusate sodium 100 mg capsule 100 mg PO BID PRN Constipation 11/06/23 08/03/25 (Colace) aspirin 81 mg tablet,delayed 81 mg PO DAILY 05/21/24 08/03/25 release acetaminophen 325 mg tablet 325 mg PO Q4H PRN panin 07/20/25 08/03/25 amlodipine 10 mg tablet 10 mg PO DAILY 07/20/25 08/03/25 citalopram 40 mg tablet 40 mg PO QPM 07/20/25 08/03/25 galantamine 4 mg tablet 8 mg PO QAM 07/20/25 08/03/25 meloxicam 7.5 mg tablet 7.5 mg PO QPM PRN Pain 07/20/25 08/03/25 Previous Rx's ?Medication ?Instructions ?Recorded quetiapine 200 mg tablet 200 mg PO BEDTIME #90 tabs 03/24/25 mirabegron 25 mg tablet,extended 25 mg PO DAILY Stop oxybutynin #90 06/01/25 release 24 hr tabs metoprolol tartrate 25 mg tablet 12.5 mg (1/2 x 25 mg) PO BID #90 07/14/25 tabs pantoprazole 40 mg tablet,delayed 40 mg PO DAILY 30 days #30 tabs 07/24/25 release clonidine HCl 0.1 mg tablet 0.1 mg PO QAM #30 tabs 08/03/25 Allergies Allergy/AdvReac Type Severity Reaction Status Date / Time atorvastatin Allergy rhabdomyoly Verified 08/03/25 12:50 sis Review of Systems Narrative: Constitutional symptoms: Negative except as documented in HPI. Skin symptoms: Negative except as documented in HPI. Eye symptoms: Negative except as documented in HPI. ENMT symptoms: Negative except as documented in HPI. Respiratory symptoms: Negative except as documented in HPI. Cardiovascular symptoms: Negative except as documented in HPI. Gastrointestinal symptoms: Negative except as documented in HPI. Genitourinary symptoms: Negative except as documented in HPI. Musculoskeletal symptoms: Negative except as documented in HPI. Neurologic symptoms: Negative except as documented in HPI. Psychiatric symptoms: Negative except as documented in HPI. Endocrine symptoms: Negative except as documented in HPI. PFSH ED PFSH: Medical History (Updated 08/03/25 @ 18:00 by Catherine Santos MD) Near syncope Primary hyperparathyroidism Cyst of left kidney Cyst measures 1.4 x 1.4 x 1.4 cm. History of CVA (cerebrovascular accident) Small focus of chronic ischemia along the anterior limb LEFT internal capsule Osteopenia Hypertension Dementia Parathyroid adenoma SOLOMON (generalized anxiety disorder) Hypercalcemia History of kidney stones Urinary incontinence Surgical History (Updated 08/03/25 @ 11:36 by Justine Cook MD) Status post total left knee replacement using cement History of arthroplasty of right knee History of parathyroidectomy History of anterior colporrhaphy (~09/17/23) Anterior colporrhapy augmented with allograft, posterior colporrhapy, sacrospinous fixation, cystoscopy performed by Vaughn Family History Father Dementia Denies family history of Colon cancer Ovarian cancer Diabetes Heart disease Hypercholesteremia Breast cancer Hypertension Uterine cancer Thyroid disease Stroke Social History Smoking and tobacco/nicotine status: never used tobacco/nicotine Alcohol intake: current Alcohol intake frequency: few times a month Household members: spouse Marital status: Current occupational status: retired Special bekah needs: No Agree to transfusion: Yes Physical Exam Narrative: EXAM NARRATIVE: General: Alert, no acute distress. Skin: Warm, dry. Head: Normocephalic, atraumatic. Neck: Supple, trachea midline. Eye: Extraocular movements are intact. Ears, nose, mouth and throat: mucosa moist. Cardiovascular: Regular, Normal peripheral perfusion. Respiratory: Lungs are clear to auscultation, respirations are non-labored, breath sounds are equal, Symmetrical chest wall expansion. Gastrointestinal: Soft, Nontender, Non distended Musculoskeletal: Normal ROM, no deformity. Neurological: Alert and oriented, No focal neurological deficit observed. Psychiatric: Cooperative, appropriate mood & affect. Course Vital Signs: Vital signs: Vital Signs Temperature 98.1 F 08/03/25 12:51 Pulse Rate 51 L 08/03/25 12:51 Respiratory Rate 18 08/03/25 12:51 Blood Pressure 111/71 08/03/25 12:51 Pulse Oximetry 100 08/03/25 12:51 Oxygen Delivery Me thod Room Air 08/03/25 12:51 MDM - Chest Pain Medical Decision Making Differential diagnosis for patient with chest pain includes but is not limited to and based on the above HPI, review of systems and physical exam: Pneumonia. unstable angina. angina. Acute coronary syndrome / MA. Pulmonary embolism. Costochondritis / musculoskeletal. Pleurisy. Pericarditis. Esophageal spasm. Pancreatis. Cholecystitis. Orders placed to evaluate differential diagnosis based on the above differential, HPI and physical exam EKG: Time 1248. Rate 48. Sinus bradycardia. Normal sinus rhythm, No ST-T changes, no ectopy, right bundle branch block, This was reviewed and interpreted by myself the ER physician at 1253 Repeat EKG: Time 1659. Rate 49. Sinus bradycardia, No ST-T changes, no ectopy, normal MD & QRS intervals, This was reviewed and interpreted by myself the ER physician at 1705 Chest x-ray: No acute process. No infiltrate. No pneumothorax. This was reviewed and interpreted by myself the emergency room physician. I also reviewed the radiology report. Lab Review: Laboratory results were reviewed and interpreted by myself the emergency room physician. No leukocytosis. Fairly stable anemia down a little bit from previous. No renal failure. Serial cardiac markers are at 20 and unchanged. I reviewed the patient's medical record. 80-year-old female with a history of primary hyperparathyroidism, dementia, stroke, anxiety, and hypertension Reexamination: Patient has remained chest pain-free. Patient remained stable. No increased work of breathing. No altered mental status. No focal motor deficits. Assessment and plan: Noncardiac chest pain - Discharged home - Discussed plan with patient. Answered any questions. - Evaluation and treatment of this problem were appropriate in the emergency setting. Lab Data 08/03/25 15:53 08/03/25 15:53 Radiology Impressions Chest X-Ray 08/03/25 14:38 IMPRESSION: No acute findings in the chest. Laboratory Results WBC 7.07 10^3/uL (3.29-11.43) 08/03/25 15:53 RBC 3.47 10^6/uL (3.85-5.65) L 08/03/25 15:53 Hgb 9.50 g/dL (11.27-16.99) L 08/03/25 15:53 Hct 31.3 % (36-47) L 08/03/25 15:53 MCV 90.2 fl (85-98) 08/03/25 15:53 MCH 27.4 pg (27-33) 08/03/25 15:53 MCHC 30.4 g/dL (30-55) 08/03/25 15:53 RDW 14.6 % (12.1-15.1) 08/03/25 15:53 Plt Count 211 10^3/cmm (157-399) 08/03/25 15:53 MPV 10.7 fL (7.4-10.4) H 08/03/25 15:53 Neut % (Auto) 52.7 % 08/03/25 15:53 Lymph % (Auto) 33.7 % 08/03/25 15:53 [place] % (Auto) 9.3 % 08/03/25 15:53 Eos % (Auto) 3.4 % 08/03/25 15:53 Baso % (Auto) 0.6 % 08/03/25 15:53 Neut # (Auto) 3.73 10^3/uL (1.8-7.7) 08/03/25 15:53 Lymph # (Auto) 2.4 10^3/uL (0.8-4.8) 08/03/25 15:53 [place] # (Auto) 0.7 10^3/uL (0.2-0.9) 08/03/25 15:53 Eos # (Auto) 0.2 10^3/uL (0.0-0.8) 08/03/25 15:53 Baso # (Auto) 0.0 10^3/uL (0.0-0.1) 08/03/25 15:53 Nucleated RBC % (auto) 0 % 08/03/25 15:53 Nucleated RBCs # 0.0 /100WBC 08/03/25 15:53 Sodium 141 mmol/L (136-145) 08/03/25 15:53 Potassium 4.0 mmol/L (3.5-5.1) 08/03/25 15:53 Chloride 107 mmol/L (98-107) 08/03/25 15:53 Carbon Dioxide 24 mmol/L (22-29) 08/03/25 15:53 Anion Gap 14.0 (5-19) 08/03/25 15:53 BUN 10 mg/dL (8-23) 08/03/25 15:53 Creatinine 1.0 mg/dL (0.5-0.9) H 08/03/25 15:53 GFR Calculation Not Reportable 08/03/25 15:53 Glucose 103 mg/dL (65-115) 08/03/25 15:53 Calculated Osmolality 291 mOsm/kg (285-295) 08/03/25 15:53 Calcium 10.5 mg/dL (8.5-10.5) 08/03/25 15:53 Total Bilirubin 0.2 mg/dL (0.15-1.2) 08/03/25 15:53 AST 21 U/L (0-32) 08/03/25 15:53 ALT 14 U/L (0-33) 08/03/25 15:53 Alkaline Phosphatase 104 U/L (35-105) 08/03/25 15:53 Troponin T Baseline 21 ng/L (0-10) H 08/03/25 15:53 Troponin T 120 Minute 19.48 ng/L (0-10) H 08/03/25 17:53 Delta Troponin T -1.52 ABS# (0-10) L 08/03/25 17:53 NT-Pro-B Natriuret Pep 91 pg/mL (0-450) 08/03/25 15:53 Total Protein 6.4 g/dL (6.6-8.7) L 08/03/25 15:53 Albumin 3.5 g/dL (3.5-5.2) 08/03/25 15:53 Globulin 2.9 g/dL (1.3-4.6) 08/03/25 15:53 Lipase 47 U/L (13-60) 08/03/25 15:53 All radiology interpretation(s) finalized by discharge Clincial Decision Support The following clinical decision support tools were used to aid in care of the patient HEART Score -> History: Slightly Suspicous, EKG: Normal, Age: 65 or more yrs, Risk Factors: 1 or 2 Risk Factors, Troponin: Baseline Trop <16 ng/L. Resulting HEART Score: 3. Discharge Plan Discharge Patient Disposition: Home Clinical Impression: Non-cardiac chest pain Condition: Stable Prescriptions: No Action aspirin 81 mg tablet,delayed release (DR/EC) 81 mg PO DAILY docusate sodium [Colace] 100 mg capsule 100 mg PO BID PRN (Reason: Constipation) metoprolol tartrate 25 mg tablet 12.5 mg PO BID Qty: 90 0RF clonidine HCl 0.1 mg tablet 0.1 mg PO QAM Qty: 30 2RF quetiapine 200 mg tablet 200 mg PO BEDTIME Qty: 90 3RF mirabegron 25 mg tablet extended release 24 hr 25 mg PO DAILY Qty: 90 3RF acetaminophen 325 mg Tablet 325 mg PO Q4H PRN (Reason: panin) amlodipine 10 mg tablet 10 mg PO DAILY citalopram 40 mg tablet 40 mg PO QPM galantamine 4 mg tablet 8 mg PO QAM meloxicam 7.5 mg tablet 7.5 mg PO QPM PRN (Reason: Pain) pantoprazole 40 mg Tablet,Delayed Release (Dr/Ec) 40 mg PO DAILY 30 Days Qty: 30 0RF Discharge Orders: Discharge ED (Routine); Ordered 08/03/25 Ordered By: Catherine Santos Referrals: Justine Cook MD [Primary Care Provider, Family Practice] Discharge Diet: Usual diet Discharge Activity: Increase activity as tolerated Patient Instructions: Noncardiac Chest Pain (ED), Opioid Safety, Pain Management, Patient Portal & Wilbert Instructions Activity Restrictions/Additional Instructions: Thank you for choosing [facility] for your healthcare needs today. You have been screened and evaluated and felt safe for discharge. Health conditions do change or evolve sometimes and as such it is important that you follow up with your Primary Doctor to be re checked, 3-5 days is a general good time frame for follow up. You are always welcome to return to the ED for re assessment if your symptoms are worsening or you have new concerns Print Language: Korean Coding Level of Care Code ED Wash Worker for Sarah Epps
--- NOTE | 2025-08-03 15:09 | PC.PHAR ---
Guardian states 1 new medication added from 07/24/25 for Protonix 40mg. All other medications are unchanged.
[2025-08-03 16:15] LABS: Hematocrit 31.3 % (36-47); Hemoglobin 9.50 g/dL (11.27-16.99); Mean Corpuscular HGB Conc 30.4 g/dL (30-55); Mean Corpuscular Hemoglobin 27.4 pg (27-33); Mean Corpuscular Volume 90.2 fl (85-98); Nucleated Red Blood Cells % 0 %; Platelet Count 211 10^3/cmm (157-399); Red Blood Count 3.47 10^6/uL (3.85-5.65); White Blood Count 7.07 10^3/uL (3.29-11.43)
[2025-08-03 16:45] LABS: Troponin(5th) Baseline 21 ng/L (0-10)
[2025-08-03 16:55] LABS: Alanine Aminotransferase 14 U/L (0-33); Albumin Level 3.5 g/dL (3.5-5.2); Alkaline Phosphatase 104 U/L (35-105); Anion Gap 14.0 (5-19); Aspartate Amino Transferase 21 U/L (0-32); Blood Urea Nitrogen 10 mg/dL (8-23); Calcium 10.5 mg/dL (8.5-10.5); Carbon Dioxide 24 mmol/L (22-29); Chloride 107 mmol/L (98-107); Creatinine Clr Calc Pharmacy 55.2870; Globulin 2.9 g/dL (1.3-4.6); Glucose 103 mg/dL (65-115); Lipase 47 U/L (13-60); NT Pro B Type Natriuretic Pept 91 pg/mL (0-450); Osmolality Calculated 291 mOsm/kg (285-295); Potassium 4.0 mmol/L (3.5-5.1); Sodium 141 mmol/L (136-145); Total Protein 6.4 g/dL (6.6-8.7)
--- NOTE | 2025-08-03 16:59 | ECG_ITS ---
[facility] Pat Name: Tressa Mcgill Department: Room: Gender: Female Senior Software Quality Analyst: : 1945 Requested By: Catherine Rooney Order Number: [id number] Steve MD: Percy George M.D. Measurements Intervals [place] Rate: 49 P: 51 VA: 165 QRS: 6 QRSD: 138 T: 16 QT: 463 QTc: 421 Interpretive Statements SINUS BRADYCARDIA INTRAVENTRICULAR CONDUCTION DELAY [130+ ms QRS DURATION] Compared to ECG 08/03/2025 12:48:32 Intraventricular conduction delay now present Right bundle-branch block no longer present Electronically Signed On 08-05-2025 09:00:48 CDT by Percy George M.D. [id number] [id number]
[2025-08-03 17:41] LABS: Troponin 5 2HR 19.48 ng/L (0-10); Troponin 5 2HR Delta -1.52 ABS# (0-10)
[2025-08-03 18:08] VITALS: BP 128/81; PULSE 60; O2SAT 99
[2025-08-03 18:18] VITALS: BP 128/81; PULSE 58; O2SAT 98
[2025-08-04 13:40] LABS: Calcium 10.3 mg/dL (8.5-10.5)
== END 2025-08-03 18:21 | disposition home or self-care (01) ==
PROVIDERS: Internal Medicine; Emergency Provider Emergency Medicine; PCP Family Medicine
DX: R07.89 Other chest pain (principal); Z79.82 Long term (current) use of aspirin; I10 Essential (primary) hypertension; Z86.73 Personal history of transient ischemic attack (TIA), and cerebral infarction without residual deficits
CPT/HCPCS: 36415; 71045; 80053; 82306; 82310; 83690; 83880; 83970; 84484; 85025; 93005; 99285; J9999

== ENCOUNTER 2025-08-04 05:00 | Outpatient (RCR) | payer MEDICARE, SELFPAY | END 2025-08-30 10:56 | disposition home or self-care (01) | LOC: SPT 05:00 | PROVIDERS: PCP Family Medicine; Visit Provider Orthopaedic Surgery | DX: M54.50 Low back pain, unspecified (principal); G89.29 Other chronic pain; R41.89 Other symptoms and signs involving cognitive functions and awareness; R79.89 Other specified abnormal findings of blood chemistry; E21.0 Primary hyperparathyroidism; Z87.442 Personal history of urinary calculi | CPT/HCPCS: 97110; 99214 ==

== ENCOUNTER 2025-08-06 10:42 | Emergency (ER) | payer MEDICARE, SELFPAY ==
--- OUTSIDE RECORDS SUMMARY | 2024-07-29 08:10 | XMS_ITS ---
Author Organization [facility] Address [address] [place] [address] Care Team Providers Care Base Engineer Name Role Phone Alejandro Freitas Unavailable [phone] REASON FOR VISIT f/u w CT abd w and without contrast per Dr. Freitas Encounters Encounter Location Date Provider Diagnosis [facility] [address] [place] [address] Dr [address] [place] [address] 07/29/2024 Alejandro Freitas Plan Of Treatment No Information Progress Notes * GREY GRIFFIN ADOB:1944 (80 yo F)Acc No.[id number]:07/29/2024 Progress Notes Patient: GREY GANNON Provider: Tan Freitas MD :1945 A ge:79 Y S ex:Female Date:07/29/2024 Address:[facility] [address] Subjective: * Chief Complaints: * f /u w CT abd w and without contrast per Dr. Freitas * Electronic signature of Fatou Freitas MD on 08/06/2025 at 10:47 AM CDT Sign off status: Pending * Provider: Tan Freitas MD Date: 0 07/29/2024 Generated for Elysiai ng/Fagwyng/eTransmitting on: 1 10:47 AM CDT
--- OUTSIDE RECORDS SUMMARY | 2024-09-29 05:00 | XMS_ITS ---
Author Organization [facility] Address [address] [place] [address] Care Team Providers Care Cherry Pitter Name Role Phone Alejandro Freitas Unavailable [phone] REASON FOR VISIT f/u w CT abd w and without contrast per Dr. Freitas Encounters Encounter Location Date Provider Diagnosis [facility] [address] [place] [address] [address] [place] [address] 09/29/2024 Alejandro Freitas Plan Of Treatment No Information Progress Notes * GREY GRIFFIN ADOB:1944 (80 yo F)Acc No.[id number]:09/29/2024 Progress Notes Patient: GREY GANNON Provider: Tan Freitas MD :1945 A ge:79 Y S ex:Female Date:09/29/2024 Address:[facility] [place] [address] [id number] Subjective: * Chief Complaints: * f /u w CT abd w and without contrast per Dr. Freitas * Electronic signature of Fatou Freitas MD on 08/06/2025 at 10:48 AM CDT Sign off status: Pending * Provider: Tan Freitas MD Date: 11/29/2023 Generated for Manuel ng/Armida/eTransmitting on: 1 10:48 AM CDT
--- OUTSIDE RECORDS SUMMARY | 2025-08-06 10:48 | XMS_ITS | Clinical Summary ---
[facility] Address [address] [place] [address] Care Team Providers Care Tool Design Drafter Name Role Phone Renata Hyde DO Primary Care Provider [phone]- [phone] Allergies No known active allergies Medications citalopram [...] Comments Blood Pressure 134/84 10/31/2023 1:28 PM INFORMATION SYSTEMS ADMINISTRATOR Pulse 70 10/24/2023 10:57 AM INFORMATION SYSTEMS ADMINISTRATOR Temperature 37.1 C (98.7 F) 10/24/2023 10:57 AM INFORMATION SYSTEMS ADMINISTRATOR Respiratory Rate 18 10/24/2023 10:57 AM INFORMATION SYSTEMS ADMINISTRATOR Oxygen Saturation 97% 10/24/2023 10:57 AM INFORMATION SYSTEMS ADMINISTRATOR Inhaled Oxygen Concentration - - Weight 77.6 kg (171 lb) 10/31/2023 1:28 PM INFORMATION SYSTEMS ADMINISTRATOR Height 172.7 cm (5' 8 ) 10/31/2023 1:28 PM INFORMATION SYSTEMS ADMINISTRATOR Body Mass Index 26 10/31/2023 1:28 PM INFORMATION SYSTEMS ADMINISTRATOR Plan of Treatment Health Maintenance Due Date Last Done Comments DTAP/TDAP/TD VACCINES (1 - Tdap) 1966 PNEUMOCOCCAL VACCINE 50+ YEARS (1 of 1 - PCV) 02/23/19 97 ZOSTER VACCINE (1 of 2) 1997 OSTEOPOROSIS SCREENING 02/24/2012 RSV VACCINE (60+ or ) (1 - 1-dose 75+ series) 2022 INFLUENZA VACCINE (#1) 2025 Medical Devices Implanted Type Area Research Development Director Device Identifier Shelf Expiration Date Model / Serial / Lot Clip Ligating Horizon Red [id number] - [facility] [place] - [id number] Implanted:Qty: 1 on 10/14/2023 by Saurabh Azul MD at [facility] Clip N/A: Neck [employer] [id number] 06/10/2028 [id number] / / [id number] Clip Ligating Horizon Med Ti [id number] - [facility] [place] - [id number] Implanted:Qty: 1 on 10/14/2023 by Saurabh Azul MD at [facility] Clip N/A: Neck TELEFLEX- WECK [employer]URE SYS [id number] 07/16/2028 [id number] / / [id number] Hemostatic Surgifoam Sz12-7 1971 - [id number] Implanted:Qty: 1 on 10/14/2023 by Saurabh Azul MD at [facility] Hemostatic N/A: Neck [employer]- [employer] [id number] 06/20/20271971 Explanted Type Area Research Development Director Device Identifier Shelf Expiration Date Model / Serial / Lot Hemostatic Surgifoam Sz12-7 1971 [id number] Explanted:Qty: 1 on 10/14/2023 by Saurabh Azul MD at [facility] Hemostatic N/A: Neck [employer]- [employer] [id number] 06/20/20271971403 Insurance Advance Directives For more information, please contact: [phone] * Full Code (Latest Code Status on File) Date Activated Date Inactivated Comments 10/14/2023 10:55 AM 10/14/2023 8:21 PM Care Teams Tool Design Drafter Relationship Specialty Start Date End Date Renata Hyde DO PCP - General Family Practice 07/23/23
--- OUTSIDE RECORDS SUMMARY | 2025-08-06 10:48 | XMS_ITS | Patient Health Record ---
Author Organization [facility] Address [address] [place] [address] Care Team Providers Care Broadcaster Name Role Phone Alejandro Freitas Unavailable [phone] Reason For Referral No Information Problems Problem Type SNOMED Code ICD Code Onset Dates Problem Status W/U Status Risk Notes Problem Calculus of kidney (08508049) Calculus of kidney (N20.0) Active confirmed Encounters Encounter Location Date Provider Diagnosis [facility] [address] [place] [address] [address] [place] [address] 08/19/2024 Alejandro Freitas Plan Of Treatment Pending Test Test Name Order Date Blood Urea Nitrogen (BUN) 01882 05/25/20 24 Creatinine (B) 04338 05/25/2024 CT Abdomen w/ + w/o Contrast-[id number] 05/25
--- NOTE | 2025-08-06 11:07 | ECG_ITS ---
[facility]: 2025-08-06 Pat Name: Tressa Mcgill Department: Room: Gender: Female Cds Sales Advisor: : 1945 Requested By: Be Mercer Order Number: [id number] Steve MD: Felicitas Connell M.D. Measurements Intervals [place] Rate: 54 P: 35 NM: 149 QRS: 34 QRSD: 138 T: 44 QT: 440 QTc: 419 Interpretive Statements SINUS BRADYCARDIA RIGHT BUNDLE BRANCH BLOCK [120+ ms QRS DURATION, UPRIGHT V1, 40+ ms S IN I/aVL/V4/V5/V6] Compared to ECG 08/03/2025 16:59:28 Right bundle-branch block now present Intraventricular conduction delay no longer present Electronically Signed On 08-07-2025 14:35:19 CDT by Felicitas Connell M.D. [email or web address] [id number]
--- NOTE | 2025-08-06 11:07 | XR_ITS ---
WS: [id number] XR chest 1V portable [id number] REASON FOR EXAM: cva FINDINGS: Chest is unchanged compared to 08/03/2025. Tortuosity and ectasia of the aortic arch and thoracic aorta. Mild cardiomegaly with mild central pulmonary venous congestion. Large hiatal hernia. Calcified granulomatous disease bilaterally. No acute pulmonary parenchymal or pleural abnormality. 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 XR/XR chest 1V portable [id number] IMPRESSION: Stable chest with no acute abnormality as above.
--- NOTE | 2025-08-06 11:07 | CT_ITS ---
WS: [id number] CT HEAD NONCONTRAST HISTORY: Symptoms of acute stroke TECHNIQUE: Contiguous axial imaging performed through the brain. Bone and soft tissue windows. Sagittal and coronal reformats reviewed. All CT scans at [facility] use at least one of these dose optimization techniques: automated exposure control; mA and/or kV adjustment per patient size (includes targeted exams where dose is matched to clinical indication); or iterative reconstruction. DLP: 1109.11 mGy COMPARISON: 07/20/2025, 01/24/2023 No acute intracranial hemorrhage, midline shift or mass effect. Mild cerebral and cerebellar atrophy and mild small vessel disease. No acute infarct. Ventricles: Normal size with no hydrocephalus. No inferior displacement of the cerebellar tonsils. Paranasal sinuses: Near complete opacification of the visualized RIGHT maxillary sinus. Remaining sinuses are clear. Mastoid air cells: Well pneumatized. Calvarium and scalp: Skull is intact with no soft tissue edema or swelling. CT/CT head thrombolytic [id number] IMPRESSION: 1. No acute intracranial hemorrhage or edema. 2. Mild cerebral cerebellar atrophy and small vessel disease. Notified Be Mercer MD at 08/06/2025 11:22 AM.
--- NOTE | 2025-08-06 11:09 | W.ED.NEUROSD ---
HPI - Neuro Symptoms/Deficit General: Chief Complaint: Altered Mental Status Stated Complaint: dizziness Time Seen by Provider: 08/06/25 11:05 Source: family Limitations: altered mental status History of Present Illness: 80-year-old female who is here with states that at 1030 she seemed to start having some decreased mental status and trouble speaking. She does have a history of severe dementia when patient got to triage she was clenching her arms and saying she was dizzy once patient got to the room when I arrived the room patient will not move any extremities or follow any commands at this time. states she was admitted 3 weeks ago for something similar but not as severe as this and had a normal MRI denies any recent fevers or injuries Related Data Home Medications ?Medication ?Instructions ?Recorded ?Confirmed docusate sodium 100 mg capsule 100 mg PO BID PRN Constipation 11/06/23 08/05/25 (Colace) aspirin 81 mg tablet,delayed 81 mg PO DAILY 05/21/24 08/05/25 release acetaminophen 325 mg tablet 325 mg PO Q4H PRN panin 07/20/25 08/05/25 amlodipine 10 mg tablet 10 mg PO DAILY 07/20/25 08/05/25 citalopram 40 mg tablet 40 mg PO QPM 07/20/25 08/05/25 galantamine 4 mg tablet 8 mg PO QAM 07/20/25 08/05/25 meloxicam 7.5 mg tablet 7.5 mg PO QPM PRN Pain 07/20/25 08/05/25 Previous Rx's ?Medication ?Instructions ?Recorded quetiapine 200 mg tablet 200 mg PO BEDTIME #90 tabs 03/24/25 mirabegron 25 mg tablet,extended 25 mg PO DAILY Stop oxybutynin #90 06/01/25 release 24 hr tabs metoprolol tartrate 25 mg tablet 12.5 mg (1/2 x 25 mg) PO BID #90 07/14/25 tabs pantoprazole 40 mg tablet,delayed 40 mg PO DAILY 30 days #30 tabs 07/24/25 release clonidine HCl 0.1 mg tablet 0.1 mg PO QAM #30 tabs 08/03/25 Allergies Allergy/AdvReac Type Severity Reaction Status Date / Time atorvastatin Allergy rhabdomyoly Verified 08/05/25 08:52 sis Review of Systems General: Reports: ROS unobtainable due to mental status PFSH ED PFSH: Medical History (Updated 08/06/25 @ 13:07 by Be Mercer MD) Near syncope Primary hyperparathyroidism Cyst of left kidney Cyst measures 1.4 x 1.4 x 1.4 cm. History of CVA (cerebrovascular accident) Small focus of chronic ischemia along the anterior limb LEFT internal capsule Osteopenia Hypertension Dementia Parathyroid adenoma SOLOMON (generalized anxiety disorder) Hypercalcemia History of kidney stones Urinary incontinence Surgical History Status post total left knee replacement using cement History of arthroplasty of right knee History of parathyroidectomy History of anterior colporrhaphy (~09/17/23) Anterior colporrhapy augmented with allograft, posterior colporrhapy, sacrospinous fixation, cystoscopy performed by Vaughn Family History Father Dementia Denies family history of Colon cancer Ovarian cancer Diabetes Heart disease Hypercholesteremia Breast cancer Hypertension Uterine cancer Thyroid disease Stroke Social History Smoking and tobacco/nicotine status: unknown if used tobacco/nicotine Alcohol intake: current Alcohol intake frequency: few times a month Household members: spouse Marital status: Current occupational status: retired Special bekah needs: No Agree to transfusion: Yes NIH stroke score NIHSS: Level Of Consciousness - 1a: 1 Level Of Consciousness Questions - 1b: Neither Correct Level Of Consciousness Commands - 1c: Neither Correct Best Gaze - 2: Normal Visual Urrutia - 3: No Visual Loss Facial Palsy - 4: Normal Motor Arm Right - 5: No Effort Against [place] Motor Arm Left - 5: No Effort Against [place] Motor Leg Right - 6: No Effort Against [place] Motor Leg Left - 6: No Effort Against [place] Limb Ataxia - 7: Absent Sensory - 8: Normal Best Language - 9: Mute; Global Aphasia Dysarthia - 10: Normal Extinction And Inattention - 11: 0 Score: Total Score: 20 Physical Exam Const: COMMON NORMALS: negative for patient oriented x3 HENMT: COMMON NORMALS: normocephalic and atraumatic HEAD & SCALP: normocephalic and atraumatic Eye: COMMON NORMALS: Equal, round and reactive pupils present and EOMs intact bilaterally PUPIL: Yes Equal, round and reactive pupils present Neck/C-Spine: COMMON NORMALS: full ROM and supple Chest: COMMONS NORMALS: normal inspection of the chest and normal palpation of entire chest wall Resp: COMMON NORMALS: normal respiratory effort, No retractions, No use of accessory muscles and clear to auscultation bilaterally AUSCULTATION: clear to auscultation bilaterally Cardio: COMMON NORMALS: regular rate, regular rhythm and No murmurs present (Cardio) RATE: regular rate RHYTHM: regular rhythm GI: COMMON NORMALS: Normal to inspection, nondistended, normoactive bowel sounds present, Soft to palpation, non-tender and no masses PALPATION: Yes Soft to palpation Neuro: COMMON NORMALS: negative for patient oriented x3 Psych: COMMON NORMALS: mental status grossly normal, Normal thought process present and cooperative THOUGHT PROCESS: Normal thought process present Skin: COMMON NORMALS: no rashes or lesions noted and no wounds GENERAL SKIN EXAM: no rashes or lesions noted Course Vital Signs: Vital signs: Vital Signs Temperature 97.9 F 08/06/25 12:04 Pulse Rate 60 08/06/25 13:38 Respiratory Rate 17 08/06/25 13:38 Blood Pressure 139/88 08/06/25 13:38 Pulse Oximetry 97 08/06/25 13:38 Oxygen Delivery Me thod Room Air 08/06/25 13:21 MDM - Neuro Symptoms/Deficit Medical Decision Making Patient presents here with an episode of altered mental status that happened today. Differential diagnosis includes TIA, stroke, subarachnoid hemorrhage. I feel these are unlikely head CT shows no signs of stroke or hemorrhage patient was evaluated by neurologist who did not believe patient was having a stroke patient now is awake and alert and at her baseline. She does have anxiety and has had these happen in the past and could be anxiety induced or from her severe dementia she does have multiple comorbidities including Alzheimer's. Patient is at baseline NIH is currently 0 she feels much improved imaging and blood work here is normal she has no signs of infection she is stable for discharge I spoke to her and family and they understand and agree with plan. I did speak to the neurologist at [facility] who did evaluate her on telestroke Dr. Petit. I did review her previous admission which was 2 weeks ago and she had a normal MRI at that time as well. Her EKG here was interpreted she had sinus bradycardia heart rate [address] elevation QRS is 138 QTc was 426. I did review her CT head and chest x-ray which were normal Medical Records I reviewed the patient's medical records. Lab Data I reviewed the patient's lab results. 08/06/25 11:21 08/06/25 11:21 Radiology Impressions Chest X-Ray 08/06/25 11:07 IMPRESSION: Stable chest with no acute abnormality as above. Head CT 08/06/25 11:07 IMPRESSION: 1. No acute intracranial hemorrhage or edema. 2. Mild cerebral cerebellar atrophy and small vessel disease. Notified Be Mercer MD at 08/06/2025 11:22 AM. Head/Neck CTA 08/06/25 11:26 IMPRESSION: 1. No significant cervical carotid artery stenosis. Mild plaque. 2. Mild atherosclerotic plaque in the intracranial cavernous carotid arteries. 3. Patent middle cerebral arteries. No thrombus or occlusion. 4. No [place] of [place] aneurysm. 5. Normal dural venous sinuses. Laboratory Results WBC 5.73 10^3/uL (3.29-11.43) 08/06/25 11:21 RBC 3.37 10^6/uL (3.85-5.65) L 08/06/25 11:21 Hgb 9.10 g/dL (11.27-16.99) L 08/06/25 11:21 Hct 30.0 % (36-47) L 08/06/25 11:21 MCV 89.0 fl (85-98) 08/06/25 11:21 MCH 27.0 pg (27-33) 08/06/25 11:21 MCHC 30.3 g/dL (30-55) 08/06/25 11:21 RDW 14.2 % (12.1-15.1) 08/06/25 11:21 Plt Count 210 10^3/cmm (157-399) 08/06/25 11:21 MPV 11.1 fL (7.4-10.4) H 08/06/25 11:21 Neut % (Auto) 51.7 % 08/06/25 11:21 Lymph % (Auto) 33.5 % 08/06/25 11:21 [place] % (Auto) 11.3 % 08/06/25 11:21 Eos % (Auto) 2.6 % 08/06/25 11:21 Baso % (Auto) 0.7 % 08/06/25 11:21 Neut # (Auto) 2.96 10^3/uL (1.8-7.7) 08/06/25 11:21 Lymph # (Auto) 1.9 10^3/uL (0.8-4.8) 08/06/25 11:21 [place] # (Auto) 0.7 10^3/uL (0.2-0.9) 08/06/25 11:21 Eos # (Auto) 0.2 10^3/uL (0.0-0.8) 08/06/25 11:21 Baso # (Auto) 0.0 10^3/uL (0.0-0.1) 08/06/25 11:21 Nucleated RBC % (auto) 0 % 08/06/25 11:21 Nucleated RBCs # 0.0 /100WBC 08/06/25 11:21 PT 13.60 SECONDS (12.1-14.9) 08/06/25 11:21 INR 0.97 (0.8-1.2) 08/06/25 11:21 APTT 28.8 SECONDS (23.9-36.7) 08/06/25 11:21 Sodium 140 mmol/L (136-145) 08/06/25 11:21 Potassium 4.2 mmol/L (3.5-5.1) 08/06/25 11:21 Chloride 107 mmol/L (98-107) 08/06/25 11:21 Carbon Dioxide 20 mmol/L (22-29) L 08/06/25 11:21 Anion Gap 17.2 (5-19) 08/06/25 11:21 BUN 8 mg/dL (8-23) 08/06/25 11:21 Creatinine 0.9 mg/dL (0.5-0.9) 08/06/25 11:21 GFR Calculation Not Reportable 08/06/25 11:21 Glucose 156 mg/dL (65-115) H 08/06/25 11:21 POC Glucose 168 mg/dL (70-110) H 08/06/25 11:08 Calculated Osmolality 292 mOsm/kg (285-295) 08/06/25 11:21 Calcium 10.6 mg/dL (8.5-10.5) H 08/06/25 11:21 Total Bilirubin 0.3 mg/dL (0.15-1.2) 08/06/25 11:21 AST 27 U/L (0-32) 08/06/25 11:21 ALT 15 U/L (0-33) 08/06/25 11:21 Alkaline Phosphatase 112 U/L (35-105) H 08/06/25 11:21 Total Protein 6.7 g/dL (6.6-8.7) 08/06/25 11:21 Albumin 3.7 g/dL (3.5-5.2) 08/06/25 11:21 Globulin 3.0 g/dL (1.3-4.6) 08/06/25 11:21 Urine Color Yellow (Yellow) 08/06/25 12:02 Urine Appearance Cloudy (CLEAR) A 08/06/25 12:02 Urine pH 7.5 (5-7) 08/06/25 12:02 Ur Specific [place] 1.070 (1.005-1.030) H 08/06/25 12:02 Urine Protein Negative (Negative) 08/06/25 12:02 Urine Glucose (UA) Negative (Normal) 08/06/25 12:02 Urine Ketones Negative (Negative) 08/06/25 12:02 Urine Blood Negative (Negative) 08/06/25 12:02 Urine Nitrate Negative (Negative) 08/06/25 12:02 Urine Bilirubin Negative (Negative) 08/06/25 12:02 Urine Urobilinogen 0.2 mg/dL (Negative) 08/06/25 12:02 Ur Leukocyte Esterase Trace (Negative) A 08/06/25 12:02 Urine RBC 5-10 /hpf (0-2) H 08/06/25 12:02 Urine WBC 5-10 /hpf (0-5) H 08/06/25 12:02 Ur Squamous Epith Cells 25-40 /hpf (0-5) H 08/06/25 12:02 Amorphous Sediment Not Reportable 08/06/25 12:02 Urine Bacteria 1+ /hpf (NONE) H 08/06/25 12:02 Urine Opiates Screen Negative ng/mL (Negative) 08/06/25 12:02 Ur Barbiturates Screen Negative ng/mL (Negative) 08/06/25 12:02 Ur Phencyclidine Scrn Negative ng/mL (Negative) 08/06/25 12:02 Ur Amphetamines Screen Negative ng/mL (Negative) 08/06/25 12:02 U Benzodiazepines Scrn Negative ng/mL (Negative) 08/06/25 12:02 Urine Cocaine Screen Negative ng/mL (Negative) 08/06/25 12:02 U Marijuana (THC) Screen Negative ng/mL (Negative) 08/06/25 12:02 All radiology interpretation(s) finalized by discharge EKG Data EKG 1: I personally reviewed and interpreted this EKG as follows: EKG interpretation date: 08/06/25 EKG interpretation time: 12:01 Interpretation: sinus felipe hr [address] elevation qrs 138 qtc 426 Discharge Plan Discharge Patient Disposition: Home Clinical Impression: Altered mental status Condition: Stable Prescriptions: No Action aspirin 81 mg tablet,delayed release (DR/EC) 81 mg PO DAILY docusate sodium [Colace] 100 mg capsule 100 mg PO BID PRN (Reason: Constipation) metoprolol tartrate 25 mg tablet 12.5 mg PO BID Qty: 90 0RF clonidine HCl 0.1 mg tablet 0.1 mg PO QAM Qty: 30 2RF quetiapine 200 mg tablet 200 mg PO BEDTIME Qty: 90 3RF mirabegron 25 mg tablet extended release 24 hr 25 mg PO DAILY Qty: 90 3RF acetaminophen 325 mg Tablet 325 mg PO Q4H PRN (Reason: panin) amlodipine 10 mg tablet 10 mg PO DAILY citalopram 40 mg tablet 40 mg PO QPM galantamine 4 mg tablet 8 mg PO QAM meloxicam 7.5 mg tablet 7.5 mg PO QPM PRN (Reason: Pain) pantoprazole 40 mg Tablet,Delayed Release (Dr/Ec) 40 mg PO DAILY 30 Days Qty: 30 0RF Discharge Orders: Discharge ED (Routine); Ordered 08/06/25 Ordered By: Be Mercer Referrals: Justine Cook MD [Primary Care Provider, Family Practice] - 4-7 days Discharge Diet: Advance as tolerated Discharge Activity: Limit activity as instructed Patient Instructions: Altered Mental Status (ED) Print Language: Samoan Coding Level of Care Code ED Antique Finisher for Sarah Epps
[2025-08-06 11:10] VITALS: BP 144/82; PULSE 58; RESP 24; O2SAT 99; BMI 31.1
--- NOTE | 2025-08-06 11:26 | CT_ITS ---
WS: [id number] CT ANGIOGRAM CEREBRAL AND CAROTID ARTERIES HISTORY: cva TECHNIQUE: CT angiogram is performed of the carotid and cerebral arteries. During arterial injection imaging is obtained from the skull vertex to the aortic arch in 1.25 mm imaging. Coronal and sagittal reformats are submitted. Additional multi planar reformats of the carotid and cerebral arteries are submitted, MIP imaging also reviewed. NASCET criteria utilized. All CT scans at [facility] use at least one of these dose optimization techniques: automated exposure control; mA and/or kV adjustment per patient size (includes targeted exams where dose is matched to clinical indication); or iterative reconstruction. CONTRAST: Omnipaque 350; 100 mL IV. DLP: 493.69 mGy.cm COMPARISON: 02/09/2024 Carotid Angiogram: Right carotid: Common carotid artery: Arises normally from the innominate artery. No significant plaque or stenosis. Internal carotid artery: Calcified plaque at the bifurcation. No high-grade stenosis. External carotid artery: Patent. Left carotid: Common carotid artery: Arises normally from the aorta. No significant plaque or stenosis. Internal carotid artery: Tiny amount of calcified plaque at the bifurcation. No stenosis. External carotid artery: Patent. Right vertebral artery: Unremarkable. Left vertebral artery: Unremarkable. Arises normally from the subclavian artery. Subclavian arteries: Small amount of calcified plaque intimal thickening at the origin of the LEFT subclavian artery. No stenosis within either subclavian artery. Upper thorax: No pneumonia. Pulmonary arteries mildly dilated. Thyroid gland: Atrophied or surgically removed LEFT thyroid. Subcentimeter nodules RIGHT thyroid. Osseous structures: Advanced cervical spondylosis. No fractures. CEREBRAL ANGIOGRAM: Intracranial vertebral arteries: Normal with no significant atherosclerosis. Basilar artery: No significant stenosis or occlusion. No aneurysm. Intracranial Internal carotid arteries: Calcified plaque in the cavernous carotid arteries. Slightly greater plaque on the LEFT with stenosis estimated at just less than 50%. Middle cerebral arteries: Normal. Anterior cerebral arteries and ACOM: Normal. Posterior cerebral arteries and PCOM's: Normal. Dural venous sinuses are normally enhancing. Mastoid air cells: Normal. Paranasal sinuses: Heterogeneous opacification RIGHT maxillary sinus. Calvarium: Normal. CT/CT angio headneck* [id number] IMPRESSION: 1. No significant cervical carotid artery stenosis. Mild plaque. 2. Mild atherosclerotic plaque in the intracranial cavernous carotid arteries. 3. Patent middle cerebral arteries. No thrombus or occlusion. 4. No [place] of [place] aneurysm. 5. Normal dural venous sinuses.
[2025-08-06 11:33] LABS: Hematocrit 30.0 % (36-47); Hemoglobin 9.10 g/dL (11.27-16.99); Mean Corpuscular HGB Conc 30.3 g/dL (30-55); Mean Corpuscular Hemoglobin 27.0 pg (27-33); Mean Corpuscular Volume 89.0 fl (85-98); Nucleated Red Blood Cells % 0 %; Platelet Count 210 10^3/cmm (157-399); Red Blood Count 3.37 10^6/uL (3.85-5.65); White Blood Count 5.73 10^3/uL (3.29-11.43)
[2025-08-06 11:40] LABS: INR 0.97 (0.8-1.2); Prothrombin Time 13.60 SECONDS (12.1-14.9)
[2025-08-06 11:41] LABS: Partial Thromboplastin Time 28.8 SECONDS (23.9-36.7)
[2025-08-06 11:45] LABS: Alanine Aminotransferase 15 U/L (0-33); Albumin Level 3.7 g/dL (3.5-5.2); Alkaline Phosphatase 112 U/L (35-105); Anion Gap 17.2 (5-19); Aspartate Amino Transferase 27 U/L (0-32); Blood Urea Nitrogen 8 mg/dL (8-23); Calcium 10.6 mg/dL (8.5-10.5); Carbon Dioxide 20 mmol/L (22-29); Chloride 107 mmol/L (98-107); Creatinine Clr Calc Pharmacy 61.4300; Globulin 3.0 g/dL (1.3-4.6); Glucose 156 mg/dL (65-115); Osmolality Calculated 292 mOsm/kg (285-295); Potassium 4.2 mmol/L (3.5-5.1); Sodium 140 mmol/L (136-145); Total Protein 6.7 g/dL (6.6-8.7)
[2025-08-06] MEDS: iohexol 350 mg/mL 500 mL Btl (per mL) IV (11:49)
[2025-08-06 12:04] VITALS: BP 144/82; PULSE 57; RESP 16; TEMP 36.6; O2SAT 100
[2025-08-06 12:10] LABS: Glucose Urine UA Negative (Normal); Nitrate Urine Negative (Negative)
[2025-08-06 12:17] LABS: PCP Screen Urine Negative (Negative)
[2025-08-06 12:18] LABS: Add Urine Microscopic? YES; Specific Gravity, Urine 1.070 (1.005-1.030); UA Manual Slide Review YES
[2025-08-06 12:41] VITALS: BP 115/79; PULSE 49; RESP 17; O2SAT 100
[2025-08-06 13:21] VITALS: BP 123/78; PULSE 55; RESP 17; O2SAT 100
[2025-08-06 13:38] VITALS: BP 139/88; PULSE 60; RESP 17; O2SAT 97
== END 2025-08-06 13:38 | disposition home or self-care (01) ==
PROVIDERS: Emergency Provider Emergency Medicine; PCP Family Medicine
DX: R41.82 Altered mental status, unspecified (principal); Z79.82 Long term (current) use of aspirin; Z86.73 Personal history of transient ischemic attack (TIA), and cerebral infarction without residual deficits; I10 Essential (primary) hypertension
CPT/HCPCS: 36416; 70450; 70496; 70498; 71045; 80053; 80306; 81001; 82962; 85025; 85610; 85730; 93005; 99285

== ENCOUNTER → 2025-08-09 12:20 | Outpatient (BNVA) | payer MEDICARE, SELFPAY | PROVIDERS: PCP Family Medicine; Visit Provider Family Medicine | DX: D64.9 Anemia, unspecified (principal) | CPT/HCPCS: 82607; 82728; 83550; 85025 ==

== ENCOUNTER 2025-08-13 14:23 | Outpatient (CLI) | payer MEDICARE, SELFPAY | END 2025-08-13 14:24 | disposition home or self-care (01) | LOC: LAB 14:24 | PROVIDERS: PCP Family Medicine; Visit Provider Family Medicine | DX: D64.9 Anemia, unspecified (principal) | CPT/HCPCS: 82274 ==

== ENCOUNTER → 2025-09-13 13:32 | Outpatient (BNVA) | payer MEDICARE, SELFPAY | PROVIDERS: PCP Family Medicine; Visit Provider Specialist | DX: G30.9 Alzheimer's disease, unspecified (principal); F02.80 Dementia in other diseases classified elsewhere, unspecified severity, without behavioral disturbance, psychotic disturbance, mood disturbance, and anxiety | CPT/HCPCS: 99215 ==

== ENCOUNTER → 2025-09-14 11:19 | Outpatient (BNVA) | payer MEDICARE, SELFPAY | PROVIDERS: PCP Family Medicine; Visit Provider Student in an Organized Health Care Education/Training Program | DX: Z47.1 Aftercare following joint replacement surgery (principal); Z96.653 Presence of artificial knee joint, bilateral; D64.9 Anemia, unspecified; E83.52 Hypercalcemia | CPT/HCPCS: 73560; 73565; 80053; 82270; 83540; 85025; 99213 ==

== ENCOUNTER 2025-09-23 12:28 | Emergency (ER) | payer MEDICARE, SELFPAY ==
--- OUTSIDE RECORDS SUMMARY | 2024-07-29 07:10 | XMS_ITS ---
Author Organization [facility] Address [address] [place] [address] Care Team Providers Care Assistant Statistician Name Role Phone Alejandro Freitas Unavailable [phone] REASON FOR VISIT f/u w CT abd w and without contrast per Dr. Freitas Encounters Encounter Location Date Provider Diagnosis [facility] [address] [place] [address] [address] [place] [address] 07/29/2024 Alejandro Freitas Plan Of Treatment No Information Progress Notes * GREY GRIFFIN ADOB:1944 (80 yo F)Acc No.[id number]:07/29/2024 Progress Notes Patient: GREY GANNON Provider: Tan Freitas MD :1945 A ge:79 Y S ex:Female Date:07/29/2024 Address:[facility] [place] [address] [address] Subjective: * Chief Complaints: * f /u w CT abd w and without contrast per Dr. Freitas * Electronic signature of Fatou Freitas MD on 09/23/2025 at 03:32 PM DEMONSTRATOR SALES Sign off status: Pending * Provider: Tan Freitas MD Date: 0 07/29/2024 Generated for Printi ng/Faxing/eTransmitting on: 11/23/2024 03:32 PM DEMONSTRATOR SALES
--- OUTSIDE RECORDS SUMMARY | 2024-09-29 04:00 | XMS_ITS ---
Author Organization [facility] Address [address] [place] [address] Care Team Providers Care Operational Test Mechanic Name Role Phone Alejandro Freitas Unavailable [phone] REASON FOR VISIT f/u w CT abd w and without contrast per Dr. Freitas Encounters Encounter Location Date Provider Diagnosis [facility] [address] [place] [address] [address] [place] [address] 09/29/2024 Alejandro Freitas Plan Of Treatment No Information Progress Notes * GREY GRIFFIN ADOB:1944 (80 yo F)Acc No.[id number]:09/29/2024 Progress Notes Patient: GREY GANNON Provider: Tan Freitas MD :1945 A ge:79 Y S ex:Female Date:09/29/2024 Address:[facility] [place] [address] [id number] Subjective: * Chief Complaints: * f /u w CT abd w and without contrast per Dr. Freitas * Electronic signature of Fatou Freitas MD on 09/23/2025 at 03:32 PM PROOF PRESS OPERATOR Sign off status: Pending * Provider: Tan Freitas MD Date: 11/29/2023 Generated for Elysiai ng/Fagwyng/eTransmitting on: 11/23/2024 03:32 PM PROOF PRESS OPERATOR
[2025-09-23 12:31] VITALS: BP 112/73; PULSE 106; RESP 24; TEMP 36.8; O2SAT 100; BMI 30.9
--- NOTE | 2025-09-23 12:35 | ECG_ITS ---
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 Measurements Intervals [place] Rate: 106 P: 0 [place]: 0 QRS: 6 QRSD: 122 T: 42 QT: 380 QTc: 505 Interpretive Statements Multifocal atrial tachycardia RIGHT BUNDLE BRANCH BLOCK [120+ ms QRS DURATION, UPRIGHT V1, 40+ ms S IN I/aVL/V4/V5/V6] Compared to ECG 08/06/2025 12:01:58 Sinus bradycardia no longer present Electronically Signed On 09-25-2025 14:13:20 ROENTGENOLOGIST by Felicitas Connell M.D. [email or web address]
--- NOTE | 2025-09-23 12:56 | XR_ITS ---
WS: [id number] XR chest 1V portable [id number] REASON FOR EXAM: cp FINDINGS: The chest is unchanged compared to 08/06/2025. Moderate tortuosity and ectasia of the ascending and descending thoracic aorta. Moderate cardiomegaly. Minimal central pulmonary venous congestion. No acute pulmonary parenchymal or pleural abnormality Significant degenerative spondylosis in the thoracic spine. XR/XR chest 1V portable [id number] IMPRESSION: Stable chest without acute abnormality.
[2025-09-23 13:33] LABS: Hematocrit 29.9 % (36-47); Hemoglobin 9.20 g/dL (11.27-16.99); Mean Corpuscular HGB Conc 30.8 g/dL (30-55); Mean Corpuscular Hemoglobin 25.5 pg (27-33); Mean Corpuscular Volume 82.8 fl (85-98); Nucleated Red Blood Cells % 0 %; Platelet Count 319 10^3/cmm (157-399); Red Blood Count 3.61 10^6/uL (3.85-5.65); White Blood Count 8.88 10^3/uL (3.29-11.43)
--- NOTE | 2025-09-23 13:39 | W.ED.CHESTPA ---
HPI - Chest Pain General: Chief Complaint: Chest Pain Stated Complaint: Cp throat Pain Headache Time Seen by Provider: 09/23/25 13:30 Source: patient Mode of arrival: ambulatory History of Present Illness: 72-year-old female with a history of dementia also with chronic pain. Patient states she been having chest pain since yesterday also 1 episode of vomiting. States that pain is very sharp in nature states she has had these sharp pains before I rates it a 8 out of 10 she denies any shortness of breath denies any fevers. Related Data Home Medications ?Medication ?Instructions ?Recorded ?Confirmed docusate sodium 100 mg capsule 100 mg PO BID PRN Constipation 11/06/23 09/23/25 (Colace) aspirin 81 mg tablet,delayed 81 mg PO DAILY 05/21/24 09/23/25 release acetaminophen 325 mg tablet 325 mg PO Q4H PRN Pain 07/20/25 09/23/25 meloxicam 7.5 mg tablet 7.5 mg PO DAILY PRN Pain 09/23/25 09/23/25 Previous Rx's ?Medication ?Instructions ?Recorded quetiapine 200 mg tablet 200 mg PO BEDTIME #90 tabs 03/24/25 mirabegron 25 mg tablet,extended 25 mg PO DAILY Stop oxybutynin #90 06/01/25 release 24 hr tabs clonidine HCl 0.1 mg tablet 0.1 mg PO QAM #30 tabs 08/03/25 citalopram 40 mg tablet 40 mg PO QPM #90 tabs 08/25/25 amlodipine 10 mg tablet 10 mg PO DAILY #90 tabs 08/26/25 metoprolol tartrate 25 mg tablet 12.5 mg (1/2 x 25 mg) PO BID #90 09/08/25 tabs pantoprazole 40 mg tablet,delayed 40 mg PO BID #60 tabs 09/16/25 release Allergies Allergy/AdvReac Type Severity Reaction Status Date / Time atorvastatin Allergy rhabdomyoly Verified 09/14/25 14:29 [facility] ED PFS: Medical History (Updated 09/23/25 @ 15:49 by Be Mercer MD) Dementia Near syncope Primary hyperparathyroidism Cyst of left kidney Cyst measures 1.4 x 1.4 x 1.4 cm. History of CVA (cerebrovascular accident) Small focus of chronic ischemia along the anterior limb LEFT internal capsule Osteopenia Hypertension Parathyroid adenoma SOLOMON (generalized anxiety disorder) Hypercalcemia History of kidney stones Urinary incontinence Surgical History Status post total left knee replacement using cement History of arthroplasty of right knee History of parathyroidectomy History of anterior colporrhaphy (~09/17/23) Anterior colporrhapy augmented with allograft, posterior colporrhapy, sacrospinous fixation, cystoscopy performed by Vaughn Family History Father Dementia Denies family history of Colon cancer Ovarian cancer Diabetes Heart disease Hypercholesteremia Breast cancer Hypertension Uterine cancer Thyroid disease Stroke Social History Smoking and tobacco/nicotine status: never used tobacco/nicotine Alcohol intake: current Alcohol intake frequency: few times a month Household members: spouse Marital status: Current occupational status: retired Special bekah needs: No Agree to transfusion: Yes Course Vital Signs: Vital signs: Vital Signs Temperature 98.2 F 09/23/25 12:31 Pulse Rate 112 H 09/23/25 16:12 Respiratory Rate 24 H 09/23/25 12:31 Blood Pressure 125/77 09/23/25 16:12 Pulse Oximetry 90 09/23/25 16:12 Oxygen Delivery Me thod Room Air 09/23/25 13:58 MDM - Chest Pain Medical Decision Making Patient presents here with chest pain is atypical in nature. Differential includes cute coronary syndrome, pulm emboli, pneumothorax, aortic dissection. Patient's EKG here was inter by me showed normal sinus rhythm heart rate [address] elevation QRS 120 QTc 440. Patient's lab work showed no significant abnormality had a negative delta on her troponin. I did review her chest x-ray showed no acute abnormality she has no signs of pulmonary embolism or aortic dissection or pneumothorax. Patient states she has had pain like this before and she gets anxious is likely more anxiety related to her pain is resolved here with Ativan and is currently pain-free I feel she is stable for discharge I did go over findings with her and her they are to follow-up PCP and return if worsening they understand agree to plan Medical Records I reviewed the patient's medical records. Lab Data I reviewed the patient's lab results. 09/23/25 13:19 09/23/25 13:19 Radiology Impressions Chest X-Ray 09/23/25 12:56 IMPRESSION: Stable chest without acute abnormality. Laboratory Results WBC 8.88 10^3/uL (3.29-11.43) 09/23/25 13:19 RBC 3.61 10^6/uL (3.85-5.65) L 09/23/25 13:19 Hgb 9.20 g/dL (11.27-16.99) L 09/23/25 13:19 Hct 29.9 % (36-47) L 09/23/25 13:19 MCV 82.8 fl (85-98) L 09/23/25 13:19 MCH 25.5 pg (27-33) L 09/23/25 13:19 MCHC 30.8 g/dL (30-55) 09/23/25 13:19 RDW 14.5 % (12.1-15.1) 09/23/25 13:19 Plt Count 319 10^3/cmm (157-399) 09/23/25 13:19 MPV 10.3 fL (7.4-10.4) 09/23/25 13:19 Neut % (Auto) 72.3 % 09/23/25 13:19 Lymph % (Auto) 18.1 % 09/23/25 13:19 [place] % (Auto) 8.7 % 09/23/25 13:19 Eos % (Auto) 0.2 % 09/23/25 13:19 Baso % (Auto) 0.5 % 09/23/25 13:19 Neut # (Auto) 6.42 10^3/uL (1.8-7.7) 09/23/25 13:19 Lymph # (Auto) 1.6 10^3/uL (0.8-4.8) 09/23/25 13:19 [place] # (Auto) 0.8 10^3/uL (0.2-0.9) 09/23/25 13:19 Eos # (Auto) 0.0 10^3/uL (0.0-0.8) 09/23/25 13:19 Baso # (Auto) 0.0 10^3/uL (0.0-0.1) 09/23/25 13:19 Nucleated RBC % (auto) 0 % 09/23/25 13:19 Nucleated RBCs # 0.0 /100WBC 09/23/25 13:19 Sodium 142 mmol/L (136-145) 09/23/25 13:19 Potassium 3.7 mmol/L (3.5-5.1) 09/23/25 13:19 Chloride 105 mmol/L (98-107) 09/23/25 13:19 Carbon Dioxide 22 mmol/L (22-29) 09/23/25 13:19 Anion Gap 18.7 (5-19) 09/23/25 13:19 BUN 13 mg/dL (8-23) 09/23/25 13:19 Creatinine 1.1 mg/dL (0.5-0.9) H 09/23/25 13:19 GFR Calculation Not Reportable 09/23/25 13:19 Glucose 141 mg/dL (65-115) H 09/23/25 13:19 Calculated Osmolality 296 mOsm/kg (285-295) H 09/23/25 13:19 Calcium 11.6 mg/dL (8.5-10.5) H 09/23/25 13:19 Total Bilirubin 0.5 mg/dL (0.15-1.2) 09/23/25 13:19 AST 25 U/L (0-32) 09/23/25 13:19 ALT 16 U/L (0-33) 09/23/25 13:19 Alkaline Phosphatase 128 U/L (35-105) H 09/23/25 13:19 Troponin T Baseline 24 ng/L (0-10) H 09/23/25 13:19 Troponin T 120 Minute 21.63 ng/L (0-10) H 09/23/25 15:06 Delta Troponin T -2.37 ABS# (0-10) L 09/23/25 15:06 Total Protein 7.8 g/dL (6.6-8.7) 09/23/25 13:19 Albumin 4.3 g/dL (3.5-5.2) 09/23/25 13:19 Globulin 3.5 g/dL (1.3-4.6) 09/23/25 13:19 Lipase 17 U/L (13-60) 09/23/25 13:19 All radiology interpretation(s) finalized by discharge EKG Data EKG 1: I personally reviewed and interpreted this EKG as follows: EKG interpretation date: 09/23/25 EKG interpretation time: 14:00 Interpretation: nsr hr [address] elevation qrs 120 qtc 440 Discharge Plan Discharge Patient Disposition: Home Clinical Impression: Chest pain Condition: Stable Prescriptions: No Action aspirin 81 mg tablet,delayed release (DR/EC) 81 mg PO DAILY docusate sodium [Colace] 100 mg capsule 100 mg PO BID PRN (Reason: Constipation) clonidine HCl 0.1 mg tablet 0.1 mg PO QAM Qty: 30 2RF quetiapine 200 mg tablet 200 mg PO BEDTIME Qty: 90 3RF mirabegron 25 mg tablet extended release 24 hr 25 mg PO DAILY Qty: 90 3RF citalopram 40 mg tablet 40 mg PO QPM Qty: 90 0RF amlodipine 10 mg tablet 10 mg PO DAILY Qty: 90 0RF metoprolol tartrate 25 mg tablet 12.5 mg PO BID Qty: 90 0RF pantoprazole 40 mg tablet,delayed release (DR/EC) 40 mg PO BID Qty: 60 1RF acetaminophen 325 mg Tablet 325 mg PO Q4H PRN (Reason: Pain) meloxicam 7.5 mg tablet 7.5 mg PO DAILY PRN (Reason: Pain) Discharge Orders: Discharge ED (Routine); Ordered 09/23/25 Ordered By: Be Mercer Referrals: Justine Cook MD [Primary Care Provider, [facility]] - 4-7 days Discharge Diet: Advance as tolerated Discharge Activity: Resume usual activity Patient Instructions: Chest Pain (ED) Print Language: Tamazight Coding Level of Care Code ED Food Prep Worker for Chg Fwd Heart Score HEART Score Components History: Slightly Suspicous EKG: Normal Age: 65 or more yrs Risk Factors: 1 or 2 Risk Factors Troponin: Baseline Trop 16-45 ng/L HEART Score RESULT HEART Score: 4
[2025-09-23 13:48] LABS: Alanine Aminotransferase 16 U/L (0-33); Albumin Level 4.3 g/dL (3.5-5.2); Alkaline Phosphatase 128 U/L (35-105); Anion Gap 18.7 (5-19); Aspartate Amino Transferase 25 U/L (0-32); Blood Urea Nitrogen 13 mg/dL (8-23); Calcium 11.6 mg/dL (8.5-10.5); Carbon Dioxide 22 mmol/L (22-29); Chloride 105 mmol/L (98-107); Globulin 3.5 g/dL (1.3-4.6); Glucose 141 mg/dL (65-115); Lipase 17 U/L (13-60); Osmolality Calculated 296 mOsm/kg (285-295); Potassium 3.7 mmol/L (3.5-5.1); Sodium 142 mmol/L (136-145); Total Protein 7.8 g/dL (6.6-8.7)
[2025-09-23] MEDS: LORazepam 2 mg/mL INJ 1 mL 1 MG IVP (13:55)
[2025-09-23 13:58] VITALS: BP 109/86; PULSE 95; O2SAT 99
[2025-09-23 14:02] LABS: Troponin(5th) Baseline 24 ng/L (0-10)
--- NOTE | 2025-09-23 14:39 | ECG_ITS ---
[facility] 2025-09[facility]23 Pat Name: Tressa Mcgill Department: Room: Gender: Female Yarn Dumper: : 1945 Requested By: Be Mercer Order Number: [id number] Steve MD: Felicitas Connell M.D. Measurements Intervals [place] Rate: 98 P: 5 SD: 146 QRS: 25 QRSD: 120 T: 23 QT: 385 QTc: 492 Interpretive Statements SINUS RHYTHM WITH OCCASIONAL SUPRAVENTRICULAR PREMATURE COMPLEXES RIGHT BUNDLE BRANCH BLOCK [120+ ms QRS DURATION, UPRIGHT V1, 40+ ms S IN I/aVL/V4/V5/V6] Compared to ECG 09/23/2025 12:35:12 Atrial fibrillation no longer present Electronically Signed On 09-25-2025 14:27:43 [employer]PLANE C[employer] by Felicitas Connell M.D. [id number]
--- OUTSIDE RECORDS SUMMARY | 2025-09-23 15:32 | XMS_ITS | Patient Health Record ---
Author Organization [facility] Address [address] [place] [address] Care Team Providers Care Manager Fast Food Name Role Phone Alejandro Freitas Unavailable [phone] Reason For Referral No Information Problems Problem Type SNOMED Code ICD Code Onset Dates Problem Status W/U Status Risk Notes Problem Calculus of kidney (91085705) Calculus of kidney (N20.0) Active confirmed Plan Of Treatment Pending Test Test Name Order Date Blood Urea Nitrogen (BUN) 38184 05/25/20 24 Creatinine (B) 61778 05/25/2024 CT Abdomen w/ + w/o Contrast-09143 05/25
--- OUTSIDE RECORDS SUMMARY | 2025-09-23 15:32 | XMS_ITS | Clinical Summary ---
[facility] Address [address] [place] [address] Care Team Providers Care Shredded Filler Machine Wrapper Layer Name Role Phone Renata Hyde DO Primary Care Provider [phone]- [phone] Allergies No known active allergies Medications citalopram [...] Comments Blood Pressure 134/84 10/31/2023 1:28 PM [employer] Pulse 70 10/24/2023 10:57 AM [employer] Temperature 37.1 C (98.7 F) 10/24/2023 10:57 AM [employer] Respiratory Rate 18 10/24/2023 10:57 AM [employer] Oxygen Saturation 97% 10/24/2023 10:57 AM [employer] Inhaled Oxygen Concentration - - Weight 77.6 kg (171 lb) 10/31/2023 1:28 PM [employer] Height 172.7 cm (5' 8 ) 10/31/2023 1:28 PM [employer] Body Mass Index 26 10/31/2023 1:28 PM [employer] Plan of Treatment Health Maintenance Due Date Last Done Comments DTAP/TDAP/TD VACCINES (1 - Tdap) 1966 PNEUMOCOCCAL VACCINE 50+ YEARS (1 of 1 - PCV) 02/23/19 97 ZOSTER VACCINE (1 of 2) 1997 OSTEOPOROSIS SCREENING 02/24/2012 RSV VACCINE (60+ or ) (1 - 1-dose 75+ series) 2022 INFLUENZA VACCINE (#1) 2025 Medical Devices Implanted Type Area Track Man Device Identifier Shelf Expiration Date Model / Serial / Lot Clip Ligating Horizon Red [id number] [place] [facility] [place] [id number] Implanted:Qty: 1 on 10/14/2023 by Saurabh Azul MD at [facility] Clip N/A: [employer] [id number] 06/10/2028 [id number] / / [id number] Clip Ligating Horizon Med Ti [id number] [place] [facility] [place] [id number] Implanted:Qty: 1 on 10/14/2023 by Saurabh Azul MD at [facility] Clip N/A: Neck [employer]- [employer] [id number] 07/16/2028 [id number] / / [id number] Hemostatic Surgifoam Sz12-7 1971 - [id number] Implanted:Qty: 1 on 10/14/2023 by Saurabh Azul MD at [facility] Hemostatic N/A: Neck [employer] [id number] 06/20/20271971 Explanted Type Area Track Man Device Identifier Shelf Expiration Date Model / Serial / Lot Hemostatic Surgifoam Sz12-7 1969 [id number] Explanted:Qty: 1 on 10/14/2023 by Saurabh Azul MD at [facility] Hemostatic N/A: Neck [employer] [id number] 06/20/20271971403 Insurance Advance Directives For more information, please contact: [phone] * Full Code (Latest Code Status on File) Date Activated Date Inactivated Comments 10/14/2023 10:55 AM 10/14/2023 8:21 PM Care Teams Shredded Filler Machine Wrapper Layer Relationship Specialty Start Date End Date Renata Hyde DO PCP - General Family Practice 07/23/23
--- NOTE | 2025-09-23 15:34 | PC.PHAR ---
Guardian states pt is taking protonix 40mg for possible stomach ulcer but he still gives the Meloxicam 7.5mg. Guardian states pt decided to stop taking her medications on Saturday and has taken nothing since that time.
[2025-09-23 15:38] LABS: Troponin 5 2HR 21.63 ng/L (0-10)
[2025-09-23 15:39] LABS: Troponin 5 2HR Delta -2.37 ABS# (0-10)
[2025-09-23 16:12] VITALS: BP 125/77; PULSE 112; O2SAT 90
== END 2025-09-23 16:15 | disposition home or self-care (01) ==
PROVIDERS: Emergency Provider Emergency Medicine; PCP Family Medicine
DX: R07.9 Chest pain, unspecified (principal); Z79.82 Long term (current) use of aspirin; Z86.73 Personal history of transient ischemic attack (TIA), and cerebral infarction without residual deficits; I10 Essential (primary) hypertension
CPT/HCPCS: 36415; 71045; 80053; 83690; 84484; 85025; 93005; 96374; 99285; J2060